=== PATIENT | female | born 1940 | race Two or more races ===

== ENCOUNTER 2025-04-22 23:53 | Inpatient (IN) | payer MEDICARE, MEDICAID, SELFPAY ==
--- NOTE | 2025-04-22 23:56 | PD.EDWEAK ---
ED Weakness RME/HPI General Chief complaint: Shortness of Breath/Dyspnea Stated complaint: WEAKNESS/NAUSEA/VOMITING Time Seen by Provider: 04/22/25 23:59 Arrival date/time: 04/22/25 23:53 RME / HPI RME / HPI Narrative: See MDM for Dr. Schwab's HPI Documentation. Related Data Home Medications ?Medication ?Instructions ?Recorded ?Confirmed amlodipine 10 mg tablet 10 mg PO QDAY 11/07/22 12/20/23 atorvastatin 40 mg tablet 40 mg PO QDAY 11/07/22 12/20/23 isosorbide mononitrate 60 mg 60 mg PO DAILY 11/07/22 12/20/23 tablet,extended release 24 hr losartan 100 mg tablet 100 mg PO QDAY 11/07/22 12/20/23 sucroferric oxyhydroxide 500 mg 500 mg PO TIDWM 11/07/22 12/20/23 chewable tablet (Velphoro) vitamin B complex-vitamin C-folic 1 tab PO QDAY 11/07/22 12/20/23 acid 0.8 mg tablet (Rosalinda-Franklin) thiamine HCl (vitamin B1) 100 mg 100 mg PO DAILY 10/11/23 12/20/23 tablet acetaminophen 300 mg-codeine 30 mg 0.5 tab PO BID PRN Pain 12/20/23 12/20/23 tablet Previous Rx's ?Medication ?Instructions ?Recorded levetiracetam 250 mg tablet 250 mg PO BID #60 tabs 12/21/23 Allergies Allergy/AdvReac Type Severity Reaction Status Date / Time Penicillins Allergy Intermediate Rash Verified 06/29/20 08:33 Review of Systems Review of Systems Systems Reviewed: All systems reviewed, normal except as documented Past Medical History Past Medical History NEUROLOGIC: Positive Neurological Disorders and Cerebrovascular Accident CARDIAC: Positive Cardiac Disorders, Coronary Artery Disease, Hypercholesterolemia, Congestive Heart Failure and Hypertension RESPIRATORY: Positive Pneumonia GASTROINTESTINAL: Positive Gastrointestinal Disorders (gastritis) and Gall Bladder Disease GENITOURINARY: Positive Genitourinary Disorders, Renal Disease and Dialysis MUSCULOSKELETAL: Positive Musculoskeletal Disorders and Arthritis ENDOCRINE: Positive Endocrine Disorders and Diabetes Mellitus Type 2 HEMATOLOGIC: Positive Blood Disorders and Anemia OTHER HISTORY: Positive Measles and Mumps Surgical History SURGICAL: Positive Cardiac Surgery and Coronary Stent ED Exam Narrative Physical exam: See MDM for Dr. Schwab's Exam Documentation. Course Course Course Narrative: CXR is ordered for determining the etiology of shortness of breath. Quality Measures none Orders Category Date Time Status Admit to Inpatient Status Routine Admission 04/23/25 02:24 Active Patient Condition Routine Admission 04/23/25 02:23 Ordered Aspiration precautions NOW Care 04/23/25 02:26 Active Bedside Blood Glucose Q6HR Care 04/23/25 02:28 Active Bedside COVID-19 Antigen Test NOW Care 04/22/25 23:56 Active Bedside Influenza A&B Antigen Test NOW Care 04/22/25 23:57 Completed COVID-19 Screening Questionnaire NOW Care 04/23/25 02:42 Active Continuous Pulse Oximetry QSHIFT Care 04/23/25 02:23 Active Decision to Admit X1 Care 04/23/25 02:42 Active EKG (ED ONLY) *Do not use* NOW Care 04/22/25 23:58 Completed Incentive Spirometry Treatment .q2h w/a Care 04/23/25 02:23 Active May take PO meds w/sips of H2O NEEDED Care 04/23/25 02:23 Active Miscellaneous Nursing Order NOW Care 04/23/25 02:23 Active NPO NOW Care 04/23/25 02:26 Active Notify provider NEEDED Care 04/23/25 02:23 Active Obtain weight daily Care 04/23/25 02:25 Active Occult Blood,Stool (Nursing) NOW Care 04/23/25 02:28 Active Saline [Insert IV] NOW Care 04/22/25 23:57 Active Sequential Compression Device QSHIFT Care 04/23/25 02:28 Active Straight [In and Out Catheter] X1 Care 04/22/25 23:57 Active Transfuse,blood/blood products NOW Care 04/23/25 00:50 Active Consult to Gastroenterology Routine Cons 04/23/25 02:30 Ordered Consult to Nephrology Stat Cons 04/23/25 01:27 Ordered Diet NPO (NOW) Diet 04/23/25 02:26 Active EKG (ED Only) Stat Exams 04/22/25 23:58 Ordered XR chest 1V portable Stat Exams 04/22/25 23:58 Taken ABG [Arterial Blood Gas] Stat Lab 04/23/25 01:04 Completed BNP [B-Type Natriuretic Peptide] Stat Lab 04/22/25 23:58 Completed Beta Hydroxybutyrate Stat Lab 04/22/25 23:58 Completed Bilirubin,Direct Stat Lab 04/22/25 23:58 Completed Blood Culture (Lab) Stat Lab 04/22/25 23:58 Received CBC AM DRAW Lab 04/23/25 05:00 Ordered CBC AM DRAW Lab 04/24/25 05:00 Ordered CBC AM DRAW Lab 04/25/25 05:00 Ordered CBC Stat Lab 04/22/25 23:58 Completed CMP [Comprehensive Metabolic Panel] Stat Lab 04/22/25 23:58 Completed CRP [C-Reactive Protein] Stat Lab 04/22/25 23:58 Completed Comprehensive Metabolic Panel AM DRAW Lab 04/23/25 05:00 Ordered Comprehensive Metabolic Panel AM DRAW Lab 04/24/25 05:00 Ordered Comprehensive Metabolic Panel AM DRAW Lab 04/25/25 05:00 Ordered D-Dimer Stat Lab 04/22/25 23:58 Completed ESR [Sed Rate (ESR)] Stat Lab 04/22/25 23:58 Completed Lactate (Lactic Acid) Stat Lab 04/22/25 23:58 Results Lipase Stat Lab 04/22/25 23:58 Completed Magnesium AM DRAW Lab 04/23/25 05:00 Ordered Magnesium Stat Lab 04/22/25 23:58 Completed Partial Thromboplastin Time AM DRAW Lab 04/24/25 05:00 Ordered Phosphorous AM DRAW Lab 04/23/25 05:00 Ordered Procalcitonin Stat Lab 04/22/25 23:58 Completed Prothrombin Time with INR AM DRAW Lab 04/24/25 05:00 Ordered Troponin I Stat Lab 04/22/25 23:58 Completed Type and Screen Stat Lab 04/23/25 00:47 Results UA, C/S IF [Urinalysis, C/S if Indicated] Stat Lab 04/22/25 23:59 Ordered prbc [Red Blood Cells] Stat Lab 04/23/25 00:47 Results Acetaminophen Ivpb [Ofirmev Inj] Med 04/23/25 01:11 Discontinued 1,000 mg in 100 ml IV X1 Acetaminophen Supp [Tylenol Supp] Med 04/23/25 02:23 Active 650 mg HI Q6HR PRN Albuterol/Ipratr Rt Nikki [Duoneb Rt Nikki] Med 04/23/25 02:23 Active 3 ml INH Q2HR PRN Albuterol/Ipratr Rt Nikki [Duoneb Rt Nikki] Med 04/22/25 23:57 Discontinued 3 ml INH X1 ONE Dextrose 50% Syr [D50w Syringe Abboject] Med 04/23/25 02:28 Active 25 ml IV Q15MIN PRN Dextrose 50% Syr [D50w Syringe Abboject] Med 04/23/25 02:28 Active 50 ml IV Q15MIN PRN Furosemide Inj [Lasix Inj] Med 04/22/25 23:57 Discontinued 80 mg IVP X1 ONE Glucagon Inj Med 04/23/25 02:28 Active 1 mg IM Q15MIN PRN HYDROmorphone INJ [Dilaudid Inj] Med 04/23/25 02:23 Active 0.5 mg IVP Q4H PRN INSULIN LISPRO (AdmeLOG) [HumaLOG] Med 04/23/25 06:00 Active See Protocol SC Q6HR KCL 10% Liq UDC 15 ML Med 04/23/25 02:44 Discontinued 40 meq PO X1 ONE Ketorolac Inj [Toradol Inj] Med 04/23/25 01:11 Discontinued 15 mg IVP X1 ONE MethylPREDNISolone.* [SoluMEDROL Inj] Med 04/22/25 23:57 Discontinued 125 mg IVP X1 ONE Morphine Inj Med 04/22/25 23:57 Discontinued 2 mg IVP X1 ONE Nitroglycerin Oint 2% [Nitro-paste Oint 2%] Med 04/22/25 23:57 Discontinued 2 inch TOP X1 ONE Pantoprazole Inj [Protonix Inj] Med 04/23/25 09:00 Active 40 mg IVP Q12HR amLODIPine BESYLATE [Norvasc] Med 04/23/25 09:00 Active 10 mg PO QDAY levETIRAcetam [Keppra] Med 04/23/25 09:00 Active 250 mg PO BID traMADol HCL [Ultram] Med 04/23/25 02:23 Active 50 mg PO Q6HR PRN Code Status Routine Oth 04/23/25 02:23 Ordered Oxygen Delivery DAILY RT 04/23/25 02:26 Active Vital Signs Vital signs: Vital Signs Temperature 100.8 F H 04/22/25 23:57 Pulse Rate 105 H 04/22/25 23:57 Respiratory Rate 16 04/22/25 23:57 Blood Pressure 187/72 H 04/22/25 23:57 Pulse Oximetry (%) 94 L 04/22/25 23:57 Oxygen Delivery Method Nasal Cannula 04/22/25 23:57 Oxygen Flow Rate 6 04/22/25 23:57 Weakness MDM Narrative MDM Narrative:: Scribe Attestation: I, Kavitha Guzmán, am scribing for and in the presence of Dr. Schwab. This section includes all my notes and documentations, including HPI, PE, and ED course. Demetrius Schwab MD HPI: 84 y/o female with Hx of ESRD with Dialysis, HTN, CAD, COPD, and Type II DM BIBA with sudden severe shortness of breath. Reports several days of malaise and fatigue and vomiting. No obvious fever. No other complaints. ROS: All negative except as documented in HPI. Physical Exam: General: Alert and oriented. In severe respiratory distress. Fever noted. Hypoxia noted. Eyes: Conjunctivae and lids clear. PERRL. EOMI. ENT: No nasal congestion. Neck: Supple. No carotid bruit. No JVD. Heart: Sinus tachycardia noted. Lungs: In severe respiratory distress. Decreased air movement with wheezing and severe Rales. Abdomen: Soft and nontender. Normal bowel sounds. No distension. No rebound or guarding. Back: No CVA tenderness. Skin: Warm and dry. Neuro: Alert and oriented X 3. Cranial nerves II to XII grossly normal. No peripheral motor deficits. I reviewed EMS notes. I reviewed all diagnostic test results: My interpretation of the EKG is: Sinus tachycardia (105 bpm) with nonspecific ST-T changes. My interpretation of the chest x-ray is bilateral infiltrates. Blood tests remarkable for WBC 11.1, Hgb 6.7, K 3.4, Cr 3.8, Glu 287, lactic acid 3.6, BNP 1886, CRP 3.0, ESR 38, D-dimer 1030, and LFT elevation. Covid/Influenza: Positive COVID. Urine specimen pending. At this point, diagnoses include: Acute respiratory failure with hypoxia, COVID, Severe anemia, ESRD (end stage renal disease), Hypokalemia Treatment here included: Oxygen Toradol 15 mg IV and Tylenol 1000 mg IV Morphine 2 mg IV and Lasix 80 mg IV and topical NTG Solu-Medrol to 25 mg IV and DuoNeb Oral KCl 40 mEq Transfusion ordered Some improvement noted. 0123: I discussed the case with our Dr. Hui, patient's cash surrender calculator. About the presentation and exam and diagnostics and treatments here. And need of further care in the hospital. Recommended admission to hospitalist service. 0128: I discussed the case with our hospitalist service. About the presentation and exam and diagnostics and treatments here. And need of further care in the hospital. Agreed to accept the patient. Demetrius Schwab MD Patient data External records reviewed:: [facility] previous records (Reviewed prior ED records from 12/20/23. Patient was seen for AMS (altered mental status).) and EMS form Clinical information provided by:: patient and EMS Social determinants that could affect healthcare access:: none Patient has the following chronic illnesses:: Coronary Artery Disease, Hypercholesterolemia, Congestive Heart Failure, Hypertension, Gastritis, Gall Bladder Disease, Renal Disease and Dialysis, Arthritis, Diabetes Mellitus Type 2, Anemia How is presenting disease/condition affected by chronic disease/condition?: exacerbated by Evaluation data The following diagnostics were reviewed and interpreted by me:: lab results, radiology exam(s) and EKG tracing(s) (My interpretation of the EKG is: Sinus tachycardia (105 bpm) with nonspecific ST-T changes. Demetrius Schwab MD) Lab and/or radiology exams considered but not ordered:: None Interpretation Summary: I reviewed all diagnostic test results: My interpretation of the EKG is: Sinus tachycardia (105 bpm) with nonspecific ST-T changes. My interpretation of the chest x-ray is bilateral infiltrates. Blood tests remarkable for WBC 11.1, Hgb 6.7, K 3.4, Cr 3.8, Glu 287, lactic acid 3.6, BNP 1886, CRP 3.0, ESR 38, D-dimer 1030, and LFT elevation. Covid/Influenza: Positive COVID. Medications / Prescriptions Medications or Prescriptions considered but not ordered:: None Medication administrations:: Medication Administration History Acetaminophen (Acetaminophen Supp 650 Mg Supp) 650 mg HI Q6HR PRN PRN Reason: Fever > 100.4 or pain 1-3(mild Stop: 05/23/25 02:22 Albuterol/Ipratropium (Albuterol/Ipratropium (Duoneb) Rt Nikki 3 Ml Nebu) 3 ml INH Q2HR PRN PRN Reason: SHORTNESS OF BREATH OR WHEEZE Stop: 05/23/25 02:22 Amlodipine Besylate (Amlodipine Besylate 5 Mg Tablet) 10 mg PO QDAY MELECIO Stop: 05/23/25 08:59 Dextrose (Dextrose 50%-Water Inj 50 Ml Syringe) 25 ml IV Q15MIN PRN PRN Reason: BG 50-70 responsive npo pt Stop: 05/23/25 02:27 Dextrose (Dextrose 50%-Water Inj 50 Ml Syringe) 50 ml IV Q15MIN PRN PRN Reason: BG <50 OR BG <70 & pt unresponsive Stop: 05/23/25 02:27 Glucagon (Glucagon Inj 1 Mg Vial) 1 mg IM Q15MIN PRN PRN Reason: BG <70, and no IV access Hydromorphone HCl (Hydromorphone Inj 2 Mg/Ml Vial) 0.5 mg IVP Q4H PRN PRN Reason: PAIN SCALE 7-10(Mod-Sev Stop: 04/28/25 02:22 Insulin Human Lispro (Insulin Lispro (Admelog) 1 Unit/0.01 Ml Unit) 0 unit SC Q6HR MELECIO; Protocol Stop: 05/23/25 05:59 Levetiracetam (Levetiracetam 250 Mg Tablet) 250 mg PO BID MELECIO Stop: 05/23/25 08:59 Pantoprazole Sodium (Pantoprazole Inj 40 Mg Vial) 40 mg IVP Q12HR MELECIO Stop: 05/23/25 08:59 Tramadol HCl (Tramadol Hcl 50 Mg Tablet) 50 mg PO Q6HR PRN PRN Reason: PAIN SCALE 4-6 (Moderate Stop: 04/28/25 02:22 Discontinued Medications Albuterol/Ipratropium (Albuterol/Ipratropium (Duoneb) Rt Nikki 3 Ml Nebu) 3 ml INH X1 ONE Stop: 04/22/25 23:58 Last Admin: 04/23/25 00:51 Dose: 3 ml Documented By: SC Furosemide (Furosemide Inj 10 Mg/Ml 4ml Vial) 80 mg IVP X1 ONE Stop: 04/22/25 23:58 Last Admin: 04/23/25 00:31 Dose: 80 mg Documented By: TRUMAN Acetaminophen (Ofirmev Inj) 1,000 mg in 100 mls @ 250 mls/hr IV X1 ONE Stop: 04/23/25 01:34 Last Admin: 04/23/25 02:29 Dose: 250 mls/hr Documented By: TRUMAN Ketorolac Tromethamine (Ketorolac Inj 30 Mg/Ml Vial) 15 mg IVP X1 ONE Stop: 04/23/25 01:12 Last Admin: 04/23/25 02:30 Dose: 15 mg Documented By: TRUMAN Methylprednisolone Sodium Succinate (Methylprednisolone Sod Succ 62.5 Mg/Ml 2ml Vial) 125 mg IVP X1 ONE Stop: 04/22/25 23:58 Last Admin: 04/23/25 00:31 Dose: 125 mg Documented By: TRUMAN Morphine Sulfate (Morphine Sulf Inj 10 Mg/Ml Vial) 2 mg IVP X1 ONE Stop: 04/22/25 23:58 Last Admin: 04/23/25 00:32 Dose: 2 mg Documented By: TRUMAN Nitroglycerin (Nitroglycerin Oint 2% 1 Inch Packet) 2 inch TOP X1 ONE Stop: 04/22/25 23:58 Last Admin: 04/23/25 00:32 Dose: 2 inch Documented By: TRUMAN Potassium Chloride (Potassium Chloride 10% 20 Meq/15 Ml Udc) 40 meq PO X1 ONE Stop: 04/23/25 02:45 Treatment here from me included: Oxygen Toradol 15 mg IV and Tylenol 1000 mg IV Morphine 2 mg IV and Lasix 80 mg IV and topical NTG Solu-Medrol to 25 mg IV and DuoNeb Oral KCl 40 mEq Transfusion ordered Consultations Consultation(s) initiated? (list below): Yes Consultation #1 (Physician, Specialty, Details): I discussed the case with Dr. Hui. About the presentation and exam and diagnostics and treatments here. And need of further care in the hospital. Recommended admission to hospitalist service. Time: 01:23 Consultation #2 (Physician, Specialty, Details): I discussed the case with our hospitalist. About the presentation and exam and diagnostics and treatments here. And need of further care in the hospital. They agreed to accept the patient. Time: 01:28 Diagnosis Weakness Differential Diagnosis: acute myocardial infarction, anemia, hypoglycemia, hypothyroidism, rhabdomyolysis, sepsis, dehydration and other (Pneumonia, CHF exacerbation, Pulmonary Edema, COVID, Influenza) Most likely diagnosis given after review of the tests above:: At this point, diagnoses include: Acute respiratory failure with hypoxia, COVID, Severe anemia, ESRD (end stage renal disease), Hypokalemia Admission Indicated Admission indicated?: indicated Explain why admission is indicated or not indicated:: Acute respiratory failure with hypoxia, COVID, Severe anemia, ESRD (end stage renal disease), Hypokalemia Admission Request Was there a request for admission?: Yes Admission Attestation Admission request attestation: Discussed case with Hospitalist service regarding admission. Discussed patients ED course, exam findings, labs, and radiology results. Agreed to accept the patient for admission. Disposition Plan Disposition Plan: Admit Discharge Plan Plan Patient Disposition: Admit Acute Care w/in Hospital Prescriptions/Referrals Prescriptions/Med Rec: No Action atorvastatin 40 mg Tablet 40 mg PO QDAY isosorbide mononitrate 60 mg tablet extended release 24 hr 60 mg PO DAILY Patient Comments: take 1 tablet by mouth once daily amlodipine 10 mg Tablet 10 mg PO QDAY Rosalinda-Franklin 0.8 mg Tablet 1 tab PO QDAY losartan 100 mg Tablet 100 mg PO QDAY Velphoro 500 mg tablet,chewable 500 mg PO TIDWM thiamine HCl (vitamin B1) 100 mg tablet 100 mg PO DAILY Patient Comments: take 1 tablet by mouth once daily acetaminophen-codeine 300-30 mg tablet 0.5 tab PO BID PRN (Reason: Pain) Patient Comments: take 1/2 tablet by mouth twice a day if needed for pain levetiracetam 250 mg tablet 250 mg PO BID Qty: 60 0RF Problem List Clinical Impression: Acute respiratory failure with hypoxia, COVID, Severe anemia, ESRD (end stage renal disease), Hypokalemia, LFT elevation, Hyperglycemia Patient/Caregiver Discharge Instructions Print Language: Panamanian Stand Alone Forms: Diana Award Info., Patient Portal Info Letter
[2025-04-22 23:57] VITALS: BP 187/72; PULSE 105; RESP 16; TEMP 38.2; O2SAT 94
--- NOTE | 2025-04-22 23:58 | XR_ITS ---
Examination: AP chest single view Technique AP portable upright chest single view Date and time: April 23, 2025 0008 hours, comparison December 20, 2023 INDICATIONS: Shortness of breath today. FINDINGS: Mild enlargement cardiac contour Prominent vascular congestion. Diffuse edema and/or pneumonia throughout the lungs Prominent osteopenia IMPRESSION: Mild enlargement cardiac contour. Diffuse edema and/or pneumonia throughout the lungs, clinical correlation advised
[2025-04-23] VITALS (42 sets, daily range): BP systolic 120–196; BP diastolic 62–115; PULSE 56–116; RESP 10–26; TEMP 35.3–38.2; O2SAT 91–100; BMI 19.0; BMI 18.9
[2025-04-23 00:25] LABS: Lactate (Lactic Acid) 2.6 mMol/L (0.4-2.0)
[2025-04-23 00:28] LABS: Beta Hydroxybutyrate 0.1 mmol/L (<0.6)
[2025-04-23] MEDS: MethylPREDNISolone SOD SUCC 62.5 MG/ML 2ML VIAL 125 MG IVP (00:31)
[2025-04-23] MEDS: FUROSEMIDE INJ 10 MG/ML 4ML VIAL 80 MG IVP (00:31)
[2025-04-23 00:32] LABS: Basophils # (Auto) 0.0 Thou/mm3 (0.0-0.2); Basophils % (Auto) 0 % (0-2.5); Eosinophils # (Auto) 0.1 Thou/mm3 (0.0-0.5); Eosinophils % (Auto) 1 % (0-10); Hematocrit 21.1 % (36.0-46.0); Immature Granulocytes Auto 0.07 Thou/mm3 (0.00-0.00); Lymphocytes # (Auto) 1.2 Thou/mm3 (1.0-4.8); Lymphocytes % (Auto) 11 % (10-50); Mean Corpuscular HGB Conc 31.8 g/dl (31.0-37.0); Mean Corpuscular Hemoglobin 30.6 pg (25.0-35.0); Mean Corpuscular Volume 96 fL (80-100); Monocytes # (Auto) 0.4 Thou/mm3 (0.0-0.8); Monocytes % (Auto) 4 % (0-12); Neutrophils # (Auto) 9.2 Thou/mm3 (1.8-7.7); Neutrophils % (Auto) 83 % (37-80); Nucleated Red Blood Cell # 0.00 Thou/mm3 (0.00-0.00); Nucleated Red Blood Cell % 0 /100 WBC (0); Platelet Count 196 Thou/mm3 (140-440); RDW Standard Deviation 52.0 fL (36.4-46.3); Red Blood Count 2.19 Miln/mm3 (4.00-5.20); White Blood Count 11.1 Thou/mm3 (3.6-11.0)
[2025-04-23] MEDS: MORPHINE SULF INJ 10 MG/ML VIAL 2 MG IVP (00:32)
[2025-04-23] MEDS: NITROGLYCERIN OINT 2% 1 INCH PACKET 2 INCH TOP (00:32)
[2025-04-23 00:42] LABS: Hemoglobin 6.7 g/dL (12.0-16.0)
[2025-04-23 00:43] LABS: Sed Rate (ESR) 38 mm/hr (0-30)
[2025-04-23 00:44] LABS: B-Type Natriuretic Peptide 1886 pg/mL (0-100)
[2025-04-23] MEDS: ALBUTEROL/IPRATROPIUM (Duoneb) RT SOL 3 ML NEBU INH (00:51)
[2025-04-23 00:52] LABS: Alanine Aminotransferase 54 U/L (10-49); Albumin, Serum 3.6 gm/dL (3.4-4.8); Albumin/Globulin Ratio 1.2 (1.2-2.2); Alkaline Phosphatase 248 U/L (46-116); Anion Gap 13 (7-16); Aspartate Amino Transferase 55 U/L (0-34); BUN/Creatinine Ratio 23 Ratio (12-20); Bilirubin,Direct 0.1 mg/dL (0.0-0.3); Bilirubin,Total 0.4 mg/dL (0.3-1.2); Blood Urea Nitrogen 89 mg/dL (9-23); C-Reactive Protein 3.0 mg/dL (0.0-0.9); Calcium 9.5 mg/dL (8.3-10.6); Calcium (Corrected) 9.8 mg/dL (8.5-10.1); Carbon Dioxide 32.6 mMol/L (20.0-31.0); Chloride 91 mMol/L (98-107); Creatinine (Component) 3.8 mg/dL (0.6-1.3); Estimated Creatinine Clearance 6.7 mL/min (>60); Globulin 3.1 gm/dL (2.3-3.5); Glucose 287 mg/dL (74-106); Lipase 36 U/L (12-53); Magnesium 1.9 mg/dL (1.6-2.6); Osmolality,Calculated 311 (275-295); Potassium 3.4 mMol/L (3.4-5.1); Procalcitonin 0.92 ng/ml (0.0-0.49); Sodium 137 mMol/L (136-145); Total Protein 6.7 gm/dL (5.7-8.2); Troponin I 0.027 ng/mL (0.0-0.045); eGFR 11 See Note
[2025-04-23 01:00] LABS: D-Dimer 1030 ng/mL (<600)
[2025-04-23 01:11] LABS: Base Excess 8 (-3-3); HCO3 33 mEq/L (20-26); O2 Saturation 97 % (91-98); PCO2 50 mmHg (32.0-48.0); PO2 90 mmHg (83-108); pH, Arterial 7.43 (7.35-7.45)
[2025-04-23 01:12] LABS: Allen Test Performed/OK; Inspired O2, VO2 Liters 6 L/min; Puncture Site Left Radial
[2025-04-23] MEDS: ACETAMINOPHEN IVPB 1,000 MG/100 ML VIAL 250 MG IV (02:29)
[2025-04-23] MEDS: KETOROLAC INJ 30 MG/ML VIAL 15 MG IVP (02:30)
--- NOTE | 2025-04-23 02:35 | PD.RESHP ---
Documentation for date of: 04/23/25 HPI History of Present Illness Chief complaint: Weaknes, N/V History of present illness: 84 y/o F with PMHx significant for ESRD (//Sun), CAD (with stents) HTN, diabetes with peripheral neuropathy, dementia, seizures presents to ED from home with chief complaint of weakness and nausea/vomiting x 2 days. Patient is altered at baseline and poor historian, history taken from chart review and patient's daughter. Patient was in her usual state of health till approximately 2 days ago when she had progressive weakness/fatigue. Patient has also had nausea, multiple episodes of vomiting. To excessive vomiting witnessed in the ED, yellow in color, no signs of bleeding. Patient resting comfortably at time of admission. ED COURSE: Labs significant for: WC 11.1, hemoglobin 6.7. BUN 89, significantly above patient's baseline. Lactic acid 2.6. ABG showed pH 7.43, PCO2 50, PO2 90. CRP 3.0, Pro-Gil 0.92. BMP 0.886, urinalysis negative. T. bili 0.1, AST 55, ALT 54, ALP 248. COVID-positive, influenza negative. Imaging significant for: Chest x-ray showing diffuse consolidations. Patient received steroids, Lasix IV x 1, nitro, DuoNebs in the ED. 2 units PRBC ordered to be transfused. Temperature 100.8. Satting well on 3 L/min O2. Patient had no urinary output. PMH: ESRD, CAD, HTN, diabetes, peripheral neuropathy, dementia, seizures PSH: Right upper extremity fistula placement SH: Unknown Allergies:?Penicillins Medications: Amlodipine, atorvastatin, isosorbide mononitrate, Keppra, losartan, Rosalinda-Franklin, Velphoro Review of Systems Review of Systems Systems Reviewed: All systems reviewed, normal except as documented Past Medical History Past Medical History Comments PMH COMMENT: PMH: ESRD, CAD, HTN, diabetes, peripheral neuropathy, dementia, seizures PSH: Right upper extremity fistula placement SH: Unknown Allergies:?Penicillins Medications: Amlodipine, atorvastatin, isosorbide mononitrate, Keppra, losartan, Rosalinda-Franklin, Velphoro Exam Vital Signs Temp Pulse Resp BP Pulse Ox O2 Del Method O2 Flow Rate 100.8 F H 101 H 26 H 188/84 H 100 Nasal Cannula 6 04/23/25 00:57 04/23/25 00:57 04/23/25 00:57 04/23/25 00:57 04/23/25 00:57 04/23/25 00:57 04/23/25 00:57 Narrative Exam PE: Gen: Well-developed and well-nourished. No distress. HEENT: NCAT, PERRLA, EOMI, MMM, anicteric conjunctivae. CVS: normal S1 and S2. RRR. No M/R/G. Resp: Poor lung sounds throughout. Diffuse end expiratory wheezing. Rhonchi, most prominent in the left lung and bilateral bases. No crackles. Abd: soft, non-distended. Mild abdominal tenderness LUQ and epigastric region. PEG tube. MSK: Good ROM in BUE & BLE. No edema or rash. Neuro: CN II-XII grossly intact. Strength 5/5 in BUE & BLE. Alert and oriented x1, follows commands, answers questions but unreliable. Psych: appropriate mood and affect. Results: Labs 04/23/25 00:14 04/23/25 00:14 Labs: Short CBC 04/23/25 Range/Units 00:14 WBC 11.1 H (3.6-11.0) Thou/mm3 Hgb 6.7 L* (12.0-16.0) g/dL Hct 21.1 L* (36.0-46.0) % Plt Count 196 (140-440) Thou/mm3 BMP 04/23/25 00:14 Sodium 137 Potassium 3.4 Chloride 91 L Carbon Dioxide 32.6 H BUN 89 H Creatinine 3.8 H Glucose 287 H Calcium 9.5 Cardiac Enzymes 04/23/25 Range/Units 00:14 Troponin I 0.027 (0.0-0.045) ng/mL Liver Function 04/23/25 Range/Units 00:14 Total Bilirubin 0.4 (0.3-1.2) mg/dL Direct Bilirubin 0.1 (0.0-0.3) mg/dL AST 55 H (0-34) U/L ALT 54 H (10-49) U/L Alkaline Phosphatase 248 H (46-116) U/L Albumin 3.6 (3.4-4.8) gm/dL ABG Interpretation ABG results: 04/23/25 01:04 ABG pH 7.43 ABG pCO2 50 H ABG pO2 90 ABG HCO3 33 H ABG O2 Saturation 97 ABG Base Excess 8 H Quality Measures Quality Measures VTE prophylaxis Advance care planning discussed with:: patient and child Medications Home Medications and Allergies Home Medications ?Medication ?Instructions ?Recorded ?Confirmed ?Type amlodipine 10 mg tablet 10 mg PO QDAY 11/07/22 12/20/23 History atorvastatin 40 mg tablet 40 mg PO QDAY 11/07/22 12/20/23 History isosorbide mononitrate 60 mg 60 mg PO DAILY 11/07/22 12/20/23 History tablet,extended release 24 hr losartan 100 mg tablet 100 mg PO QDAY 11/07/22 12/20/23 History sucroferric oxyhydroxide 500 mg 500 mg PO TIDWM 11/07/22 12/20/23 History chewable tablet (Velphoro) vitamin B complex-vitamin C-folic 1 tab PO QDAY 11/07/22 12/20/23 History acid 0.8 mg tablet (Rosalinda-Franklin) thiamine HCl (vitamin B1) 100 mg 100 mg PO DAILY 10/11/23 12/20/23 History tablet acetaminophen 300 mg-codeine 30 mg 0.5 tab PO BID PRN Pain 12/20/23 12/20/23 History tablet Allergies Allergy/AdvReac Type Severity Reaction Status Date / Time Penicillins Allergy Intermediate Rash Verified 06/29/20 08:33 Visit Medications Acetaminophen (Acetaminophen Supp 650 Mg Supp) 650 mg MN Q6HR PRN PRN Reason: Fever > 100.4 or pain Stop: 05/23/25 02:22 Albuterol/Ipratropium (Albuterol/Ipratropium (Duoneb) Rt Nikki 3 Ml Nebu) 3 ml INH Q2HR PRN PRN Reason: SHORTNESS OF BREATH OR WHEEZE Stop: 05/23/25 02:22 Amlodipine Besylate (Amlodipine Besylate 5 Mg Tablet) 10 mg PO QDAY MELECIO Stop: 05/23/25 08:59 Dextrose (Dextrose 50%-Water Inj 50 Ml Syringe) 25 ml IV Q15MIN PRN PRN Reason: BG 50-70 responsive npo pt Stop: 05/23/25 02:27 Dextrose (Dextrose 50%-Water Inj 50 Ml Syringe) 50 ml IV Q15MIN PRN PRN Reason: BG <50 OR BG <70 & pt unresponsive Stop: 05/23/25 02:27 Glucagon (Glucagon Inj 1 Mg Vial) 1 mg IM Q15MIN PRN PRN Reason: BG <70, and no IV access Hydromorphone HCl (Hydromorphone Inj 2 Mg/Ml Vial) 0.5 mg IVP Q4H PRN PRN Reason: PAIN SCALE 7-10(Mod-Sev Stop: 04/28/25 02:22 Insulin Human Lispro (Insulin Lispro (Admelog) 1 Unit/0.01 Ml Unit) 0 unit SC Q6HR MELECIO; Protocol Stop: 05/23/25 05:59 Levetiracetam (Levetiracetam 250 Mg Tablet) 250 mg PO BID MELECIO Stop: 05/23/25 08:59 Pantoprazole Sodium (Pantoprazole Inj 40 Mg Vial) 40 mg IVP Q12HR MELECIO Stop: 05/23/25 08:59 Tramadol HCl (Tramadol Hcl 50 Mg Tablet) 50 mg PO Q6HR PRN PRN Reason: PAIN SCALE 4-6 (Moderate Stop: 04/28/25 02:22 Discontinued Medications Albuterol/Ipratropium (Albuterol/Ipratropium (Duoneb) Rt Nikki 3 Ml Nebu) 3 ml INH X1 ONE Stop: 04/22/25 23:58 Last Admin: 04/23/25 00:51 Dose: 3 ml Furosemide (Furosemide Inj 10 Mg/Ml 4ml Vial) 80 mg IVP X1 ONE Stop: 04/22/25 23:58 Last Admin: 04/23/25 00:31 Dose: 80 mg Acetaminophen (Ofirmev Inj) 1,000 mg in 100 mls @ 250 mls/hr IV X1 ONE Stop: 04/23/25 01:34 Last Admin: 04/23/25 02:29 Dose: 250 mls/hr Ketorolac Tromethamine (Ketorolac Inj 30 Mg/Ml Vial) 15 mg IVP X1 ONE Stop: 04/23/25 01:12 Last Admin: 04/23/25 02:30 Dose: 15 mg Methylprednisolone Sodium Succinate (Methylprednisolone Sod Succ 62.5 Mg/Ml 2ml Vial) 125 mg IVP X1 ONE Stop: 04/22/25 23:58 Last Admin: 04/23/25 00:31 Dose: 125 mg Morphine Sulfate (Morphine Sulf Inj 10 Mg/Ml Vial) 2 mg IVP X1 ONE Stop: 04/22/25 23:58 Last Admin: 04/23/25 00:32 Dose: 2 mg Nitroglycerin (Nitroglycerin Oint 2% 1 Inch Packet) 2 inch TOP X1 ONE Stop: 04/22/25 23:58 Last Admin: 04/23/25 00:32 Dose: 2 inch Assessment & Plan Plan 84 y/o F with PMHx significant for ESRD (), CAD (with stents) HTN, diabetes with peripheral neuropathy, dementia, seizures presents to ED from home with chief complaint of weakness and nausea/vomiting x 2 days admitted for symptomatic anemia. #Acute symptomatic anemia #Suspected GI bleed Patient hemoglobin 6.7 on admission, significantly below patient's baseline. Patient symptomatic with increased weakness, nausea and vomiting x 2 days. No signs of bleeding in the vomitus. No reports of bloody stool. However patient's BUN significant elevated above patient baseline. BUN/creatinine ratio increased from 7 to 23. Mild tenderness to palpation in LUQ and epigastric region of abdomen. ED ordered 2 units PRBCs to be transfused. - Posttransfusion H&H, follow-up - GI consulted, appreciate recommendations - N.p.o. except for p.o. meds - Monitor hemoglobin, transfuse as appropriate - Avoid NSAIDs - Protonix 40 mg IV twice daily #COVID pneumonia Patient in mild respiratory distress on admission. Saturating well on 3 L O2, does not use O2 at home. COVID test positive, influenza test negative. Chest x-ray shows diffuse consolidations. CRP 3.0, Pro-Gil 0.92, lactic acid 2.6. WBC 11.1. On admission patient tachypneic, tachycardic, fever 100.8 degrees. Received steroids, Lasix, nitro, DuoNebs in the ED. Holding off fluids in setting of ESRD patient, BNP 1886. ABG showed pH 7.43, PCO2 50, PO2 90 Sofa score 2 without considering kidney disease - O2, titrate as needed to maintain saturations 92% - Remdesivir 200 mg IV x 1 followed by 100 mg daily x 2 days (started 04/23) - Isolation precautions - Trend lactate - Consider initiating aggressive COVID treatment if patient deteriorates - Blood cultures drawn, follow-up #ESRD () Patient history as stated. 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 Hui. Does not appear to produce urine. - Nephrology consulted, appreciate recommendations - Dialysis as per patient's usual schedule - Renally dose meds as appropriate #Diabetes with peripheral neuropathy Patient history as stated. A1c 4.5% as of 12/20/2023. - ISS - A1c ordered, follow-up #Seizure disorder Patient history as stated. No reports of recent breakthrough seizures. - Resume home Keppra 250 mg PEG tube twice daily #Hypertension Patient history as stated. - Resume patient's home amlodipine 10 mg PEG tube daily #CAD with stents Patient history as stated. Patient denies chest pain at this time. Troponin negative, EKG benign. - Hold any anticoag in setting of suspected GI bleed - Consider resuming home meds when appropriate #Dementia Patient history as stated. A&Ox1 at baseline. Follows commands, answers questions but answers unreliable. - Delirium precautions - Avoid sedatives or excessive pain management DVT prophylaxis: SCDs GI prophylaxis: Protonix Diet: N.p.o. Lines: Peripheral IV, pure wick Code status: DNR Plan of care discussed with attending Dr. Elva Guzman MD PGY?2 Attending Provider Attestation/Addendum I have examined the patient, reviewed labs and imaging findings, discussed the case with the resident(s), and reviewed entered orders. I agree with the plan of care as outlined in this note, with these additional summaries/recommendations: After examination of the patient and review of the clinical data, I feel that this patient needs admission to the hospital for further treatment and evaluation. Patient is a 84-year-old female with a medical history of severe dementia, CVA, CAD s/p stent, seizure disorder, primary hypertension, diabetes mellitus type 2, dyslipidemia, and end-stage renal disease on hemodialysis presents to [facility] emergency department on 04/22/2025 with chief complaints of nausea/vomiting and shortness of breath. Patient seen at bedside. Patient has severe underlying dementia and is not a reliable historian. Per patient's nurse she has had multiple episodes of vomitus while in the emergency room although no blood noted. On admission hemoglobin 6.7 and MCV 96. Patient diagnosed with symptomatic anemia and blood transfusion ordered by emergency room provider. Fecal occult blood test still pending at the time of this note although suspect secondary to GI bleed. Start IV fluids and Protonix. Follow-up posttransfusion H&H. Hold all chemical anticoagulation, aspirin, steroids, NSAIDs. Consult gastroenterology, recommendations appreciated. Patient was also found to have low-grade fever on admission with mild leukocytosis. Patient noted to have dense consolidations bilaterally on chest x-ray. COVID-positive. Patient diagnosed with COVID pneumonitis. Continue supplemental oxygen and supportive care. Start remdesivir. We will defer steroids for now in the setting of potential GI bleed. Consult in-house nephrology for end-stage renal disease and inpatient hemodialysis. Renally dose medications. Continue home Keppra for seizure disorder. Resume home antihypertensives. Start insulin sliding scale with Accu-Cheks for diabetes mellitus type 2. Target blood sugar 140-180 while hospitalized. Patient has history of CVA and CAD although does not appear to take aspirin. Awaiting home medication reconciliation, although we will hold chemical anticoagulation for now. Medical team spoke with patient's daughter who has medical power of contract attorney and confirmed patient is a DNR. Please see residents note for additional details and management. Dr. Elva MD
[2025-04-23 03:20] LABS: Reflex Lactate? Y
--- NOTE | 2025-04-23 05:12 | PC.RT ---
pt unable to do IS due to nausea/vomiting. Spo2 100% 3lpm, 63 HR, 20 RR
[2025-04-23 05:35] LABS: Path Review Blood Smear Sent to Pathologist
[2025-04-23] MEDS: POTASSIUM CHLORIDE 10% 20 MEQ/15 ML UDC 40 MEQ GT (06:06)
--- NOTE | 2025-04-23 09:41 | ECHO_ITS ---
Transthoracic Echo Report Ht (in): 57 Wt (lb): 88 Exam Location: Echo Lab Status: Inpatient Credentialer: Bettina Walton Indications: Procedure Performed: BP: 127 / 72 HR: 87 MEASUREMENTS (Male / Female) Normal Values 2D ECHO LV Diastolic Diameter PLAX 4.6 cm 4.2 - 5.9 / 3.9 - 5.3 cm LV Systolic Diameter PLAX 3.2 cm IVS Diastolic Thickness 1.1 cm 0.6 - 1.0 / 0.6 - 0.9 cm LVPW Diastolic Thickness 1.1 cm 0.6 - 1.0 / 0.6 - 0.9 cm LV Relative Wall Thickness 0.5 LVOT Diameter 1.8 cm LV Ejection Fraction MOD BP 40.5 % >= 55 % LV Cardiac Index MOD BP 2397.6 cm?/min?m? LV Ejection Fraction MOD 4C 37.1 % LV Cardiac Index MOD 4C 1930.4 cm?/min?m? LV Ejection Fraction 4C AL 37.4 % LV Cardiac Index 4C AL 2002.8 cm?/min?m? LV Ejection Fraction MOD 2C 45.1 % LV Cardiac Index MOD 2C 3063.9 cm?/min?m? LV Ejection Fraction 2C AL 45.8 % LV Cardiac Index 2C AL 3234.5 cm?/min?m? LA Volume Index 44.3 cm?/m? 16 - 28 cm?/m? Ascending Aorta Diameter 2.9 cm M-MODE AV Cusp Separation MM 1.5 cm DOPPLER AV Peak Velocity 139.0 cm/s AV Peak Gradient 7.7 mmHg AV Mean Gradient 4.0 mmHg AV Velocity Time Integral 28.1 cm LVOT Peak Velocity 77.3 cm/s LVOT Peak Gradient 2.4 mmHg LVOT Velocity Time Integral 14.5 cm LVOT Cardiac Index 2534.8 cm?/min?m? AV Area Cont Eq vti 1.3 cm? AV Area Cont Eq pk 1.4 cm? MV Peak Velocity 153.0 cm/s MV Peak Gradient 9.4 mmHg MV Mean Velocity 68.3 cm/s MV Mean Gradient 3.0 mmHg MV Area PHT 7.1 cm? Mitral E Point Velocity 61.1 cm/s Mitral A Point Velocity 136.0 cm/s Mitral E to A Ratio 0.4 TR Peak Velocity 269.5 cm/s TR Peak Gradient 29.1 mmHg PV Peak Velocity 55.7 cm/s PV Peak Gradient 1.2 mmHg FINDINGS Left Ventricle Severe global systolic function reduced.There is grade I diastolic dysfunction of the left ventricle (impaired relaxation pattern). The ejection fraction is visually estimated at 30-35%. Right Ventricle The right ventricle is normal in size and mildly reduced systolic function. The estimated right ventricular systolic pressure, 34 mmHg. RAP 3 Left Atrium The left atrial cavity size is mildly increased. Right Atrium The right atrium is normal by two-dimensional imaging, color flow and Doppler imaging with no structural abnormalities, no thrombus formation present. Atrial Septum The interatrial septum appears normal with no evidence of a shunt. Aorta The aorta is normal by two-dimensional, color flow and Doppler interrogation. Mitral Valve Mild [id number] mitral regurgitation. Mitral annular calcification. Aortic Valve Mild Aortic valve sclerosis. Mild aortic valve regurgitation. Tricuspid Valve The tricuspid valve is normal by two-dimensional, color flow and Doppler interrogation. There is mild tricuspid valve regurgitation. Pulmonic Valve The pulmonic valve is not well visualized. Mild pulmonic valve regurgitation. Vessels The pulmonary artery appears normal. The inferior vena cava pulmonary and hepatic veins appear normal. Pericardium There is small circumferential pericardial effusion. No evidence of cardiac tamponade. Other Findings small pleural effusion CONCLUSIONS Indication: History of pericardial effusion Severe global hypokinesis with severe LV dysfunction LVEF 30-35% Grade I diastolic dysfunction. RV mildly reduced function. RVSP 34mmHg. Mild dilated LA Mild MAC with Moderate mitral regurgitation Mild aortic valve sclerosis with mild aortic regurgitation Mild tricuspid regurgitation Small circumferential pericardial effusion not significant small pleural effusion Leticia Bolanos (Electronically Signed) Final Date: 24 April 2025 12:12
--- NOTE | 2025-04-23 10:23 | ESPR_ITS ---
<Statement entered by Greg Espinoza MD - 04/23/25 17:47> Senior Resident Attestation: I supervised/discussed management plan with management internship physician Dr. Antunez, and was involved in the care of this patient. I personally saw and examined the patient and discussed the assessment and plan with the entire medicine team, including my attending. I agree with the assessment and plan as documented. Patient reports no new complaints today other than worsening abdominal pain. She received 3 units of PRBCs and repeat H&H showed stable hemoglobin. She underwent hemodialysis today. Her lactic acid was downtrending, lactate 0.9. Pending cardiology evaluation and echo. Continued ceftriaxone, azithromycin and remdesivir. Pending GI evaluation. Patient's care was discussed with attending physician, Dr. Arzola. Greg Espinoza MD PGY-3. Documentation for date of: 04/23/25 Subjective Subjective Interval history: Patient was seen at the bedside this morning while receiving a blood transfusion and hemodialysis. She did not report any complaints at that time. Spoke with the patient?s daughter, Landy, who provided additional history. She stated that the patient is not currently on any antiplatelet medications, although she had been on them in the past. The reason for discontinuation is unknown. According to Landy, the patient does not currently follow with a box fabricator, but had seen one in the past. Exam Vital Signs Temp Pulse Resp BP Pulse Ox O2 Del Method O2 Flow Rate 96.2 F L 85 18 168/94 H 95 Nasal Cannula 2 04/23/25 09:34 04/23/25 10:15 04/23/25 09:34 04/23/25 10:15 04/23/25 09:06 04/23/25 08:00 04/23/25 09:06 Narrative Exam Physical Exam General: Awake and in no acute distress. Conversational and non-toxic appearing. HEENT: Normocephalic, atraumatic. Heart: Regular rate and rhythm, no murmurs. Lungs: Lung sounds hard to appreciate. Abdomen: Skin around PEG tube is dry and clean. Soft, nondistended. No guarding or rebound tenderness. Mild generalized abdominal tenderness. Neurologic: Alert and oriented x3, no gross neurological deficit, and patient able to move all 4 extremities. Extremities: No edema. Skin: No rash or ecchymoses. Objective Labs 04/24/25 05:34 04/24/25 05:34 Labs: Laboratory Results - last 24 hr 04/23/25 04/23/25 04/23/25 00:14 00:47 01:04 WBC 11.1 H RBC 2.19 L Hgb 6.7 L* Hct 21.1 L* MCV 96 MCH 30.6 MCHC 31.8 RDW Std Deviation 52.0 H Plt Count 196 Neut % (Auto) 83 H Lymph % (Auto) 11 Hood % (Auto) 4 Eos % (Auto) 1 Baso % (Auto) 0 Neut # (Auto) 9.2 H Lymph # (Auto) 1.2 Hood # (Auto) 0.4 Eos # (Auto) 0.1 Baso # (Auto) 0.0 Immature Gran # (Auto) 0.07 H Absolute Nucleated RBC 0.00 Immature Gran % 1 H Nucleated RBC % 0 Smear Path Review Sent to Pathologist ESR 38 H D-Dimer 1030 H Puncture Site Left Radial ABG pH 7.43 ABG pCO2 50 H ABG pO2 90 ABG HCO3 33 H ABG O2 Saturation 97 ABG Base Excess 8 H Oxygen Liter Flow 6 Sodium 137 Potassium 3.4 Chloride 91 L Carbon Dioxide 32.6 H Anion Gap 13 BUN 89 H Creatinine 3.8 H Estim Creat Clear Calc 6.7 L eGFR 11 L* BUN/Creatinine Ratio 23 H Glucose 287 H Calculated Osmolality 311 H Lactic Acid 2.6 H Calcium 9.5 Corrected Calcium 9.8 Magnesium 1.9 Total Bilirubin 0.4 Direct Bilirubin 0.1 AST 55 H ALT 54 H Alkaline Phosphatase 248 H Troponin I 0.027 C-Reactive Prot, Quant 3.0 H B-Natriuretic Peptide 1886 H* Total Protein 6.7 Albumin 3.6 Globulin 3.1 Albumin/Globulin Ratio 1.2 Lipase 36 Beta-Hydroxybutyrate/Acetoacetate 0.1 Procalcitonin 0.92 H Blood Type O Positive Antibody Screen NEGATIVE Crossmatch See Detail Blood Bank Wristband ID Yes ABG Interpretation ABG results: 04/23/25 01:04 ABG pH 7.43 ABG pCO2 50 H ABG pO2 90 ABG HCO3 33 H ABG O2 Saturation 97 ABG Base Excess 8 H Quality Measures Quality Measures VTE prophylaxis Advance care planning discussed with:: patient and other Assessment & Plan Assessment Current Active Medications: Generic Name Dose Route Start Last Admin Trade Name Freq PRN Reason Stop Dose Admin Acetaminophen 650 mg 04/23/25 02:23 Acetaminophen Supp 650 Mg Supp ND 05/23/25 02:22 Q6HR PRN Fever > 100.4 or pain 1-3(mild Albuterol/Ipratropium 3 ml 04/23/25 02:23 Albuterol/Ipratropium (Duoneb) Rt Nikki 3 Ml Nebu INH 05/23/25 02:22 Q2HR PRN SHORTNESS OF BREATH OR WHEEZE Amlodipine Besylate 10 mg 04/23/25 09:00 Amlodipine Besylate 5 Mg Tablet GT 05/23/25 08:59 QDAY MELECIO Dextrose 25 ml 04/23/25 02:28 Dextrose 50%-Water Inj 50 Ml Syringe IV 05/23/25 02:27 Q15MIN PRN BG 50-70 responsive npo pt Dextrose 50 ml 04/23/25 02:28 Dextrose 50%-Water Inj 50 Ml Syringe IV 05/23/25 02:27 Q15MIN PRN BG <50 OR BG <70 & pt unresponsive Epoetin Zane 10,000 unit 04/23/25 10:30 04/23/25 10:13 Epoetin Zane-Epbx Inj 10,000 Unit/Ml Vial (Esrd) SC 04/23/25 10:31 10,000 unit X1 ONE Administration Glucagon 1 mg 04/23/25 02:28 Glucagon Inj 1 Mg Vial IM Q15MIN PRN BG <70, and no IV access Remdesivir 100 mg/ Sodium 100 mls @ 100 mls/hr 04/24/25 14:00 Chloride IV 04/27/25 14:59 Q24H NR Protocol Azithromycin 500 mg/ Sodium 250 mls @ 250 mls/hr 04/23/25 09:46 Chloride IV 04/30/25 09:45 QDAY MELECIO Ceftriaxone Sodium/Dextrose 1 gm in 50 mls @ 100 mls/hr 04/23/25 10:05 Rocephin/D5w 1gm Iv Premix IV 04/30/25 10:04 QDAY [facility] Insulin Human Lispro 0 unit 04/23/25 06:00 04/23/25 06:44 Insulin Lispro (Admelog) 1 Unit/0.01 Ml Unit SC 05/23/25 05:59 Not Given Q6HR [facility] Protocol Levetiracetam 500 mg 04/23/25 09:00 Levetiracetam Liqd 500 Mg/5 Ml Udc GT 05/23/25 08:59 BID MELECIO Pantoprazole Sodium 40 mg 04/23/25 09:00 Pantoprazole Inj 40 Mg Vial IVP 05/23/25 08:59 Q12HR MELECIO Tramadol HCl 50 mg 04/23/25 03:15 04/23/25 10:13 Tramadol Hcl 50 Mg Tablet GT 04/28/25 02:22 50 mg Q6HR PRN Administration PAIN SCALE 4-10(Mod-Sev Plan 84 year old female with past medical history significant for end-stage renal disease (hemodialysis on ), CAD with stents, hypertension, hyperlipidemia, diabetes with peripheral neuropathy, multi-infarct dementia and seizures presents for weakness, nausea, and vomiting x 2 days, admitted for symptomatic anemia. #Acute symptomatic anemia #Acute blood loss anemia #Suspected GI bleed (upper vs lower vs occult source) No overt hemetemsis, hematochezia, or melena reported. BUN elevated 89 with BUN/Cr ratio of 23, possible upper GI source. Hemoglobin 6.7 on admission. Received 3 units pRBC with appropriate response. Most recent H&H shows hemoglobin 12.9, hematocrit 37.9. Plans: - GI consulted, appreciate recommendations. - NPO except for PO meds. - Monitor H&H. Transfusing for Hgb <8 or symptomatic. - Protonix 40 mg IV twice daily. - Avoid NSAIDs/ASA. - Close hemodynamic monitoring. #Acute respiratory failure with hypoxia #COVID-19 pneumonia #Community-acquired pneumonia - possible bacterial coinfection #Leukocytosis On admission: T 100.8F, tachycardic, SpO2 94% on 6L NC. Now 94% on 3L (no home O2). CXR (04/22): diffuse edema and/or multifocal pneumonia. Labs: CRP 3.0, Pro-Gil 0.92 (supports possible bacterial coinfection), lactic acid 2.6, WBC 11.1. ABG showed pH 7.43, pCO2 50, pO2 90. Plan: - Titrate O2 to keep SpO2 > 92%. - Remdesivir: 200 mg IV x1, then 100 mg IV daily for a total 5 days (or until discharge). - Start empiric CAP coverage with Ceftriaxone 1 gram and Azithromycin 500 mg. De-escalate/stop if cultures negative and clinical pictures favors viral process. - Isolation precautions - Trend lactate #End-stage renal disease on hemodialysis (//Sun) Follows with material handling supervisor Dr. Hui. Received dialysis today. Patient is anuric and dependent on HD. Plan: - Nephrology consulted, appreciate recommendations. - Dialysis as per patient's usual schedule. - Renally dose meds as appropriate. - Monitor daily BMP, phosphorus, magnesium. #Transaminitis AST 55, ALT 54, ALP 248. Likely from underlying COVID. Plan: - Hold off on statin per nephrology. 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 Plan: - ISS for now. - Bedside blood glucose checks ACHS. - Consulted glass cleaner for PEG tube feeds. #Seizure disorder Patient history as stated. No reports of recent breakthrough seizures. Plan: - Resume home Keppra 250 mg PEG tube twice daily. #Hypertension Plan: - Resume patient's home amlodipine 10 mg PEG tube daily. #Coronary artery disease s/p with stents Troponin negative, EKG benign. BNP 1886. Plan: - Currently not on any anticoagulants or antiplatelets. - Cardiology consulted - appreciate recs. #Dementia A&Ox1 at baseline. Follows commands, answers questions but answers unreliable. Plan: - Delirium precautions. - Avoid sedatives or excessive pain management. Health Maintenance DVT prophylaxis: SCDs GI prophylaxis: Pantoprazole 40 mg IV daily Diet: NPO Sauer: None Lines: Peripheral IV, pure wick CODE STATUS: DNR Patient plan of care was discussed with the senior resident, Dr. Espinoza, and attending physician, . Ross Antunez DO PGY-1 Attending Provider Attestation/Addendum Krystin Saravia DO, attest that I was physically present for the gonzalez portions of the service and evaluated the patient with the resident and I reviewed and discussed the case with the resident and agree with the resident's findings and plans of care as documented above Patient seen and eval this a.m. She appears to be in some distress on exam. Patient endorsed having a lot of nausea. She had been undergoing dialysis at time of evaluation. She does not appear to be overtly fluid overloaded. Patient is not in any respiratory distress and remains on room air at this time. Positive COVID appears to be incidental finding. She has noted to have an elevated BNP. Will obtain an echocardiogram. She did have a previous echo done in December that showed a small pericardial effusion. Hemoglobin has been stable after receiving 3 units of PRBCs. No family at bedside. Unclear if she takes any antiplatelets. Pending GI evaluation at this time. Will continue to trend H&H and follow-up with EGD. Patient has not had any further episodes of hematemesis this morning.
[2025-04-23 10:34] LABS: Lactic Acid, 3 HR 0.9 mMol/L (0.4-2.0)
[2025-04-23 10:40] LABS: Hematocrit 37.9 % (36.0-46.0); Hemoglobin 12.9 g/dL (12.0-16.0)
[2025-04-23] MEDS: ONDANSETRON INJ 2 MG/ML INJ 2 ML 4 MG IVP ×2 (10:55→17:55)
--- NOTE | 2025-04-23 10:58 | PC.SS ---
PIPE INSPECTOR attempted phone call with patient's daugther, Landy De La Torre [phone]. No response, PIPE INSPECTOR left message requesting return call.
[2025-04-23 11:05] LABS: Alanine Aminotransferase 53 U/L (10-49); Albumin, Serum 3.6 gm/dL (3.4-4.8); Albumin/Globulin Ratio 1.2 (1.2-2.2); Alkaline Phosphatase 187 U/L (46-116); Anion Gap 12 (7-16); Aspartate Amino Transferase 60 U/L (0-34); BUN/Creatinine Ratio 21 Ratio (12-20); Bilirubin,Total 0.4 mg/dL (0.3-1.2); Blood Urea Nitrogen 34 mg/dL (9-23); Calcium 9.2 mg/dL (8.3-10.6); Calcium (Corrected) 9.5 mg/dL (8.5-10.1); Carbon Dioxide 28.1 mMol/L (20.0-31.0); Chloride 97 mMol/L (98-107); Creatinine (Component) 1.6 mg/dL (0.6-1.3); Estimated Creatinine Clearance 15.9 mL/min (>60); Globulin 3.0 gm/dL (2.3-3.5); Glucose 149 mg/dL (74-106); Magnesium 1.4 mg/dL (1.6-2.6); Osmolality,Calculated 284 (275-295); Phosphorous 1.7 mg/dL (2.4-5.1); Potassium 3.7 mMol/L (3.4-5.1); Sodium 137 mMol/L (136-145); Total Protein 6.6 gm/dL (5.7-8.2); eGFR 32 See Note
[2025-04-23 11:10] LABS: Glucose Estimated Average 137 mg/dL (80-131); Hemoglobin A1C 6.4 % Hgb (4.8-6.0)
[2025-04-23] MEDS: EPOETIN ALFA-EPBX INJ 10,000 UNIT/ML VIAL (ESRD) 10000 UNIT SC (11:40)
--- NOTE | 2025-04-23 12:17 | PC.SS ---
ELASTIC YARN TWISTER attempted bedside contact with the patient to conduct initial assessment and to discuss discharge planning.? Patient receiving dialysis upon ELASTIC YARN TWISTER?s attempt at contact.? Patient is COVID (+).? ELASTIC YARN TWISTER conducted phone contact with the patient?s daughter, Landy De La Torre .? Patient resides at home with daughter.? Patient utilizes a walker to assist with ambulation.? Patient does not possess home oxygen.? Patient requires assistance with completion of ADL?s.? Patient is aligned with [facility].? Patient?s PCP is Dr. Chand.? Patient?s neurologist is Dr. Bradford.? Patient?s washcloth folder is Eneida George.? Patient?s dialysis schedule is , and Sat; [facility].? Patient utilizes [facility] for medication services.? Plan is for the patient to return home at the time of discharge.? Patient possesses transport coverage.? No discharge needs identified by the patient.? No further intervention required at this time, director social service will be available to address any further concerns.? Next of Kin: Landy Zepedaantes D/C Plan: Home
[2025-04-23] MEDS: AZITHROMYCIN INJ 500 MG in SODIUM CHLORIDE 0.9% 250 ML 250 ML 250 MG IV (12:44)
[2025-04-23] MEDS: REMDESIVIR INJ 200 MG in SODIUM CHLORIDE 0.9% 250 ML 250 ML 250 MG IV (12:44)
[2025-04-23] MEDS: levETIRAcetam LIQD 500 MG/5 ML UDC GT ×2 (12:45→20:31)
[2025-04-23] MEDS: cefTRIAXone/D5w 1gm IV premix 1 GM/50 ML BAG IV (12:45)
--- NOTE | 2025-04-23 13:29 | PC.NURSE ---
Notified Dr Espinoza that patient pain in stomach was a 05/13. Per MD, he didn't want to give patient opioid medicines. MD advised to give patient x1 suppository of acetaminophen.
[2025-04-23] MEDS: ACETAMINOPHEN SUPP 650 MG SUPP PR (13:39)
--- NOTE | 2025-04-23 14:19 | PD.NEPHCONS ---
History of Present Illness Data of Consult Consult date: 04/23/25 Requesting Physician: Krystin Arzola DO Primary Care Provider: José Chand MD Consult Narrative Reason for consult: ESRD, need for dialysis History of present illness: Ms. 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 The patient is a very poor historian and got all information from chart review. No family around. In the emergency department lactic acid 2.6, ABG showed [id number]. Hemoglobin 6.7, AST 55, ALT 54, alk phos 248, BUN 89, Creatinine 3.8, potassium 3.4, BNP 1886, albumin 3.6, Pro-Gil 0.9 Patient was placed in respiratory isolation. COVID-positive. Influenza negative. Chest x-ray showed significant consolidations. Patient admitted to the floor for COVID-pneumonia, respiratory insufficiency, nausea and vomiting. GI was consulted. Placed on a PPI. Renal consultation requested for need for dialysis. Patient currently seen on dialysis. Allergies:?Penicillins Medications: Amlodipine, atorvastatin, isosorbide mononitrate, Keppra, losartan, Rosalinda-Franklin, Velphoro cc:: cc: Krystin Arzola DO Review of Systems Review of Systems Narrative Review of Systems: Limited due to her mentation. Patient seems to be answering yes to all questions. Past Medical History Past Medical History NEUROLOGIC: Positive Neurological Disorders and Cerebrovascular Accident CARDIAC: Positive Cardiac Disorders, Coronary Artery Disease, Hypercholesterolemia, Congestive Heart Failure and Hypertension RESPIRATORY: Positive Pneumonia; Negative Chronic Obstructive Pulmonary Disease (COPD) GASTROINTESTINAL: Positive Gastrointestinal Disorders and Gall Bladder Disease; Negative Colorectal Cancer GENITOURINARY: Positive Genitourinary Disorders, Renal Disease and Dialysis MUSCULOSKELETAL: Positive Musculoskeletal Disorders and Arthritis; Negative Bone Cancer ENT: Positive Cataracts ENDOCRINE: Positive Endocrine Disorders and Diabetes Mellitus Type 2; Negative Diabetes Mellitus Type 1 HEMATOLOGIC: Positive Blood Disorders and Anemia OTHER HISTORY: Positive Measles and Mumps; Negative Autoimmune Disease, Anesthesia Reactions, MRSA, Vancomycin-Resistant Enterococci, Cancer, Cervical Cancer, Colorectal Cancer, Lung Cancer or Ovarian Cancer Family History FAMILY HISTORY: Negative Family Neurologic Problems, Family Psychiatric Problems, Family Respiratory Disorders, Family Cardiac Disorders, Family Gastrointestinal Problems, Family Cancer, Family Surgery or Family Anesthesia Reaction Surgical History SURGICAL: Positive Cardiac Surgery and Coronary Stent OTHER SURGICAL HX: As in the history of present illness Social History SMOKING STATUS: Never smoker SECOND HAND EXPOSURE: No SUBSTANCE USE: does not use Past Medical History Comments PMH COMMENT: PMH: ESRD, CAD, HTN, diabetes, peripheral neuropathy, dementia, seizures PSH: Right upper extremity fistula placement SH: Unknown Allergies:?Penicillins Medications: Amlodipine, atorvastatin, isosorbide mononitrate, Keppra, losartan, Rosalinda-Franklin, Velphoro Meds Home Medications and Allergies Home Medications ?Medication ?Instructions ?Recorded ?Confirmed ?Type amlodipine 10 mg tablet 10 mg PO QDAY 11/07/22 04/23/25 History atorvastatin 40 mg tablet 40 mg PO QDAY 11/07/22 04/23/25 History losartan 100 mg tablet 100 mg PO QDAY 11/07/22 04/23/25 History carvedilol 3.125 mg tablet 3.125 mg PO BID 04/23/25 04/23/25 History levetiracetam 100 mg/mL oral 500 mg feeding tube Q12H 04/23/25 04/23/25 History solution levetiracetam 100 mg/mL oral 500 mg PO BID 04/23/25 04/23/25 History solution (Keppra) Allergies Allergy/AdvReac Type Severity Reaction Status Date / Time Penicillins Allergy Intermediate Rash Verified 06/29/20 08:33 Exam Vital Signs Temp Pulse Resp BP Pulse Ox O2 Del Method O2 Flow Rate 36.6 C 92 18 148/97 H 91 L Nasal Cannula 3 04/23/25 12:00 04/23/25 12:45 04/23/25 12:00 04/23/25 12:45 04/23/25 12:00 04/23/25 12:00 04/23/25 12:00 Narrative Exam GENERAL APPEARANCE: Patient currently seen on dialysis. In respiratory isolation room NECK: Neck supple, no JVD or bruit CARDIOVASCULAR: Heart regular, no murmurs LUNGS/CHEST: bilateral rhonchi noted ABDOMEN: Soft, nontender, nondistended. No masses. Normal bowel sounds. EXTREMITIES: No edema, clubbing or cyanosis. SKIN: Skin exam normal without any rashes . ++ AV fistula MUSCULOSKELETAL: in bed NEUROLOGICAL : seems to have dementia Results Labs 04/23/25 10:15 04/23/25 10:15 Labs: Short CBC 04/23/25 04/23/25 Range/Units 00:14 10:15 WBC 11.1 H (3.6-11.0) Thou/mm3 Hgb 6.7 L* 12.9 D (12.0-16.0) g/dL Hct 21.1 L* 37.9 D (36.0-46.0) % Plt Count 196 (140-440) Thou/mm3 BMP 04/23/25 04/23/25 00:14 10:15 Sodium 137 137 Potassium 3.4 3.7 Chloride 91 L 97 L Carbon Dioxide 32.6 H 28.1 BUN 89 H 34 H Creatinine 3.8 H 1.6 H D Glucose 287 H 149 H D Calcium 9.5 9.2 Cardiac Enzymes 04/23/25 Range/Units 00:14 Troponin I 0.027 (0.0-0.045) ng/mL Liver Function 04/23/25 04/23/25 Range/Units 00:14 10:15 Total Bilirubin 0.4 0.4 (0.3-1.2) mg/dL Direct Bilirubin 0.1 (0.0-0.3) mg/dL AST 55 H 60 H (0-34) U/L ALT 54 H 53 H (10-49) U/L Alkaline Phosphatase 248 H 187 H D (46-116) U/L Albumin 3.6 3.6 (3.4-4.8) gm/dL ABG Interpretation ABG results: 04/23/25 01:04 ABG pH 7.43 ABG pCO2 50 H ABG pO2 90 ABG HCO3 33 H ABG O2 Saturation 97 ABG Base Excess 8 H Assessment & Plan Assessment and plan (1) ESRD (end stage renal disease): Status: Acute Assessment and plan: Patient with ESRD-[employer] 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 Cintron. Patient currently seen on dialysis. Tolerating dialysis without any problems. Hemodialysis for 3 hours, 4K, ultrafiltration 2-3 L, Epogen 6000, no heparin ordered. Plan of care discussed with the dialysis nurse. Please see dialysis flowsheet for further details. (2) Severe anemia: Status: Acute Assessment and plan: Dr. Baeza was consulted. On PPI. Needs endoscopy. (3) COVID: Status: Acute (4) Acute respiratory failure with hypoxia: Status: Acute Assessment and plan: Acute respiratory failure with hypoxia secondary to COVID. On remdesivir. (5) Hypokalemia: Status: Acute Assessment and plan: Hypokalemic metabolic alkalosis from GI losses. 4K dialysate ordered. (6) LFT elevation: Status: Acute Assessment and plan: Probably from underlying COVID. Hold off on statin. (7) Hypertension: Status: Acute Assessment and plan: Hypertension on amlodipine. (8) Hyperlipidemia: Status: Acute Assessment and plan: Hold statin Additional Assessment & Plan Additional Plan: Thank you Dr. Arzola for allowing me to participate in the care of Ms. De La Torre
--- NOTE | 2025-04-23 16:06 | PC.DIETICIAN ---
Nutrition prescription Nepro at 20 ml/hr via PEG tube by pump. Advance 10 ml every 8 hrs to goal rate of 36 ml/hr x 24 hrs. If no IV fluids, water flushes of 25 ml/hr (or per MD).
--- NOTE | 2025-04-23 16:28 | PC.SS ---
REFINERY OPERATOR POLYMERIZATION PLANT received phone call from [facility] staff, Blanca ; stating that [employer] will need to be contacted to be informed that patient is Covid (+).? Due to patient?s Covid status patient will need to be transported to backside door of dialysis center.? Patient?s dialysis schedule is , , Sun.? Arrival time is 09:30 am.? Chair time is 09:45 am to 12:30 pm.? Discharge date is pending.? Dialysis center is requesting that social and political studies professor contact [facility] to provide update and schedule transport to dialysis upon patient?s discharge.
--- NOTE | 2025-04-23 16:41 | PC.SS ---
Rounding Note: Dr. Baeza is consulting. Possible EGD pending.
--- NOTE | 2025-04-23 21:05 | PD.IMCONS ---
HPI Data of Consult Requesting Physician: Krystin Arzola DO Primary Care Provider: José Chand MD Consult Narrative Reason for consult: Anemia blood loss H/H 6.7/21.1 History of present illness: 84 years of female with underlying dementia and severe disease on hemodialysis TTS coronary artery disease status post multiple stents hypertension diabetes with peripheral neuropathy and dementia along with seizure disorder presented to the emergency room with nausea vomiting intractable with weakness and a low hemoglobin hematocrit 6.7 and 21.1 Chest x-ray showed bibasilar infiltrates and COVID serologies are positive and patient currently on remdesivir IV D-dimer is elevated at 1030 platelet 196,000 Total bilirubin 0.1 AST ALT 1653 and alk phos of 183 Patient is a very poor historian cc:: cc: Krystin Arzola DO Review of Systems Review of Systems ROS Unobtainable: unobtainable due to medical condition Past Medical History Surgical History OTHER SURGICAL HX: As in the history of present illness Meds Home Medications and Allergies Home Medications ?Medication ?Instructions ?Recorded ?Confirmed ?Type amlodipine 10 mg tablet 10 mg PO QDAY 11/07/22 04/23/25 History atorvastatin 40 mg tablet 40 mg PO QDAY 11/07/22 04/23/25 History losartan 100 mg tablet 100 mg PO QDAY 11/07/22 04/23/25 History carvedilol 3.125 mg tablet 3.125 mg PO BID 04/23/25 04/23/25 History levetiracetam 100 mg/mL oral 500 mg feeding tube Q12H 04/23/25 04/23/25 History solution levetiracetam 100 mg/mL oral 500 mg PO BID 04/23/25 04/23/25 History solution (Keppra) Allergies Allergy/AdvReac Type Severity Reaction Status Date / Time Penicillins Allergy Intermediate Rash Verified 06/29/20 08:33 Exam Vital Signs Temp Pulse Resp BP Pulse Ox O2 Del Method O2 Flow Rate 97.1 F 83 20 120/78 94 L Nasal Cannula 3 04/23/25 16:00 04/23/25 16:00 04/23/25 16:00 04/23/25 16:00 04/23/25 16:00 04/23/25 16:00 04/23/25 16:00 Constitutional Comments: Chronically ill-appearing Routine Respiratory Exam Comments: Scattered rhonchi and on 3 L nasal cannula Routine Abdominal Exam Comments: Soft nontender Results Labs 04/23/25 10:15 04/23/25 10:15 Labs: Short CBC 04/23/25 04/23/25 Range/Units 00:14 10:15 WBC 11.1 H (3.6-11.0) Thou/mm3 Hgb 6.7 L* 12.9 D (12.0-16.0) g/dL Hct 21.1 L* 37.9 D (36.0-46.0) % Plt Count 196 (140-440) Thou/mm3 BMP 04/23/25 04/23/25 00:14 10:15 Sodium 137 137 Potassium 3.4 3.7 Chloride 91 L 97 L Carbon Dioxide 32.6 H 28.1 BUN 89 H 34 H Creatinine 3.8 H 1.6 H D Glucose 287 H 149 H D Calcium 9.5 9.2 Cardiac Enzymes 04/23/25 Range/Units 00:14 Troponin I 0.027 (0.0-0.045) ng/mL Liver Function 04/23/25 04/23/25 Range/Units 00:14 10:15 Total Bilirubin 0.4 0.4 (0.3-1.2) mg/dL Direct Bilirubin 0.1 (0.0-0.3) mg/dL AST 55 H 60 H (0-34) U/L ALT 54 H 53 H (10-49) U/L Alkaline Phosphatase 248 H 187 H D (46-116) U/L Albumin 3.6 3.6 (3.4-4.8) gm/dL ABG Interpretation ABG results: 04/23/25 01:04 ABG pH 7.43 ABG pCO2 50 H ABG pO2 90 ABG HCO3 33 H ABG O2 Saturation 97 ABG Base Excess 8 H Assessment and Plan Additional Assessment & Plan Additional Plan: # Anemia of blood loss requiring blood transfusion plan Consent obtained for fiberoptic esophagogastroduodenoscopy with possible biopsy possible therapeutic intervention under intravenous moderation tentatively scheduled for tomorrow Clear liquid diet till 8 AM tomorrow then n.p.o. Other medical problems include COVID-positive bilateral pneumonia Coronary artery status post PTCA Seizure disorder End-stage renal disease on hemodialysis TTS Essential hypertension Diabetes mellitus with peripheral neuropathy Dementia
[2025-04-24] VITALS (17 sets, daily range): BP systolic 127–162; BP diastolic 72–99; PULSE 72–100; RESP 13–24; TEMP 36.1–36.8; O2SAT 92–97
[2025-04-24] MEDS: ONDANSETRON INJ 2 MG/ML INJ 2 ML 4 MG IVP ×2 (04:40→13:10)
[2025-04-24 06:18] LABS: Basophils # (Auto) 0.0 Thou/mm3 (0.0-0.2); Basophils % (Auto) 0 % (0-2.5); Eosinophils # (Auto) 0.0 Thou/mm3 (0.0-0.5); Eosinophils % (Auto) 0 % (0-10); Hematocrit 40.3 % (36.0-46.0); Hemoglobin 13.2 g/dL (12.0-16.0); Immature Granulocytes Auto 0.04 Thou/mm3 (0.00-0.00); Lymphocytes # (Auto) 1.1 Thou/mm3 (1.0-4.8); Lymphocytes % (Auto) 11 % (10-50); Mean Corpuscular HGB Conc 32.8 g/dl (31.0-37.0); Mean Corpuscular Hemoglobin 30.1 pg (25.0-35.0); Mean Corpuscular Volume 92 fL (80-100); Monocytes # (Auto) 0.8 Thou/mm3 (0.0-0.8); Monocytes % (Auto) 8 % (0-12); Neutrophils # (Auto) 7.6 Thou/mm3 (1.8-7.7); Neutrophils % (Auto) 80 % (37-80); Nucleated Red Blood Cell # 0.00 Thou/mm3 (0.00-0.00); Nucleated Red Blood Cell % 0 /100 WBC (0); Platelet Count 139 Thou/mm3 (140-440); RDW Standard Deviation 50.7 fL (36.4-46.3); Red Blood Count 4.39 Miln/mm3 (4.00-5.20); White Blood Count 9.5 Thou/mm3 (3.6-11.0)
[2025-04-24 06:47] LABS: INR 1.1 (0.9-1.3); Partial Thromboplastin Time 30.0 Seconds (22.0-36.0); Prothrombin Time 11.7 Seconds (9.0-12.2)
[2025-04-24 06:52] LABS: Alanine Aminotransferase 49 U/L (10-49); Albumin, Serum 3.5 gm/dL (3.4-4.8); Albumin/Globulin Ratio 1.0 (1.2-2.2); Alkaline Phosphatase 119 U/L (46-116); Anion Gap 14 (7-16); Aspartate Amino Transferase 54 U/L (0-34); BUN/Creatinine Ratio 14 Ratio (12-20); Bilirubin,Total 0.3 mg/dL (0.3-1.2); Blood Urea Nitrogen 34 mg/dL (9-23); Calcium 9.4 mg/dL (8.3-10.6); Calcium (Corrected) 9.8 mg/dL (8.5-10.1); Carbon Dioxide 28.2 mMol/L (20.0-31.0); Chloride 96 mMol/L (98-107); Creatinine (Component) 2.5 mg/dL (0.6-1.3); Estimated Creatinine Clearance 10.2 mL/min (>60); Globulin 3.4 gm/dL (2.3-3.5); Glucose 75 mg/dL (74-106); Magnesium 1.9 mg/dL (1.6-2.6); Osmolality,Calculated 282 (275-295); Phosphorous 3.6 mg/dL (2.4-5.1); Potassium 4.3 mMol/L (3.4-5.1); Sodium 138 mMol/L (136-145); Total Protein 6.9 gm/dL (5.7-8.2); eGFR 18 See Note
[2025-04-24] MEDS: AZITHROMYCIN INJ 500 MG in SODIUM CHLORIDE 0.9% 250 ML 250 ML 250 MG IV (08:29)
[2025-04-24] MEDS: levETIRAcetam LIQD 500 MG/5 ML UDC GT (08:29)
[2025-04-24] MEDS: cefTRIAXone/D5w 1gm IV premix 1 GM/50 ML BAG IV (08:29)
--- NOTE | 2025-04-24 10:09 | XR_ITS ---
Examination: Venous duplex lower extremity sonogram, bilateral. Date and time of exam: April 24, 2025 1146 hours INDICATIONS: Covid positive patient with leg pain beginning one week ago Technique: Multiple sonographic images of the deep venous system have been obtained. B-mode/2-D grayscale imaging of vascular structures and Doppler spectral analysis (waveforms) and color performed Both legs are examined. Findings: Positive for acute DVT in the right proximal superficial femoral and right distal superficial femoral veins Positive for acute DVT in the left common femoral left mid and distal superficial femoral as well as left popliteal veins as well as superficial greater saphenous vein IMPRESSION: Positive for bilateral acute DVT
--- NOTE | 2025-04-24 10:09 | XR_ITS ---
Examination: CTA chest with intravenous contrast 2-D reconstructions 3-D reconstructions, vascular Date and time of exam: April 24, 2025 1241 hours, comparison October 09, 2023 INDICATIONS: Shortness of breath today CTDI: vol (mGy) 7.28 DLP: (mGycm) 213 Technique: Multiple axial sections of the thorax have been obtained. 3 mm slice thickness, from below the hemidiaphragms to above the apices of the lungs. Mediastinal and lung density settings have been obtained. 2-D sagittal and coronal reconstructions. 3-D angiographic renderings, 3-D volume renderings, 3D post processing, vascular maximum intensity projections obtained. Contrast administered is 100 cc Isovue-370. Low dose protocols were performed. One or more of the following dose reduction techniques were used; automated exposure control, adjustment of the mA and/or KV according to patient size, use of iterative reconstruction technique. Findings: No thoracic aortic aneurysm dilatation or dissection No pulmonary artery emboli Tracheobronchial aortopulmonary window multiple lymph nodes Moderate enlargement cardiac contour Prominent vascular congestion with perihilar edema Bibasilar pneumonia with small right moderate left pleural fluid Possible gallbladder wall thickening Prominent osteopenia IMPRESSION: Negative for pulmonary artery emboli Mild heart failure Significant bibasilar pneumonia
--- NOTE | 2025-04-24 11:32 | PD.NEPHPROG ---
Documentation for date of: 04/24/25 Subjective Subjective Interval history: Ms. 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 The patient is a very poor historian and got all information from chart review. No family around. In the emergency department lactic acid 2.6, ABG showed [id number]. Hemoglobin 6.7, AST 55, ALT 54, alk phos 248, BUN 89, Creatinine 3.8, potassium 3.4, BNP 1886, albumin 3.6, Pro-Gil 0.9 Patient was placed in respiratory isolation. COVID-positive. Influenza negative. Chest x-ray showed significant consolidations. Patient admitted to the floor for COVID-pneumonia, respiratory insufficiency, nausea and vomiting. GI was consulted. Placed on a PPI. Renal consultation requested for need for dialysis. Patient currently seen on dialysis. Allergies:?Penicillins Medications: Amlodipine, atorvastatin, isosorbide mononitrate, Keppra, losartan, Rosalinda-[place], Velphoro 04/24/2025 patient currently seen in medical floor. In isolation for COVID 19. Going for endoscopy today. Labs and medications reviewed. Patient has significant dementia. She also has a PEG tube for failure to thrive. Patient pending endoscopy Review of Systems Review of Systems Narrative Review of Systems: Limited due to her mentation. Patient has dementia. Exam Vital Signs Temp Pulse Resp BP Pulse Ox O2 Del Method O2 Flow Rate 36.8 C 86 17 150/80 H 94 L Nasal Cannula 3 04/24/25 08:00 04/24/25 08:29 04/24/25 08:00 04/24/25 08:29 04/24/25 08:00 04/24/25 08:00 04/24/25 08:00 Narrative Exam GENERAL APPEARANCE: Patient currently seen in telemetry. In respiratory isolation room NECK: Neck supple, no JVD or bruit CARDIOVASCULAR: Heart regular, no murmurs LUNGS/CHEST: bilateral rhonchi noted ABDOMEN: Soft, nontender, nondistended. No masses. Normal bowel sounds. ++ PEG tube EXTREMITIES: No edema, clubbing or cyanosis. SKIN: Skin exam normal without any rashes . rt ++ AV fistula MUSCULOSKELETAL: in bed NEUROLOGICAL : ++ dementia Objective Labs 04/25/25 05:18 04/25/25 05:18 Labs: Laboratory Results - last 24 hr 04/24/25 05:34 WBC 9.5 RBC 4.39 Hgb 13.2 Hct 40.3 MCV 92 MCH 30.1 MCHC 32.8 RDW Std Deviation 50.7 H Plt Count 139 L D Neut % (Auto) 80 Lymph % (Auto) 11 [place] % (Auto) 8 Eos % (Auto) 0 Baso % (Auto) 0 Neut # (Auto) 7.6 Lymph # (Auto) 1.1 [place] # (Auto) 0.8 Eos # (Auto) 0.0 Baso # (Auto) 0.0 Immature Gran # (Auto) 0.04 H Absolute Nucleated RBC 0.00 Immature Gran % 0 Nucleated RBC % 0 PT 11.7 INR 1.1 APTT 30.0 Sodium 138 Potassium 4.3 D Chloride 96 L Carbon Dioxide 28.2 Anion Gap 14 BUN 34 H Creatinine 2.5 H D Estim Creat Clear Calc 10.2 L eGFR 18 L BUN/Creatinine Ratio 14 Glucose 75 D Calculated Osmolality 282 Calcium 9.4 Corrected Calcium 9.8 Phosphorus 3.6 Magnesium 1.9 Total Bilirubin 0.3 AST 54 H ALT 49 Alkaline Phosphatase 119 H D Total Protein 6.9 Albumin 3.5 Globulin 3.4 Albumin/Globulin Ratio 1.0 L ABG Interpretation ABG results: 04/23/25 01:04 ABG pH 7.43 ABG pCO2 50 H ABG pO2 90 ABG HCO3 33 H ABG O2 Saturation 97 ABG Base Excess 8 H Assessment & Plan Assessment and plan (1) ESRD (end stage renal disease): Status: Acute Assessment and plan: Patient with ESRD-[place] development representative-probably Dr. Cintron. Next dialysis scheduled for tomorrow (2) Severe anemia: Status: Acute Assessment and plan: Dr. Baeza was consulted. On PPI. Needs endoscopy. (3) COVID: Status: Acute Assessment and plan: In respiratory isolation (4) Acute respiratory failure with hypoxia: Status: Acute Assessment and plan: Acute respiratory failure with hypoxia secondary to COVID. On remdesivir. (5) Hypokalemia: Status: Acute Assessment and plan: Hypokalemic metabolic alkalosis from GI losses. better (6) LFT elevation: Status: Acute Assessment and plan: Probably from underlying COVID. Hold off on statin. (7) Hypertension: Status: Acute Assessment and plan: Hypertension on amlodipine. (8) Hyperlipidemia: Status: Acute Assessment and plan: Hold statin Additional Assessment & Plan Additional Plan: Thank you Dr. Arzola for allowing me to participate in the care of Ms. De La Torre Quality - progress note Quality Measures Quality Measures: VTE prophylaxis Reason for Continued Stay Reason for Continued Stay: further monitoring
[2025-04-24] MEDS: REMDESIVIR INJ 100 MG in SODIUM CHLORIDE 0.9% 100 ML IV (14:02)
--- NOTE | 2025-04-24 14:47 | ESPR_ITS ---
<Statement entered by Harpreet Jacques MD - 04/24/25 17:46> Patient was examined and case was reviewed with team including attending physician. Note reviewed, I agree with most of its contents and agree with the patient's care as documented by Dr. Antunez Patient seen and evaluated at the bedside. Overnight patient was found to have elevated D-dimers ultrasound of bilateral lower extremities ordered which showed bilateral DVTs. Will hold off on anticoagulation at this time until patient has upper endoscopy done for hematemesis. After GI clearance will consider resuming anticoagulation. Will continue with IV antibiotics and remdesivir for COVID- pneumonia and possible bacterial superimposed infection. Case discussed with my attending Dr. Ness Jacques MD PGY-2 Disclaimer: Despite multiple revisions, due to the dictation software being used, the document bellow may not be free of grammatical errors including phonetic/typographic errors. However, this does not deter from our commitment to providing health care in the patient's best interest in mind. Documentation for date of: 04/24/25 Subjective Subjective Interval history: Patient was evaluated at the bedside this morning. No acute overnight events. She was observed holding an emesis bag containing yellow, non-bloody fluid. She reports mild abdominal pain, with tenderness noted on palpation. Exam Vital Signs Temp Pulse Resp BP Pulse Ox O2 Del Method O2 Flow Rate 97.8 F 94 24 H 148/91 H 93 L Nasal Cannula 3 04/24/25 12:00 04/24/25 12:00 04/24/25 12:00 04/24/25 12:00 04/24/25 12:00 04/24/25 12:00 04/24/25 12:00 Narrative Exam Physical Exam General: Awake and in no acute distress. Non-toxic appearing. HEENT: Normocephalic, atraumatic. Heart: Regular rate and rhythm, no murmurs. Lungs: Lung sounds hard to appreciate. Abdomen: Skin around PEG tube is dry and clean. Soft, nondistended. No guarding or rebound tenderness. Mild generalized abdominal tenderness. Neurologic: Alert and oriented x3, no gross neurological deficit, and patient able to move all 4 extremities. Extremities: No edema. Skin: No rash or ecchymoses. Objective Labs 04/25/25 05:18 04/25/25 05:18 Labs: Laboratory Results - last 24 hr 04/24/25 05:34 WBC 9.5 RBC 4.39 Hgb 13.2 Hct 40.3 MCV 92 MCH 30.1 MCHC 32.8 RDW Std Deviation 50.7 H Plt Count 139 L D Neut % (Auto) 80 Lymph % (Auto) 11 [place] % (Auto) 8 Eos % (Auto) 0 Baso % (Auto) 0 Neut # (Auto) 7.6 Lymph # (Auto) 1.1 [place] # (Auto) 0.8 Eos # (Auto) 0.0 Baso # (Auto) 0.0 Immature Gran # (Auto) 0.04 H Absolute Nucleated RBC 0.00 Immature Gran % 0 Nucleated RBC % 0 PT 11.7 INR 1.1 APTT 30.0 Sodium 138 Potassium 4.3 D Chloride 96 L Carbon Dioxide 28.2 Anion Gap 14 BUN 34 H Creatinine 2.5 H D Estim Creat Clear Calc 10.2 L eGFR 18 L BUN/Creatinine Ratio 14 Glucose 75 D Calculated Osmolality 282 Calcium 9.4 Corrected Calcium 9.8 Phosphorus 3.6 Magnesium 1.9 Total Bilirubin 0.3 AST 54 H ALT 49 Alkaline Phosphatase 119 H D Total Protein 6.9 Albumin 3.5 Globulin 3.4 Albumin/Globulin Ratio 1.0 L ABG Interpretation ABG results: 04/23/25 01:04 ABG pH 7.43 ABG pCO2 50 H ABG pO2 90 ABG HCO3 33 H ABG O2 Saturation 97 ABG Base Excess 8 H Quality Measures Quality Measures VTE prophylaxis Advance care planning discussed with:: patient Assessment & Plan Assessment Current Active Medications: Generic Name Dose Route Start Last Admin Trade Name Freq PRN Reason Stop Dose Admin Acetaminophen 650 mg 04/23/25 02:23 Acetaminophen Supp 650 Mg Supp [place] 05/23/25 02:22 Q6HR PRN Fever > 100.4 or pain 1-3(mild Albuterol/Ipratropium 3 ml 04/23/25 02:23 Albuterol/Ipratropium (Duoneb) Rt Nikki 3 Ml Nebu INH 05/23/25 02:22 Q2HR PRN SHORTNESS OF BREATH OR WHEEZE Amlodipine Besylate 10 mg 04/23/25 09:00 04/24/25 08:29 Amlodipine Besylate 5 Mg Tablet GT 05/23/25 08:59 10 mg QDAY MELECIO Administration Dextrose 25 ml 04/23/25 02:28 Dextrose 50%-Water Inj 50 Ml Syringe IV 05/23/25 02:27 Q15MIN PRN BG 50-70 responsive npo pt Dextrose 50 ml 04/23/25 02:28 Dextrose 50%-Water Inj 50 Ml Syringe IV 05/23/25 02:27 Q15MIN PRN BG <50 OR BG <70 & pt unresponsive Glucagon 1 mg 04/23/25 02:28 Glucagon Inj 1 Mg Vial IM Q15MIN PRN BG <70, and no IV access Remdesivir 100 mg/ Sodium 100 mls @ 100 mls/hr 04/24/25 14:00 04/24/25 14:02 Chloride IV 04/27/25 14:59 100 mls/hr Q24H NR Administration Protocol Azithromycin 500 mg/ Sodium 250 mls @ 250 mls/hr 04/23/25 09:46 04/24/25 08:29 Chloride IV 04/30/25 09:45 250 mls/hr QDAY MELECIO Administration Ceftriaxone Sodium/Dextrose 1 gm in 50 mls @ 100 mls/hr 04/23/25 10:05 04/24/25 08:29 Rocephin/D5w 1gm Iv Premix IV 04/30/25 10:04 100 mls/hr QDAY MELECIO Administration Insulin Human Lispro 0 unit 04/23/25 06:00 04/24/25 12:30 Insulin Lispro (Admelog) 1 Unit/0.01 Ml Unit SC 05/23/25 05:59 Not Given Q6HR MELECIO Protocol Levetiracetam 500 mg 04/23/25 09:00 04/24/25 08:29 Levetiracetam Liqd 500 Mg/5 Ml Udc GT 05/23/25 08:59 500 mg BID MELECIO Administration Ondansetron HCl 4 mg 04/23/25 10:41 04/24/25 13:10 Ondansetron Inj 2 Mg/Ml Inj 2 Ml IVP 05/23/25 10:40 4 mg Q6H PRN Administration NAUSEA OR VOMITING Protocol Pantoprazole Sodium 40 mg 04/23/25 09:00 04/24/25 08:29 Pantoprazole Inj 40 Mg Vial IVP 05/23/25 08:59 40 mg Q12HR MELECIO Administration Tramadol HCl 50 mg 04/23/25 03:15 04/24/25 13:11 Tramadol Hcl 50 Mg Tablet GT 04/28/25 02:22 50 mg Q6HR PRN Administration PAIN SCALE 4-10(Mod-Sev Plan 84 year old female with past medical history significant for end-stage renal disease (hemodialysis on ), CAD with stents, hypertension, hyperlipidemia, diabetes with peripheral neuropathy, multi-infarct dementia and seizures presents for weakness, nausea, and vomiting x 2 days, admitted for symptomatic anemia. #Acute symptomatic anemia #Acute blood loss anemia #Suspected GI bleed (upper vs lower vs occult source) No overt hemetemsis, hematochezia, or melena reported. BUN elevated 89 with BUN/Cr ratio of 23, possible upper GI source. Hemoglobin 6.7 on admission. Received 3 units pRBC with appropriate response. Most recent H&H shows hemoglobin 12.9, hematocrit 37.9. Plan: - GI consulted, appreciate recommendations. - Plan for EGD today with Dr. Baeza. - NPO except for PO meds. - Monitor H&H. Transfusing for Hgb <8 or symptomatic. - Protonix 40 mg IV twice daily. - Avoid NSAIDs/ASA. - Close hemodynamic monitoring. - Place physical therapy referral after EGD is performed. #Acute respiratory failure with hypoxia #COVID-19 pneumonia #Community-acquired pneumonia - possible bacterial coinfection #Leukocytosis On admission: T 100.8F, tachycardic, SpO2 94% on 6L NC. Now 94% on 3L (no home O2). CXR (04/22): diffuse edema and/or multifocal pneumonia. Labs: CRP 3.0, Pro-Gil 0.92 (supports possible bacterial coinfection), lactic acid 2.6, WBC 11.1. ABG showed pH 7.43, pCO2 50, pO2 90. Lactic acid 2.6, now normalized. Plan: - Titrate O2 to keep SpO2 > 92%. - Remdesivir: 200 mg IV x1, then 100 mg IV daily (04/23-). - Continue empiric CAP coverage with Ceftriaxone 1 gram and Azithromycin 500 mg. De-escalate/stop if cultures negative and clinical pictures favors viral process. - Isolation precautions. #End-stage renal disease on hemodialysis () Follows with predatory animal trapper Dr. Hui. Received dialysis yesterday (04/23). Patient is anuric and dependent on HD. Plan: - Nephrology consulted, appreciate recommendations. - Dialysis as per patient's usual schedule. - Renally dose meds as appropriate. - Monitor daily BMP, phosphorus, magnesium. #Coronary artery disease s/p with stents Troponin negative, EKG benign. On admission, BNP 1886. Echo (12/2023): Normal LV size and function. Stage I diastolic dysfunction. Estimated EF 60-65%. Normal RV size and function. Estimated RVSP 35mmHg. Mild LA dilatation. Mild MAC. Mild AV sclerosis without stenosis. Mild MR, AI, TR, PI. Small circumferential pericardial effusion. Venous doppler: Positive for bilateral acute DVT. Chest CTA: Negative for pulmonary artery emboli. Mild heart failure. Significant bibasilar pneumonia Plan: - Currently not on any anticoagulants or antiplatelets. - Cardiology consulted - appreciate recs. - Plan to start anticoagulants after EGD. #Transaminitis AST 55, ALT 54, ALP 248. Likely from underlying COVID. Plan: - Hold off on statin per nephrology. 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 Plan: - ISS for now. - Bedside blood glucose checks ACHS. - Consulted brim rounder for PEG tube feeds. #Seizure disorder Patient history as stated. No reports of recent breakthrough seizures. Plan: - Resume home Keppra 250 mg PEG tube twice daily. #Hypertension Plan: - Resume patient's home amlodipine 10 mg PEG tube daily. #Dementia A&Ox1 at baseline. Follows commands, answers questions but answers unreliable. Plan: - Delirium precautions. - Avoid sedatives or excessive pain management. Health Maintenance DVT prophylaxis: SCDs GI prophylaxis: Pantoprazole 40 mg IV daily Diet: NPO Sauer: None Lines: Peripheral IV, pure wick CODE STATUS: DNR Patient plan of care was discussed with the senior resident, Dr. Deleon, and attending physician, . Ross Antunez DO PGY-1 Attending Provider Attestation/Addendum Krystin Saravia DO, attest that I was physically present for the gonzalez portions of the service and evaluated the patient with the resident and I reviewed and discussed the case with the resident and agree with the resident's findings and plans of care as documented above Patient seen and evaluated this AM. Patient continues to have persistent nausea. CTA of chest and b/l LE venous doppler ordered to rule out VTE as D-dimer is elevated in setting of COVID. Patient also reports that she is bedbound. Patient does not appear to be in acute distress, but is ill-appearing due to nausea. b/l le do not appear edematous or tender to palpation. Venous doppler positive for b/l DVT. However, holding off AC and pending EGD this evening as patient was admitted for hematemesis. Patient may need IVC filter. Family updated. Will f/u with EGD and GI recommendations. CTA shows significant b/l pneumonia. Continue with Abx.
--- NOTE | 2025-04-24 15:24 | PC.SS ---
Per afternoon rounding notes, there is no current d/c date as medical team is tryign to control the pts blood sugars. Pt will stay at this time, goal is to get blood sugar down.
--- NOTE | 2025-04-24 20:29 | ESCONSULT_ITS ---
<Statement entered by Jamil Smith MD - 04/25/25 16:22> I personally examined evaluated the patient with resident physician PGY2 Patient has multiple problems including COVID-19 pneumonia end-stage renal disease also has HFrEF prognosis poor condition is stable but overall prognosis extremely poor she also had extensive DVT as well treated with bilateral pneumonia and heart failure and end-stage renal disease as well. Agree with the treatment plan recommendation will continue to monitor the patient's cardiac status closely HPI Data of Consult Requesting Physician: Krystin Arzola DO Admitting Provider: Ernesto Stevenson MD Attending Provider: Krystin Arzola DO Primary Care Provider: José Chand MD Consult Narrative History of present illness: 84F with PMHx of ESRD on HD (//Sun), CAD s/p stents, HTN, DM2 with PN, dementia, and seizure disorder presented to the ED with weakness and nausea/vomiting for two days. She is A&Ox1 at baseline and a poor historian, with additional history provided by her daughter and chart review. In the ED, labs showed WBC 11.1, Hgb 6.7, BUN 89, Cr 3.8, glucose 287, lactic acid 2.6, CRP 3.0, and Pro-Gil 0.92. LFTs were mildly elevated. She tested COVID-positive and influenza-negative. ABG demonstrated pH 7.43, PCO2 50, PO2 90, and HCO3 33. Chest x-ray revealed diffuse consolidations. Vitals on admission were temperature 100.8, HR 101, BP 188/84, RR 26, and SpO2 100 percent on 3L NC. She had no urine output. In the ED she received STEROIDS, FUROSEMIDE IV, NITROGLYCERIN, DUONEBS, and two units PRBC were ordered. On exam, she appeared well-developed and in no acute distress. Lung exam revealed diffuse wheezing and rhonchi more prominent on the left and in the bilateral bases. The abdomen was soft with mild tenderness in the LUQ and epigastric regions. Neuro exam showed baseline A&Ox1. No edema or rash was noted. She was admitted with symptomatic anemia likely secondary to possible GI bleed given significantly low hemoglobin, elevated BUN/Cr ratio, and abdominal tenderness, though there was no overt bleeding. Plan included PRBC transfusion with post-transfusion H&H, GI consult, NPO except medications, IV PANTOPRAZOLE, and avoidance of NSAIDs and anticoagulation. She was also diagnosed with COVID pneumonia with fever, tachypnea, diffuse consolidations, and mild hypoxia. Plan included supplemental oxygen to maintain SpO2 above 92 percent, REMDESIVIR therapy, trending lactate, blood cultures, and isolation precautions. STEROIDS were held due to possible GI bleed. Her ESRD was managed with nephrology consultation, continuation of scheduled dialysis, and renal dosing of medications. Diabetes was managed with INSULIN sliding scale and A1c follow-up. Seizure disorder was managed with home LEVETIRACETAM. Hypertension was treated with home AMLODIPINE. CAD was noted with negative troponin and benign EKG; anticoagulation was held due to possible GI bleed. Dementia was stable at baseline with delirium precautions in place. Cardiology Assessment: Clinically she appears in heart failure given elevated JVD and shortness of breath. Echocardiogram showed severe global hypokinesis with severe LV dysfunction with LVEF 30?35% (compared to echo from 2023 with EF 60-65%) and Grade I diastolic dysfunction. RV function mildly reduced with RVSP 34 mmHg. LA mildly dilated. Mild MAC with moderate MR. Mild aortic sclerosis with mild AR. Mild TR. Small circumferential pericardial effusion without hemodynamic significance, and small pleural effusion noted. She is an uric, no benefit from diuresis. Recommended continuing with hemodialysis. She could benefit benefit from GDMT as tolerated and controlling blood pressure which remains elevated despite 1 session of hemodialysis. cc:: cc: Krystin Arzola DO Review of Systems Review of Systems Systems Reviewed: All systems reviewed, normal except as documented Exam Vital Signs Temp Pulse Resp BP Pulse Ox O2 Del Method O2 Flow Rate 96.9 F 96 21 H 160/88 H 93 L Nasal Cannula 3 04/24/25 20:00 04/24/25 20:00 04/24/25 20:00 04/24/25 20:00 04/24/25 20:04/24/25 20:04/24/25 20:00 Narrative Exam General: Awake and in no acute distress. Non-toxic appearing. HEENT: Normocephalic, atraumatic. Neck: Elevated JVD bilaterally Heart: Regular rate and rhythm, no murmurs. Lungs: Lung sounds hard to appreciate. Abdomen: Skin around PEG tube is dry and clean. Soft, nondistended. No guarding or rebound tenderness. Mild generalized abdominal tenderness. Neurologic: Alert and oriented x3, no gross neurological deficit, and patient able to move all 4 extremities. Extremities: No edema. Skin: No rash or ecchymoses. Results Labs 04/24/25 05:34 04/24/25 05:34 Labs: Short CBC 04/24/25 Range/Units 05:34 WBC 9.5 (3.6-11.0) Thou/mm3 Hgb 13.2 (12.0-16.0) g/dL Hct 40.3 (36.0-46.0) % Plt Count 139 L D (140-440) Thou/mm3 BMP 04/24/25 05:34 Sodium 138 Potassium 4.3 D Chloride 96 L Carbon Dioxide 28.2 BUN 34 H Creatinine 2.5 H D Glucose 75 D Calcium 9.4 Liver Function 04/24/25 Range/Units 05:34 Total Bilirubin 0.3 (0.3-1.2) mg/dL AST 54 H (0-34) U/L ALT 49 (10-49) U/L Alkaline Phosphatase 119 H D (46-116) U/L Albumin 3.5 (3.4-4.8) gm/dL ABG Interpretation ABG results: 04/23/25 01:04 ABG pH 7.43 ABG pCO2 50 H ABG pO2 90 ABG HCO3 33 H ABG O2 Saturation 97 ABG Base Excess 8 H Quality Measures Quality Measures VTE prophylaxis Advance care planning discussed with:: patient Medications Home Medications and Allergies Home Medications ?Medication ?Instructions ?Recorded ?Confirmed ?Type amlodipine 10 mg tablet 10 mg PO QDAY 11/07/2204/23 History atorvastatin 40 mg tablet 40 mg PO QDAY 11/07/2204/23 History losartan 100 mg tablet 100 mg PO QDAY 11/07/2204/04 History carvedilol 3.125 mg tablet 3.125 mg PO BID 04/23/25 History levetiracetam 100 mg/mL oral 500 mg feeding tube Q12H 04/23/25 04/23/25 History solution levetiracetam 100 mg/mL oral 500 mg PO BID 04/23/25 History solution (Keppra) Allergies Allergy/AdvReac Type Severity Reaction Status Date / Time Penicillins Allergy Intermediate Rash Verified 06/29/20 08:33 Visit Medications Acetaminophen (Acetaminophen Supp 650 Mg Supp) 650 mg MT Q6HR PRN PRN Reason: Fever > 100.4 or pain 1-3(mild Stop: 05/23/25 02:22 Albuterol/Ipratropium (Albuterol/Ipratropium (Duoneb) Rt Nikki 3 Ml Nebu) 3 ml INH Q2HR PRN PRN Reason: SHORTNESS OF BREATH OR WHEEZE Stop: 05/23/25 02:22 Amlodipine Besylate (Amlodipine Besylate 5 Mg Tablet) 10 mg GT QDAY MELECIO Stop: 05/23/25 08:59 Last Admin: 04/24/25 08:29 Dose: 10 mg Dextrose (Dextrose 50%-Water Inj 50 Ml Syringe) 25 ml IV Q15MIN PRN PRN Reason: BG 50-70 responsive npo pt Stop: 05/23/25 02:27 Dextrose (Dextrose 50%-Water Inj 50 Ml Syringe) 50 ml IV Q15MIN PRN PRN Reason: BG <50 OR BG <70 & pt unresponsive Stop: 05/23/25 02:27 Glucagon (Glucagon Inj 1 Mg Vial) 1 mg IM Q15MIN PRN PRN Reason: BG <70, and no IV access Remdesivir 100 mg/ Sodium (Chloride) 100 mls @ 100 mls/hr IV Q24H NR; Protocol Stop: 04/27/25 14:59 Last Admin: 04/24/25 14:02 Dose: 100 mls/hr Azithromycin 500 mg/ Sodium (Chloride) 250 mls @ 250 mls/hr IV QDAY MELECIO Stop: 04/30/25 09:45 Last Admin: 04/24/25 08:29 Dose: 250 mls/hr Ceftriaxone Sodium/Dextrose (Rocephin/D5w 1gm Iv Premix) 1 gm in 50 mls @ 100 mls/hr IV QDAY MELECIO Stop: 04/30/25 10:04 Last Admin: 04/24/25 08:29 Dose: 100 mls/hr Insulin Human Lispro (Insulin Lispro (Admelog) 1 Unit/0.01 Ml Unit) 0 unit SC Q6HR MELECIO; Protocol Stop: 05/23/25 05:59 Last Admin: 04/24/25 17:51 Dose: Not Given Levetiracetam (Levetiracetam Liqd 500 Mg/5 Ml Udc) 500 mg GT BID MELECIO Stop: 05/23/25 08:59 Last Admin: 04/24/25 08:29 Dose: 500 mg Ondansetron HCl (Ondansetron Inj 2 Mg/Ml Inj 2 Ml) 4 mg IVP Q6H PRN; Protocol PRN Reason: NAUSEA OR VOMITING Stop: 05/23/25 10:40 Last Admin: 04/24/25 13:10 Dose: 4 mg Pantoprazole Sodium (Pantoprazole Inj 40 Mg Vial) 40 mg IVP Q12HR MELECIO Stop: 05/23/25 08:59 Last Admin: 04/24/25 08:29 Dose: 40 mg Tramadol HCl (Tramadol Hcl 50 Mg Tablet) 50 mg GT Q6HR PRN PRN Reason: PAIN SCALE 4-10(Mod-Sev Stop: 04/28/25 02:22 Last Admin: 04/24/25 13:11 Dose: 50 mg Discontinued Medications Acetaminophen (Acetaminophen Supp 650 Mg Supp) 650 mg MT X1 ONE Stop: 04/23/25 13:25 Last Admin: 04/23/25 13:39 Dose: 650 mg Albuterol/Ipratropium (Albuterol/Ipratropium (Duoneb) Rt Nikki 3 Ml Nebu) 3 ml INH X1 ONE Stop: 04/22/25 23:58 Last Admin: 04/23/25 00:51 Dose: 3 ml Amlodipine Besylate (Amlodipine Besylate 5 Mg Tablet) 10 mg PO QDAY MELECIO Stop: 05/23/25 08:59 Epoetin Zane (Epoetin Zane-Epbx Inj 10,000 Unit/Ml Vial (Esrd)) 10,000 unit SC X1 ONE Stop: 04/23/25 10:31 Last Admin: 04/23/25 11:40 Dose: 10,000 unit Furosemide (Furosemide Inj 10 Mg/Ml 4ml Vial) 80 mg IVP X1 ONE Stop: 04/22/25 23:58 Last Admin: 04/23/25 00:31 Dose: 80 mg Hydromorphone HCl (Hydromorphone Inj 2 Mg/Ml Vial) 0.5 mg IVP Q4H PRN PRN Reason: PAIN SCALE 7-10(Mod-Sev Stop: 04/28/25 02:22 Acetaminophen (Ofirmev Inj) 1,000 mg in 100 mls @ 250 mls/hr IV X1 ONE Stop: 04/23/25 01:34 Last Infusion: 04/23/25 03:06 Dose: Infused Remdesivir 200 mg/ Sodium (Chloride) 250 mls @ 250 mls/hr IV X1 ONE; Protocol Stop: 04/23/25 09:59 Last Admin: 04/23/25 12:44 Dose: 250 mls/hr Ketorolac Tromethamine (Ketorolac Inj 30 Mg/Ml Vial) 15 mg IVP X1 ONE Stop: 04/23/25 01:12 Last Admin: 04/23/25 02:30 Dose: 15 mg Levetiracetam (Levetiracetam 250 Mg Tablet) 250 mg PO BID MELECIO Stop: 05/23/25 08:59 Levetiracetam (Levetiracetam 250 Mg Tablet) 500 mg PO BID MELECIO Stop: 05/23/25 08:59 Methylprednisolone Sodium Succinate (Methylprednisolone Sod Succ 62.5 Mg/Ml 2ml Vial) 125 mg IVP X1 ONE Stop: 04/22/25 23:58 Last Admin: 04/23/25 00:31 Dose: 125 mg Morphine Sulfate (Morphine Sulf Inj 10 Mg/Ml Vial) 2 mg IVP X1 ONE Stop: 04/22/25 23:58 Last Admin: 04/23/25 00:32 Dose: 2 mg Nitroglycerin (Nitroglycerin Oint 2% 1 Inch Packet) 2 inch TOP X1 ONE Stop: 04/22/25 23:58 Last Admin: 04/23/25 00:32 Dose: 2 inch Potassium Chloride (Potassium Chloride 10% 20 Meq/15 Ml Udc) 40 meq PO X1 ONE Stop: 04/23/25 02:45 Last Admin: 04/23/25 06:38 Dose: Not Given Potassium Chloride (Potassium Chloride 10% 20 Meq/15 Ml Udc) 40 meq GT X1 ONE Stop: 04/23/25 05:26 Last Admin: 04/23/25 06:06 Dose: 40 meq Tramadol HCl (Tramadol Hcl 50 Mg Tablet) 50 mg PO Q6HR PRN PRN Reason: PAIN SCALE 4-6 (Moderate Stop: 04/28/25 02:22 Assessment & Plan Plan 84F with PMHx of ESRD on HD, CAD s/p stents, HTN, DM2 with PN, dementia, and seizure disorder presented with weakness and N/V for two days. She was found to have symptomatic anemia (Hgb 6.7, likely GI bleed) and COVID pneumonia with hypoxia, fever, and diffuse consolidations, On admission, patient was febrile, tachycardic, and hypoxic (SpO2 94% on 6L NC, now 94% on 3L). CXR showed diffuse edema vs multifocal pneumonia. Labs notable for leukocytosis, CRP 3.0, Pro-Gil 0.92, BNP 1886. CTA chest negative for PE but showed significant bibasilar pneumonia and mild HF. She remains volume overloaded in the setting of ESRD, pneumonia, and CHF. 1. Acute CHF exacerbation 2. CHF with moderately reduced ejection fraction 30-35%. 3. CAD s/p stent 4. Acute hypoxemic respiratory failure 2/2 CHF exacerbation and pneumonia 5. Hypertensive emergency in settings of volume overload 6. ESRD on HD TTS 7. Acute bilateral DVT of lower extremity 8. Acute anemia likely GI loss requiring transfusions New echocardiogram reveals severe LV systolic dysfunction (EF 30?35%) with global hypokinesis, grade I diastolic dysfunction, mildly reduced RV function (RVSP 34 mmHg), mild LA dilation, moderate MR, mild AR and TR, and small pericardial and pleural effusions. This represents progression from prior normal EF (60?65% in 12/2023) to new-onset systolic HF. She follows with chart changer in [place].. He has mid to history of CAD, unclear if she ever had stents. However, CTA suggests presence of stent. She is currently not on DAPT. Overall, presentation reflects acute hypoxic respiratory failure due to COVID pneumonia with possible bacterial coinfection, decompensated CHF/volume overload, and acute anemia from suspected GI bleed in the setting of ESRD on HD. RECOMMENDATIONS: Management includes O2 support, REMDESIVIR, empiric antibiotics, careful fluid removal via HD, GI evaluation with EGD, and holding anticoagulation until bleed risk clarified. May initiate GDMT as tolerated. Recommended blood pressure control. Case was discussed with attending physician, Dr. Smith. Bobo Reddy, DO PGY II This document was transcribed using voice recognition technology. Minor inaccuracies may be present.
[2025-04-25] VITALS (23 sets, daily range): BP systolic 131–164; BP diastolic 65–90; PULSE 70–102; RESP 16–22; TEMP 35.7–36.8; O2SAT 92–98; BMI 21.1
[2025-04-25] MEDS: levETIRAcetam LIQD 500 MG/5 ML UDC GT ×3 (00:07→21:02)
[2025-04-25] MEDS: DEXTROSE 50%-WATER INJ 50 ML SYRINGE IV (00:19)
[2025-04-25] MEDS: PROMETHAZINE INJ 6.25 MG in SODIUM CHLORIDE 0.9% 50 ML 2.5 MG IV (02:15)
[2025-04-25 06:10] LABS: Basophils # (Auto) 0.1 Thou/mm3 (0.0-0.2); Basophils % (Auto) 1 % (0-2.5); Eosinophils # (Auto) 0.0 Thou/mm3 (0.0-0.5); Eosinophils % (Auto) 0 % (0-10); Hematocrit 43.3 % (36.0-46.0); Hemoglobin 14.2 g/dL (12.0-16.0); Immature Granulocytes Auto 0.04 Thou/mm3 (0.00-0.00); Lymphocytes # (Auto) 1.1 Thou/mm3 (1.0-4.8); Lymphocytes % (Auto) 11 % (10-50); Mean Corpuscular HGB Conc 32.8 g/dl (31.0-37.0); Mean Corpuscular Hemoglobin 30.1 pg (25.0-35.0); Mean Corpuscular Volume 92 fL (80-100); Monocytes # (Auto) 0.8 Thou/mm3 (0.0-0.8); Monocytes % (Auto) 8 % (0-12); Neutrophils # (Auto) 7.7 Thou/mm3 (1.8-7.7); Neutrophils % (Auto) 80 % (37-80); Nucleated Red Blood Cell # 0.00 Thou/mm3 (0.00-0.00); Nucleated Red Blood Cell % 0 /100 WBC (0); Platelet Count 149 Thou/mm3 (140-440); RDW Standard Deviation 51.9 fL (36.4-46.3); Red Blood Count 4.72 Miln/mm3 (4.00-5.20); White Blood Count 9.6 Thou/mm3 (3.6-11.0)
[2025-04-25 06:34] LABS: Alanine Aminotransferase 36 U/L (10-49); Albumin, Serum 3.6 gm/dL (3.4-4.8); Albumin/Globulin Ratio 1.0 (1.2-2.2); Alkaline Phosphatase 107 U/L (46-116); Anion Gap 16 (7-16); Aspartate Amino Transferase 33 U/L (0-34); BUN/Creatinine Ratio 17 Ratio (12-20); Bilirubin,Total 0.3 mg/dL (0.3-1.2); Blood Urea Nitrogen 58 mg/dL (9-23); Calcium 9.7 mg/dL (8.3-10.6); Calcium (Corrected) 10.0 mg/dL (8.5-10.1); Carbon Dioxide 27.1 mMol/L (20.0-31.0); Chloride 94 mMol/L (98-107); Creatinine (Component) 3.4 mg/dL (0.6-1.3); Estimated Creatinine Clearance 7.5 mL/min (>60); Globulin 3.5 gm/dL (2.3-3.5); Glucose 105 mg/dL (74-106); Magnesium 2.1 mg/dL (1.6-2.6); Osmolality,Calculated 290 (275-295); Phosphorous 5.2 mg/dL (2.4-5.1); Potassium 4.4 mMol/L (3.4-5.1); Sodium 137 mMol/L (136-145); Total Protein 7.1 gm/dL (5.7-8.2); eGFR 13 See Note
--- NOTE | 2025-04-25 07:45 | ESPR_ITS ---
<Statement entered by Greg Espinoza MD - 04/25/25 15:58> Senior Resident Attestation: I supervised/discussed management plan with landscape maintenance internship physician Dr. Mcconnell, and was involved in the care of this patient. I personally saw and examined the patient and discussed the assessment and plan with the entire medicine team, including my attending. I agree with the assessment and plan as documented. Patient is continues to be hypertensive, losartan was resumed. Per GI recommendations Eliquis 2.5 mg was started due to bilateral DVT. CTA was negative. Patient's care was discussed with attending physician, Dr. Suggs. Greg Espinoza MD PGY-3. Documentation for date of: 04/25/25 Subjective Subjective Interval history: BP 150-160s/80-90s. 93-97% 3L NC. COVID positive NAEO. Patient was evaluated at bedside. Denies new symptoms. Dialysis scheduled for today, following with Dr. Tabor. Dr. Baeza placed order for IV promethazine. IV not available, PO ordered. OK to start Eliquis renally dosed per Dr. Baeza. Resumed home losartan and started metoprolol 25 mg daily for HTN. Exam Vital Signs Temp Pulse Resp BP Pulse Ox O2 Del Method O2 Flow Rate 97.6 F 81 19 164/87 H 97 Nasal Cannula 3 04/25/25 04:00 04/25/25 04:00 04/25/25 04:00 04/25/25 04:00 04/25/25 04:00 04/25/25 04:00 04/25/25 04:00 Narrative Exam General: Awake and in no acute distress. Non-toxic appearing. HEENT: Normocephalic, atraumatic. Heart: Regular rate and rhythm, no murmurs. Lungs: Lung sounds hard to appreciate. Abdomen: Skin around PEG tube is dry and clean. Soft, nondistended. No guarding or rebound tenderness. Mild generalized abdominal tenderness. Neurologic: Alert and oriented x3, no gross neurological deficit, and patient able to move all 4 extremities. Extremities: No edema. Skin: No rash or ecchymoses. Objective Labs 04/26/25 05:15 04/26/25 11:55 Labs: Laboratory Results - last 24 hr 04/25/25 05:18 WBC 9.6 RBC 4.72 Hgb 14.2 Hct 43.3 MCV 92 MCH 30.1 MCHC 32.8 RDW Std Deviation 51.9 H Plt Count 149 Neut % (Auto) 80 Lymph % (Auto) 11 [place] % (Auto) 8 Eos % (Auto) 0 Baso % (Auto) 1 Neut # (Auto) 7.7 Lymph # (Auto) 1.1 [place] # (Auto) 0.8 Eos # (Auto) 0.0 Baso # (Auto) 0.1 Immature Gran # (Auto) 0.04 H Absolute Nucleated RBC 0.00 Immature Gran % 0 Nucleated RBC % 0 Sodium 137 Potassium 4.4 Chloride 94 L Carbon Dioxide 27.1 Anion Gap 16 BUN 58 H Creatinine 3.4 H D Estim Creat Clear Calc 7.5 L eGFR 13 L* BUN/Creatinine Ratio 17 Glucose 105 Calculated Osmolality 290 Calcium 9.7 Corrected Calcium 10.0 Phosphorus 5.2 H Magnesium 2.1 Total Bilirubin 0.3 AST 33 ALT 36 Alkaline Phosphatase 107 Total Protein 7.1 Albumin 3.6 Globulin 3.5 Albumin/Globulin Ratio 1.0 L ABG Interpretation ABG results: 04/23/25 01:04 ABG pH 7.43 ABG pCO2 50 H ABG pO2 90 ABG HCO3 33 H ABG O2 Saturation 97 ABG Base Excess 8 H Quality Measures Quality Measures VTE prophylaxis Advance care planning discussed with:: patient Assessment & Plan Assessment Current Active Medications: Generic Name Dose Route Start Last Admin Trade Name Freq PRN Reason Stop Dose Admin Acetaminophen 650 mg 04/23/25 02:23 Acetaminophen Supp 650 Mg Supp W[place] 05/23/25 02:22 Q6HR PRN Fever > 100.4 or pain 1-3(mild Albuterol/Ipratropium 3 ml 04/23/25 02:23 Albuterol/Ipratropium (Duoneb) Rt Nikki 3 Ml Nebu INH 05/23/25 02:22 Q2HR PRN SHORTNESS OF BREATH OR WHEEZE Amlodipine Besylate 10 mg 04/23/25 09:00 04/24/25 08:29 Amlodipine Besylate 5 Mg Tablet GT 05/23/25 08:59 10 mg QDAY MELECIO Administration Dextrose 25 ml 04/23/25 02:28 Dextrose 50%-Water Inj 50 Ml Syringe IV 05/23/25 02:27 Q15MIN PRN BG 50-70 responsive npo pt Dextrose 50 ml 04/23/25 02:28 04/25/25 00:19 Dextrose 50%-Water Inj 50 Ml Syringe IV 05/23/25 02:27 50 ml Q15MIN PRN Administration BG <50 OR BG <70 & pt unresponsive Glucagon 1 mg 04/23/25 02:28 Glucagon Inj 1 Mg Vial IM Q15MIN PRN BG <70, and no IV access Remdesivir 100 mg/ Sodium 100 mls @ 100 mls/hr 04/24/25 14:00 04/24/25 14:02 Chloride IV 04/27/25 14:59 100 mls/hr Q24H NR Administration Protocol Azithromycin 500 mg/ Sodium 250 mls @ 250 mls/hr 04/23/25 09:46 04/24/25 08:29 Chloride IV 04/30/25 09:45 250 mls/hr QDAY MELECIO Administration Ceftriaxone Sodium/Dextrose 1 gm in 50 mls @ 100 mls/hr 04/23/25 10:05 04/24/25 08:29 Rocephin/D5w 1gm Iv Premix IV 04/30/25 10:04 100 mls/hr QDAY MELECIO Administration Promethazine HCl 6.25 mg/ 50.25 mls @ 2.5 mls/min 04/25/25 00:00 04/25/25 05:25 Sodium Chloride IV 05/25/25 00:00 Not Given Q6HR MELECIO Insulin Human Lispro 0 unit 04/23/25 06:00 04/25/25 05:25 Insulin Lispro (Admelog) 1 Unit/0.01 Ml Unit SC 05/23/25 05:59 Not Given Q6HR MELECIO Protocol Levetiracetam 500 mg 04/23/25 09:00 04/25/25 00:07 Levetiracetam Liqd 500 Mg/5 Ml Udc GT 05/23/25 08:59 500 mg BID MELECIO Administration Ondansetron HCl 4 mg 04/23/25 10:41 04/24/25 13:10 Ondansetron Inj 2 Mg/Ml Inj 2 Ml IVP 05/23/25 10:40 4 mg Q6H PRN Administration NAUSEA OR VOMITING Protocol Pantoprazole Sodium 40 mg 04/23/25 09:00 04/24/25 21:49 Pantoprazole Inj 40 Mg Vial IVP 05/23/25 08:59 40 mg Q12HR MELECIO Administration Tramadol HCl 50 mg 04/23/25 03:15 04/24/25 13:11 Tramadol Hcl 50 Mg Tablet GT 04/28/25 02:22 50 mg Q6HR PRN Administration PAIN SCALE 4-10(Mod-Sev Plan 84 year old female with past medical history significant for end-stage renal disease (hemodialysis on ), CAD with stents, hypertension, hyperlipidemia, diabetes with peripheral neuropathy, multi-infarct dementia and seizures presents for weakness, nausea, and vomiting x 2 days, admitted for symptomatic anemia. #Acute symptomatic anemia #Acute blood loss anemia #Suspected GI bleed (upper vs lower vs occult source) No overt hemetemsis, hematochezia, or melena reported. BUN elevated 89 with BUN/Cr ratio of 23, possible upper GI source. Hemoglobin 6.7 on admission. Received 3 units pRBC with appropriate response. Most recent H&H shows hemoglobin 12.9, hematocrit 37.9. EGD showed esophagitis, erythematous mucosa of antrum, erythematous duodenopathy Plan: - GI consulted, appreciate recommendations. - Dr. Baeza ordered Promethazine 6.25 mg IV q6h. IV unavailable. Pharmacy ordered PO - Advance diet as tolerated - Monitor H&H. Transfusing for Hgb <8 or symptomatic. - Protonix 40 mg IV twice daily. - Avoid NSAIDs/ASA. - Close hemodynamic monitoring. - PT oredered - F/U colonoscopy outpatient #Acute respiratory failure with hypoxia #COVID-19 pneumonia #Community-acquired pneumonia - possible bacterial coinfection #Leukocytosis On admission: T 100.8F, tachycardic, SpO2 94% on 6L NC. Now 94% on 3L (no home O2). CXR (04/22): diffuse edema and/or multifocal pneumonia. Labs: CRP 3.0, Pro-Gil 0.92 (supports possible bacterial coinfection), lactic acid 2.6, WBC 11.1. ABG showed pH 7.43, pCO2 50, pO2 90. Lactic acid 2.6, now normalized. Blood cx NGTD, MRSA screen negative Plan: - Titrate O2 to keep SpO2 > 92%. - Remdesivir: 200 mg IV x1, then 100 mg IV daily (04/23-). - Continue empiric CAP coverage with Ceftriaxone 1 gram and Azithromycin 500 mg. De-escalate/stop if cultures negative and clinical pictures favors viral process. - Isolation precautions. #End-stage renal disease on hemodialysis () Follows with salesperson new [employer] Dr. Hui. Received dialysis yesterday (04/23). Patient is anuric and dependent on HD. Plan: - Nephrology consulted, appreciate recommendations. - Dialysis as per patient's usual schedule. - Renally dose meds as appropriate. - Monitor daily BMP, phosphorus, magnesium. #Coronary artery disease s/p with stents Troponin negative, EKG benign. On admission, BNP 1886. Echo (12/2023): Normal LV size and function. Stage I diastolic dysfunction. Estimated EF 60-65%. Normal RV size and function. Estimated RVSP 35mmHg. Mild LA dilatation. Mild MAC. Mild AV sclerosis without stenosis. Mild MR, AI, TR, PI. Small circumferential pericardial effusion. Venous doppler: Positive for bilateral acute DVT. Chest CTA: Negative for pulmonary artery emboli. Mild heart failure. Significant bibasilar pneumonia Plan: - Cardiology consulted - appreciate recs. - Started Eliquis 2.5 mg BID. OK with Dr. Baeza #Transaminitis AST 55, ALT 54, ALP 248. Likely from underlying COVID. Plan: - Hold off on statin per nephrology. 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 Plan: - ISS (resumed ACHS) - Bedside blood glucose checks ACHS. - Consulted vending machine refiller for PEG tube feeds. #Seizure disorder Patient history as stated. No reports of recent breakthrough seizures. Plan: - Resume home Keppra 250 mg PEG tube twice daily. #Hypertension Plan: - Resume patient's home amlodipine 10 mg PEG tube daily. - Resumed home Losartan 100 mg PO daily - Started metoprolol 25 mg PO daily #Dementia A&Ox1 at baseline. Follows commands, answers questions but answers unreliable. Plan: - Delirium precautions. - Avoid sedatives or excessive pain management. Health Maintenance DVT prophylaxis: SCDs GI prophylaxis: Pantoprazole 40 mg IV daily Diet: NPO Sauer: None Lines: Peripheral IV, pure wick CODE STATUS: DNR Plan discussed with Dr. Espinoza and Dr. Ifeanyi Mcconnell MD PGY1 Attending Provider Attestation/Addendum I Raimundo Suggs MD reviewed the note and agree with the resident's assessment & plan with modifications/additions/exceptions as below. I have personally reviewed labs, imaging, home meds/prior records, examined the patient, formulated and discussed management plan with the IM team. An 84-year-old female with history of ESRD, CAD s/p PCI, DM, dementia, PEG tube in place, HFrEF admitted with symptomatic anemia and noted to have COVID positive along with deep vein thrombosis. EGD revealed no etiological factor for anemia however likely etiology is related to ESRD. Continue Eliquis, continue losartan and metoprolol, continue remdesivir and empiric antibiotic coverage with Rocephin and azithromycin, repeat CXR in the a.m.
[2025-04-25] MEDS: AZITHROMYCIN INJ 500 MG in SODIUM CHLORIDE 0.9% 250 ML 250 ML 250 MG IV (09:58)
[2025-04-25] MEDS: cefTRIAXone/D5w 1gm IV premix 1 GM/50 ML BAG IV (09:59)
[2025-04-25] MEDS: APIXABAN 2.5 MG TABLET PO ×2 (10:00→21:02)
[2025-04-25] MEDS: INSULIN LISPRO (AdmeLOG) 1 UNIT/0.01 ML UNIT SC (12:27)
[2025-04-25] MEDS: PROMETHAZINE HCL 25 MG TABLET 6.25 MG PO ×2 (12:29→18:05)
--- NOTE | 2025-04-25 13:40 | ESPR_ITS ---
Documentation for date of: 04/25/25 Subjective Subjective Interval history: Ms. 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 The patient is a very poor historian and got all information from chart review. No family around. In the emergency department lactic acid 2.6, ABG showed [id number]. Hemoglobin 6.7, AST 55, ALT 54, alk phos 248, BUN 89, Creatinine 3.8, potassium 3.4, BNP 1886, albumin 3.6, Pro-Gil 0.9 Patient was placed in respiratory isolation. COVID-positive. Influenza negative. Chest x-ray showed significant consolidations. Patient admitted to the floor for COVID-pneumonia, respiratory insufficiency, nausea and vomiting. GI was consulted. Placed on a PPI. Renal consultation requested for need for dialysis. Patient currently seen on dialysis. Allergies:?Penicillins Medications: Amlodipine, atorvastatin, isosorbide mononitrate, Keppra, losartan, Rosalinda-Franklin, Velphoro 04/25/2025 patient currently seen in medical floor. In isolation for COVID 19. Going for endoscopy today. Labs and medications reviewed. Patient has significant dementia. She also has a PEG tube for failure to thrive, dialysis scheduled for today. Globin 14.2, potassium 4.4, creatinine 3.4, LFTs normal Review of Systems Review of Systems ROS Unobtainable: unobtainable due to mental status and unobtainable due to medical condition Narrative Review of Systems: Patient has dementia Exam Vital Signs Temp Pulse Resp BP Pulse Ox O2 Del Method O2 Flow Rate 36.3 C 94 20 151/81 H 93 L Nasal Cannula 3 04/25/25 08:00 04/25/25 10:00 04/25/25 08:13 04/25/25 10:00 04/25/25 08:13 04/25/25 08:00 04/25/25 08:13 Narrative Exam GENERAL APPEARANCE: Patient currently seen in telemetry. In respiratory isolation room. On dialysis NECK: Neck supple, no JVD or bruit CARDIOVASCULAR: Heart regular, no murmurs LUNGS/CHEST: bilateral rhonchi noted ABDOMEN: Soft, nontender, nondistended. No masses. Normal bowel sounds. ++ PEG tube EXTREMITIES: No edema, clubbing or cyanosis. SKIN: Skin exam normal without any rashes . rt ++ AV fistula MUSCULOSKELETAL: in bed NEUROLOGICAL : ++ dementia Objective Labs 04/25/25 05:18 04/25/25 05:18 Labs: Laboratory Results - last 24 hr 04/23/25 04/25/25 00:47 05:18 WBC 9.6 RBC 4.72 Hgb 14.2 Hct 43.3 MCV 92 MCH 30.1 MCHC 32.8 RDW Std Deviation 51.9 H Plt Count 149 Neut % (Auto) 80 Lymph % (Auto) 11 [place] % (Auto) 8 Eos % (Auto) 0 Baso % (Auto) 1 Neut # (Auto) 7.7 Lymph # (Auto) 1.1 [place] # (Auto) 0.8 Eos # (Auto) 0.0 Baso # (Auto) 0.1 Immature Gran # (Auto) 0.04 H Absolute Nucleated RBC 0.00 Immature Gran % 0 Nucleated RBC % 0 Sodium 137 Potassium 4.4 Chloride 94 L Carbon Dioxide 27.1 Anion Gap 16 BUN 58 H Creatinine 3.4 H D Estim Creat Clear Calc 7.5 L eGFR 13 L* BUN/Creatinine Ratio 17 Glucose 105 Calculated Osmolality 290 Calcium 9.7 Corrected Calcium 10.0 Phosphorus 5.2 H Magnesium 2.1 Total Bilirubin 0.3 AST 33 ALT 36 Alkaline Phosphatase 107 Total Protein 7.1 Albumin 3.6 Globulin 3.5 Albumin/Globulin Ratio 1.0 L Blood Type O Positive Antibody Screen NEGATIVE Crossmatch See Detail Blood Bank Wristband ID Yes ABG Interpretation ABG results: 04/23/25 01:04 ABG pH 7.43 ABG pCO2 50 H ABG pO2 90 ABG HCO3 33 H ABG O2 Saturation 97 ABG Base Excess 8 H Assessment & Plan Assessment and plan (1) ESRD (end stage renal disease): Status: Acute Assessment and plan: Patient with 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 Patient currently seen on dialysis. Tolerating dialysis without any problems. Hemodialysis for 3 hours, 2K, ultrafiltration 1 L, Epogen 6000, no heparin ordered. Plan of care discussed with the dialysis nurse. Please see dialysis flowsheet for further details. (2) Severe anemia: Status: Acute Assessment and plan: Dr. Baeza was consulted. On PPI. Needs endoscopy. (3) COVID: Status: Acute Assessment and plan: In respiratory isolation (4) Acute respiratory failure with hypoxia: Status: Acute Assessment and plan: Acute respiratory failure with hypoxia secondary to COVID. On remdesivir. (5) Hypokalemia: Status: Acute Assessment and plan: Hypokalemic metabolic alkalosis from GI losses. better (6) LFT elevation: Status: Acute Assessment and plan: Probably from underlying COVID. Hold off on statin. nl (7) Hypertension: Status: Acute Assessment and plan: Hypertension on amlodipine. (8) Hyperlipidemia: Status: Acute Assessment and plan: Hold statin Additional Assessment & Plan Additional Plan: care discussed with primary team
--- NOTE | 2025-04-25 15:15 | PC.SS ---
1516-Per afternoon rounding; pt will be staying. Pt will be doing dialysis, UR consult requested. Possible d/c in the next 2-3 days.
--- NOTE | 2025-04-25 15:19 | PC.SS ---
[id number]-Puw afternoon rounding; pt will be staying. Pt will be doing dialysis, no d/c date at this time.
--- NOTE | 2025-04-25 15:28 | ESPR_ITS ---
Documentation for date of: 04/25/25 Subjective Subjective Interval history: Patient evaluated hemoglobin hematocrit 14.2 and 43.3 Upper endoscopy showed gastritis and duodenitis Not a candidate at the moment for a colonoscopy which will be done as an outpatient Exam Vital Signs Temp Pulse Resp BP Pulse Ox O2 Del Method O2 Flow Rate 96.3 F L 100 18 139/71 H 98 Nasal Cannula 5 04/25/25 14:13 04/25/25 15:24 04/25/25 14:13 04/25/25 15:24 04/25/25 14:13 04/25/25 12:00 04/25/25 14:13 Objective Labs 04/25/25 05:18 04/25/25 05:18 Labs: Laboratory Results - last 24 hr 04/23/25 04/25/25 00:47 05:18 WBC 9.6 RBC 4.72 Hgb 14.2 Hct 43.3 MCV 92 MCH 30.1 MCHC 32.8 RDW Std Deviation 51.9 H Plt Count 149 Neut % (Auto) 80 Lymph % (Auto) 11 [place] % (Auto) 8 Eos % (Auto) 0 Baso % (Auto) 1 Neut # (Auto) 7.7 Lymph # (Auto) 1.1 [place] # (Auto) 0.8 Eos # (Auto) 0.0 Baso # (Auto) 0.1 Immature Gran # (Auto) 0.04 H Absolute Nucleated RBC 0.00 Immature Gran % 0 Nucleated RBC % 0 Sodium 137 Potassium 4.4 Chloride 94 L Carbon Dioxide 27.1 Anion Gap 16 BUN 58 H Creatinine 3.4 H D Estim Creat Clear Calc 7.5 L eGFR 13 L* BUN/Creatinine Ratio 17 Glucose 105 Calculated Osmolality 290 Calcium 9.7 Corrected Calcium 10.0 Phosphorus 5.2 H Magnesium 2.1 Total Bilirubin 0.3 AST 33 ALT 36 Alkaline Phosphatase 107 Total Protein 7.1 Albumin 3.6 Globulin 3.5 Albumin/Globulin Ratio 1.0 L Blood Type O Positive Antibody Screen NEGATIVE Crossmatch See Detail Blood Bank Wristband ID Yes Impressions Impression: Occult GI bleeding Gastritis Duodenitis Relatively stable hemoglobin hematocrit Advance diet as tolerated ABG Interpretation ABG results: 04/23/25 01:04 ABG pH 7.43 ABG pCO2 50 H ABG pO2 90 ABG HCO3 33 H ABG O2 Saturation 97 ABG Base Excess 8 H Assessment & Plan A&P Narrative # Anemia of blood loss requiring blood transfusion plan Consent obtained for fiberoptic esophagogastroduodenoscopy with possible biopsy possible therapeutic intervention under intravenous moderation tentatively scheduled for tomorrow Clear liquid diet till 8 AM tomorrow then n.p.o. Other medical problems include COVID-positive bilateral pneumonia Coronary artery status post PTCA Seizure disorder End-stage renal disease on hemodialysis TTS Essential hypertension Diabetes mellitus with peripheral neuropathy Dementia Time Spent With Patient Time: Total time spent is greater than 50% in coordination of care (as documented) at patient's floor/unit and/or counseling patient:
[2025-04-25] MEDS: REMDESIVIR INJ 100 MG in SODIUM CHLORIDE 0.9% 100 ML IV (18:10)
--- NOTE | 2025-04-25 19:29 | ESPR_ITS ---
RE: BLU TORREZ : 1940 DATE OF SERVICE: 04/25/2025 SUBJECTIVE: The patient is an 84-year-old lady, admitted to the hospital with multiple medical problems, hypoxic respiratory failure, found to have a low ejection fraction of 30%-35%. Other problems include gastritis and duodenitis. The patient does not offer any new complaints. No chest pain or shortness of breath. PHYSICAL EXAMINATION: Vital Signs: Blood pressure 140/70, pulse rate is 90, respiratory rate 18, and temperature normal. Neck: Supple. No JVD. Lungs: Decreased breath sounds. No rales or rhonchi. Heart: S1 and S2 regular. Tachycardia. Abdomen: Thin and soft. Extremities: Mild edema. LABORATORY DATA REVIEW: Shows chemistry panel shows creatinine of 3.4, BUN of 58, and GFR is 13. Venous Doppler study showed evidence of positive bilateral acute DVT. The patient also had bilateral pneumonia on the CT scan. Echo did show ejection fraction of 30%-35%. Reduced ejection fraction and moderate mitral regurgitation. IMPRESSION: 1. Acute on chronic systolic heart failure with ejection fraction 35%. 2. Coronary artery disease, status post previous stent placement. 3. History of hypoxic respiratory failure with combination of volume overload and chronic kidney disease as well as heart failure with reduced ejection fraction. 4. Anemia. 5. Recurrent bilateral acute deep venous thrombosis. RECOMMENDATIONS: The patient's clinical course with cardiovascular point of view is stable; though, the patient has HFrEF. Prognosis is guarded because of multiple comorbidities. The patient also has gastritis and duodenitis. The patient is not a candidate for colonoscopy per Dr. Baeza. He did require blood transfusion for anemia. Other problems include COVID positive bilateral pneumonia, treated with remdesivir. Condition is stable, but prognosis is poor. DT: 16:19:01 TT: 19:14:00 Ref: [id number] - TID: [id number]
[2025-04-25] MEDS: LANSOPRAZOLE 30 MG TAB.RAP.DR GT (21:02)
[2025-04-26] VITALS (14 sets, daily range): BP systolic 84–160; BP diastolic 48–90; PULSE 52–106; RESP 13–26; TEMP 35.9–36.9; O2SAT 92–100; BMI 20.9
[2025-04-26] MEDS: PROMETHAZINE HCL 25 MG TABLET 6.25 MG PO ×4 (00:43→18:04)
[2025-04-26] MEDS: ONDANSETRON INJ 2 MG/ML INJ 2 ML 4 MG IVP (05:22)
[2025-04-26 06:20] LABS: Basophils # (Auto) 0.0 Thou/mm3 (0.0-0.2); Basophils % (Auto) 1 % (0-2.5); Eosinophils # (Auto) 0.1 Thou/mm3 (0.0-0.5); Eosinophils % (Auto) 1 % (0-10); Hematocrit 39.0 % (36.0-46.0); Hemoglobin 12.8 g/dL (12.0-16.0); Immature Granulocytes Auto 0.03 Thou/mm3 (0.00-0.00); Lymphocytes # (Auto) 0.9 Thou/mm3 (1.0-4.8); Lymphocytes % (Auto) 10 % (10-50); Mean Corpuscular HGB Conc 32.8 g/dl (31.0-37.0); Mean Corpuscular Hemoglobin 30.6 pg (25.0-35.0); Mean Corpuscular Volume 93 fL (80-100); Monocytes # (Auto) 0.8 Thou/mm3 (0.0-0.8); Monocytes % (Auto) 9 % (0-12); Neutrophils # (Auto) 7.1 Thou/mm3 (1.8-7.7); Neutrophils % (Auto) 80 % (37-80); Nucleated Red Blood Cell # 0.00 Thou/mm3 (0.00-0.00); Nucleated Red Blood Cell % 0 /100 WBC (0); Platelet Count 156 Thou/mm3 (140-440); RDW Standard Deviation 53.1 fL (36.4-46.3); Red Blood Count 4.18 Miln/mm3 (4.00-5.20); White Blood Count 8.8 Thou/mm3 (3.6-11.0)
[2025-04-26 07:06] LABS: Alanine Aminotransferase 30 U/L (10-49); Albumin, Serum 3.5 gm/dL (3.4-4.8); Albumin/Globulin Ratio 1.2 (1.2-2.2); Alkaline Phosphatase 177 U/L (46-116); Anion Gap 15 (7-16); Aspartate Amino Transferase 30 U/L (0-34); BUN/Creatinine Ratio 12 Ratio (12-20); Bilirubin,Total 0.2 mg/dL (0.3-1.2); Blood Urea Nitrogen 32 mg/dL (9-23); Calcium 9.0 mg/dL (8.3-10.6); Calcium (Corrected) 9.4 mg/dL (8.5-10.1); Carbon Dioxide 25.4 mMol/L (20.0-31.0); Chloride 94 mMol/L (98-107); Creatinine (Component) 2.6 mg/dL (0.6-1.3); Estimated Creatinine Clearance 9.8 mL/min (>60); Globulin 3.0 gm/dL (2.3-3.5); Glucose 303 mg/dL (74-106); Magnesium 2.0 mg/dL (1.6-2.6); Osmolality,Calculated 286 (275-295); Phosphorous 3.6 mg/dL (2.4-5.1); Potassium 3.6 mMol/L (3.4-5.1); Sodium 134 mMol/L (136-145); Total Protein 6.5 gm/dL (5.7-8.2); eGFR 18 See Note
[2025-04-26] MEDS: INSULIN LISPRO (AdmeLOG) 1 UNIT/0.01 ML UNIT SC ×2 (07:56→13:28)
[2025-04-26] MEDS: cefTRIAXone/D5w 1gm IV premix 1 GM/50 ML BAG IV (08:29)
--- NOTE | 2025-04-26 09:18 | ESPR_ITS ---
Documentation for date of: 04/26/25 Subjective Subjective Interval history: Ms. 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 The patient is a very poor historian and got all information from chart review. No family around. In the emergency department lactic acid 2.6, ABG showed [id number]. Hemoglobin 6.7, AST 55, ALT 54, alk phos 248, BUN 89, Creatinine 3.8, potassium 3.4, BNP 1886, albumin 3.6, Pro-Gil 0.9 Patient was placed in respiratory isolation. COVID-positive. Influenza negative. Chest x-ray showed significant consolidations. Patient admitted to the floor for COVID-pneumonia, respiratory insufficiency, nausea and vomiting. GI was consulted. Placed on a PPI. Renal consultation requested for need for dialysis. Patient currently seen on dialysis. Allergies:?Penicillins Medications: Amlodipine, atorvastatin, isosorbide mononitrate, Keppra, losartan, Rosalinda-Franklin, Velphoro 04/27/2025 patient currently seen in medical floor. In isolation for COVID 19. Pending endoscopy labs and medications reviewed. Patient has significant dementia. She also has a PEG tube for failure to thrive, dialysis done yesterday. Review of Systems Review of Systems ROS Unobtainable: unobtainable due to mental status and unobtainable due to medical condition Narrative Review of Systems: Patient has dementia Exam Vital Signs Temp Pulse Resp BP Pulse Ox O2 Del Method O2 Flow Rate 36.1 C 73 18 115/49 L 99 Nasal Cannula 5 04/26/25 20:00 04/26/25 20:44 04/26/25 20:00 04/26/25 20:44 04/26/25 20:00 04/26/25 20:00 04/26/25 20:00 Narrative Exam GENERAL APPEARANCE: Patient currently seen in telemetry. In respiratory isolation room. NECK: Neck supple, no JVD or bruit CARDIOVASCULAR: Heart regular, no murmurs LUNGS/CHEST: bilateral rhonchi noted ABDOMEN: Soft, nontender, nondistended. No masses. Normal bowel sounds. ++ PEG tube EXTREMITIES: No edema, clubbing or cyanosis. SKIN: Skin exam normal without any rashes . rt ++ AV fistula MUSCULOSKELETAL: in bed NEUROLOGICAL : ++ dementia Objective Labs 04/27/25 08:04 04/27/25 17:45 Labs: Laboratory Results - last 24 hr 04/23/25 04/26/25 04/26/25 00:47 05:15 11:55 WBC 8.8 RBC 4.18 Hgb 12.8 Hct 39.0 MCV 93 MCH 30.6 MCHC 32.8 RDW Std Deviation 53.1 H Plt Count 156 Neut % (Auto) 80 Lymph % (Auto) 10 [place] % (Auto) 9 Eos % (Auto) 1 Baso % (Auto) 1 Neut # (Auto) 7.1 Lymph # (Auto) 0.9 L [place] # (Auto) 0.8 Eos # (Auto) 0.1 Baso # (Auto) 0.0 Immature Gran # (Auto) 0.03 H Absolute Nucleated RBC 0.00 Immature Gran % 0 Nucleated RBC % 0 Sodium 134 L 134 L Potassium 3.6 D 4.4 D Chloride 94 L 97 L Carbon Dioxide 25.4 17.9 L Anion Gap 15 19 H BUN 32 H 32 H Creatinine 2.6 H D 2.8 H Estim Creat Clear Calc 9.8 L 9.1 L eGFR 18 L 16 L BUN/Creatinine Ratio 12 11 L Glucose 303 H D 216 H D Calculated Osmolality 286 282 Lactic Acid 6.1 H* Calcium 9.0 9.4 Corrected Calcium 9.4 Phosphorus 3.6 3.8 Magnesium 2.0 2.1 Total Bilirubin 0.2 L AST 30 ALT 30 Alkaline Phosphatase 177 H D Troponin I 0.450 H* Total Protein 6.5 Albumin 3.5 Globulin 3.0 Albumin/Globulin Ratio 1.2 Crossmatch See Detail 04/26/25 04/26/25 04/26/25 14:00 15:31 17:57 WBC RBC Hgb Hct MCV MCH MCHC RDW Std Deviation Plt Count Neut % (Auto) Lymph % (Auto) [place] % (Auto) Eos % (Auto) Baso % (Auto) Neut # (Auto) Lymph # (Auto) [place] # (Auto) Eos # (Auto) Baso # (Auto) Immature Gran # (Auto) Absolute Nucleated RBC Immature Gran % Nucleated RBC % Sodium Potassium Chloride Carbon Dioxide Anion Gap BUN Creatinine Estim Creat Clear Calc eGFR BUN/Creatinine Ratio Glucose Calculated Osmolality Lactic Acid 3.7 H 2.3 H Calcium Corrected Calcium Phosphorus Magnesium Total Bilirubin AST ALT Alkaline Phosphatase Troponin I 0.384 H* 0.393 H* 0.396 H* Total Protein Albumin Globulin Albumin/Globulin Ratio Crossmatch 04/26/25 21:43 WBC RBC Hgb Hct MCV MCH MCHC RDW Std Deviation Plt Count Neut % (Auto) Lymph % (Auto) [place] % (Auto) Eos % (Auto) Baso % (Auto) Neut # (Auto) Lymph # (Auto) [place] # (Auto) Eos # (Auto) Baso # (Auto) Immature Gran # (Auto) Absolute Nucleated RBC Immature Gran % Nucleated RBC % Sodium Potassium Chloride Carbon Dioxide Anion Gap BUN Creatinine Estim Creat Clear Calc eGFR BUN/Creatinine Ratio Glucose Calculated Osmolality Lactic Acid 1.7 Calcium Corrected Calcium Phosphorus Magnesium Total Bilirubin AST ALT Alkaline Phosphatase Troponin I 0.432 H* Total Protein Albumin Globulin Albumin/Globulin Ratio Crossmatch ABG Interpretation ABG results: 04/23/25 01:04 ABG pH 7.43 ABG pCO2 50 H ABG pO2 90 ABG HCO3 33 H ABG O2 Saturation 97 ABG Base Excess 8 H Assessment & Plan Assessment and plan (1) ESRD (end stage renal disease): Status: Acute Assessment and plan: 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 Patient did receive dialysis yesterday (2) Severe anemia: Status: Acute Assessment and plan: Dr. Baeza was consulted. On PPI. Needs endoscopy. (3) COVID: Status: Acute Assessment and plan: In respiratory isolation (4) Acute respiratory failure with hypoxia: Status: Acute Assessment and plan: Acute respiratory failure with hypoxia secondary to COVID. On remdesivir. (5) Hypokalemia: Status: Acute Assessment and plan: Hypokalemic metabolic alkalosis from GI losses. replaced potassium (6) LFT elevation: Status: Acute Assessment and plan: Probably from underlying COVID. Hold off on statin. nl (7) Hypertension: Status: Acute Assessment and plan: Hypertension on amlodipine. (8) Hyperlipidemia: Status: Acute Assessment and plan: Hold statin Additional Assessment & Plan Additional Plan: care discussed with primary team Quality - progress note Quality Measures Quality Measures: VTE prophylaxis Reason for Continued Stay Reason for Continued Stay: further monitoring
[2025-04-26] MEDS: AZITHROMYCIN INJ 500 MG in SODIUM CHLORIDE 0.9% 250 ML 250 ML 250 MG IV (09:26)
[2025-04-26] MEDS: LOSARTAN POTASSIUM 25 MG TABLET 100 MG GT (09:27)
[2025-04-26] MEDS: POTASSIUM CHLORIDE 10% 20 MEQ/15 ML UDC 40 MEQ GT (09:27)
[2025-04-26] MEDS: levETIRAcetam LIQD 500 MG/5 ML UDC GT ×2 (09:27→20:43)
[2025-04-26] MEDS: APIXABAN 2.5 MG TABLET GT ×2 (09:28→20:43)
[2025-04-26] MEDS: METOPROLOL SUCCINATE XL 25 MG TABCR GT (09:28)
[2025-04-26] MEDS: LANSOPRAZOLE 30 MG TAB.RAP.DR GT ×2 (09:28→20:43)
--- NOTE | 2025-04-26 09:51 | ESPR_ITS ---
<Statement entered by Greg Espinoza MD - 04/26/25 16:32> Senior Resident Attestation: I supervised/discussed management plan with regulatory affairs intern physician Dr. Antunez, and was involved in the care of this patient. I personally saw and examined the patient and discussed the assessment and plan with the entire medicine team, including my attending. I agree with the assessment and plan as documented. Patient had rapid response due to symptomatic bradycardia and hypotension, she was given 1 dose of atropine, calcium chloride and 20 mcg of epinephrine with improvement of her heart rate and blood pressure. Patient was noted to have significant lactic acidosis and troponinemia. Cardiology was consulted. Beta- blockers were discontinued. Patient's care was discussed with attending physician, Dr. Suggs. Greg Espinoza MD PGY-3. Documentation for date of: 04/26/25 Subjective Subjective Interval history: Patient was evaluated at bedside this morning, reporting no acute complaints. No overnight events were noted. Initially placed on a renal diet following EKG yesterday, diet was subsequently discontinued pending a swallow evaluation. Patient has a PEG tube in place. On exam, patient was stable, alert, and awake. At 11:48, a rapid response was called for symptomatic bradycardia and hypotension. The patient received atropine, calcium chloride, and 20 mcg of epinephrine, resulting in improvement in heart rate and blood pressure. Laboratory studies were notable for lactic acidosis and elevated troponin. Metoprolol was discontinued (only new medication given today). Patient was also given aspirin 325 mg x1, isosorbide dinitrate 10 mg twice daily, with sublingual nitroglycerin as needed for chest pain. Cardiology was consulted. Exam Vital Signs Temp Pulse Resp BP Pulse Ox O2 Del Method O2 Flow Rate 98.4 F 105 H 19 157/90 H 95 Nasal Cannula 5 04/26/25 08:00 04/26/25 09:28 04/26/25 08:00 04/26/25 09:28 04/26/25 08:00 04/26/25 08:00 04/26/25 08:00 Narrative Exam Physical Exam General: Awake and in no acute distress. Non-toxic appearing. HEENT: Normocephalic, atraumatic, mucous membranes dry. Heart: Regular rate and rhythm, no murmurs. Lungs: Lung sounds hard to appreciate. Abdomen: Skin around PEG tube is dry and clean. Soft, nondistended, nontender. No guarding or rebound tenderness. Neurologic: Alert and oriented x3, no gross neurological deficit, and patient able to move all 4 extremities. Extremities: No edema. Skin: No rash or ecchymoses. Objective Labs 04/26/25 05:15 04/26/25 11:55 Labs: Laboratory Results - last 24 hr 04/23/25 04/26/25 00:47 05:15 WBC 8.8 RBC 4.18 Hgb 12.8 Hct 39.0 MCV 93 MCH 30.6 MCHC 32.8 RDW Std Deviation 53.1 H Plt Count 156 Neut % (Auto) 80 Lymph % (Auto) 10 [place] % (Auto) 9 Eos % (Auto) 1 Baso % (Auto) 1 Neut # (Auto) 7.1 Lymph # (Auto) 0.9 L [place] # (Auto) 0.8 Eos # (Auto) 0.1 Baso # (Auto) 0.0 Immature Gran # (Auto) 0.03 H Absolute Nucleated RBC 0.00 Immature Gran % 0 Nucleated RBC % 0 Sodium 134 L Potassium 3.6 D Chloride 94 L Carbon Dioxide 25.4 Anion Gap 15 BUN 32 H Creatinine 2.6 H D Estim Creat Clear Calc 9.8 L eGFR 18 L BUN/Creatinine Ratio 12 Glucose 303 H D Calculated Osmolality 286 Calcium 9.0 Corrected Calcium 9.4 Phosphorus 3.6 Magnesium 2.0 Total Bilirubin 0.2 L AST 30 ALT 30 Alkaline Phosphatase 177 H D Total Protein 6.5 Albumin 3.5 Globulin 3.0 Albumin/Globulin Ratio 1.2 Crossmatch See Detail ABG Interpretation ABG results: 04/23/25 01:04 ABG pH 7.43 ABG pCO2 50 H ABG pO2 90 ABG HCO3 33 H ABG O2 Saturation 97 ABG Base Excess 8 H Quality Measures Quality Measures VTE prophylaxis Advance care planning discussed with:: patient and child Assessment & Plan Assessment Current Active Medications: Generic Name Dose Route Start Last Admin Trade Name Freq PRN Reason Stop Dose Admin Acetaminophen 650 mg 04/23/25 02:23 Acetaminophen Supp 650 Mg Supp DC 05/23/25 02:22 Q6HR PRN Fever > 100.4 or pain 1-3(mild Albuterol/Ipratropium 3 ml 04/23/25 02:23 Albuterol/Ipratropium (Duoneb) Rt Nikki 3 Ml Nebu INH 05/23/25 02:22 Q2HR PRN SHORTNESS OF BREATH OR WHEEZE Amlodipine Besylate 10 mg 04/23/25 09:00 04/26/25 09:27 Amlodipine Besylate 5 Mg Tablet GT 05/23/25 08:59 10 mg QDAY MELECIO Administration Apixaban 2.5 mg 04/26/25 09:00 04/26/25 09:28 Apixaban 2.5 Mg Tablet GT 05/16/25 09:29 2.5 mg BID MELECIO Administration Dextrose 25 ml 04/23/25 02:28 Dextrose 50%-Water Inj 50 Ml Syringe IV 05/23/25 02:27 Q15MIN PRN BG 50-70 responsive npo pt Dextrose 50 ml 04/23/25 02:28 04/25/25 00:19 Dextrose 50%-Water Inj 50 Ml Syringe IV 05/23/25 02:27 50 ml Q15MIN PRN Administration BG <50 OR BG <70 & pt unresponsive Glucagon 1 mg 04/23/25 02:28 Glucagon Inj 1 Mg Vial IM Q15MIN PRN BG <70, and no IV access Remdesivir 100 mg/ Sodium 100 mls @ 100 mls/hr 04/24/25 14:00 04/25/25 18:10 Chloride IV 04/27/25 14:59 100 mls/hr Q24H NR Administration Protocol Azithromycin 500 mg/ Sodium 250 mls @ 250 mls/hr 04/23/25 09:46 04/26/25 09:26 Chloride IV 04/30/25 09:45 250 mls/hr QDAY MELECIO Administration Ceftriaxone Sodium/Dextrose 1 gm in 50 mls @ 100 mls/hr 04/23/25 10:05 04/26/25 08:29 Rocephin/D5w 1gm Iv Premix IV 04/30/25 10:04 100 mls/hr QDAY MELECIO Administration Insulin Human Lispro 0 unit 04/25/25 11:30 04/26/25 07:56 Insulin Lispro (Admelog) 1 Unit/0.01 Ml Unit SC 05/25/25 11:29 3 unit AC MELECIO Administration Protocol Lansoprazole 30 mg 04/26/25 08:13 04/26/25 09:28 Lansoprazole 30 Mg Tab.Rap. GT 05/23/25 08:59 30 mg Q12HR MELECIO Administration Levetiracetam 500 mg 04/23/25 09:00 04/26/25 09:27 Levetiracetam Liqd 500 Mg/5 Ml Udc GT 05/23/25 08:59 500 mg BID MELECIO Administration Losartan Potassium 100 mg 04/26/25 09:00 04/26/25 09:27 Losartan Potassium 25 Mg Tablet GT 05/25/25 08:59 100 mg QDAY MELECIO Administration Metoprolol Succinate 25 mg 04/26/25 09:00 04/26/25 09:28 Metoprolol Succinate Xl 25 Mg Tabcr GT 05/25/25 12:44 25 mg QDAY MELECIO Administration Ondansetron HCl 4 mg 04/23/25 10:41 04/26/25 05:22 Ondansetron Inj 2 Mg/Ml Inj 2 Ml IVP 05/23/25 10:40 4 mg Q6H PRN Administration NAUSEA OR VOMITING Protocol Promethazine HCl 6.25 mg 04/26/25 08:16 Promethazine Hcl 25 Mg Tablet PO 05/25/25 00:00 Q6HR MELECIO Tramadol HCl 50 mg 04/25/25 09:38 04/25/25 21:02 Tramadol Hcl 50 Mg Tablet GT 04/28/25 02:22 50 mg Q6HR PRN Administration PAIN SCALE 4-10(Mod-Sev Plan 84 year old female with past medical history significant for end-stage renal disease (hemodialysis on ), CAD with stents, hypertension, hyperlipidemia, diabetes with peripheral neuropathy, multi-infarct dementia and seizures presents for weakness, nausea, and vomiting x 2 days, admitted for symptomatic anemia. #Coronary artery disease s/p PCI #HFrEF (EF 30-35%) #Bilateral acute DVT Troponin negative, EKG benign. On admission, BNP 1886. Echo (04/2025): Severe global hypokinesis with severe LV dysfunction LVEF 30-35% (compared to echo from 2023 with EF 60-65%). Grade I diastolic dysfunction. RV mildly reduced function. RVSP 34mmHg. Mild dilated LA. Mild MAC with Moderate mitral regurgitation. Mild aortic valve sclerosis with mild aortic regurgitation. Mild tricuspid regurgitation. Small circumferential pericardial effusion not significant. Venous doppler (04/24): Positive for bilateral acute DVT. Chest CTA (04/24): Negative for pulmonary artery emboli. Mild heart failure. Significant bibasilar pneumonia. Rapid response 04/26: due to symptomatic bradycardia and hypotension. Treated with atropine x1, calcium chloride, 20 mcg of epinephrine, aspirin x1, and isosorbide dinitrate. Patient was noted to have significant lactic acidosis and troponinemia. Cardiology was consulted. Beta-blockers were discontinued. Troponin 0.450. Lactic acid 6.1. Plan: - Cardiology consulted - appreciate recs. - Started Eliquis 2.5 [address]ID. OK with Dr. Baeza. - Discontinued beta-blockers. - Continue isosorbide dinitrate 10 mg twice daily. - Sublingual NTG as needed for chest pain. - Continue to trend troponin and lactic acid. #Acute symptomatic anemia (resolved) #Acute blood loss anemia (resolved) #Suspected GI bleed (upper vs lower vs occult source) No overt hemetemsis, hematochezia, or melena reported. BUN elevated 89 with BUN/Cr ratio of 23, possible upper GI source. Hemoglobin 6.7 on admission. Received 3 units pRBC with appropriate response. Most recent H&H shows hemoglobin 12.9, hematocrit 37.9. EGD showed esophagitis, erythematous mucosa of antrum, erythematous duodenopathy. PEG tube at 35 mL. Plan: - GI consulted, appreciate recommendations. - Advance diet as tolerated. - Monitor H&H. Transfusing for Hgb <8 or symptomatic. - Protonix 40 mg IV twice daily. - Avoid NSAIDs/ASA. - Close hemodynamic monitoring. - Per Dr. Baeza, patient is not a candidate for colonscopy at this time. Follow- up outpatient. #Acute respiratory failure with hypoxia #COVID-19 pneumonia #Community-acquired pneumonia - possible bacterial coinfection #Leukocytosis On admission: T 100.8F, tachycardic, SpO2 94% on 6L NC. CXR (04/22): diffuse edema and/or multifocal pneumonia. Labs: CRP 3.0, Pro-Gil 0.92 (supports possible bacterial coinfection), lactic acid 2.6, WBC 11.1. ABG showed pH 7.43, pCO2 50, pO2 90. Lactic acid 2.6, now normalized. Blood cx NGTD, MRSA screen negative. Plan: - Was on 3L of O2 (no home O2), now at nasal cannula 5L. - Titrate O2 to keep SpO2 > 92%. - Continue Remdesivir: 200 mg IV x1, then 100 mg IV daily (04/23-). - Continue empiric CAP coverage with Ceftriaxone 1 gram and Azithromycin 500 mg. - Isolation precautions. #End-stage renal disease on hemodialysis (//Sun) Follows with employment program representative Dr. Hui. Received dialysis yesterday (04/23). Patient is anuric and dependent on HD. Plan: - Nephrology consulted, appreciate recommendations. - Dialysis as per patient's usual schedule. - Renally dose meds as appropriate. - Monitor daily BMP, phosphorus, magnesium. #Transaminitis AST 55, ALT 54, ALP 248. Likely from underlying COVID. Plan: - Hold off on statin per nephrology. 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 Plan: - ISS (resumed ACHS) - Bedside blood glucose checks Q6H. - Consulted legal word processor for PEG tube feeds. - Referral to speech eval. #Seizure disorder Patient history as stated. No reports of recent breakthrough seizures. Plan: - Resume home Keppra 250 mg PEG tube twice daily. #Hypertension Plan: - Decrease home Losartan 100 mg to 50 mg PO daily. - Discontinued metoprolol. - Discontinued amlodipine. #Dementia A&Ox1 at baseline. Follows commands, answers questions but answers unreliable. Plan: - Delirium precautions. - Avoid sedatives or excessive pain management. Health Maintenance DVT prophylaxis: SCDs GI prophylaxis: Pantoprazole 40 mg IV daily Diet: Hold PEG tube. Lines: Peripheral IV, pure wick CODE STATUS: DNR Patient plan of care was discussed with the senior resident, Dr. Espinoza, and attending physician, Dr. Suggs. Ross Antunez, DO PGY-1 Attending Provider Attestation/Addendum I Raimundo Suggs MD reviewed the note and agree with the resident's assessment & plan with modifications/additions/exceptions as below. I have personally reviewed labs, imaging, home meds/prior records, examined the patient, formulated and discussed management plan with the IM team. An 84-year-old female with history of ESRD, CAD s/p PCI, DM, dementia, PEG tube in place, HFrEF admitted with symptomatic anemia and noted to have COVID positive along with deep vein thrombosis. EGD revealed no etiological factor for anemia however likely etiology is related to ESRD. Hemoglobin dropped to 12.8, GI is on board and planning for repeat endoscopic evaluation. Continue Eliquis, continue losartan and metoprolol, continue remdesivir and empiric antibiotic coverage with Rocephin and azithromycin, follow-up with repeat CXR. Consult IR for potential IVC filter placement. A rapid response was called earlier around noon where patient became bradycardic to 50s, hypotensive with MAP around 60 with complaints of severe chest pain. EKG revealing inferolateral T wave inversion & frequent PVCs on telemetry monitoring, troponin peak 2.4 however flat hued, lactic acid significantly elevated, bedside echocardiogram revealed severely reduced EF with significant wall motion abnormalities. Cardiology was consulted however recommended continue ongoing management. Atropine 1 mg was administered along with calcium chloride. Administer aspirin 325 mg daily, start on isosorbide dinitrate 10 mg twice daily, sublingual NTG as needed for chest pain, continue beta-jake therapy. Continue trending troponin and lactate level until normalized.
--- NOTE | 2025-04-26 10:40 | XR_ITS ---
Examination: AP chest single view. Technique: AP portable semiupright chest single view Date and time: April 26, 2025, 10:58 AM, comparison April 23, 2025 Indications: Covid positive patient with shortness of breath pneumonia this week Findings: Significant right upper lobe and left base pneumonia. Moderate enlargement cardiac contour. Vascular congestion and perihilar edema. Severe osteopenia. Impression: Mild heart failure. Significant bilateral pneumonia, progressed compared to the April 23, 2025 exam
--- NOTE | 2025-04-26 11:42 | EKG_ITS ---
[facility] Test Date: 2025-04-26 Pat Name: BLU TORREZ Department: Room: 64A Gender: Female General Partner: YAQUELIN : 1940 Requested By: Marina Mcconnell Order Number: [id number] Reading MD: Marina Mcconnell Measurements Intervals [place] Rate: 46 P: OR: QRS: -22 QRSD: 97 T: 215 QT: 519 QTc: 458 Interpretive Statements SUPRAVENTRICULAR BRADYCARDIA LOW QRS VOLTAGE IN PRECORDIAL LEADS INCOMPLETE RIGHT BUNDLE BRANCH BLOCK ANTERIOR MYOCARDIAL INFARCTION , OF INDETERMINATE AGE INFERIOR MYOCARDIAL INFARCTION , OF INDETERMINATE AGE MODERATE T-WAVE ABNORMALITY, CONSIDER LATERAL ISCHEMIA Compared to ECG 12/20/2023 04:16:13 Low QRS voltage now present Incomplete right bundle-branch block now present Myocardial infarct finding now present T-wave abnormality now present Possible ischemia now present Sinus rhythm no longer present /store/S0/[id number].pdf
[2025-04-26] MEDS: ATROPINE SULF INJ 0.1 MG/ML SYR 10 ML 1 MG IV (11:48)
--- NOTE | 2025-04-26 11:48 | PD.RESEVENT ---
Documentation for date of: 04/26/25 Event Note Event Note: Rapid response was called for hypotension and hypothermia. Vitals: T 86.1 C, HR 52, BP 84/53, 92% spO2 5L NC. Blood glucose 208. Tube feeds were held. Patient had an episode of vomitus. She was sat up in bed to decrease risk of aspiration. Ordered EKG, BMP, Mg, Phos, troponin, lactic acid. EKG at 11:48 AM showed bradycardia HR 46, QTc 479. No ST segment elevation in contiguous leads appreciated. Given atropine 1 mg IV x1 --> HR 74, BP 88/57, MAP 70. Given Calcium chloride 10% 1 g / 10 mL IV x1 given over 5 minutes. --> HR 82, BP 93/57, MAP 64 Ordered Epinephrine 20 mcg/mL - Given 1 mL --> HR 77, BP 124/72, MAP 83. Started Calcium gluconate gtt 1 gm in 30 min. Ordered but NOT given glucagon 10 mg IV x1. Only had 1 mg IV. Lactic acid 6.1. Ordered trending lactic acids q3h Bedside US showed normal IVC. Ordered Aspirin 325 mg GT x1. Troponin 0.45. Ordered trending troponin q3h. D/C metoprolol (given at 9:28 AM, only new medication given today). Consulted cardiology (Dr. Almanza). Plan discussed with Dr. Espinoza and Dr. Binu Mcconnell MD PGY1
[2025-04-26] MEDS: CALCIUM CHLORIDE 10% INJ 10 ML SYRG IV (11:55)
[2025-04-26] MEDS: EPINEPHrine INJ 0.1 MG/ML SYRINGE 10ML 0.02 MG IVP (12:03)
--- NOTE | 2025-04-26 12:12 | EKG_ITS ---
[facility] Test Date: 2025-04-26 Pat Name: BLU TORREZ Department: Room: S264A Gender: Female Student Life Advisor: YAQUELIN : 1940 Requested By: Marina Mcconnell Order Number: [id number] Reading MD: Marina Mcconnell Measurements Intervals [place] Rate: 73 P: 12 MA: 182 QRS: 10 QRSD: 100 T: 150 QT: 416 QTc: 461 Interpretive Statements SINUS RHYTHM WITH FREQUENT VENTRICULAR PREMATURE COMPLEXES LOW QRS VOLTAGE IN PRECORDIAL LEADS INCOMPLETE RIGHT BUNDLE BRANCH BLOCK ANTERIOR MYOCARDIAL INFARCTION , OF INDETERMINATE AGE INFERIOR MYOCARDIAL INFARCTION , PROBABLY OLD MODERATE T-WAVE ABNORMALITY, CONSIDER LATERAL ISCHEMIA Compared to ECG 04/26/2025 11:48:30 Ventricular premature complex(es) now present Myocardial infarct finding still present T-wave abnormality still present Possible ischemia still present /store/S0/[id number].pdf
[2025-04-26] MEDS: CALCIUM GLUC/NS 1000MG IVPB 1,000 MG/50 ML BAG 100 MG IV ×4 (12:17→15:46)
--- NOTE | 2025-04-26 12:18 | EKG_ITS ---
[facility] Test Date: 2025-04-26 Pat Name: BLU TORREZ Department: Room: S264A Gender: Female Yard Attendant: YAQUELIN : 1940 Requested By: Marina Mcconnell Order Number: [id number] Reading MD: Marina Mcconnell Measurements Intervals [place] Rate: 69 P: 24 [place]: 181 QRS: 51 QRSD: 93 T: 212 QT: 426 QTc: 458 Interpretive Statements SINUS RHYTHM WITH SINUS ARRHYTHMIA LOW QRS VOLTAGE IN PRECORDIAL LEADS INCOMPLETE RIGHT BUNDLE BRANCH BLOCK ANTERIOR MYOCARDIAL INFARCTION , OF INDETERMINATE AGE MODERATE T-WAVE ABNORMALITY, CONSIDER LATERAL ISCHEMIA MODERATE T-WAVE ABNORMALITY, CONSIDER INFERIOR ISCHEMIA Compared to ECG 04/26/2025 12:07:55 Ventricular premature complex(es) no longer present Myocardial infarct finding still present T-wave abnormality still present Possible ischemia still present /store/S0/[id number].pdf
[2025-04-26 12:20] LABS: Lactate (Lactic Acid) 6.1 mMol/L (0.4-2.0)
[2025-04-26 12:29] LABS: Anion Gap 19 (7-16); BUN/Creatinine Ratio 11 Ratio (12-20); Blood Urea Nitrogen 32 mg/dL (9-23); Calcium 9.4 mg/dL (8.3-10.6); Carbon Dioxide 17.9 mMol/L (20.0-31.0); Chloride 97 mMol/L (98-107); Creatinine (Component) 2.8 mg/dL (0.6-1.3); Estimated Creatinine Clearance 9.1 mL/min (>60); Glucose 216 mg/dL (74-106); Magnesium 2.1 mg/dL (1.6-2.6); Osmolality,Calculated 282 (275-295); Phosphorous 3.8 mg/dL (2.4-5.1); Potassium 4.4 mMol/L (3.4-5.1); Sodium 134 mMol/L (136-145); eGFR 16 See Note
[2025-04-26 12:36] LABS: Troponin I 0.450 ng/mL (0.0-0.045)
--- NOTE | 2025-04-26 13:13 | PD.RESCONSUL ---
HPI Data of Consult Patient: new to practice Consult date: 04/26/25 Requesting Physician: Krystin Arzola DO Admitting Provider: Ernesto Stevenson MD Attending Provider: Krystin Arzola DO Primary Care Provider: José Chand MD Consult Narrative Reason for consult: bradycardia cc:: cc: Krystin Arzola DO Exam Vital Signs Temp Pulse Resp BP Pulse Ox O2 Del Method O2 Flow Rate 98.4 F 105 H 19 157/90 H 95 Nasal Cannula 5 04/26/25 11:39 04/26/25 11:39 04/26/25 11:39 04/26/25 11:39 04/26/25 11:39 04/26/25 08:00 04/26/25 11:39 Results Labs 04/26/25 05:15 04/26/25 11:55 Labs: Short CBC 04/26/25 Range/Units 05:15 WBC 8.8 (3.6-11.0) Thou/mm3 Hgb 12.8 (12.0-16.0) g/dL Hct 39.0 (36.0-46.0) % Plt Count 156 (140-440) Thou/mm3 BMP 04/26/25 04/26/25 05:15 11:55 Sodium 134 L 134 L Potassium 3.6 D 4.4 D Chloride 94 L 97 L Carbon Dioxide 25.4 17.9 L BUN 32 H 32 H Creatinine 2.6 H D 2.8 H Glucose 303 H D 216 H D Calcium 9.0 9.4 Cardiac Enzymes 04/26/25 Range/Units 11:55 Troponin I 0.450 H* (0.0-0.045) ng/mL Liver Function 04/26/25 Range/Units 05:15 Total Bilirubin 0.2 L (0.3-1.2) mg/dL AST 30 (0-34) U/L ALT 30 (10-49) U/L Alkaline Phosphatase 177 H D (46-116) U/L Albumin 3.5 (3.4-4.8) gm/dL ABG Interpretation ABG results: 04/23/25 01:04 ABG pH 7.43 ABG pCO2 50 H ABG pO2 90 ABG HCO3 33 H ABG O2 Saturation 97 ABG Base Excess 8 H Quality Measures Quality Measures VTE prophylaxis Medications Home Medications and Allergies Home Medications ?Medication ?Instructions ?Recorded ?Confirmed ?Type amlodipine 10 mg tablet 10 mg PO QDAY 11/07/22 04/23/25 History atorvastatin 40 mg tablet 40 mg PO QDAY 11/07/22 04/23/25 History losartan 100 mg tablet 100 mg PO QDAY 11/07/22 04/23/25 History carvedilol 3.125 mg tablet 3.125 mg PO BID 04/23/25 04/23/25 History levetiracetam 100 mg/mL oral 500 mg feeding tube Q12H 04/23/25 04/23/25 History solution levetiracetam 100 mg/mL oral 500 mg PO BID 04/23/25 04/23/25 History solution (Keppra) Allergies Allergy/AdvReac Type Severity Reaction Status Date / Time Penicillins Allergy Intermediate Rash Verified 06/29/20 08:33 Visit Medications Acetaminophen (Acetaminophen Supp 650 Mg Supp) 650 mg [place] Q6HR PRN PRN Reason: Fever > 100.4 or pain 1-3(mild Stop: 05/23/25 02:22 Albuterol/Ipratropium (Albuterol/Ipratropium (Duoneb) Rt Nikki 3 Ml Nebu) 3 ml INH Q2HR PRN PRN Reason: SHORTNESS OF BREATH OR WHEEZE Stop: 05/23/25 02:22 Amlodipine Besylate (Amlodipine Besylate 5 Mg Tablet) 10 mg GT QDAY [facility] Stop: 05/23/25 08:59 Last Admin: 04/26/25 09:27 Dose: 10 mg Apixaban (Apixaban 2.5 Mg Tablet) 2.5 mg GT BID MELECIO Stop: 05/16/25 09:29 Last Admin: 04/26/25 09:28 Dose: 2.5 mg Calcium Chloride (Calcium Chloride 10% Inj 10 Ml Syrg) 10 ml IV X1 ONE Stop: 04/26/25 13:16 Dextrose (Dextrose 50%-Water Inj 50 Ml Syringe) 25 ml IV Q15MIN PRN PRN Reason: BG 50-70 responsive npo pt Stop: 05/23/25 02:27 Dextrose (Dextrose 50%-Water Inj 50 Ml Syringe) 50 ml IV Q15MIN PRN PRN Reason: BG <50 OR BG <70 & pt unresponsive Stop: 05/23/25 02:27 Last Admin: 04/25/25 00:19 Dose: 50 ml Glucagon (Glucagon Inj 1 Mg Vial) 1 mg IM Q15MIN PRN PRN Reason: BG <70, and no IV access Remdesivir 100 mg/ Sodium (Chloride) 100 mls @ 100 mls/hr IV Q24H NR; Protocol Stop: 04/27/25 14:59 Last Admin: 04/25/25 18:10 Dose: 100 mls/hr Azithromycin 500 mg/ Sodium (Chloride) 250 mls @ 250 mls/hr IV QDAY [facility] Stop: 04/30/25 09:45 Last Admin: 04/26/25 09:26 Dose: 250 mls/hr Ceftriaxone Sodium/Dextrose (Rocephin/D5w 1gm Iv Premix) 1 gm in 50 mls @ 100 mls/hr IV QDAY [facility] Stop: 04/30/25 10:04 Last Admin: 04/26/25 08:29 Dose: 100 mls/hr Calcium Gluconate/Sodium Chloride (Calcium Gluc/Ns 1000mg Ivpb) 1,000 mg in 50 mls @ 100 mls/hr IV Q30M [facility] Stop: 04/26/25 13:59 Last Admin: 04/26/25 12:17 Dose: 100 mls/hr Insulin Human Lispro (Insulin Lispro (Admelog) 1 Unit/0.01 Ml Unit) 0 unit SC Q6HR [facility]; Protocol Stop: 05/26/25 11:59 Lansoprazole (Lansoprazole 30 Mg Tab.Rap.Dr) 30 mg GT Q12HR [facility] Stop: 05/23/25 08:59 Last Admin: 04/26/25 09:28 Dose: 30 mg Levetiracetam (Levetiracetam Liqd 500 Mg/5 Ml Udc) 500 mg GT BID [facility] Stop: 05/23/25 08:59 Last Admin: 04/26/25 09:27 Dose: 500 mg Losartan Potassium (Losartan Potassium 25 Mg Tablet) 100 mg GT QDAY [facility] Stop: 05/25/25 08:59 Last Admin: 04/26/25 09:27 Dose: 100 mg Ondansetron HCl (Ondansetron Inj 2 Mg/Ml Inj 2 Ml) 4 mg IVP Q6H PRN; Protocol PRN Reason: NAUSEA OR VOMITING Stop: 05/23/25 10:40 Last Admin: 04/26/25 05:22 Dose: 4 mg Promethazine HCl (Promethazine Hcl 25 Mg Tablet) 6.25 mg PO Q6HR [facility] Stop: 05/25/25 00:00 Tramadol HCl (Tramadol Hcl 50 Mg Tablet) 50 mg GT Q6HR PRN PRN Reason: PAIN SCALE 4-10(Mod-Sev Stop: 04/28/25 02:22 Last Admin: 04/25/25 21:02 Dose: 50 mg Discontinued Medications Acetaminophen (Acetaminophen Supp 650 Mg Supp) 650 mg [place] X1 ONE Stop: 04/23/25 13:25 Last Admin: 04/23/25 13:39 Dose: 650 mg Albuterol/Ipratropium (Albuterol/Ipratropium (Duoneb) Rt Nikki 3 Ml Nebu) 3 ml INH X1 ONE Stop: 04/22/25 23:58 Last Admin: 04/23/25 00:51 Dose: 3 ml Amlodipine Besylate (Amlodipine Besylate 5 Mg Tablet) 10 mg PO QDAY [facility] Stop: 05/23/25 08:59 Apixaban (Apixaban 2.5 Mg Tablet) 2.5 mg PO BID [facility] Stop: 05/16/25 09:29 Last Admin: 04/25/25 21:02 Dose: 2.5 mg Aspirin (Aspirin 325 Mg Tablet) 325 mg GT X1 ONE Stop: 04/26/25 12:35 Atropine Sulfate (Atropine Sulf Inj 0.1 Mg/Ml Syr 10 Ml) 1 mg IV X1 ONE Stop: 04/26/25 12:01 Last Admin: 04/26/25 11:48 Dose: 1 mg Calcium Gluconate (Calcium Gluconate 10% Inj 1 Gm/10 Ml Vial) 1 gm IV X1 ONE Stop: 04/26/25 11:55 Carvedilol (Carvedilol 3.125 Mg Tablet) 6.25 mg GT BIDWM MELECIO Stop: 05/26/25 19:59 Diphenhydramine HCl (Diphenhydramine Inj 50 Mg/Ml Vial) 25 mg IVP PRNMRX1 PRN PRN Reason: MODERATE SEDATION Epinephrine HCl (Epinephrine Inj 0.1 Mg/Ml Syringe 10ml) 0.02 mg IVP X1 ONE Stop: 04/26/25 12:31 Epoetin Zane (Epoetin Zane-Epbx Inj 10,000 Unit/Ml Vial (Esrd)) 10,000 unit SC X1 ONE Stop: 04/23/25 10:31 Last Admin: 04/23/25 11:40 Dose: 10,000 unit Fentanyl Citrate (Fentanyl Cit Inj 50 Mcg/Ml Amp 2ml) 50 mcg IVP Q2M PRN PRN Reason: MODERATE SEDATION Furosemide (Furosemide Inj 10 Mg/Ml 4ml Vial) 80 mg IVP X1 ONE Stop: 04/22/25 23:58 Last Admin: 04/23/25 00:31 Dose: 80 mg Glucagon (Glucagon Inj 1 Mg Vial) 10 mg IVP X1 ONE Stop: 04/26/25 11:51 Hydromorphone HCl (Hydromorphone Inj 2 Mg/Ml Vial) 0.5 mg IVP Q4H PRN PRN Reason: PAIN SCALE 7-10(Mod-Sev Stop: 04/28/25 02:22 Acetaminophen (Ofirmev Inj) 1,000 mg in 100 mls @ 250 mls/hr IV X1 ONE Stop: 04/23/25 01:34 Last Infusion: 04/23/25 03:06 Dose: Infused Remdesivir 200 mg/ Sodium (Chloride) 250 mls @ 250 mls/hr IV X1 ONE; Protocol Stop: 04/23/25 09:59 Last Admin: 04/23/25 12:44 Dose: 250 mls/hr Promethazine HCl 6.25 mg/ (Sodium Chloride) 50.25 mls @ 2.5 mls/min IV Q6HR [facility] Stop: 05/25/25 00:00 Last Admin: 04/25/25 05:25 Dose: Not Given Potassium Chloride (Kcl Ivpb) 10 meq in 100 mls @ 100 mls/hr IV Q1H [facility] Stop: 04/26/25 11:21 Last Admin: 04/26/25 08:28 Dose: Not Given Insulin Human Lispro (Insulin Lispro (Admelog) 1 Unit/0.01 Ml Unit) 0 unit SC Q6HR [facility]; Protocol Stop: 05/23/25 05:59 Last Admin: 04/25/25 05:25 Dose: Not Given Insulin Human Lispro (Insulin Lispro (Admelog) 1 Unit/0.01 Ml Unit) 0 unit SC AC [facility]; Protocol Stop: 05/25/25 11:29 Last Admin: 04/26/25 07:56 Dose: 3 unit Ketorolac Tromethamine (Ketorolac Inj 30 Mg/Ml Vial) 15 mg IVP X1 ONE Stop: 04/23/25 01:12 Last Admin: 04/23/25 02:30 Dose: 15 mg Lansoprazole (Lansoprazole 30 Mg Tab.Rap) 30 mg GT Q12HR [facility] Stop: 05/23/25 08:59 Last Admin: 04/25/25 21:02 Dose: 30 mg Levetiracetam (Levetiracetam 250 Mg Tablet) 250 mg PO BID [facility] Stop: 05/23/25 08:59 Levetiracetam (Levetiracetam 250 Mg Tablet) 500 mg PO BID [facility] Stop: 05/23/25 08:59 Losartan Potassium (Losartan Potassium 25 Mg Tablet) 100 mg PO QDAY [facility] Stop: 05/25/25 08:59 Last Admin: 04/25/25 10:00 Dose: Not Given Methylprednisolone Sodium Succinate (Methylprednisolone Sod Succ 62.5 Mg/Ml 2ml Vial) 125 mg IVP X1 ONE Stop: 04/22/25 23:58 Last Admin: 04/23/25 00:31 Dose: 125 mg Metoprolol Succinate (Metoprolol Succinate Xl 25 Mg Tabcr) 25 mg PO QDAY [facility] Stop: 05/25/25 12:44 Last Admin: 04/25/25 13:34 Dose: Not Given Metoprolol Succinate (Metoprolol Succinate Xl 25 Mg Tabcr) 25 mg GT QDAY [facility] Stop: 05/25/25 12:44 Last Admin: 04/26/25 09:28 Dose: 25 mg Midazolam HCl (Midazolam Inj 1 Mg/Ml Vial 2 Ml) 2 mg IVP Q2M PRN PRN Reason: Moderate Sedation Morphine Sulfate (Morphine Sulf Inj 10 Mg/Ml Vial) 2 mg IVP X1 ONE Stop: 04/22/25 23:58 Last Admin: 04/23/25 00:32 Dose: 2 mg Nitroglycerin (Nitroglycerin Oint 2% 1 Inch Packet) 2 inch TOP X1 ONE Stop: 04/22/25 23:58 Last Admin: 04/23/25 00:32 Dose: 2 inch Pantoprazole Sodium (Pantoprazole Inj 40 Mg Vial) 40 mg IVP Q12HR [facility] Stop: 05/23/25 08:59 Last Admin: 04/25/25 09:58 Dose: 40 mg Pantoprazole Sodium (Pantoprazole 40 Mg Tablet) 40 mg PO Q12HR [facility] Stop: 05/23/25 08:59 Potassium Chloride (Potassium Chloride 10% 20 Meq/15 Ml Udc) 40 meq PO X1 ONE Stop: 04/23/25 02:45 Last Admin: 04/23/25 06:38 Dose: Not Given Potassium Chloride (Potassium Chloride 10% 20 Meq/15 Ml Udc) 40 meq GT X1 ONE Stop: 04/23/25 05:26 Last Admin: 04/23/25 06:06 Dose: 40 meq Potassium Chloride (Potassium Chloride 10% 20 Meq/15 Ml Udc) 40 meq GT X1 ONE Stop: 04/26/25 08:28 Last Admin: 04/26/25 09:27 Dose: 40 meq Promethazine HCl (Promethazine Hcl 25 Mg Tablet) 6.25 mg PO Q6HR [facility] Stop: 05/25/25 00:00 Last Admin: 04/26/25 05:22 Dose: 6.25 mg Tramadol HCl (Tramadol Hcl 50 Mg Tablet) 50 mg PO Q6HR PRN PRN Reason: PAIN SCALE 4-6 (Moderate Stop: 04/28/25 02:22 Tramadol HCl (Tramadol Hcl 50 Mg Tablet) 50 mg GT Q6HR PRN PRN Reason: PAIN SCALE 4-10(Mod-Sev Stop: 04/28/25 02:22 Last Admin: 04/24/25 13:11 Dose: 50 mg
[2025-04-26] MEDS: ISOSORBIDE DINITRATE 10 MG TABLET PO (13:29)
[2025-04-26] MEDS: REMDESIVIR INJ 100 MG in SODIUM CHLORIDE 0.9% 100 ML IV (13:37)
[2025-04-26 14:59] LABS: Reflex Lactate? Y
[2025-04-26 15:07] LABS: Troponin I 0.384 ng/mL (0.0-0.045)
[2025-04-26 15:56] LABS: Lactate (Lactic Acid) 3.7 mMol/L (0.4-2.0)
--- NOTE | 2025-04-26 16:13 | PC.SS ---
Per afternoon rounding note: ; pt will be staying. Pt had a rapid response last night. W: Cardio evaluation. ?Possible d/c in the next 2-3 days.
[2025-04-26 16:40] LABS: Troponin I 0.393 ng/mL (0.0-0.045)
[2025-04-26] MEDS: DEXTROSE 50%-WATER INJ 50 ML SYRINGE 25 ML IV (16:50)
--- NOTE | 2025-04-26 17:20 | PD.IMPROG ---
Documentation for date of: 04/26/25 Subjective Subjective Interval history: Downward trending hemoglobin hematocrit at 12.8 and 38.8 from 14.2 and 43.3 Upper endoscopy shows gastritis and esophagitis Exam Vital Signs Temp Pulse Resp BP Pulse Ox O2 Del Method O2 Flow Rate 96.8 F 60 20 108/48 L 98 Nasal Cannula 5 04/26/25 16:00 04/26/25 16:00 04/26/25 16:00 04/26/25 16:00 04/26/25 16:00 04/26/25 16:00 04/26/25 16:00 Objective Labs 04/26/25 05:15 04/26/25 11:55 Labs: Laboratory Results - last 24 hr 04/23/25 04/26/25 04/26/25 00:47 05:15 11:55 WBC 8.8 RBC 4.18 Hgb 12.8 Hct 39.0 MCV 93 MCH 30.6 MCHC 32.8 RDW Std Deviation 53.1 H Plt Count 156 Neut % (Auto) 80 Lymph % (Auto) 10 Williams % (Auto) 9 Eos % (Auto) 1 Baso % (Auto) 1 Neut # (Auto) 7.1 Lymph # (Auto) 0.9 L Williams # (Auto) 0.8 Eos # (Auto) 0.1 Baso # (Auto) 0.0 Immature Gran # (Auto) 0.03 H Absolute Nucleated RBC 0.00 Immature Gran % 0 Nucleated RBC % 0 Sodium 134 L 134 L Potassium 3.6 D 4.4 D Chloride 94 L 97 L Carbon Dioxide 25.4 17.9 L Anion Gap 15 19 H BUN 32 H 32 H Creatinine 2.6 H D 2.8 H Estim Creat Clear Calc 9.8 L 9.1 L eGFR 18 L 16 L BUN/Creatinine Ratio 12 11 L Glucose 303 H D 216 H D Calculated Osmolality 286 282 Lactic Acid 6.1 H* Calcium 9.0 9.4 Corrected Calcium 9.4 Phosphorus 3.6 3.8 Magnesium 2.0 2.1 Total Bilirubin 0.2 L AST 30 ALT 30 Alkaline Phosphatase 177 H D Troponin I 0.450 H* Total Protein 6.5 Albumin 3.5 Globulin 3.0 Albumin/Globulin Ratio 1.2 Crossmatch See Detail 04/26/25 04/26/25 14:00 15:31 WBC RBC Hgb Hct MCV MCH MCHC RDW Std Deviation Plt Count Neut % (Auto) Lymph % (Auto) Williams % (Auto) Eos % (Auto) Baso % (Auto) Neut # (Auto) Lymph # (Auto) Williams # (Auto) Eos # (Auto) Baso # (Auto) Immature Gran # (Auto) Absolute Nucleated RBC Immature Gran % Nucleated RBC % Sodium Potassium Chloride Carbon Dioxide Anion Gap BUN Creatinine Estim Creat Clear Calc eGFR BUN/Creatinine Ratio Glucose Calculated Osmolality Lactic Acid 3.7 H Calcium Corrected Calcium Phosphorus Magnesium Total Bilirubin AST ALT Alkaline Phosphatase Troponin I 0.384 H* 0.393 H* Total Protein Albumin Globulin Albumin/Globulin Ratio Crossmatch Impressions Impression: Gastritis Esophagitis Downward trending hemoglobin hematocrit continue to monitor CBC ABG Interpretation ABG results: 04/23/25 01:04 ABG pH 7.43 ABG pCO2 50 H ABG pO2 90 ABG HCO3 33 H ABG O2 Saturation 97 ABG Base Excess 8 H Assessment & Plan A&P Narrative # Anemia of blood loss requiring blood transfusion plan Consent obtained for fiberoptic esophagogastroduodenoscopy with possible biopsy possible therapeutic intervention under intravenous moderation tentatively scheduled for tomorrow Clear liquid diet till 8 AM tomorrow then n.p.o. Other medical problems include COVID-positive bilateral pneumonia Coronary artery status post PTCA Seizure disorder End-stage renal disease on hemodialysis TTS Essential hypertension Diabetes mellitus with peripheral neuropathy Dementia Time Spent With Patient Time: Total time spent is greater than 50% in coordination of care (as documented) at patient's floor/unit and/or counseling patient:
[2025-04-26 18:04] LABS: Lactate (Lactic Acid) 2.3 mMol/L (0.4-2.0)
[2025-04-26 18:26] LABS: Troponin I 0.396 ng/mL (0.0-0.045)
[2025-04-26 18:53] LABS: Reflex Lactate? Y
[2025-04-26 21:02] LABS: Reflex Lactate? Y
[2025-04-26 21:54] LABS: Lactate (Lactic Acid) 1.7 mMol/L (0.4-2.0)
[2025-04-26 22:40] LABS: Troponin I 0.432 ng/mL (0.0-0.045)
[2025-04-27] VITALS (28 sets, daily range): BP systolic 73–157; BP diastolic 37–105; PULSE 43–82; RESP 7–27; TEMP 35.7–36.8; O2SAT 93–100; BMI 20.9
[2025-04-27] MEDS: PROMETHAZINE HCL 25 MG TABLET 6.25 MG PO ×2 (00:30→05:43)
--- NOTE | 2025-04-27 02:15 | ESPR_ITS ---
RE: BLU TORREZ : 1940 DATE OF SERVICE: 04/26/2025 SUBJECTIVE: The patient is an 84-year-old elderly female with a past medical history of multiple medical problems, admitted in the hospital with _with cough expectoration, has COVID-19 pneumonia. Also has hypoxic respiratory failure, HFrEF low ejection fraction 30% to 35%, end-stage renal disease on hemodialysis, followed by Dr. Hui, bead supervisor. The patient did receive dialysis yesterday on 04/23/2025 and followed by GI specialist as well because of gastritis and duodenitis, developed bradycardia, hypotension this morning. The patient apparently did get metoprolol and amlodipine. She is also on multiple other medications. Most of them held now and her blood pressure appears to be stabilized now. Her heart rate is 73. Blood pressure 110/49. She is saturating well on nasal cannula 5 liters per minute, mostly drug-induced bradycardia, hypotension for now. The patient does have what appears to be well compensated. She is not complaining of any significant angina, chest pain, or shortness of breath. OBJECTIVE: Vital Signs: Today's vital signs on exam, blood pressure 110/60, pulse rate is 70, respirations 18, temperature 96.9, saturation 99% on 5 liter nasal cannula. HEENT: Head is atraumatic. Neck: Supple. Lungs: Decreased breath sounds. Bilateral coarse crackles. Heart: Tachycardia. Distant. Abdomen: Thin and soft. Extremities: Mild edema. LABORATORY DATA: Lab data showed hemoglobin and hematocrit is stable at 12.8 and 39. There was slight drop, but the patient's hemoglobin was 6.7 on 04/23/2025 requiring transfusion, but no further bleeding. Renal panel did show creatinine of 2.8, _the patient's troponin level was high at 0.4, 0.39, 0.39, but no significant DELTA, no significant change, possibly type 2 troponin deficient. The rest of the lab data unremarkable. IMPRESSION: 1. Hypoxic respiratory failure, improving. 2. Bilateral pneumonia. 3. HFrEF, well compensated. 4. Bradycardia, hypotension, resolved after stopping beta blockers. RECOMMENDATIONS: Continue present medications including antibiotic therapy for pneumonia. The patient _ some of the hypotension due to bradycardia and bradycardia due to beta-jake. We will hold off on most of the medications until the blood pressure goes up again and once pneumonia improves and heart failure will be treated aggressively depending on the blood pressure readings with beta blockers or ARBs. The patient has been diagnosed to have a deep vein thrombosis, positive for bilateral acute DVT, started on low-dose Eliquis because of bleeding cautiously. Condition is stable, but progress is extremely poor. We have multisystem disease including end-stage renal disease as well as COVID pneumonia and HFrEF. DT: 01:03:00 TT: 02:09:00 Ref: [id number] - TID: [id number] MTDD
--- NOTE | 2025-04-27 08:10 | ESPR_ITS ---
<Statement entered by Rafita Handy MD - 05/01/25 15:07> I reviewed above note and agree with findings and plans. I have also personally examined the patient with medicine team and went over assessment and plan with medical team including manufacturing intern and resident physician. <Statement entered by Harpreet Jacques MD - 04/27/25 16:41> Patient was examined and case was reviewed with team including attending physician. Note reviewed, I agree with most of its contents and agree with the patient's care as documented by Dr. Antunez Patient seen and evaluated at bedside. Later in the the morning patient had rapid response due to hypotension and bradycardia EKG was ordered which showed junctional bradycardia. Calcium chloride was given, Atropine was given the patient was symptomatic with diffuse sweating and dizziness. With no resolution of symptoms. Was given 20 mcg of epinephrine and her heart rate and blood pressure improved for about 30 minutes and patient continued to have bradycardia and hypotension ICU was present and recommended transfer to the ICU and start the patient on dopamine drip. Case discussed with my attending Dr. Rozina Jacques MD PGY-2 Disclaimer: Despite multiple revisions, due to the dictation software being used, the document bellow may not be free of grammatical errors including phonetic/typographic errors. However, this does not deter from our commitment to providing health care in the patient's best interest in mind. Documentation for date of: 04/27/25 Subjective Subjective Interval history: Patient was seen at the bedside this morning. She was sleeping but arousable to tactile stimuli for cardiovascular and pulmonary examination. The overnight team reported a blood glucose level in the 70s, which was treated with juice administered via the PEG tube, resulting in improvement. The PEG tube had been held following a rapid response event yesterday. A rapid response was called this morning at 11:54 AM for symptomatic bradycardia and hypotension, accompanied by dizziness and diaphoresis. The patient responded briefly to atropine. However, she again became bradycardic and hypotensive. A 20 mcg dose of epinephrine was administered, resulting in resolution of symptoms and stabilization of hemodynamics. Approximately 30 minutes later, the patient was re-evaluated and found to be hypotensive and bradycardic once again, with recurrence of symptoms. At that time, a dopamine infusion was initiated, and the patient was transferred to the ICU for closer monitoring and management. Remdesivir was discontinued due to its association with bradycardia and concern for worsening hemodynamic instability. Exam Vital Signs Temp Pulse Resp BP Pulse Ox O2 Del Method O2 Flow Rate 96.9 F 68 12 151/73 H 98 Nasal Cannula 5 04/27/25 07:59 04/27/25 07:59 04/27/25 07:59 04/27/25 07:59 04/27/25 07:59 04/27/25 07:59 04/27/25 07:59 Narrative Exam Physical Exam General: No acute distress. Somnolent HEENT: Normocephalic, atraumatic, mucous membranes dry. Heart: Regular rate and rhythm, no murmurs. Lungs: Lung sounds hard to appreciate. Abdomen: Skin around PEG tube is dry and clean. Soft, nondistended, nontender. No guarding or rebound tenderness. Neurologic: Alert and oriented x1, no gross neurological deficit, and patient able to move all 4 extremities. Extremities: No edema. Skin: No rash or ecchymoses. Objective Labs 04/27/25 08:04 04/27/25 08:04 Labs: Laboratory Results - last 24 hr 04/26/25 04/26/25 04/26/25 11:55 14:00 15:31 Sodium 134 L Potassium 4.4 D Chloride 97 L Carbon Dioxide 17.9 L Anion Gap 19 H BUN 32 H Creatinine 2.8 H Estim Creat Clear Calc 9.1 L eGFR 16 L BUN/Creatinine Ratio 11 L Glucose 216 H D Calculated Osmolality 282 Lactic Acid 6.1 H* 3.7 H Calcium 9.4 Phosphorus 3.8 Magnesium 2.1 Troponin I 0.450 H* 0.384 H* 0.393 H* 04/26/25 04/26/25 17:57 21:43 Sodium Potassium Chloride Carbon Dioxide Anion Gap BUN Creatinine Estim Creat Clear Calc eGFR BUN/Creatinine Ratio Glucose Calculated Osmolality Lactic Acid 2.3 H 1.7 Calcium Phosphorus Magnesium Troponin I 0.396 H* 0.432 H* ABG Interpretation ABG results: 04/23/25 01:04 ABG pH 7.43 ABG pCO2 50 H ABG pO2 90 ABG HCO3 33 H ABG O2 Saturation 97 ABG Base Excess 8 H Quality Measures Quality Measures VTE prophylaxis Advance care planning discussed with:: patient and child Assessment & Plan Assessment Current Active Medications: Generic Name Dose Route Start Last Admin Trade Name Freq PRN Reason Stop Dose Admin Acetaminophen 650 mg 04/23/25 02:23 Acetaminophen Supp 650 Mg Supp NC 05/23/25 02:22 Q6HR PRN Fever > 100.4 or pain 1-3(mild Albuterol/Ipratropium 3 ml 04/23/25 02:23 Albuterol/Ipratropium (Duoneb) Rt Nikki 3 Ml Nebu INH 05/23/25 02:22 Q2HR PRN SHORTNESS OF BREATH OR WHEEZE Apixaban 2.5 mg 04/26/25 09:00 04/26/25 20:43 Apixaban 2.5 Mg Tablet GT 05/16/25 09:29 2.5 mg BID MELECIO Administration Dextrose 25 ml 04/23/25 02:28 04/26/25 16:50 Dextrose 50%-Water Inj 50 Ml Syringe IV 05/23/25 02:27 25 ml Q15MIN PRN Administration BG 50-70 responsive npo pt Dextrose 50 ml 04/23/25 02:28 04/25/25 00:19 Dextrose 50%-Water Inj 50 Ml Syringe IV 05/23/25 02:27 50 ml Q15MIN PRN Administration BG <50 OR BG <70 & pt unresponsive Glucagon 1 mg 04/23/25 02:28 Glucagon Inj 1 Mg Vial IM Q15MIN PRN BG <70, and no IV access Remdesivir 100 mg/ Sodium 100 mls @ 100 mls/hr 04/24/25 14:00 04/26/25 13:37 Chloride IV 04/27/25 14:59 100 mls/hr Q24H NR Administration Protocol Azithromycin 500 mg/ Sodium 250 mls @ 250 mls/hr 04/23/25 09:46 04/26/25 09:26 Chloride IV 04/30/25 09:45 250 mls/hr QDAY MELECIO Administration Ceftriaxone Sodium/Dextrose 1 gm in 50 mls @ 100 mls/hr 04/23/25 10:05 04/26/25 08:29 Rocephin/D5w 1gm Iv Premix IV 04/30/25 10:04 100 mls/hr QDAY MELECIO Administration Insulin Human Lispro 0 unit 04/26/25 12:00 04/27/25 05:52 Insulin Lispro (Admelog) 1 Unit/0.01 Ml Unit SC 05/26/25 11:59 Not Given Q6HR MELECIO Protocol Isosorbide Dinitrate 10 mg 04/26/25 13:15 04/26/25 20:44 Isosorbide Dinitrate 10 Mg Tablet PO 05/26/25 13:14 Not Given BID MELECIO Lansoprazole 30 mg 04/26/25 08:13 04/26/25 20:43 Lansoprazole 30 Mg Tab.Rap. GT 05/23/25 08:59 30 mg Q12HR MELECIO Administration Levetiracetam 500 mg 04/23/25 09:00 04/26/25 20:43 Levetiracetam Liqd 500 Mg/5 Ml Udc GT 05/23/25 08:59 500 mg BID MELECIO Administration Losartan Potassium 50 mg 04/27/25 09:00 Losartan Potassium 25 Mg Tablet GT 05/27/25 08:59 QDAY MELECIO Ondansetron HCl 4 mg 04/23/25 10:41 04/26/25 05:22 Ondansetron Inj 2 Mg/Ml Inj 2 Ml IVP 05/23/25 10:40 4 mg Q6H PRN Administration NAUSEA OR VOMITING Protocol Promethazine HCl 6.25 mg 04/27/25 12:00 Promethazine Hcl Syrup 6.25 Mg/5 Ml Udc 05/25/25 00:00 Q6HR MELECIO Tramadol HCl 50 mg 04/25/25 09:38 04/25/25 21:02 Tramadol Hcl 50 Mg Tablet GT 04/28/25 02:22 50 mg Q6HR PRN Administration PAIN SCALE 4-10(Mod-Sev Plan 84 year old female with past medical history significant for end-stage renal disease (hemodialysis on ), CAD with stents, hypertension, hyperlipidemia, diabetes with peripheral neuropathy, multi-infarct dementia and seizures presents for weakness, nausea, and vomiting x 2 days, admitted for symptomatic anemia. #Coronary artery disease s/p PCI #HFrEF (EF 30-35%) Troponin negative, EKG benign. On admission, BNP 1886. Echo (04/2025): Severe global hypokinesis with severe LV dysfunction LVEF 30-35% (compared to echo from 2023 with EF 60-65%). Grade I diastolic dysfunction. RV mildly reduced function. RVSP 34mmHg. Mild dilated LA. Mild MAC with Moderate mitral regurgitation. Mild aortic valve sclerosis with mild aortic regurgitation. Mild tricuspid regurgitation. Small circumferential pericardial effusion not significant. Venous doppler (04/24): Positive for bilateral acute DVT. Chest CTA (04/24): Negative for pulmonary artery emboli. Mild heart failure. Significant bibasilar pneumonia. Rapid response 04/26: due to symptomatic bradycardia and hypotension. Treated with atropine x1, calcium chloride, 20 mcg of epinephrine, aspirin x1, and isosorbide dinitrate. Patient was noted to have significant lactic acidosis and troponinemia. Cardiology was consulted. Beta-blockers were discontinued. Troponin 0.450. Lactic acid 6.1. Rapid response 04/27: due to symptomatic bradycardia and hypotension. Treated with atropine, 20 mcg of epinephrine, and dopamine. Plan: - Upgraded to ICU for close monitoring and dopamine. - Cardiology consulted - appreciate recs. - Started Eliquis 2.5 [address]ID. OK with Dr. Baeza. - Discontinued beta-blockers. - Discontinued isosorbide dinitrate 10 mg twice daily. #Symptomatic bradycardia Two rapid responses have been called for bradycardia and hypotension. Plan: - Discontinued beta-blockers. - Stopped Remdesivir, which could be contributing to bradycardia. - Upgraded to ICU for close monitoring and dopamine. #Acute respiratory failure with hypoxia #COVID-19 pneumonia #Community-acquired pneumonia - possible bacterial coinfection #Leukocytosis (resolved) On admission: T 100.8F, tachycardic, SpO2 94% on 6L NC. CXR (04/22): diffuse edema and/or multifocal pneumonia. Labs: CRP 3.0, Pro-Gil 0.92 (supports possible bacterial coinfection), lactic acid 2.6, WBC 11.1. ABG showed pH 7.43, pCO2 50, pO2 90. Lactic acid 2.6, now normalized. Blood cx NGTD, MRSA screen negative. Plan: - Was on 3L of O2 (no home O2), now at nasal cannula 5L. - Titrate O2 to keep SpO2 > 92%. - Stopped Remdesivir - Continue empiric CAP coverage with Ceftriaxone 1 gram and Azithromycin 500 mg. - Isolation precautions. #Acute symptomatic anemia (resolved) #Acute blood loss anemia (resolved) #Suspected GI bleed (upper vs lower vs occult source) No overt hemetemsis, hematochezia, or melena reported. BUN elevated 89 with BUN/Cr ratio of 23, possible upper GI source. Hemoglobin 6.7 on admission. Received 3 units pRBC with appropriate response. Most recent H&H shows hemoglobin 12.9, hematocrit 37.9. EGD showed esophagitis, erythematous mucosa of antrum, erythematous duodenopathy. PEG tube at 35 mL. Plan: - GI consulted, appreciate recommendations. - Advance diet as tolerated. - Monitor H&H. Transfusing for Hgb <8 or symptomatic. - Protonix 40 mg IV twice daily. - Avoid NSAIDs/ASA. - Close hemodynamic monitoring. - Per Dr. Baeza, patient is not a candidate for colonscopy at this time. Follow- up outpatient. #End-stage renal disease on hemodialysis () Follows with commission sales associate Dr. Hui. Received dialysis yesterday (04/23). Patient is anuric and dependent on HD. Plan: - Nephrology consulted, appreciate recommendations. - Dialysis as per patient's usual schedule. - Renally dose meds as appropriate. - Monitor daily BMP, phosphorus, magnesium. #Transaminitis AST 55, ALT 54, ALP 248. Likely from underlying COVID. Plan: - Hold off on statin per nephrology. 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 Plan: - ISS (resumed ACHS) - Bedside blood glucose checks Q6H. - Consulted communication technician for PEG tube feeds. - Referral to speech eval. #Seizure disorder Patient history as stated. No reports of recent breakthrough seizures. Plan: - Resume home Keppra 250 mg PEG tube twice daily. #Hypertension Plan: - Decrease home Losartan 100 mg to 50 mg PO daily. - Discontinued metoprolol. - Discontinued amlodipine. #Dementia A&Ox1 at baseline. Follows commands, answers questions but answers unreliable. Plan: - Delirium precautions. - Avoid sedatives or excessive pain management. Health Maintenance Dispo: upgrade to ICU DVT prophylaxis: SCDs GI prophylaxis: Pantoprazole 40 mg IV daily Diet: Hold PEG tube. Lines: Peripheral IV, pure wick CODE STATUS: DNR Patient plan of care was discussed with the senior resident, Dr. Jayy Jacques and attending physician, Dr. Handy. Ross Antunez, DO PGY-1
[2025-04-27] MEDS: cefTRIAXone/D5w 1gm IV premix 1 GM/50 ML BAG IV (08:22)
[2025-04-27 08:23] LABS: Basophils # (Auto) 0.1 Thou/mm3 (0.0-0.2); Basophils % (Auto) 1 % (0-2.5); Eosinophils # (Auto) 0.2 Thou/mm3 (0.0-0.5); Eosinophils % (Auto) 2 % (0-10); Hematocrit 38.3 % (36.0-46.0); Hemoglobin 12.3 g/dL (12.0-16.0); Immature Granulocytes Auto 0.06 Thou/mm3 (0.00-0.00); Lymphocytes # (Auto) 0.9 Thou/mm3 (1.0-4.8); Lymphocytes % (Auto) 8 % (10-50); Mean Corpuscular HGB Conc 32.1 g/dl (31.0-37.0); Mean Corpuscular Hemoglobin 30.1 pg (25.0-35.0); Mean Corpuscular Volume 94 fL (80-100); Monocytes # (Auto) 0.7 Thou/mm3 (0.0-0.8); Monocytes % (Auto) 7 % (0-12); Neutrophils # (Auto) 8.6 Thou/mm3 (1.8-7.7); Neutrophils % (Auto) 82 % (37-80); Nucleated Red Blood Cell # 0.00 Thou/mm3 (0.00-0.00); Nucleated Red Blood Cell % 0 /100 WBC (0); Platelet Count 162 Thou/mm3 (140-440); RDW Standard Deviation 53.1 fL (36.4-46.3); Red Blood Count 4.09 Miln/mm3 (4.00-5.20); White Blood Count 10.5 Thou/mm3 (3.6-11.0)
[2025-04-27] MEDS: LOSARTAN POTASSIUM 25 MG TABLET 50 MG GT (08:23)
[2025-04-27] MEDS: levETIRAcetam LIQD 500 MG/5 ML UDC GT ×2 (08:23→21:01)
[2025-04-27] MEDS: ISOSORBIDE DINITRATE 10 MG TABLET PO (08:23)
[2025-04-27] MEDS: LANSOPRAZOLE 30 MG TAB.RAP.DR GT ×2 (08:23→21:02)
[2025-04-27] MEDS: APIXABAN 2.5 MG TABLET GT ×2 (08:23→21:01)
[2025-04-27] MEDS: AZITHROMYCIN INJ 500 MG in SODIUM CHLORIDE 0.9% 250 ML 250 ML 250 MG IV (08:24)
[2025-04-27 09:21] LABS: Alanine Aminotransferase 29 U/L (10-49); Albumin, Serum 3.3 gm/dL (3.4-4.8); Albumin/Globulin Ratio 1.1 (1.2-2.2); Alkaline Phosphatase 120 U/L (46-116); Anion Gap 15 (7-16); Aspartate Amino Transferase 37 U/L (0-34); BUN/Creatinine Ratio 11 Ratio (12-20); Bilirubin,Total 0.2 mg/dL (0.3-1.2); Blood Urea Nitrogen 40 mg/dL (9-23); Calcium 10.4 mg/dL (8.3-10.6); Calcium (Corrected) 11.0 mg/dL (8.5-10.1); Carbon Dioxide 21.6 mMol/L (20.0-31.0); Chloride 97 mMol/L (98-107); Creatinine (Component) 3.5 mg/dL (0.6-1.3); Estimated Creatinine Clearance 7.3 mL/min (>60); Globulin 3.1 gm/dL (2.3-3.5); Glucose 128 mg/dL (74-106); Magnesium 2.1 mg/dL (1.6-2.6); Osmolality,Calculated 279 (275-295); Phosphorous 4.8 mg/dL (2.4-5.1); Potassium 5.0 mMol/L (3.4-5.1); Procalcitonin 2.36 ng/ml (0.0-0.49); Sodium 134 mMol/L (136-145); Total Protein 6.4 gm/dL (5.7-8.2); eGFR 12 See Note
[2025-04-27 09:22] LABS: Troponin I 0.313 ng/mL (0.0-0.045)
[2025-04-27 09:31] LABS: C-Reactive Protein 16.4 mg/dL (0.0-0.9)
--- NOTE | 2025-04-27 10:03 | ESPR_ITS ---
Documentation for date of: 04/27/25 Subjective Subjective Interval history: Ms. 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 The patient is a very poor historian and got all information from chart review. No family around. In the emergency department lactic acid 2.6, ABG showed [id number]. Hemoglobin 6.7, AST 55, ALT 54, alk phos 248, BUN 89, Creatinine 3.8, potassium 3.4, BNP 1886, albumin 3.6, Pro-Gil 0.9 Patient was placed in respiratory isolation. COVID-positive. Influenza negative. Chest x-ray showed significant consolidations. Patient admitted to the floor for COVID-pneumonia, respiratory insufficiency, nausea and vomiting. GI was consulted. Placed on a PPI. Renal consultation requested for need for dialysis. Patient currently seen on dialysis. Allergies:?Penicillins Medications: Amlodipine, atorvastatin, isosorbide mononitrate, Keppra, losartan, Rosalinda-Frank[place], Velphoro 04/25/2025 patient currently seen in medical floor. In isolation for COVID 19. Going for endoscopy today. Labs and medications reviewed. Patient has significant dementia. She also has a PEG tube for failure to thrive, dialysis scheduled for today. Globin 14.2, potassium 4.4, creatinine 3.4, LFTs normal 04/27/2025: patient seen and examined at bedside, she was sleeping, arousable by voice, remains on isolation for covid, egd with esophagitis and gastritis, labs and medications refused, pt does not engage during the exam, previously noted to have significant dialysis. pt had rapid response called yesterday for hypotension and bradycardia ( received atropine, calcium chloride, and 20 mcg of epinephrine, resulting in improvement in heart rate and blood pressure ), metoprolol was d/c. today pt had another rapid called for hypotension and bradycardia, LA now wnl 1.7 from 2.3, NA 134, K 5, Cl 97, BUN 40, Cr 3.5 from 3.4. CRP elevated to 16, procalcitonin elevated query why pt continues to have episodes of hypotension despite d/c metoprolol. EKG with supraventricular bradycardia. troponin peaked at 0.432 on losartan 50 qd per Gtube. CARDS consulted, bilateral acute DVT noted on US 04/24 NO HD today Exam Vital Signs Temp Pulse Resp BP Pulse Ox O2 Del Method O2 Flow Rate 96.9 F 68 12 151/73 H 98 Nasal Cannula 5 04/27/25 07:59 04/27/25 08:23 04/27/25 07:59 04/27/25 08:23 04/27/25 07:59 04/27/25 07:59 04/27/25 07:59 Narrative Exam GENERAL: no acute distress, orientation not able to be assessed given pt is not responding to questions, is awake, comfortably laying in bed HEENT: Head AT/ NC. Mucous membranes dry. NECK: Supple, no lymphadenopathy, CARDIOVASCULAR: RRR. Normal S1/S2, No m/r/g. No pitting edema of bilateral LEs. RESPIRATORY: scattered crackles on exam GASTROINTESTINAL: Abdomen soft, non tender no palpable masses. Bowel sounds present, + peg tube MUSCULOSKELETAL:? No cyanosis or edema, no visible joint swelling. Right AV fistula NEUROLOGICAL: CN II-XII grossly intact. No focal deficits. Sensation intact, symmetric. PSYCHIATRIC: Awake and alert, + dementia SKIN: No obvious rashes, no jaundice, normal turgor. Objective Labs 04/27/25 08:04 04/27/25 17:45 Labs: Laboratory Results - last 24 hr 04/26/25 04/26/25 04/26/25 11:55 14:00 15:31 WBC RBC Hgb Hct MCV MCH MCHC RDW Std Deviation Plt Count Neut % (Auto) Lymph % (Auto) [place] % (Auto) Eos % (Auto) Baso % (Auto) Neut # (Auto) Lymph # (Auto) [place] # (Auto) Eos # (Auto) Baso # (Auto) Immature Gran # (Auto) Absolute Nucleated RBC Immature Gran % Nucleated RBC % Sodium 134 L Potassium 4.4 D Chloride 97 L Carbon Dioxide 17.9 L Anion Gap 19 H BUN 32 H Creatinine 2.8 H Estim Creat Clear Calc 9.1 L eGFR 16 L BUN/Creatinine Ratio 11 L Glucose 216 H D Calculated Osmolality 282 Lactic Acid 6.1 H* 3.7 H Calcium 9.4 Corrected Calcium Phosphorus 3.8 Magnesium 2.1 Total Bilirubin AST ALT Alkaline Phosphatase Troponin I 0.450 H* 0.384 H* 0.393 H* C-Reactive Prot, Quant Total Protein Albumin Globulin Albumin/Globulin Ratio Procalcitonin 04/26/25 04/26/25 04/27/25 17:57 21:43 08:04 WBC 10.5 RBC 4.09 Hgb 12.3 Hct 38.3 MCV 94 MCH 30.1 MCHC 32.1 RDW Std Deviation 53.1 H Plt Count 162 Neut % (Auto) 82 H Lymph % (Auto) 8 L [place] % (Auto) 7 Eos % (Auto) 2 Baso % (Auto) 1 Neut # (Auto) 8.6 H Lymph # (Auto) 0.9 L [place] # (Auto) 0.7 Eos # (Auto) 0.2 Baso # (Auto) 0.1 Immature Gran # (Auto) 0.06 H Absolute Nucleated RBC 0.00 Immature Gran % 1 H Nucleated RBC % 0 Sodium 134 L Potassium 5.0 D Chloride 97 L Carbon Dioxide 21.6 Anion Gap 15 BUN 40 H Creatinine 3.5 H D Estim Creat Clear Calc 7.3 L eGFR 12 L* BUN/Creatinine Ratio 11 L Glucose 128 H D Calculated Osmolality 279 Lactic Acid 2.3 H 1.7 Calcium 10.4 Corrected Calcium 11.0 H D Phosphorus 4.8 Magnesium 2.1 Total Bilirubin 0.2 L AST 37 H ALT 29 Alkaline Phosphatase 120 H D Troponin I 0.396 H* 0.432 H* 0.313 H* C-Reactive Prot, Quant 16.4 H Total Protein 6.4 Albumin 3.3 L Globulin 3.1 Albumin/Globulin Ratio 1.1 L Procalcitonin 2.36 H ABG Interpretation ABG results: 04/23/25 01:04 ABG pH 7.43 ABG pCO2 50 H ABG pO2 90 ABG HCO3 33 H ABG O2 Saturation 97 ABG Base Excess 8 H Quality Measures Quality Measures VTE prophylaxis Advance care planning discussed with:: patient (not oriented) Assessment & Plan Assessment Current Active Medications: Generic Name Dose Route Start Last Admin Trade Name Freq PRN Reason Stop Dose Admin Acetaminophen 650 mg 04/23/25 02:23 Acetaminophen Supp 650 Mg Supp AR 05/23/25 02:22 Q6HR PRN Fever > 100.4 or pain 1-3(mild Albuterol/Ipratropium 3 ml 04/23/25 02:23 Albuterol/Ipratropium (Duoneb) Rt Nikki 3 Ml Nebu INH 05/23/25 02:22 Q2HR PRN SHORTNESS OF BREATH OR WHEEZE Apixaban 2.5 mg 04/26/25 09:00 04/27/25 08:23 Apixaban 2.5 Mg Tablet GT 05/16/25 09:29 2.5 mg BID MELECIO Administration Dextrose 25 ml 04/23/25 02:28 04/26/25 16:50 Dextrose 50%-Water Inj 50 Ml Syringe IV 05/23/25 02:27 25 ml Q15MIN PRN Administration BG 50-70 responsive npo pt Dextrose 50 ml 04/23/25 02:28 04/25/25 00:19 Dextrose 50%-Water Inj 50 Ml Syringe IV 05/23/25 02:27 50 ml Q15MIN PRN Administration BG <50 OR BG <70 & pt unresponsive Glucagon 1 mg 04/23/25 02:28 Glucagon Inj 1 Mg Vial IM Q15MIN PRN BG <70, and no IV access Remdesivir 100 mg/ Sodium 100 mls @ 100 mls/hr 04/24/25 14:00 04/26/25 13:37 Chloride IV 04/27/25 14:59 100 mls/hr Q24H NR Administration Protocol Azithromycin 500 mg/ Sodium 250 mls @ 250 mls/hr 04/23/25 09:46 04/27/25 08:24 Chloride IV 04/30/25 09:45 250 mls/hr QDAY MELECIO Administration Ceftriaxone Sodium/Dextrose 1 gm in 50 mls @ 100 mls/hr 04/23/25 10:05 04/27/25 08:22 Rocephin/D5w 1gm Iv Premix IV 04/30/25 10:04 100 mls/hr QDAY MELECIO Administration Insulin Human Lispro 0 unit 04/26/25 12:00 04/27/25 05:52 Insulin Lispro (Admelog) 1 Unit/0.01 Ml Unit SC 05/26/25 11:59 Not Given Q6HR MELECIO Protocol Isosorbide Dinitrate 10 mg 04/26/25 13:15 04/27/25 08:23 Isosorbide Dinitrate 10 Mg Tablet PO 05/26/25 13:14 10 mg BID MELECIO Administration Lansoprazole 30 mg 04/26/25 08:13 04/27/25 08:23 Lansoprazole 30 Mg Tab. GT 05/23/25 08:59 30 mg Q12HR MELECIO Administration Levetiracetam 500 mg 04/23/25 09:00 04/27/25 08:23 Levetiracetam Liqd 500 Mg/5 Ml Udc 05/23/25 08:59 500 mg BID MELECIO Administration Losartan Potassium 50 mg 04/27/25 09:00 04/27/25 08:23 Losartan Potassium 25 Mg Tablet 05/27/25 08:59 50 mg QDAY MELECIO Administration Ondansetron HCl 4 mg 04/23/25 10:41 04/26/25 05:22 Ondansetron Inj 2 Mg/Ml Inj 2 Ml IVP 05/23/25 10:40 4 mg Q6H PRN Administration NAUSEA OR VOMITING Protocol Promethazine HCl 6.25 mg 04/27/25 12:00 Promethazine Hcl Syrup 6.25 Mg/5 Ml Udc 05/25/25 00:00 Q6HR MELECIO Tramadol HCl 50 mg 04/25/25 09:38 04/25/25 21:02 Tramadol Hcl 50 Mg Tablet GT 04/28/25 02:22 50 mg Q6HR PRN Administration PAIN SCALE 4-10(Mod-Sev Plan 84 year old female with past medical history significant for end-stage renal disease (hemodialysis on ), CAD with stents, hypertension, hyperlipidemia, diabetes with peripheral neuropathy, multi-infarct dementia and seizures presents for weakness, nausea, and vomiting x 2 days, admitted for symptomatic anemia. pt has had 2 rapids called for hypotension, cards consulted, d/c metoprolol yesterday. #ESRD on hemodialysis () Patient is anuric and dependent on HD. On 04/27: Na 134, K 5.0, CL 97, BUN 40, Cr 3.4 from 3.4 HD: 04/23, 04/25 Plan: - Dialysis as per patient's usual schedule. - Renally dose meds as appropriate. - Monitor daily BMP, phosphorus, magnesium. #Coronary artery disease s/p PCI #HFrEF (EF 30-35%) #Bilateral acute DVT #acute hypotension #bradycardia #Hypertension chronic troponin peaked Cards consulted 2 rapid responses called for hypotension and bradycardia Plan: - Decrease home Losartan 100 mg to 50 mg PO daily. - Discontinued metoprolol. - Discontinued amlodipine. 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 #Acute symptomatic anemia (resolved) #Acute blood loss anemia (resolved) #Suspected GI bleed (upper vs lower vs occult source) EGD with gastritis and esophogitis - Per Dr. Baeza, patient is not a candidate for colonscopy at this time. Follow- up outpatient. #Acute respiratory failure with hypoxia #COVID-19 pneumonia #Community-acquired pneumonia - possible bacterial coinfection #Leukocytosis lactic acid 1.7 wnl procal elevated #Transaminitis - Holding statin . #Seizure disorder #Dementia - management per primary team Plan discussed with nephrology attending Dr. Ez Ignacio MD Internal Medicine PGY-1 Attending Provider Attestation/Addendum Patient seen and examined with resident physician Dr. Ignacio. Note reviewed, agree with findings and recommendations. Patient had 2 rapid responses today for bradycardia and hypotension. Moved to ICU. Currently in COVID isolation room. Next dialysis scheduled for tomorrow. Prognosis remains guarded.
[2025-04-27 10:19] LABS: Sed Rate (ESR) 40 mm/hr (0-30)
[2025-04-27] MEDS: ONDANSETRON INJ 2 MG/ML INJ 2 ML 4 MG IVP (10:21)
[2025-04-27] MEDS: PROMETHAZINE HCL SYRUP 6.25 MG/5 ML UDC GT (11:37)
--- NOTE | 2025-04-27 11:54 | PD.RESEVENT ---
Documentation for date of: 04/27/25 Event Note Event Note: Room: 264 Time: 1154 Reason for Call: Hypotension and bradycardia Patient presentation: Patient seen and evaluated at the bedside during rapid response heart rate noted to be in the low 40s with associated dizziness and profuse sweating as well as hypotension with systolic in the 70s. EKG was ordered. Atropine 0.4 mg IV was given x 1 which improved for brief minutes however patient became hypotensive and bradycardic again. At this time 20 mcg of epinephrine was given and patient symptoms and hemodynamics resolved. Patient was later reevaluated around 30 minutes after and was found to be again hypotensive and bradycardic with symptoms. At this time patient was started on dopamine drip and upgraded to the ICU. Case discussed with my attending Dr. Rozina Jacques MD PGY-2
[2025-04-27] MEDS: ATROPINE SULF INJ 0.1 MG/ML SYR 10 ML 0.4 MG IV (12:00)
--- NOTE | 2025-04-27 12:00 | EKG_ITS ---
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 [employer]: [employer] : 1940 Requested By: Harpreet Jacques Order Number: [id number] Reading MD: Harpreet Jacques Measurements Intervals [place] Rate: 54 P: SC: QRS: 21 QRSD: 84 T: 0 QT: 233 QTc: 222 Interpretive Statements SUPRAVENTRICULAR BRADYCARDIA LOW QRS VOLTAGE IN PRECORDIAL LEADS POSSIBLE RIGHT VENTRICULAR CONDUCTION DELAY PROBABLE INFERIOR MYOCARDIAL INFARCTION , PROBABLY OLD ANTEROSEPTAL MYOCARDIAL INFARCTION , OF INDETERMINATE AGE Compared to ECG 04/26/2025 12:18:19 Sinus rhythm no longer present Sinus arrhythmia no longer present Incomplete right bundle-branch block no longer present T-wave abnormality no longer present Possible ischemia no longer present Myocardial infarct finding still present /store/S0/[id number].pdf
[2025-04-27] MEDS: CALCIUM CHLORIDE 10% INJ 10 ML SYRG IV (12:05)
[2025-04-27] MEDS: SODIUM CHLORIDE 0.9% 500 ML 500 ML 999 ML IV (12:10)
[2025-04-27] MEDS: EPINEPHrine INJ 0.1 MG/ML SYRINGE 10ML 0.02 MG IVP (12:16)
--- NOTE | 2025-04-27 14:21 | PC.PT ---
PT eval witheld, Patient had a rapid response and was transferred to ICU.
[2025-04-27 14:25] LABS: Troponin I 0.251 ng/mL (0.0-0.045)
--- NOTE | 2025-04-27 16:24 | PC.SS ---
Rounding Note: Patient upgraded to ICU due to hypotension. Rapid response generated.
--- NOTE | 2025-04-27 16:32 | PD.RESHP ---
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 Due to her dementia, she is a poor historian. All information was obtained from a review of her medical chart. No family was present at the time of her evaluation. Summary of hospital course: Patient was diagnosed with COVID and started treatment with remdesivir. Echocardiogram done on admission showed heart failure with reduced ejection fraction, ejection fraction 30 to 35%. Venous Doppler done 04/24 and was positive for bilateral acute DVT. Chest CT pulmonary angiogram was negative for pulmonary embolism. Patient also had acute symptomatic anemia and it was suspected GI bleed. Patient received 3 units of packed RBC with appropriate response. GI was consulted, Dr. Baeza performed EGD and showed esophagitis, erythematous mucosa of the antrum and erythematous duodenopathy. However, Dr. Baeza noted the patient is not a candidate for colonoscopy at this time and to follow-up outpatient. Patient had a rapid response on 04/26 due to bradycardia and hypotension due to receiving metoprolol succinate 25 mg and amlodipine. Patient received atropine 1 mg x 1, calcium gluconate 1 g x 1, and epinephrine 20 mcg x 1 another rapid response on 04/27 was called due to bradycardia and hypotension however no metoprolol was received by the patient before hand. Patient received atropine 0.4 mg IV x 1 and epinephrine 20 mcg IV x 1. Patient admitted to ICU for close monitoring and potentially starting dopamine drip. Review of Systems Review of Systems Narrative Review of Systems: All systems reviewed negative unless stated otherwise above. Exam Vital Signs Temp Pulse Resp BP Pulse Ox O2 Del Method O2 Flow Rate 97.5 F 48 L 18 92/37 L 99 Room Air 5 04/27/25 14:00 04/27/25 15:59 04/27/25 15:59 04/27/25 15:59 04/27/25 15:59 04/27/25 14:00 04/27/25 12:00 Narrative Exam General: No acute distress. Somnolent but arousable. A/O x3. HEENT: Normocephalic, atraumatic, mucous membranes dry. Heart: S1+S2. Regular rate and rhythm, no murmurs. Lungs: No increased WOB. Scattered bilat crackles on exam Abdomen: Skin around PEG tube is dry and clean. Soft, nondistended, nontender. No guarding or rebound tenderness. Neurologic: Alert and oriented x1, no gross neurological deficit, and patient able to move all 4 extremities. Extremities: No edema. Skin: No rash or ecchymoses. Results: Labs 04/27/25 08:04 04/27/25 08:04 Labs: Short CBC 04/27/25 Range/Units 08:04 WBC 10.5 (3.6-11.0) Thou/mm3 Hgb 12.3 (12.0-16.0) g/dL Hct 38.3 (36.0-46.0) % Plt Count 162 (140-440) Thou/mm3 BMP 04/27/25 08:04 Sodium 134 L Potassium 5.0 D Chloride 97 L Carbon Dioxide 21.6 BUN 40 H Creatinine 3.5 H D Glucose 128 H D Calcium 10.4 Cardiac Enzymes 04/26/25 04/26/25 04/26/25 Range/Units 15:31 17:57 21:43 Troponin I 0.393 H* 0.396 H* 0.432 H* (0.0-0.045) ng/mL 04/27/25 04/27/25 Range/Units 08:04 13:27 Troponin I 0.313 H* 0.251 H* (0.0-0.045) ng/mL Liver Function 04/27/25 Range/Units 08:04 Total Bilirubin 0.2 L (0.3-1.2) mg/dL AST 37 H (0-34) U/L ALT 29 (10-49) U/L Alkaline Phosphatase 120 H D (46-116) U/L Albumin 3.3 L (3.4-4.8) gm/dL ABG Interpretation ABG results: 04/23/25 01:04 ABG pH 7.43 ABG pCO2 50 H ABG pO2 90 ABG HCO3 33 H ABG O2 Saturation 97 ABG Base Excess 8 H Quality Measures Quality Measures VTE prophylaxis Medications Home Medications and Allergies Home Medications ?Medication ?Instructions ?Recorded ?Confirmed ?Type amlodipine 10 mg tablet 10 mg PO QDAY 11/07/22 04/23/25 History atorvastatin 40 mg tablet 40 mg PO QDAY 11/07/22 04/23/25 History losartan 100 mg tablet 100 mg PO QDAY 11/07/22 04/23/25 History carvedilol 3.125 mg tablet 3.125 mg PO BID 04/23/25 04/23/25 History levetiracetam 100 mg/mL oral 500 mg feeding tube Q12H 04/23/25 04/23/25 History solution levetiracetam 100 mg/mL oral 500 mg PO BID 04/23/25 04/23/25 History solution (Keppra) Allergies Allergy/AdvReac Type Severity Reaction Status Date / Time Penicillins Allergy Intermediate Rash Verified 06/29/20 08:33 Visit Medications Acetaminophen (Acetaminophen Supp 650 Mg Supp) 650 mg GA Q6HR PRN PRN Reason: Fever > 100.4 or pain 1-3(mild Stop: 05/23/25 02:22 Albuterol/Ipratropium (Albuterol/Ipratropium (Duoneb) Rt Nikki 3 Ml Nebu) 3 ml INH Q2HR PRN PRN Reason: SHORTNESS OF BREATH OR WHEEZE Stop: 05/23/25 02:22 Apixaban (Apixaban 2.5 Mg Tablet) 2.5 mg GT BID [facility] Stop: 05/16/25 09:29 Last Admin: 04/27/25 08:23 Dose: 2.5 mg Dextrose (Dextrose 50%-Water Inj 50 Ml Syringe) 25 ml IV Q15MIN PRN PRN Reason: BG 50-70 responsive npo pt Stop: 05/23/25 02:27 Last Admin: 04/26/25 16:50 Dose: 25 ml Dextrose (Dextrose 50%-Water Inj 50 Ml Syringe) 50 ml IV Q15MIN PRN PRN Reason: BG <50 OR BG <70 & pt unresponsive Stop: 05/23/25 02:27 Last Admin: 04/25/25 00:19 Dose: 50 ml Glucagon (Glucagon Inj 1 Mg Vial) 1 mg IM Q15MIN PRN PRN Reason: BG <70, and no IV access Azithromycin 500 mg/ Sodium (Chloride) 250 mls @ 250 mls/hr IV QDAY [facility] Stop: 04/30/25 09:45 Last Admin: 04/27/25 08:24 Dose: 250 mls/hr Ceftriaxone Sodium/Dextrose (Rocephin/D5w 1gm Iv Premix) 1 gm in 50 mls @ 100 mls/hr IV QDAY [facility] Stop: 04/30/25 10:04 Last Admin: 04/27/25 08:22 Dose: 100 mls/hr Dopamine HCl/Dextrose (Intropin In D5w Ivpb) 400 mg in 250 mls @ 8.258 mls/hr IV .Q24H [facility]; Protocol Stop: 05/27/25 12:56 Insulin Human Lispro (Insulin Lispro (Admelog) 1 Unit/0.01 Ml Unit) 0 unit SC Q6HR [facility]; Protocol Stop: 05/26/25 11:59 Last Admin: 04/27/25 12:49 Dose: Not Given Lansoprazole (Lansoprazole 30 Mg Tab.Rap.) 30 mg GT Q12HR [facility] Stop: 05/23/25 08:59 Last Admin: 04/27/25 08:23 Dose: 30 mg Levetiracetam (Levetiracetam Liqd 500 Mg/5 Ml Udc) 500 mg GT BID [facility] Stop: 05/23/25 08:59 Last Admin: 04/27/25 08:23 Dose: 500 mg Losartan Potassium (Losartan Potassium 25 Mg Tablet) 50 mg GT QDAY [facility] Stop: 05/27/25 08:59 Last Admin: 04/27/25 08:23 Dose: 50 mg Ondansetron HCl (Ondansetron Inj 2 Mg/Ml Inj 2 Ml) 4 mg IVP Q6H PRN; Protocol PRN Reason: NAUSEA OR VOMITING Stop: 05/23/25 10:40 Last Admin: 04/27/25 10:21 Dose: 4 mg Promethazine HCl (Promethazine Hcl Syrup 6.25 Mg/5 Ml Udc) 6.25 mg GT Q6HR [facility] Stop: 05/25/25 00:00 Last Admin: 04/27/25 11:37 Dose: 6.25 mg Tramadol HCl (Tramadol Hcl 50 Mg Tablet) 50 mg GT Q12HR PRN PRN Reason: PAIN SCALE 4-10(Mod-Sev Stop: 04/30/25 09:37 Discontinued Medications Acetaminophen (Acetaminophen Supp 650 Mg Supp) 650 mg GA X1 ONE Stop: 04/23/25 13:25 Last Admin: 04/23/25 13:39 Dose: 650 mg Albuterol/Ipratropium (Albuterol/Ipratropium (Duoneb) Rt Nikki 3 Ml Nebu) 3 ml INH X1 ONE Stop: 04/22/25 23:58 Last Admin: 04/23/25 00:51 Dose: 3 ml Amlodipine Besylate (Amlodipine Besylate 5 Mg Tablet) 10 mg PO QDAY [facility] Stop: 05/23/25 08:59 Amlodipine Besylate (Amlodipine Besylate 5 Mg Tablet) 10 mg GT QDAY [facility] Stop: 05/23/25 08:59 Last Admin: 04/26/25 09:27 Dose: 10 mg Apixaban (Apixaban 2.5 Mg Tablet) 2.5 mg PO BID [facility] Stop: 05/16/25 09:29 Last Admin: 04/25/25 21:02 Dose: 2.5 mg Aspirin (Aspirin 325 Mg Tablet) 325 mg GT X1 ONE Stop: 04/26/25 12:35 Last Admin: 04/26/25 13:37 Dose: 325 mg Atropine Sulfate (Atropine Sulf Inj 0.1 Mg/Ml Syr 10 Ml) 1 mg IV X1 ONE Stop: 04/26/25 12:01 Last Admin: 04/26/25 11:48 Dose: 1 mg Atropine Sulfate (Atropine Sulf Inj 0.4 Mg/Ml Vial) 0.4 mg IV X1 ONE Stop: 04/27/25 11:57 Last Admin: 04/27/25 12:46 Dose: Not Given Atropine Sulfate (Atropine Sulf Inj 0.1 Mg/Ml Syr 10 Ml) 0.4 mg IV X1 ONE Stop: 04/27/25 12:46 Last Admin: 04/27/25 12:00 Dose: 0.4 mg Calcium Chloride (Calcium Chloride 10% Inj 10 Ml Syrg) 10 ml IV X1 ONE Stop: 04/26/25 13:16 Last Admin: 04/26/25 11:55 Dose: 10 ml Calcium Chloride (Calcium Chloride 10% Inj 10 Ml Syrg) 10 ml IV X1 ONE Stop: 04/27/25 13:09 Last Admin: 04/27/25 12:05 Dose: 10 ml Calcium Gluconate (Calcium Gluconate 10% Inj 1 Gm/10 Ml Vial) 1 gm IV X1 ONE Stop: 04/26/25 11:55 Last Admin: 04/26/25 13:07 Dose: Not Given Carvedilol (Carvedilol 3.125 Mg Tablet) 6.25 mg GT BIDWM [facility] Stop: 05/26/25 19:59 Diphenhydramine HCl (Diphenhydramine Inj 50 Mg/Ml Vial) 25 mg IVP [id number] PRN PRN Reason: MODERATE SEDATION Epinephrine HCl (Epinephrine Inj 0.1 Mg/Ml Syringe 10ml) 0.02 mg IVP X1 ONE Stop: 04/26/25 12:31 Last Admin: 04/26/25 12:03 Dose: 0.02 mg Epinephrine HCl (Epinephrine Inj 0.1 Mg/Ml Syringe 10ml) 0.02 mg IVP X1 ONE Stop: 04/27/25 12:17 Last Admin: 04/27/25 12:16 Dose: 0.02 mg Epoetin Zane (Epoetin Zane-Epbx Inj 10,000 Unit/Ml Vial (Esrd)) 10,000 unit SC X1 ONE Stop: 04/23/25 10:31 Last Admin: 04/23/25 11:40 Dose: 10,000 unit Fentanyl Citrate (Fentanyl Cit Inj 50 Mcg/Ml Amp 2ml) 50 mcg IVP Q2M PRN PRN Reason: MODERATE SEDATION Furosemide (Furosemide Inj 10 Mg/Ml 4ml Vial) 80 mg IVP X1 ONE Stop: 04/22/25 23:58 Last Admin: 04/23/25 00:31 Dose: 80 mg Glucagon (Glucagon Inj 1 Mg Vial) 10 mg IVP X1 ONE Stop: 04/26/25 11:51 Last Admin: 04/26/25 13:07 Dose: Not Given Hydromorphone HCl (Hydromorphone Inj 2 Mg/Ml Vial) 0.5 mg IVP Q4H PRN PRN Reason: PAIN SCALE 7-10(Mod-Sev Stop: 04/28/25 02:22 Acetaminophen (Ofirmev Inj) 1,000 mg in 100 mls @ 250 mls/hr IV X1 ONE Stop: 04/23/25 01:34 Last Infusion: 04/23/25 03:06 Dose: Infused Remdesivir 200 mg/ Sodium (Chloride) 250 mls @ 250 mls/hr IV X1 ONE; Protocol Stop: 04/23/25 09:59 Last Admin: 04/23/25 12:44 Dose: 250 mls/hr Remdesivir 100 mg/ Sodium (Chloride) 100 mls @ 100 mls/hr IV Q24H [facility]; Protocol Stop: 04/27/25 14:59 Last Admin: 04/26/25 13:37 Dose: 100 mls/hr Promethazine HCl 6.25 mg/ (Sodium Chloride) 50.25 mls @ 2.5 mls/min IV Q6HR [facility] Stop: 05/25/25 00:00 Last Admin: 04/25/25 05:25 Dose: Not Given Potassium Chloride (Kcl Ivpb) 10 meq in 100 mls @ 100 mls/hr IV Q1H [facility] Stop: 04/26/25 11:21 Last Admin: 04/26/25 08:28 Dose: Not Given Calcium Gluconate/Sodium Chloride (Calcium Gluc/Ns 1000mg Ivpb) 1,000 mg in 50 mls @ 100 mls/hr IV Q30M [facility] Stop: 04/26/25 13:59 Last Admin: 04/26/25 15:46 Dose: 100 mls/hr Sodium Chloride (Ns) 500 mls @ 999 mls/hr IV .Q31M ONE Stop: 04/27/25 12:32 Last Admin: 04/27/25 12:10 Dose: 999 mls/hr Insulin Human Lispro (Insulin Lispro (Admelog) 1 Unit/0.01 Ml Unit) 0 unit SC Q6HR [facility]; Protocol Stop: 05/23/25 05:59 Last Admin: 04/25/25 05:25 Dose: Not Given Insulin Human Lispro (Insulin Lispro (Admelog) 1 Unit/0.01 Ml Unit) 0 unit SC AC [facility]; Protocol Stop: 05/25/25 11:29 Last Admin: 04/26/25 07:56 Dose: 3 unit Isosorbide Dinitrate (Isosorbide Dinitrate 10 Mg Tablet) 10 mg PO BID [facility] Stop: 05/26/25 13:14 Last Admin: 04/27/25 08:23 Dose: 10 mg Ketorolac Tromethamine (Ketorolac Inj 30 Mg/Ml Vial) 15 mg IVP X1 ONE Stop: 04/23/25 01:12 Last Admin: 04/23/25 02:30 Dose: 15 mg Lansoprazole (Lansoprazole 30 Mg Tab.) 30 mg GT Q12HR [facility] Stop: 05/23/25 08:59 Last Admin: 04/25/25 21:02 Dose: 30 mg Levetiracetam (Levetiracetam 250 Mg Tablet) 250 mg PO BID [facility] Stop: 05/23/25 08:59 Levetiracetam (Levetiracetam 250 Mg Tablet) 500 mg PO BID [facility] Stop: 05/23/25 08:59 Losartan Potassium (Losartan Potassium 25 Mg Tablet) 100 mg PO QDAY [facility] Stop: 05/25/25 08:59 Last Admin: 04/25/25 10:00 Dose: Not Given Losartan Potassium (Losartan Potassium 25 Mg Tablet) 100 mg GT QDAY [facility] Stop: 05/25/25 08:59 Last Admin: 04/26/25 09:27 Dose: 100 mg Methylprednisolone Sodium Succinate (Methylprednisolone Sod Succ 62.5 Mg/Ml 2ml Vial) 125 mg IVP X1 ONE Stop: 04/22/25 23:58 Last Admin: 04/23/25 00:31 Dose: 125 mg Metoprolol Succinate (Metoprolol Succinate Xl 25 Mg Tabcr) 25 mg PO QDAY [facility] Stop: 05/25/25 12:44 Last Admin: 04/25/25 13:34 Dose: Not Given Metoprolol Succinate (Metoprolol Succinate Xl 25 Mg Tabcr) 25 mg GT QDAY [facility] Stop: 05/25/25 12:44 Last Admin: 04/26/25 09:28 Dose: 25 mg Midazolam HCl (Midazolam Inj 1 Mg/Ml Vial 2 Ml) 2 mg IVP Q2M PRN PRN Reason: Moderate Sedation Morphine Sulfate (Morphine Sulf Inj 10 Mg/Ml Vial) 2 mg IVP X1 ONE Stop: 04/22/25 23:58 Last Admin: 04/23/25 00:32 Dose: 2 mg Nitroglycerin (Nitroglycerin Oint 2% 1 Inch Packet) 2 inch TOP X1 ONE Stop: 04/22/25 23:58 Last Admin: 04/23/25 00:32 Dose: 2 inch Pantoprazole Sodium (Pantoprazole Inj 40 Mg Vial) 40 mg IVP Q12HR [facility] Stop: 05/23/25 08:59 Last Admin: 04/25/25 09:58 Dose: 40 mg Pantoprazole Sodium (Pantoprazole 40 Mg Tablet) 40 mg PO Q12HR [facility] Stop: 05/23/25 08:59 Potassium Chloride (Potassium Chloride 10% 20 Meq/15 Ml Udc) 40 meq PO X1 ONE Stop: 04/23/25 02:45 Last Admin: 04/23/25 06:38 Dose: Not Given Potassium Chloride (Potassium Chloride 10% 20 Meq/15 Ml Udc) 40 meq GT X1 ONE Stop: 04/23/25 05:26 Last Admin: 04/23/25 06:06 Dose: 40 meq Potassium Chloride (Potassium Chloride 10% 20 Meq/15 Ml Udc) 40 meq GT X1 ONE Stop: 04/26/25 08:28 Last Admin: 04/26/25 09:27 Dose: 40 meq Promethazine HCl (Promethazine Hcl 25 Mg Tablet) 6.25 mg PO Q6HR [facility] Stop: 05/25/25 00:00 Last Admin: 04/26/25 05:22 Dose: 6.25 mg Promethazine HCl (Promethazine Hcl 25 Mg Tablet) 6.25 mg PO Q6HR [facility] Stop: 05/25/25 00:00 Last Admin: 04/27/25 05:43 Dose: 6.25 mg Tramadol HCl (Tramadol Hcl 50 Mg Tablet) 50 mg PO Q6HR PRN PRN Reason: PAIN SCALE 4-6 (Moderate Stop: 04/28/25 02:22 Tramadol HCl (Tramadol Hcl 50 Mg Tablet) 50 mg GT Q6HR PRN PRN Reason: PAIN SCALE 4-10(Mod-Sev Stop: 04/28/25 02:22 Last Admin: 04/24/25 13:11 Dose: 50 mg Tramadol HCl (Tramadol Hcl 50 Mg Tablet) 50 mg GT Q6HR PRN PRN Reason: PAIN SCALE 4-10(Mod-Sev Stop: 04/28/25 02:22 Last Admin: 04/25/25 21:02 Dose: 50 mg
--- NOTE | 2025-04-27 17:43 | ESPR_ITS ---
<Statement entered by Jamil Smith MD - 05/06/25 22:42> I personally examined the patient evaluated the patient who has multiple problems has had bradycardia symptomatic with COVID-19 infection patient is not symptomatic given the heart rate is low no need for pacemaker plantation the patient will improve without any pacemaker will continue to monitor for any symptomatic bradycardia or any symptoms we will consider pacemaker otherwise no need for pacemaker implantation at this time agree with the treatment plan recommendation as documented by Dr. 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 Also has hypoxic respiratory failure, HFrEF low ejection fraction 30% to 35%, end- stage renal disease on hemodialysis, followed by Dr. Hui, digital camera technician. The patient did receive dialysis on 04/23/2025 and followed by GI specialist as well because of gastritis and duodenitis. She is also on multiple other medications. Most of them held now and her blood pressure appears to be stabilized now. Patient had a rapid response called around noon on 04/27/2025 for hypotension and hypothermia. BP was 84/53, temperature was 86.1. The patient had an episode of vomitus during the rapid. EKG showed bradycardia with a heart rate of 46 and a QT of [address] segment changes. Troponin has been downtrending. She received atropine and her heart rate improved to 74. She was transferred to ICU on no other drips. Exam Vital Signs Temp Pulse Resp BP Pulse Ox O2 Del Method O2 Flow Rate 97.5 F 54 L 21 H 141/61 H 94 L Room Air 5 04/27/25 14:00 04/27/25 17:00 04/27/25 17:00 04/27/25 17:00 04/27/25 17:00 04/27/25 14:00 04/27/25 17:00 Narrative Exam General: No acute distress. Somnolent but arousable. A/O x3. HEENT: Normocephalic, atraumatic, mucous membranes dry. Heart: S1+S2. Regular rate and rhythm, no murmurs. Lungs: No increased WOB. Scattered bilat crackles on exam Abdomen: Skin around PEG tube is dry and clean. Soft, nondistended, nontender. No guarding or rebound tenderness. Neurologic: Alert and oriented x1, no gross neurological deficit, and patient able to move all 4 extremities. Extremities: No edema. Skin: No rash or ecchymoses. Objective Labs 04/27/25 08:04 04/27/25 17:45 Labs: Laboratory Results - last 24 hr 04/26/25 04/26/25 04/27/25 17:57 21:43 08:04 WBC 10.5 RBC 4.09 Hgb 12.3 Hct 38.3 MCV 94 MCH 30.1 MCHC 32.1 RDW Std Deviation 53.1 H Plt Count 162 Neut % (Auto) 82 H Lymph % (Auto) 8 L [place] % (Auto) 7 Eos % (Auto) 2 Baso % (Auto) 1 Neut # (Auto) 8.6 H Lymph # (Auto) 0.9 L [place] # (Auto) 0.7 Eos # (Auto) 0.2 Baso # (Auto) 0.1 Immature Gran # (Auto) 0.06 H Absolute Nucleated RBC 0.00 Immature Gran % 1 H Nucleated RBC % 0 ESR 40 H Sodium 134 L Potassium 5.0 D Chloride 97 L Carbon Dioxide 21.6 Anion Gap 15 BUN 40 H Creatinine 3.5 H D Estim Creat Clear Calc 7.3 L eGFR 12 L* BUN/Creatinine Ratio 11 L Glucose 128 H D Calculated Osmolality 279 Lactic Acid 2.3 H 1.7 Calcium 10.4 Corrected Calcium 11.0 H D Phosphorus 4.8 Magnesium 2.1 Total Bilirubin 0.2 L AST 37 H ALT 29 Alkaline Phosphatase 120 H D Troponin I 0.396 H* 0.432 H* 0.313 H* C-Reactive Prot, Quant 16.4 H Total Protein 6.4 Albumin 3.3 L Globulin 3.1 Albumin/Globulin Ratio 1.1 L Procalcitonin 2.36 H 04/27/25 13:27 WBC RBC Hgb Hct MCV MCH MCHC RDW Std Deviation Plt Count Neut % (Auto) Lymph % (Auto) [place] % (Auto) Eos % (Auto) Baso % (Auto) Neut # (Auto) Lymph # (Auto) [place] # (Auto) Eos # (Auto) Baso # (Auto) Immature Gran # (Auto) Absolute Nucleated RBC Immature Gran % Nucleated RBC % ESR Sodium Potassium Chloride Carbon Dioxide Anion Gap BUN Creatinine Estim Creat Clear Calc eGFR BUN/Creatinine Ratio Glucose Calculated Osmolality Lactic Acid Calcium Corrected Calcium Phosphorus Magnesium Total Bilirubin AST ALT Alkaline Phosphatase Troponin I 0.251 H* C-Reactive Prot, Quant Total Protein Albumin Globulin Albumin/Globulin Ratio Procalcitonin ABG Interpretation ABG results: 04/23/25 01:04 ABG pH 7.43 ABG pCO2 50 H ABG pO2 90 ABG HCO3 33 H ABG O2 Saturation 97 ABG Base Excess 8 H Quality Measures Quality Measures VTE prophylaxis Advance care planning discussed with:: patient Assessment & Plan Assessment Current Active Medications: Generic Name Dose Route Start Last Admin Trade Name Freq PRN Reason Stop Dose Admin Acetaminophen 650 mg 04/23/25 02:23 Acetaminophen Supp 650 Mg Supp TX 05/23/25 02:22 Q6HR PRN Fever > 100.4 or pain 1-3(mild Albuterol/Ipratropium 3 ml 04/23/25 02:23 Albuterol/Ipratropium (Duoneb) Rt Nikki 3 Ml Nebu INH 05/23/25 02:22 Q2HR PRN SHORTNESS OF BREATH OR WHEEZE Apixaban 2.5 mg 04/26/25 09:00 04/27/25 08:23 Apixaban 2.5 Mg Tablet GT 05/16/25 09:29 2.5 mg BID [facility] Administration Dextrose 25 ml 04/23/25 02:28 04/26/25 16:50 Dextrose 50%-Water Inj 50 Ml Syringe IV 05/23/25 02:27 25 ml Q15MIN PRN Administration BG 50-70 responsive npo pt Dextrose 50 ml 04/23/25 02:28 04/25/25 00:19 Dextrose 50%-Water Inj 50 Ml Syringe IV 05/23/25 02:27 50 ml Q15MIN PRN Administration BG <50 OR BG <70 & pt unresponsive Glucagon 1 mg 04/23/25 02:28 Glucagon Inj 1 Mg Vial IM Q15MIN PRN BG <70, and no IV access Azithromycin 500 mg/ Sodium 250 mls @ 250 mls/hr 04/23/25 09:46 04/27/25 08:24 Chloride IV 04/30/25 09:45 250 mls/hr QDAY [facility] Administration Ceftriaxone Sodium/Dextrose 1 gm in 50 mls @ 100 mls/hr 04/23/25 10:05 04/27/25 08:22 Rocephin/D5w 1gm Iv Premix IV 04/30/25 10:04 100 mls/hr QDAY [facility] Administration Dopamine HCl/Dextrose 400 mg in 250 mls @ 8.258 mls/hr 04/27/25 12:57 Intropin In D5w Ivpb IV 05/27/25 12:56 .Q24H [facility] Protocol 5 MCG/KG/MIN Insulin Human Lispro 0 unit 04/26/25 12:00 04/27/25 12:49 Insulin Lispro (Admelog) 1 Unit/0.01 Ml Unit SC 05/26/25 11:59 Not Given Q6HR [facility] Protocol Lansoprazole 30 mg 04/26/25 08:13 04/27/25 08:23 Lansoprazole 30 Mg Tab.Rap. GT 05/23/25 08:59 30 mg Q12HR [facility] Administration Levetiracetam 500 mg 04/23/25 09:00 04/27/25 08:23 Levetiracetam Liqd 500 Mg/5 Ml Udc GT 05/23/25 08:59 500 mg BID [facility] Administration Losartan Potassium 50 mg 04/27/25 09:00 04/27/25 08:23 Losartan Potassium 25 Mg Tablet GT 05/27/25 08:59 50 mg QDAY [facility] Administration Ondansetron HCl 4 mg 04/23/25 10:41 04/27/25 10:21 Ondansetron Inj 2 Mg/Ml Inj 2 Ml IVP 05/23/25 10:40 4 mg Q6H PRN Administration NAUSEA OR VOMITING Protocol Promethazine HCl 6.25 mg 04/27/25 12:00 04/27/25 17:31 Promethazine Hcl Syrup 6.25 Mg/5 Ml Udc GT 05/25/25 00:00 Not Given Q6HR [facility] Tramadol HCl 50 mg 04/27/25 16:01 Tramadol Hcl 50 Mg Tablet GT 04/30/25 09:37 Q12HR PRN PAIN SCALE 4-10(Mod-Sev Plan The patient is an 84-year-old elderly female with a past medical history of ESRD on hemodialysis 3 days a week, CAD with prior stent placement, hypertension, dyslipidemia, seizures, [id number] 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 Cardiology was consulted for management of the patient's episodic bradycardia, hypotension, and HFrEF. IMPRESSION: 1. Hypoxic respiratory failure, improving. 2. Bilateral pneumonia. 3. HFrEF, well compensated. 4. Bradycardia, hypotension, resolved after stopping beta blockers. RECOMMENDATIONS: - The patient is in sinus bradycardia and occasional junctional rhythm - Administer atropine only if patient has symptomatic bradycardia, patient often has improvement in her bradycardia upon arousal - Continue antibiotic therapy for pneumonia. - We will hold off on all blood pressure medications until the blood pressure goes up again and once pneumonia improves and heart failure will be treated aggressively depending on the blood pressure readings with beta blockers or ARBs. - The patient has been diagnosed to have a deep vein thrombosis, positive for bilateral acute DVT, started on low-dose Eliquis because of bleeding cautiously. - Condition is stable, but progress is extremely poor. We have multisystem disease including end-stage renal disease as well as COVID pneumonia and HFrEF. Patient was seen and discussed with my attending physician Dr. Smith. Joshua Joel DO PGY-1.
--- NOTE | 2025-04-27 17:47 | PD.RESCONSUL ---
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 She presented to the emergency department (04/23/2025) with a chief complaint of generalized weakness, nausea, vomiting, and shortness of breath. Due to her dementia, she is a poor historian. All information was obtained from a review of her medical chart. No family was present at the time of her evaluation. Past medical history: As stated above Past surgical history: Right upper extremity fistula placement Allergies:?Penicillins Social history: Unobtainable at present Summary of hospital course: The patient was admitted with a COVID-19 diagnosis and was started on treatment with remdesivir. An echocardiogram on admission revealed HFrEF, with an ejection fraction of 30-35%. On April 24, a venous Doppler was positive for acute bilateral DVT. A subsequent chest CT pulmonary angiogram was negative for a pulmonary embolism. The patient also had acute symptomatic anemia and a suspected gastrointestinal GI bleed. They received 3 units of packed RBCs with an appropriate response. A GI consultation was obtained, and Dr. Baeza performed an EGD, which showed esophagitis, erythematous mucosa of the antrum, and erythematous duodenopathy. The patient was deemed not a candidate for a colonoscopy at this time and was advised to follow up as an outpatient. The patient had two rapid responses due to bradycardia and hypotension. The first occurred on April 26 after the patient received metoprolol succinate 25 mg. The patient was treated with atropine 1 mg and epinephrine 20 mcg. A second rapid response occurred on April 27, again for bradycardia and hypotension, though no metoprolol had been administered prior to this event by patient was taking home med isosorbide dinitrate. The patient received atropine 0.4 mg and epinephrine 20 mcg. NO dopamine drip has been started yet. After rapid response patient's blood pressure and heart rate stabilized. Patient admitted to ICU for close monitoring and potentially starting dopamine drip. cc:: cc: Rafita Handy MD Review of Systems Review of Systems Narrative Review of Systems: All systems reviewed negative unless stated otherwise above. Exam Vital Signs Temp Pulse Resp BP Pulse Ox O2 Del Method O2 Flow Rate 97.5 F 54 L 21 H 141/61 H 94 L Room Air 5 04/27/25 14:00 04/27/25 17:00 04/27/25 17:00 04/27/25 17:00 04/27/25 17:00 04/27/25 14:00 04/27/25 17:00 Narrative Exam General: No acute distress. Somnolent but arousable. A/O x3. HEENT: Normocephalic, atraumatic, mucous membranes dry. Heart: S1+S2. Regular rate and rhythm, no murmurs. Lungs: No increased WOB. Scattered bilat crackles on exam Abdomen: Skin around PEG tube is dry and clean. Soft, nondistended, nontender. No guarding or rebound tenderness. Neurologic: Alert and oriented x1, no gross neurological deficit, and patient able to move all 4 extremities. Extremities: No edema. Skin: No rash or ecchymoses. Results Labs 04/28/25 05:36 04/28/25 05:36 Labs: Short CBC 04/27/25 Range/Units 08:04 WBC 10.5 (3.6-11.0) Thou/mm3 Hgb 12.3 (12.0-16.0) g/dL Hct 38.3 (36.0-46.0) % Plt Count 162 (140-440) Thou/mm3 BMP 04/27/25 08:04 Sodium 134 L Potassium 5.0 D Chloride 97 L Carbon Dioxide 21.6 BUN 40 H Creatinine 3.5 H D Glucose 128 H D Calcium 10.4 Cardiac Enzymes 04/26/25 04/26/25 04/27/25 Range/Units 17:57 21:43 08:04 Troponin I 0.396 H* 0.432 H* 0.313 H* (0.0-0.045) ng/mL 04/27/25 Range/Units 13:27 Troponin I 0.251 H* (0.0-0.045) ng/mL Liver Function 04/27/25 Range/Units 08:04 Total Bilirubin 0.2 L (0.3-1.2) mg/dL AST 37 H (0-34) U/L ALT 29 (10-49) U/L Alkaline Phosphatase 120 H D (46-116) U/L Albumin 3.3 L (3.4-4.8) gm/dL ABG Interpretation ABG results: 04/23/25 01:04 ABG pH 7.43 ABG pCO2 50 H ABG pO2 90 ABG HCO3 33 H ABG O2 Saturation 97 ABG Base Excess 8 H Quality Measures Quality Measures VTE prophylaxis Advance care planning discussed with:: patient Medications Home Medications and Allergies Home Medications ?Medication ?Instructions ?Recorded ?Confirmed ?Type amlodipine 10 mg tablet 10 mg PO QDAY 11/07/22 04/23/25 History atorvastatin 40 mg tablet 40 mg PO QDAY 11/07/22 04/23/25 History losartan 100 mg tablet 100 mg PO QDAY 11/07/22 04/23/25 History carvedilol 3.125 mg tablet 3.125 mg PO BID 04/23/25 04/23/25 History levetiracetam 100 mg/mL oral 500 mg feeding tube Q12H 04/23/25 04/23/25 History solution levetiracetam 100 mg/mL oral 500 mg PO BID 04/23/25 04/23/25 History solution (Keppra) Allergies Allergy/AdvReac Type Severity Reaction Status Date / Time Penicillins Allergy Intermediate Rash Verified 06/29/20 08:33 Visit Medications Acetaminophen (Acetaminophen Supp 650 Mg Supp) 650 mg NJ Q6HR PRN PRN Reason: Fever > 100.4 or pain 1-3(mild Stop: 05/23/25 02:22 Albuterol/Ipratropium (Albuterol/Ipratropium (Duoneb) Rt Nikki 3 Ml Nebu) 3 ml INH Q2HR PRN PRN Reason: SHORTNESS OF BREATH OR WHEEZE Stop: 05/23/25 02:22 Apixaban (Apixaban 2.5 Mg Tablet) 2.5 mg GT BID MELECIO Stop: 05/16/25 09:29 Last Admin: 04/27/25 08:23 Dose: 2.5 mg Dextrose (Dextrose 50%-Water Inj 50 Ml Syringe) 25 ml IV Q15MIN PRN PRN Reason: BG 50-70 responsive npo pt Stop: 05/23/25 02:27 Last Admin: 04/26/25 16:50 Dose: 25 ml Dextrose (Dextrose 50%-Water Inj 50 Ml Syringe) 50 ml IV Q15MIN PRN PRN Reason: BG <50 OR BG <70 & pt unresponsive Stop: 05/23/25 02:27 Last Admin: 04/25/25 00:19 Dose: 50 ml Glucagon (Glucagon Inj 1 Mg Vial) 1 mg IM Q15MIN PRN PRN Reason: BG <70, and no IV access Azithromycin 500 mg/ Sodium (Chloride) 250 mls @ 250 mls/hr IV QDAY [facility] Stop: 04/30/25 09:45 Last Admin: 04/27/25 08:24 Dose: 250 mls/hr Ceftriaxone Sodium/Dextrose (Rocephin/D5w 1gm Iv Premix) 1 gm in 50 mls @ 100 mls/hr IV QDAY [facility] Stop: 04/30/25 10:04 Last Admin: 04/27/25 08:22 Dose: 100 mls/hr Dopamine HCl/Dextrose (Intropin In D5w Ivpb) 400 mg in 250 mls @ 8.258 mls/hr IV .Q24H [facility]; Protocol Stop: 05/27/25 12:56 Insulin Human Lispro (Insulin Lispro (Admelog) 1 Unit/0.01 Ml Unit) 0 unit SC Q6HR [facility]LECIO; Protocol Stop: 05/26/25 11:59 Last Admin: 04/27/25 17:43 Dose: Not Given Lansoprazole (Lansoprazole 30 Mg Tab.Rap.Dr) 30 mg GT Q12HR [facility] Stop: 05/23/25 08:59 Last Admin: 04/27/25 08:23 Dose: 30 mg Levetiracetam (Levetiracetam Liqd 500 Mg/5 Ml Udc) 500 mg GT BID [facility] Stop: 05/23/25 08:59 Last Admin: 04/27/25 08:23 Dose: 500 mg Losartan Potassium (Losartan Potassium 25 Mg Tablet) 50 mg GT QDAY [facility] Stop: 05/27/25 08:59 Last Admin: 04/27/25 08:23 Dose: 50 mg Ondansetron HCl (Ondansetron Inj 2 Mg/Ml Inj 2 Ml) 4 mg IVP Q6H PRN; Protocol PRN Reason: NAUSEA OR VOMITING Stop: 05/23/25 10:40 Last Admin: 04/27/25 10:21 Dose: 4 mg Promethazine HCl (Promethazine Hcl Syrup 6.25 Mg/5 Ml Udc) 6.25 mg GT Q6HR [facility]LE[facility] Stop: 05/25/25 00:00 Last Admin: 04/27/25 17:31 Dose: Not Given Tramadol HCl (Tramadol Hcl 50 Mg Tablet) 50 mg GT Q12HR PRN PRN Reason: PAIN SCALE 4-10(Mod-Sev Stop: 04/30/25 09:37 Discontinued Medications Acetaminophen (Acetaminophen Supp 650 Mg Supp) 650 mg NJ X1 ONE Stop: 04/23/25 13:25 Last Admin: 04/23/25 13:39 Dose: 650 mg Albuterol/Ipratropium (Albuterol/Ipratropium (Duoneb) Rt Nikki 3 Ml Nebu) 3 ml INH X1 ONE Stop: 04/22/25 23:58 Last Admin: 04/23/25 00:51 Dose: 3 ml Amlodipine Besylate (Amlodipine Besylate 5 Mg Tablet) 10 mg PO QDAY [facility] Stop: 05/23/25 08:59 Amlodipine Besylate (Amlodipine Besylate 5 Mg Tablet) 10 mg GT QDAY [facility] Stop: 05/23/25 08:59 Last Admin: 04/26/25 09:27 Dose: 10 mg Apixaban (Apixaban 2.5 Mg Tablet) 2.5 mg PO BID [facility] Stop: 05/16/25 09:29 Last Admin: 04/25/25 21:02 Dose: 2.5 mg Aspirin (Aspirin 325 Mg Tablet) 325 mg GT X1 ONE Stop: 04/26/25 12:35 Last Admin: 04/26/25 13:37 Dose: 325 mg Atropine Sulfate (Atropine Sulf Inj 0.1 Mg/Ml Syr 10 Ml) 1 mg IV X1 ONE Stop: 04/26/25 12:01 Last Admin: 04/26/25 11:48 Dose: 1 mg Atropine Sulfate (Atropine Sulf Inj 0.4 Mg/Ml Vial) 0.4 mg IV X1 ONE Stop: 04/27/25 11:57 Last Admin: 04/27/25 12:46 Dose: Not Given Atropine Sulfate (Atropine Sulf Inj 0.1 Mg/Ml Syr 10 Ml) 0.4 mg IV X1 ONE Stop: 04/27/25 12:46 Last Admin: 04/27/25 12:00 Dose: 0.4 mg Calcium Chloride (Calcium Chloride 10% Inj 10 Ml Syrg) 10 ml IV X1 ONE Stop: 04/26/25 13:16 Last Admin: 04/26/25 11:55 Dose: 10 ml Calcium Chloride (Calcium Chloride 10% Inj 10 Ml Syrg) 10 ml IV X1 ONE Stop: 04/27/25 13:09 Last Admin: 04/27/25 12:05 Dose: 10 ml Calcium Gluconate (Calcium Gluconate 10% Inj 1 Gm/10 Ml Vial) 1 gm IV X1 ONE Stop: 04/26/25 11:55 Last Admin: 04/26/25 13:07 Dose: Not Given Carvedilol (Carvedilol 3.125 Mg Tablet) 6.25 mg GT BIDWM MELECIO Stop: 05/26/25 19:59 Diphenhydramine HCl (Diphenhydramine Inj 50 Mg/Ml Vial) 25 mg IVP PRNMRX1 PRN PRN Reason: MODERATE SEDATION Epinephrine HCl (Epinephrine Inj 0.1 Mg/Ml Syringe 10ml) 0.02 mg IVP X1 ONE Stop: 04/26/25 12:31 Last Admin: 04/26/25 12:03 Dose: 0.02 mg Epinephrine HCl (Epinephrine Inj 0.1 Mg/Ml Syringe 10ml) 0.02 mg IVP X1 ONE Stop: 04/27/25 12:17 Last Admin: 04/27/25 12:16 Dose: 0.02 mg Epoetin Zane (Epoetin Zane-Epbx Inj 10,000 Unit/Ml Vial (Esrd)) 10,000 unit SC X1 ONE Stop: 04/23/25 10:31 Last Admin: 04/23/25 11:40 Dose: 10,000 unit Fentanyl Citrate (Fentanyl Cit Inj 50 Mcg/Ml Amp 2ml) 50 mcg IVP Q2M PRN PRN Reason: MODERATE SEDATION Furosemide (Furosemide Inj 10 Mg/Ml 4ml Vial) 80 mg IVP X1 ONE Stop: 04/22/25 23:58 Last Admin: 04/23/25 00:31 Dose: 80 mg Glucagon (Glucagon Inj 1 Mg Vial) 10 mg IVP X1 ONE Stop: 04/26/25 11:51 Last Admin: 04/26/25 13:07 Dose: Not Given Hydromorphone HCl (Hydromorphone Inj 2 Mg/Ml Vial) 0.5 mg IVP Q4H PRN PRN Reason: PAIN SCALE 7-10(Mod-Sev Stop: 04/28/25 02:22 Acetaminophen (Ofirmev Inj) 1,000 mg in 100 mls @ 250 mls/hr IV X1 ONE Stop: 04/23/25 01:34 Last Infusion: 04/23/25 03:06 Dose: Infused Remdesivir 200 mg/ Sodium (Chloride) 250 mls @ 250 mls/hr IV X1 ONE; Protocol Stop: 04/23/25 09:59 Last Admin: 04/23/25 12:44 Dose: 250 mls/hr Remdesivir 100 mg/ Sodium (Chloride) 100 mls @ 100 mls/hr IV Q24H NR; Protocol Stop: 04/27/25 14:59 Last Admin: 04/26/25 13:37 Dose: 100 mls/hr Promethazine HCl 6.25 mg/ (Sodium Chloride) 50.25 mls @ 2.5 mls/min IV Q6HR [facility] Stop: 05/25/25 00:00 Last Admin: 04/25/25 05:25 Dose: Not Given Potassium Chloride (Kcl Ivpb) 10 meq in 100 mls @ 100 mls/hr IV Q1H [facility] Stop: 04/26/25 11:21 Last Admin: 04/26/25 08:28 Dose: Not Given Calcium Gluconate/Sodium Chloride (Calcium Gluc/Ns 1000mg Ivpb) 1,000 mg in 50 mls @ 100 mls/hr IV Q30M [facility] Stop: 04/26/25 13:59 Last Admin: 04/26/25 15:46 Dose: 100 mls/hr Sodium Chloride (Ns) 500 mls @ 999 mls/hr IV .Q31M ONE Stop: 04/27/25 12:32 Last Admin: 04/27/25 12:10 Dose: 999 mls/hr Insulin Human Lispro (Insulin Lispro (Admelog) 1 Unit/0.01 Ml Unit) 0 unit SC Q6HR [facility]; Protocol Stop: 05/23/25 05:59 Last Admin: 04/25/25 05:25 Dose: Not Given Insulin Human Lispro (Insulin Lispro (Admelog) 1 Unit/0.01 Ml Unit) 0 unit SC AC [facility]; Protocol Stop: 05/25/25 11:29 Last Admin: 04/26/25 07:56 Dose: 3 unit Isosorbide Dinitrate (Isosorbide Dinitrate 10 Mg Tablet) 10 mg PO BID [facility] Stop: 05/26/25 13:14 Last Admin: 04/27/25 08:23 Dose: 10 mg Ketorolac Tromethamine (Ketorolac Inj 30 Mg/Ml Vial) 15 mg IVP X1 ONE Stop: 04/23/25 01:12 Last Admin: 04/23/25 02:30 Dose: 15 mg Lansoprazole (Lansoprazole 30 Mg Tab.Rap.Dr) 30 mg GT Q12HR [facility] Stop: 05/23/25 08:59 Last Admin: 04/25/25 21:02 Dose: 30 mg Levetiracetam (Levetiracetam 250 Mg Tablet) 250 mg PO BID [facility] Stop: 05/23/25 08:59 Levetiracetam (Levetiracetam 250 Mg Tablet) 500 mg PO BID [facility] Stop: 05/23/25 08:59 Losartan Potassium (Losartan Potassium 25 Mg Tablet) 100 mg PO QDAY [facility] Stop: 05/25/25 08:59 Last Admin: 04/25/25 10:00 Dose: Not Given Losartan Potassium (Losartan Potassium 25 Mg Tablet) 100 mg GT QDAY [facility] Stop: 05/25/25 08:59 Last Admin: 04/26/25 09:27 Dose: 100 mg Methylprednisolone Sodium Succinate (Methylprednisolone Sod Succ 62.5 Mg/Ml 2ml Vial) 125 mg IVP X1 ONE Stop: 04/22/25 23:58 Last Admin: 04/23/25 00:31 Dose: 125 mg Metoprolol Succinate (Metoprolol Succinate Xl 25 Mg Tabcr) 25 mg PO QDAY [facility] Stop: 05/25/25 12:44 Last Admin: 04/25/25 13:34 Dose: Not Given Metoprolol Succinate (Metoprolol Succinate Xl 25 Mg Tabcr) 25 mg GT QDAY [facility] Stop: 05/25/25 12:44 Last Admin: 04/26/25 09:28 Dose: 25 mg Midazolam HCl (Midazolam Inj 1 Mg/Ml Vial 2 Ml) 2 mg IVP Q2M PRN PRN Reason: Moderate Sedation Morphine Sulfate (Morphine Sulf Inj 10 Mg/Ml Vial) 2 mg IVP X1 ONE Stop: 04/22/25 23:58 Last Admin: 04/23/25 00:32 Dose: 2 mg Nitroglycerin (Nitroglycerin Oint 2% 1 Inch Packet) 2 inch TOP X1 ONE Stop: 04/22/25 23:58 Last Admin: 04/23/25 00:32 Dose: 2 inch Pantoprazole Sodium (Pantoprazole Inj 40 Mg Vial) 40 mg IVP Q12HR [facility] Stop: 05/23/25 08:59 Last Admin: 04/25/25 09:58 Dose: 40 mg Pantoprazole Sodium (Pantoprazole 40 Mg Tablet) 40 mg PO Q12HR [facility] Stop: 05/23/25 08:59 Potassium Chloride (Potassium Chloride 10% 20 Meq/15 Ml Udc) 40 meq PO X1 ONE Stop: 04/23/25 02:45 Last Admin: 04/23/25 06:38 Dose: Not Given Potassium Chloride (Potassium Chloride 10% 20 Meq/15 Ml Udc) 40 meq GT X1 ONE Stop: 04/23/25 05:26 Last Admin: 04/23/25 06:06 Dose: 40 meq Potassium Chloride (Potassium Chloride 10% 20 Meq/15 Ml Udc) 40 meq GT X1 ONE Stop: 04/26/25 08:28 Last Admin: 04/26/25 09:27 Dose: 40 meq Promethazine HCl (Promethazine Hcl 25 Mg Tablet) 6.25 mg PO Q6HR [facility] Stop: 05/25/25 00:00 Last Admin: 04/26/25 05:22 Dose: 6.25 mg Promethazine HCl (Promethazine Hcl 25 Mg Tablet) 6.25 mg PO Q6HR [facility] Stop: 05/25/25 00:00 Last Admin: 04/27/25 05:43 Dose: 6.25 mg Tramadol HCl (Tramadol Hcl 50 Mg Tablet) 50 mg PO Q6HR PRN PRN Reason: PAIN SCALE 4-6 (Moderate Stop: 04/28/25 02:22 Tramadol HCl (Tramadol Hcl 50 Mg Tablet) 50 mg GT Q6HR PRN PRN Reason: PAIN SCALE 4-10(Mod-Sev Stop: 04/28/25 02:22 Last Admin: 04/24/25 13:11 Dose: 50 mg Tramadol HCl (Tramadol Hcl 50 Mg Tablet) 50 mg GT Q6HR PRN PRN Reason: PAIN SCALE 4-10(Mod-Sev Stop: 04/28/25 02:22 Last Admin: 04/25/25 21:02 Dose: 50 mg Assessment & Plan Plan 84-year-old woman with a past medical history of end-stage renal disease on hemodialysis (Sunday, , Sunday), coronary artery disease with prior stent placement, hypertension, dyslipidemia, seizures, 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 Patient admitted to ICU for close monitoring and potentially starting dopamine drip. 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 - Avoid sedatives or excessive pain management. #History of seizure disorder Patient history as stated. No reports of recent breakthrough seizures. RX: - Continue Keppra 250 mg PEG tube twice daily. CVS: #HFrEF #History of coronary artery disease status post PCI EF (04/23) showed 30 to 35% Patient appears euvolemic EF worsened possibly due to COVID infection, last ECHO from 2023 showed EF 60-65%. BNP on admission 1885 RX: - Cardiology consulted, Dr. Smith, see recs - Strict I/Os - Fluid restriction 1.5L - Daily weights #Sinus Bradycardia Occasional Junctional rythym Possibly 2/2 to COVID infection RX: - Cardiology consulted, Dr. Smith, see recs - Administer Atropine only for symptomatic bradycardia #Acute bilateral deep vein thrombosis 04/24: Positive for bilateral acute DVT CTPA did not show any pulmonary embolism RX: - Apixaban 2.5 g twice daily started #History of hypertension Blood pressures have been stable Patient's home medication includes losartan 100 mg daily, amlodipine 10 mg daily RX: ? Hold off on all antihypertensives for now PULM: #COVID-pneumonia, recovering On room air Blood cultures negative MRSA negative Patient completed 5-day course of remdesivir RX: - Monitor for worsening of symptoms and new onset fever - Continue azithromycin and ceftriaxone for possible superimposed bacterial pneumonia GI: #Suspected GI bleed (upper vs lower vs occult source) No overt hemetemsis, hematochezia, or melena reported. Received 3 units pRBC with appropriate response this admission EGD this admisson showed esophagitis, erythematous mucosa of antrum, erythematous duodenopathy. RX: - GI consulted, Dr. Baeza, appreciate recs. - Advance diet as tolerated. - Monitor CBC daily. Transfusing for Hgb <8 or symptomatic. - Protonix 40 mg IV twice daily. - Avoid NSAIDs/ASA. - Close hemodynamic monitoring. - Per Dr. Baeza, patient is not a candidate for colonscopy at this time. Follow-up outpatient. #Transaminitis, improving AST 52, ALT 31, ALP 114. Likely from underlying COVID. RX: - Hold off on statin per nephrology. NEPHRO: #End-stage renal disease on hemodialysis (Sun//Sun) Follows with lipcoat sprayer Dr. Hui. Received last dialysis on 04/25 Patient is anuric and dependent on HD. RX: - Nephrology consulted, Dr. Hui, appreciate recs. - Dialysis as per patient's schedule - Renally dose meds ENDO: #[id number] type 2 diabetes #Peripheral neuropathy A1c 6.4% RX: ?Insulin sliding scale ?Glucose checks ACHS ?Dietitian following for PEG tube feeds ?Aim for blood glucose 140-180 HEME: No active issues. ID: See pulm section. Health Maintenance: Diet: tube feeds GI prophylaxis: Lansoprazole 30 mg every 12 hours DVT prophylaxis: SCDs and Apixaban 2.5mg BID Antibiotics: Azithromycin (04/23 - 04/30), ceftriaxone 1 g (04/23 - 04/30) CODE STATUS: DNR Disposition: ICU for close monitoring, and potential starting dopamine Case discussed with my attending Dr. Binu Chatterjee MD PGY-1 Attending Provider Attestation/Addendum Patient seen and examined with above resident, Devon Chatterjee MD. I agree with the findings, assessment, and plan of care as documented send for any differences below. Patient with repeat rapid response this afternoon. Yesterday required push dose of epi plus atropine to recover after usage of beta-jake. We did not have added adequate glucagon and calcium chloride was pushed along with calcium gluconate to maintain/reverse both calcium channel jake as well as beta-jake. Patient has bedside echo by medicine and did not suggest presence of ischemia with regional wall motion abnormalities. However at this point given her comorbidities cardiology did not feel PCI was warranted. Patient unfortunately had repeat episode after switching medications to hydralazine. Again suspect that there is a component of hypotension leading to reduced coronary perfusion and cyclical worsening in her status. She again responded well to push dose epinephrine as well as atropine and a 1 g of calcium chloride. Patient hemodynamically stable though with significant bradycardia. Watch closely in the ICU for initiation of dopamine. Cardiology was consulted once again and felt that there was no need for temporary or permanent pacemaker. We did hold medications including stopping promethazine which was likely alcohol attributing to her presentation. Will continue on empiric antibiotics for superimposed pneumonia as well as remdesivir for COVID. Patient remains on stable oxygen at this time. Patient daughter was at bedside and updated. Total critical care care time: I personally spent 35 minutes for review of physiologic parameters, directing plan of care throughout the day, coordination of care with other subspecialties, and counseling patient's family at bedside. This is exclusive of time spent teaching on staff informing us of billable procedures. Patient required critical care services for symptomatic bradycardia, end-stage renal disease on HD, COVID, community-acquired pneumonia, acute hypoxic respiratory failure.
[2025-04-27 17:59] LABS: Lactate (Lactic Acid) 3.0 mMol/L (0.4-2.0)
[2025-04-27 18:24] LABS: Alanine Aminotransferase 31 U/L (10-49); Albumin, Serum 3.2 gm/dL (3.4-4.8); Albumin/Globulin Ratio 0.9 (1.2-2.2); Alkaline Phosphatase 114 U/L (46-116); Anion Gap 17 (7-16); Aspartate Amino Transferase 52 U/L (0-34); BUN/Creatinine Ratio 8 Ratio (12-20); Bilirubin,Total 0.2 mg/dL (0.3-1.2); Blood Urea Nitrogen 28 mg/dL (9-23); Calcium 11.4 mg/dL (8.3-10.6); Calcium (Corrected) 12.0 mg/dL (8.5-10.1); Carbon Dioxide 15.9 mMol/L (20.0-31.0); Chloride 99 mMol/L (98-107); Creatinine (Component) 3.5 mg/dL (0.6-1.3); Estimated Creatinine Clearance 7.3 mL/min (>60); Globulin 3.6 gm/dL (2.3-3.5); Glucose 151 mg/dL (74-106); Magnesium 2.0 mg/dL (1.6-2.6); Osmolality,Calculated 273 (275-295); Potassium 5.7 mMol/L (3.4-5.1); Sodium 132 mMol/L (136-145); Total Protein 6.8 gm/dL (5.7-8.2); eGFR 12 See Note
[2025-04-27 18:25] LABS: Troponin I 0.237 ng/mL (0.0-0.045)
--- NOTE | 2025-04-27 20:21 | ESPR_ITS ---
Documentation for date of: 04/27/25 Subjective Subjective Interval history: Patient evaluated Moved to the ICU because of the cardiac arrhythmias Exam Vital Signs Temp Pulse Resp BP Pulse Ox O2 Del Method O2 Flow Rate 97.3 F 53 L 16 149/61 H 95 Nasal Cannula 1 04/27/25 16:00 04/27/25 18:00 04/27/25 18:00 04/27/25 18:00 04/27/25 18:00 04/27/25 18:00 04/27/25 18:00 Objective Labs 04/27/25 08:04 04/27/25 17:45 Labs: Laboratory Results - last 24 hr 04/26/25 04/27/25 04/27/25 21:43 08:04 13:27 WBC 10.5 RBC 4.09 Hgb 12.3 Hct 38.3 MCV 94 MCH 30.1 MCHC 32.1 RDW Std Deviation 53.1 H Plt Count 162 Neut % (Auto) 82 H Lymph % (Auto) 8 L [place] % (Auto) 7 Eos % (Auto) 2 Baso % (Auto) 1 Neut # (Auto) 8.6 H Lymph # (Auto) 0.9 L [place] # (Auto) 0.7 Eos # (Auto) 0.2 Baso # (Auto) 0.1 Immature Gran # (Auto) 0.06 H Absolute Nucleated RBC 0.00 Immature Gran % 1 H Nucleated RBC % 0 ESR 40 H Sodium 134 L Potassium 5.0 D Chloride 97 L Carbon Dioxide 21.6 Anion Gap 15 BUN 40 H Creatinine 3.5 H D Estim Creat Clear Calc 7.3 L eGFR 12 L* BUN/Creatinine Ratio 11 L Glucose 128 H D Calculated Osmolality 279 Lactic Acid 1.7 Calcium 10.4 Corrected Calcium 11.0 H D Phosphorus 4.8 Magnesium 2.1 Total Bilirubin 0.2 L AST 37 H ALT 29 Alkaline Phosphatase 120 H D Troponin I 0.432 H* 0.313 H* 0.251 H* C-Reactive Prot, Quant 16.4 H Total Protein 6.4 Albumin 3.3 L Globulin 3.1 Albumin/Globulin Ratio 1.1 L Procalcitonin 2.36 H 04/27/25 17:45 WBC RBC Hgb Hct MCV MCH MCHC RDW Std Deviation Plt Count Neut % (Auto) Lymph % (Auto) [place] % (Auto) Eos % (Auto) Baso % (Auto) Neut # (Auto) Lymph # (Auto) [place] # (Auto) Eos # (Auto) Baso # (Auto) Immature Gran # (Auto) Absolute Nucleated RBC Immature Gran % Nucleated RBC % ESR Sodium 132 L Potassium 5.7 H D Chloride 99 Carbon Dioxide 15.9 L Anion Gap 17 H BUN 28 H Creatinine 3.5 H Estim Creat Clear Calc 7.3 L eGFR 12 L* BUN/Creatinine Ratio 8 L Glucose 151 H Calculated Osmolality 273 L Lactic Acid 3.0 H Calcium 11.4 H Corrected Calcium 12.0 H Phosphorus Magnesium 2.0 Total Bilirubin 0.2 L AST 52 H ALT 31 Alkaline Phosphatase 114 Troponin I 0.237 H* C-Reactive Prot, Quant Total Protein 6.8 Albumin 3.2 L Globulin 3.6 H Albumin/Globulin Ratio 0.9 L Procalcitonin Impressions Impression: Cardiac arrhythmias Hypoxemia and respiratory failure GI bleed hemoglobin hematocrit relatively stable Continue current management ABG Interpretation ABG results: 04/23/25 01:04 ABG pH 7.43 ABG pCO2 50 H ABG pO2 90 ABG HCO3 33 H ABG O2 Saturation 97 ABG Base Excess 8 H Assessment & Plan A&P Narrative # Anemia of blood loss requiring blood transfusion plan Consent obtained for fiberoptic esophagogastroduodenoscopy with possible biopsy possible therapeutic intervention under intravenous moderation tentatively scheduled for tomorrow Clear liquid diet till 8 AM tomorrow then n.p.o. Other medical problems include COVID-positive bilateral pneumonia Coronary artery status post PTCA Seizure disorder End-stage renal disease on hemodialysis TTS Essential hypertension Diabetes mellitus with peripheral neuropathy Dementia Time Spent With Patient Time: Total time spent is greater than 50% in coordination of care (as documented) at patient's floor/unit and/or counseling patient:
[2025-04-27 20:57] LABS: Reflex Lactate? Y
[2025-04-27 22:11] LABS: Lactic Acid, 3 HR 2.9 mMol/L (0.4-2.0)
[2025-04-28] VITALS (51 sets, daily range): BP systolic 112–187; BP diastolic 34–139; PULSE 44–107; RESP 3–22; TEMP 36.2–36.8; O2SAT 81–99; BMI 12.0
[2025-04-28] MEDS: PROMETHAZINE HCL SYRUP 6.25 MG/5 ML UDC GT ×2 (00:52→05:38)
[2025-04-28 02:13] LABS: Troponin I 0.225 ng/mL (0.0-0.045)
[2025-04-28 06:17] LABS: Basophils # (Auto) 0.1 Thou/mm3 (0.0-0.2); Basophils % (Auto) 1 % (0-2.5); Eosinophils # (Auto) 0.2 Thou/mm3 (0.0-0.5); Eosinophils % (Auto) 2 % (0-10); Hematocrit 36.1 % (36.0-46.0); Hemoglobin 11.8 g/dL (12.0-16.0); Immature Granulocytes Auto 0.04 Thou/mm3 (0.00-0.00); Lymphocytes # (Auto) 1.1 Thou/mm3 (1.0-4.8); Lymphocytes % (Auto) 11 % (10-50); Mean Corpuscular HGB Conc 32.7 g/dl (31.0-37.0); Mean Corpuscular Hemoglobin 30.6 pg (25.0-35.0); Mean Corpuscular Volume 94 fL (80-100); Monocytes # (Auto) 0.7 Thou/mm3 (0.0-0.8); Monocytes % (Auto) 6 % (0-12); Neutrophils # (Auto) 8.1 Thou/mm3 (1.8-7.7); Neutrophils % (Auto) 80 % (37-80); Nucleated Red Blood Cell # 0.00 Thou/mm3 (0.00-0.00); Nucleated Red Blood Cell % 0 /100 WBC (0); Platelet Count 171 Thou/mm3 (140-440); RDW Standard Deviation 53.9 fL (36.4-46.3); Red Blood Count 3.86 Miln/mm3 (4.00-5.20); White Blood Count 10.2 Thou/mm3 (3.6-11.0)
[2025-04-28 06:44] LABS: Alanine Aminotransferase 24 U/L (10-49); Albumin, Serum 3.2 gm/dL (3.4-4.8); Albumin/Globulin Ratio 1.1 (1.2-2.2); Alkaline Phosphatase 108 U/L (46-116); Anion Gap 16 (7-16); Aspartate Amino Transferase 27 U/L (0-34); BUN/Creatinine Ratio 12 Ratio (12-20); Bilirubin,Total 0.2 mg/dL (0.3-1.2); Blood Urea Nitrogen 51 mg/dL (9-23); Calcium 10.0 mg/dL (8.3-10.6); Calcium (Corrected) 10.6 mg/dL (8.5-10.1); Carbon Dioxide 20.7 mMol/L (20.0-31.0); Chloride 96 mMol/L (98-107); Creatinine (Component) 4.1 mg/dL (0.6-1.3); Estimated Creatinine Clearance 6.2 mL/min (>60); Globulin 3.0 gm/dL (2.3-3.5); Glucose 140 mg/dL (74-106); Magnesium 2.0 mg/dL (1.6-2.6); Osmolality,Calculated 282 (275-295); Phosphorous 5.1 mg/dL (2.4-5.1); Potassium 5.0 mMol/L (3.4-5.1); Sodium 133 mMol/L (136-145); Total Protein 6.2 gm/dL (5.7-8.2); eGFR 10 See Note
[2025-04-28 07:02] LABS: Troponin I 0.234 ng/mL (0.0-0.045)
--- NOTE | 2025-04-28 08:43 | ESPR_ITS ---
Documentation for date of: 04/28/25 Subjective Subjective Interval history: 04/28/2025 The patient had no acute overnight events, and her heart rate and blood pressure were stable. No dopamine drip was started in ICU. We discontinued the scheduled promethazine because of its link to bradycardia. Since stopping the medication, the patient's heart rate has consistently been above 80 beats per minute. Additionally, the beta-jake has been washed out of the patient's system as it has been over 48 hours since stopping. According to the latest note from cardiology, there are no immediate plans to insert a pacemaker for sinus bradycardia with occasional junctional rhythm. The patient is ready to be downgraded to the medical floor for the management of ongoing issues. Exam Vital Signs Temp Pulse Resp BP Pulse Ox O2 Del Method O2 Flow Rate 97.3 F 54 L 20 149/55 H 94 L Nasal Cannula 2 04/28/25 08:30 04/28/25 08:30 04/28/25 08:30 04/28/25 08:30 04/28/25 08:30 04/28/25 04:00 04/28/25 08:30 Narrative Exam General: No acute distress. Somnolent but arousable. HEENT: Normocephalic, atraumatic, mucous membranes dry. Heart: S1+S2. Regular rate and rhythm, no murmurs. Lungs: No increased WOB. Scattered bilat crackles on exam Abdomen: Skin around PEG tube is dry and clean. Soft, nondistended, nontender. No guarding or rebound tenderness. Neurologic: Alert and oriented x1, no gross neurological deficit, and patient able to move all 4 extremities. Extremities: No edema. Skin: No rash or ecchymoses. Objective Labs 04/29/25 04:54 04/29/25 04:54 Labs: Laboratory Results - last 24 hr 04/27/25 04/27/25 04/27/25 08:04 13:27 17:45 WBC RBC Hgb Hct MCV MCH MCHC RDW Std Deviation Plt Count Neut % (Auto) Lymph % (Auto) [place] % (Auto) Eos % (Auto) Baso % (Auto) Neut # (Auto) Lymph # (Auto) [place] # (Auto) Eos # (Auto) Baso # (Auto) Immature Gran # (Auto) Absolute Nucleated RBC Immature Gran % Nucleated RBC % ESR 40 H Sodium 134 L 132 L Potassium 5.0 D 5.7 H D Chloride 97 L 99 Carbon Dioxide 21.6 15.9 L Anion Gap 15 17 H BUN 40 H 28 H Creatinine 3.5 H D 3.5 H Estim Creat Clear Calc 7.3 L 7.3 L eGFR 12 L* 12 L* BUN/Creatinine Ratio 11 L 8 L Glucose 128 H D 151 H Calculated Osmolality 279 273 L Lactic Acid 3.0 H Calcium 10.4 11.4 H Corrected Calcium 11.0 H D 12.0 H Phosphorus 4.8 Magnesium 2.1 2.0 Total Bilirubin 0.2 L 0.2 L AST 37 H 52 H ALT 29 31 Alkaline Phosphatase 120 H D 114 Troponin I 0.313 H* 0.251 H* 0.237 H* C-Reactive Prot, Quant 16.4 H Total Protein 6.4 6.8 Albumin 3.3 L 3.2 L Globulin 3.1 3.6 H Albumin/Globulin Ratio 1.1 L 0.9 L Procalcitonin 2.36 H 04/27/25 04/28/25 04/28/25 21:50 01:34 05:36 WBC 10.2 RBC 3.86 L Hgb 11.8 L Hct 36.1 MCV 94 MCH 30.6 MCHC 32.7 RDW Std Deviation 53.9 H Plt Count 171 Neut % (Auto) 80 Lymph % (Auto) 11 [place] % (Auto) 6 Eos % (Auto) 2 Baso % (Auto) 1 Neut # (Auto) 8.1 H Lymph # (Auto) 1.1 [place] # (Auto) 0.7 Eos # (Auto) 0.2 Baso # (Auto) 0.1 Immature Gran # (Auto) 0.04 H Absolute Nucleated RBC 0.00 Immature Gran % 0 Nucleated RBC % 0 ESR Sodium 133 L Potassium 5.0 D Chloride 96 L Carbon Dioxide 20.7 Anion Gap 16 BUN 51 H Creatinine 4.1 H* D Estim Creat Clear Calc 6.2 L eGFR 10 L* BUN/Creatinine Ratio 12 Glucose 140 H Calculated Osmolality 282 Lactic Acid 2.9 H Calcium 10.0 Corrected Calcium 10.6 H Phosphorus 5.1 Magnesium 2.0 Total Bilirubin 0.2 L AST 27 ALT 24 Alkaline Phosphatase 108 Troponin I 0.225 H* 0.234 H* C-Reactive Prot, Quant Total Protein 6.2 Albumin 3.2 L Globulin 3.0 Albumin/Globulin Ratio 1.1 L Procalcitonin ABG Interpretation ABG results: 04/23/25 01:04 ABG pH 7.43 ABG pCO2 50 H ABG pO2 90 ABG HCO3 33 H ABG O2 Saturation 97 ABG Base Excess 8 H Quality Measures Quality Measures VTE prophylaxis Advance care planning discussed with:: patient Assessment & Plan Assessment Current Active Medications: Generic Name Dose Route Start Last Admin Trade Name Freq PRN Reason Stop Dose Admin Acetaminophen 650 mg 04/23/25 02:23 Acetaminophen Supp 650 Mg Supp DE 05/23/25 02:22 Q6HR PRN Fever > 100.4 or pain 1-3(mild Albuterol/Ipratropium 3 ml 04/23/25 02:23 Albuterol/Ipratropium (Duoneb) Rt Nikki 3 Ml Nebu INH 05/23/25 02:22 Q2HR PRN SHORTNESS OF BREATH OR WHEEZE Apixaban 2.5 mg 04/26/25 09:00 04/27/25 21:01 Apixaban 2.5 Mg Tablet GT 05/16/25 09:29 2.5 mg BID MELECOI Administration Dextrose 25 ml 04/23/25 02:28 04/26/25 16:50 Dextrose 50%-Water Inj 50 Ml Syringe IV 05/23/25 02:27 25 ml Q15MIN PRN Administration BG 50-70 responsive npo pt Dextrose 50 ml 04/23/25 02:28 04/25/25 00:19 Dextrose 50%-Water Inj 50 Ml Syringe IV 05/23/25 02:27 50 ml Q15MIN PRN Administration BG <50 OR BG <70 & pt unresponsive Epoetin Zane 10,000 unit 04/28/25 12:00 Epoetin Zane-Epbx Inj 10,000 Unit/Ml Vial (Esrd) SC 04/28/25 12:01 X1 ONE Glucagon 1 mg 04/23/25 02:28 Glucagon Inj 1 Mg Vial IM Q15MIN PRN BG <70, and no IV access Azithromycin 500 mg/ Sodium 250 mls @ 250 mls/hr 04/23/25 09:46 04/27/25 08:24 Chloride IV 04/30/25 09:45 250 mls/hr QDAY MELECIO Administration Ceftriaxone Sodium/Dextrose 1 gm in 50 mls @ 100 mls/hr 04/23/25 10:05 04/27/25 08:22 Rocephin/D5w 1gm Iv Premix IV 04/30/25 10:04 100 mls/hr QDAY MELECIO Administration Dopamine HCl/Dextrose 400 mg in 250 mls @ 8.258 mls/hr 04/27/25 12:57 Intropin In D5w Ivpb IV 05/27/25 12:56 .Q24H MELECIO Protocol 5 MCG/KG/MIN Insulin Human Lispro 0 unit 04/26/25 12:00 04/28/25 05:37 Insulin Lispro (Admelog) 1 Unit/0.01 Ml Unit SC 05/26/25 11:59 Not Given Q6HR MELECIO Protocol Lansoprazole 30 mg 04/26/25 08:13 04/27/25 21:02 Lansoprazole 30 Mg Tab.Rap. GT 05/23/25 08:59 30 mg Q12HR MELECIO Administration Levetiracetam 500 mg 04/23/25 09:00 04/27/25 21:01 Levetiracetam Liqd 500 Mg/5 Ml Udc GT 05/23/25 08:59 500 mg BID MELECIO Administration Losartan Potassium 50 mg 04/27/25 09:00 04/27/25 08:23 Losartan Potassium 25 Mg Tablet GT 05/27/25 08:59 50 mg QDAY MELECIO Administration Ondansetron HCl 4 mg 04/23/25 10:41 04/27/25 10:21 Ondansetron Inj 2 Mg/Ml Inj 2 Ml IVP 05/23/25 10:40 4 mg Q6H PRN Administration NAUSEA OR VOMITING Protocol Tramadol HCl 50 mg 04/27/25 16:01 Tramadol Hcl 50 Mg Tablet GT 04/30/25 09:37 Q12HR PRN PAIN SCALE 4-10(Mod-Sev Plan Summary: 84-year-old woman with a past medical history of end-stage renal disease on hemodialysis (Sunday, , Sunday), coronary artery disease with prior stent placement, hypertension, dyslipidemia, seizures, 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 Patient admitted to ICU for close monitoring and potentially starting dopamine drip. Now ready to downgrade to medical floor. CONTINGENTS SUPERVISOR: #History of Dementia A&O x1 at baseline Follows command but not answering questions appropriately RX: - Delirium precautions. - Avoid sedatives or excessive pain management. #History of seizure disorder Patient history as stated. No reports of recent breakthrough seizures. RX: - Continue Keppra 250 mg PEG tube twice daily. CVS: #HFrEF #History of coronary artery disease status post PCI EF (04/23) showed 30 to 35% Patient appears euvolemic EF worsened possibly due to COVID infection, last ECHO from 2023 showed EF 60- 65%. BNP on admission 1885 RX: - Cardiology consulted, Dr. Smith, see recs - Strict I/Os - Fluid restriction 1.5L - Daily weights #Sinus Bradycardia Occasional Junctional rythym Possibly 2/2 to COVID infection RX: - Cardiology consulted, Dr. Smith, see recs - Administer Atropine only for symptomatic bradycardia #Acute bilateral deep vein thrombosis 04/24: Positive for bilateral acute DVT CTPA did not show any pulmonary embolism RX: - Apixaban 2.5 g twice daily started #History of hypertension Blood pressures have been stable Patient's home medication includes losartan 100 mg daily, amlodipine 10 mg daily RX: ? Hold off on all antihypertensives for now PULM: #COVID-pneumonia, recovering On room air Blood cultures negative MRSA negative Patient completed 5-day course of remdesivir RX: - Monitor for worsening of symptoms and new onset fever - Continue azithromycin and ceftriaxone for possible superimposed bacterial pneumonia until 04/30 (full 7-day course) GI: #Suspected GI bleed (upper vs lower vs occult source) No overt hemetemsis, hematochezia, or melena reported. Received 3 units pRBC with appropriate response this admission EGD this admisson showed esophagitis, erythematous mucosa of antrum, erythematous duodenopathy. RX: - GI consulted, Dr. Baeza, appreciate recs. - Advance diet as tolerated. - Monitor CBC daily. Transfusing for Hgb <8 or symptomatic. - Protonix 40 mg IV twice daily. - Avoid NSAIDs/ASA. - Close hemodynamic monitoring. - Per Dr. Baeza, patient is not a candidate for colonscopy at this time. Follow- up outpatient. #Transaminitis, resolved Likely from underlying COVID. RX: - May resume patient's statin medication NEPHRO: #End-stage renal disease on hemodialysis (Sun//Sun) Follows with senior animal trainer Dr. Hui. Received last dialysis on 04/25 Patient is anuric and dependent on HD. RX: - Nephrology consulted, Dr. Hui, appreciate recs. - Dialysis as per patient's schedule - Renally dose meds ENDO: #[id number] type 2 diabetes #Peripheral neuropathy A1c 6.4% RX: ?Insulin sliding scale ?Glucose checks ACHS ?Dietitian following for PEG tube feeds ?Aim for blood glucose 140-180 HEME: No active issues. ID: See pulm section. Health Maintenance: Diet: tube feeds GI prophylaxis: Lansoprazole 30 mg every 12 hours DVT prophylaxis: SCDs and Apixaban 2.5mg BID Antibiotics: Azithromycin (04/23 - 04/30), ceftriaxone 1 g (04/23 - 04/30) CODE STATUS: DNR Disposition: Transfer to medical floor Case discussed with my attending Dr. Binu Chatterjee MD PGY-1 Attending Provider Attestation/Addendum Patient seen and examined with above resident, Devon Chatterjee MD. I agree with the findings, assessment, and plan of care as document except for any differences below. Patient transferred into ICU due to bradycardia and required inotropic/chronotropic support with dopamine. Patient is hemodynamically stable and likely trigger for bradycardia was due to medication which has not been discontinued. Patient remains hemodynamically stable and can be transferred back to medicine sloan for ongoing management. Beta-blockers have been completely stopped. Additional antihypertensive should be cautiously resumed. Patient also admitted with DVTs with apixaban initiated. Antibiotic regimen to be completed in the coming days for underlying COVID-pneumonia with remdesivir being given for 5 days. Total critical care time: I personally spent 35 minutes for review of physiologic parameters, directing plan of care throughout the day, coordination of care with other subspecialties, and counseling patient's family. This is exclusive of time spent teaching of staff or performing any separate billable procedures. Patient remains at significant risk for further morbidity and mortality warranting close monitoring care only available in the ICU. Critical care services for symptomatic bradycardia, COVID-19 infection/pneumonia, end-stage renal disease on hemodialysis, hypertension.
--- NOTE | 2025-04-28 08:45 | ESPR_ITS ---
Documentation for date of: 04/28/25 Subjective Subjective Interval history: Ms. 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 The patient is a very poor historian and got all information from chart review. No family around. In the emergency department lactic acid 2.6, ABG showed [id number]. Hemoglobin 6.7, AST 55, ALT 54, alk phos 248, BUN 89, Creatinine 3.8, potassium 3.4, BNP 1886, albumin 3.6, Pro-Gli 0.9 Patient was placed in respiratory isolation. COVID-positive. Influenza negative. Chest x-ray showed significant consolidations. Patient admitted to the floor for COVID-pneumonia, respiratory insufficiency, nausea and vomiting. GI was consulted. Placed on a PPI. Renal consultation requested for need for dialysis. Patient currently seen on dialysis. Allergies:?Penicillins Medications: Amlodipine, atorvastatin, isosorbide mononitrate, Keppra, losartan, Rosalinda-[place], Velphoro 04/25/2025 patient currently seen in medical floor. In isolation for COVID 19. Going for endoscopy today. Labs and medications reviewed. Patient has significant dementia. She also has a PEG tube for failure to thrive, dialysis scheduled for today. Globin 14.2, potassium 4.4, creatinine 3.4, LFTs normal 04/27/2025: patient seen and examined at bedside, she was sleeping, arousable by voice, remains on isolation for covid, egd with esophagitis and gastritis, labs and medications refused, pt does not engage during the exam, previously noted to have significant dialysis. pt had rapid response called yesterday for hypotension and bradycardia ( received atropine, calcium chloride, and 20 mcg of epinephrine, resulting in improvement in heart rate and blood pressure ), metoprolol was d/c. today pt had another rapid called for hypotension and bradycardia, LA now wnl 1.7 from 2.3, NA 134, K 5, Cl 97, BUN 40, Cr 3.5 from 3.4. CRP elevated to 16, procalcitonin elevated query why pt continues to have episodes of hypotension despite d/c metoprolol. EKG with supraventricular bradycardia. troponin peaked at 0.432 on losartan 50 qd per Gtube. CARDS consulted, bilateral acute DVT noted on US 04/24 NO HD today, pt was transfered to ICU 04/28/2025: patient seen and examined while in the ICU. awake, delerium vs dementia, appears to be at her baseline mental status. pt remains on covid isolation precautions (per nurse, 21 days of isolation required).per ICU team, they have not provided any interventions, she remains stable and mildy bradycardic to the 50s. on exam she has no LE edema noted, lungs with some congestion noted bilaterally. CARDs not pursuing any interventions at this time. plan to downgrade pt from [facility]. HD today Exam Vital Signs Temp Pulse Resp BP Pulse Ox O2 Del Method O2 Flow Rate 97.3 F 54 L 20 149/55 H 94 L Nasal Cannula 2 04/28/25 08:30 04/28/25 08:30 04/28/25 08:30 04/28/25 08:30 04/28/25 08:30 04/28/25 04:00 04/28/25 08:30 Narrative Exam GENERAL: no acute distress, orientation not able to be assessed given pt is not responding to questions, is awake, comfortably laying in bed, seen in the ICU. HEENT: Head AT/ NC. Mucous membranes dry. NECK: Supple, no lymphadenopathy, CARDIOVASCULAR: sinus bradycardia. Normal S1/S2, No m/r/g. No pitting edema of bilateral LEs. RESPIRATORY: scattered crackles and mild ronchi bilaterally on auscultattion GASTROINTESTINAL: Abdomen soft, non tender no palpable masses. Bowel sounds present, + peg tube MUSCULOSKELETAL:? No cyanosis or edema, no visible joint swelling. Right AV fistula NEUROLOGICAL: CN II-XII grossly intact. No focal deficits. Sensation intact, symmetric. PSYCHIATRIC: Awake and alert, + dementia SKIN: No obvious rashes, no jaundice, normal turgor. Objective Labs 04/28/25 05:36 04/28/25 05:36 Labs: Laboratory Results - last 24 hr 04/27/25 04/27/25 04/27/25 08:04 13:27 17:45 WBC RBC Hgb Hct MCV MCH MCHC RDW Std Deviation Plt Count Neut % (Auto) Lymph % (Auto) [place] % (Auto) Eos % (Auto) Baso % (Auto) Neut # (Auto) Lymph # (Auto) [place] # (Auto) Eos # (Auto) Baso # (Auto) Immature Gran # (Auto) Absolute Nucleated RBC Immature Gran % Nucleated RBC % ESR 40 H Sodium 134 L 132 L Potassium 5.0 D 5.7 H D Chloride 97 L 99 Carbon Dioxide 21.6 15.9 L Anion Gap 15 17 H BUN 40 H 28 H Creatinine 3.5 H D 3.5 H Estim Creat Clear Calc 7.3 L 7.3 L eGFR 12 L* 12 L* BUN/Creatinine Ratio 11 L 8 L Glucose 128 H D 151 H Calculated Osmolality 279 273 L Lactic Acid 3.0 H Calcium 10.4 11.4 H Corrected Calcium 11.0 H D 12.0 H Phosphorus 4.8 Magnesium 2.1 2.0 Total Bilirubin 0.2 L 0.2 L AST 37 H 52 H ALT 29 31 Alkaline Phosphatase 120 H D 114 Troponin I 0.313 H* 0.251 H* 0.237 H* C-Reactive Prot, Quant 16.4 H Total Protein 6.4 6.8 Albumin 3.3 L 3.2 L Globulin 3.1 3.6 H Albumin/Globulin Ratio 1.1 L 0.9 L Procalcitonin 2.36 H 04/27/25 04/28/25 04/28/25 21:50 01:34 05:36 WBC 10.2 RBC 3.86 L Hgb 11.8 L Hct 36.1 MCV 94 MCH 30.6 MCHC 32.7 RDW Std Deviation 53.9 H Plt Count 171 Neut % (Auto) 80 Lymph % (Auto) 11 [place] % (Auto) 6 Eos % (Auto) 2 Baso % (Auto) 1 Neut # (Auto) 8.1 H Lymph # (Auto) 1.1 [place] # (Auto) 0.7 Eos # (Auto) 0.2 Baso # (Auto) 0.1 Immature Gran # (Auto) 0.04 H Absolute Nucleated RBC 0.00 Immature Gran % 0 Nucleated RBC % 0 ESR Sodium 133 L Potassium 5.0 D Chloride 96 L Carbon Dioxide 20.7 Anion Gap 16 BUN 51 H Creatinine 4.1 H* D Estim Creat Clear Calc 6.2 L eGFR 10 L* BUN/Creatinine Ratio 12 Glucose 140 H Calculated Osmolality 282 Lactic Acid 2.9 H Calcium 10.0 Corrected Calcium 10.6 H Phosphorus 5.1 Magnesium 2.0 Total Bilirubin 0.2 L AST 27 ALT 24 Alkaline Phosphatase 108 Troponin I 0.225 H* 0.234 H* C-Reactive Prot, Quant Total Protein 6.2 Albumin 3.2 L Globulin 3.0 Albumin/Globulin Ratio 1.1 L Procalcitonin ABG Interpretation ABG results: 04/23/25 01:04 ABG pH 7.43 ABG pCO2 50 H ABG pO2 90 ABG HCO3 33 H ABG O2 Saturation 97 ABG Base Excess 8 H Quality Measures Quality Measures VTE prophylaxis Advance care planning discussed with:: other Assessment & Plan Assessment Current Active Medications: Generic Name Dose Route Start Last Admin Trade Name Freq PRN Reason Stop Dose Admin Acetaminophen 650 mg 04/23/25 02:23 Acetaminophen Supp 650 Mg Supp DC 05/23/25 02:22 Q6HR PRN Fever > 100.4 or pain 1-3(mild Albuterol/Ipratropium 3 ml 04/23/25 02:23 Albuterol/Ipratropium (Duoneb) Rt Nikki 3 Ml Nebu INH 05/23/25 02:22 Q2HR PRN SHORTNESS OF BREATH OR WHEEZE Apixaban 2.5 mg 04/26/25 09:00 04/27/25 21:01 Apixaban 2.5 Mg Tablet GT 05/16/25 09:29 2.5 mg BID MELECIO Administration Dextrose 25 ml 04/23/25 02:28 04/26/25 16:50 Dextrose 50%-Water Inj 50 Ml Syringe IV 05/23/25 02:27 25 ml Q15MIN PRN Administration BG 50-70 responsive npo pt Dextrose 50 ml 04/23/25 02:28 04/25/25 00:19 Dextrose 50%-Water Inj 50 Ml Syringe IV 05/23/25 02:27 50 ml Q15MIN PRN Administration BG <50 OR BG <70 & pt unresponsive Epoetin Zane 10,000 unit 04/28/25 12:00 Epoetin Zane-Epbx Inj 10,000 Unit/Ml Vial (Esrd) SC 04/28/25 12:01 X1 ONE Glucagon 1 mg 04/23/25 02:28 Glucagon Inj 1 Mg Vial IM Q15MIN PRN BG <70, and no IV access Azithromycin 500 mg/ Sodium 250 mls @ 250 mls/hr 04/23/25 09:46 04/27/25 08:24 Chloride IV 04/30/25 09:45 250 mls/hr QDAY MELECIO Administration Ceftriaxone Sodium/Dextrose 1 gm in 50 mls @ 100 mls/hr 04/23/25 10:05 04/27/25 08:22 Rocephin/D5w 1gm Iv Premix IV 04/30/25 10:04 100 mls/hr QDAY MELECIO Administration Dopamine HCl/Dextrose 400 mg in 250 mls @ 8.258 mls/hr 04/27/25 12:57 Intropin In D5w Ivpb IV 05/27/25 12:56 .Q24H MELECIO Protocol 5 MCG/KG/MIN Insulin Human Lispro 0 unit 04/26/25 12:00 04/28/25 05:37 Insulin Lispro (Admelog) 1 Unit/0.01 Ml Unit SC 05/26/25 11:59 Not Given Q6HR MELECIO Protocol Lansoprazole 30 mg 04/26/25 08:13 04/27/25 21:02 Lansoprazole 30 Mg Tab.Rap. GT 05/23/25 08:59 30 mg Q12HR MELECIO Administration Levetiracetam 500 mg 04/23/25 09:00 04/27/25 21:01 Levetiracetam Liqd 500 Mg/5 Ml Udc GT 05/23/25 08:59 500 mg BID MELECIO Administration Losartan Potassium 50 mg 04/27/25 09:00 04/27/25 08:23 Losartan Potassium 25 Mg Tablet GT 05/27/25 08:59 50 mg QDAY MELECIO Administration Ondansetron HCl 4 mg 04/23/25 10:41 04/27/25 10:21 Ondansetron Inj 2 Mg/Ml Inj 2 Ml IVP 05/23/25 10:40 4 mg Q6H PRN Administration NAUSEA OR VOMITING Protocol Tramadol HCl 50 mg 04/27/25 16:01 Tramadol Hcl 50 Mg Tablet GT 04/30/25 09:37 Q12HR PRN PAIN SCALE 4-10(Mod-Sev Plan 84 year old female with past medical history significant for end-stage renal disease (hemodialysis on ), CAD with stents, hypertension, hyperlipidemia, diabetes with peripheral neuropathy, multi-infarct dementia and seizures presents for weakness, nausea, and vomiting x 2 days, admitted for symptomatic anemia. pt has had 2 rapids called for hypotension, cards consulted, d/c metoprolol 48 hrs ago, pt transferred to ICU, pt remains bradycardic to 50s, CARDS consulted no interventions at this time. continues on HD per her regular schedule, will be transferred back to floors. #ESRD on hemodialysis (//Sun) Patient is anuric and dependent on HD. On 04/27: Na 134, K 5.0, CL 97, BUN 40, Cr 3.4 from 3.4 On 04/28: Na 133, K 5.o, Cl 96, BUN 50 Cr 4.1 HD: 04/23, 04/25, 04/28 Plan: - Dialysis as per patient's usual schedule. HD today - Renally dose meds as appropriate. - Monitor daily BMP, phosphorus, magnesium. #Coronary artery disease s/p PCI #HFrEF (EF 30-35%) #Bilateral acute DVT #acute hypotension #sinus bradycardia #Hypertension chronic troponin peaked Cards consulted, no pacemaker at this time. 2x rapid responses called for hypotension and bradycardia Plan: - holding losartan. - Discontinued metoprolol. - Discontinued amlodipine. 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 #Acute symptomatic anemia (resolved) #Acute blood loss anemia (resolved) #Suspected GI bleed (upper vs lower vs occult source) EGD with gastritis and esophogitis - Per Dr. Baeza, patient is not a candidate for colonscopy at this time. Follow- up outpatient. #Acute respiratory failure with hypoxia #COVID-19 pneumonia #Community-acquired pneumonia - possible bacterial coinfection #Leukocytosis lactic acid 1.7 wnl procal elevated #Transaminitis - Holding statin . #Seizure disorder #Dementia #Delerium - management per primary team Plan discussed with nephrology attending Dr. Ez Ignacio MD Internal Medicine PGY-1 Attending Provider Attestation/Addendum Patient seen and examined with resident physician Dr. Ignacio. Note reviewed, agree with findings and recommendations. Patient had 2 rapid responses today for bradycardia and hypotension. Moved to ICU. Currently in COVID isolation room. Patient currently seen on dialysis. Tolerating dialysis without any problems. Hemodialysis for 3 hours, 2K, ultrafiltration 1-2 L, Epogen 6000, no heparin ordered. Plan of care discussed with the dialysis nurse. Please see dialysis flowsheet for further details.
[2025-04-28] MEDS: levETIRAcetam LIQD 500 MG/5 ML UDC GT ×2 (09:31→20:48)
[2025-04-28] MEDS: LANSOPRAZOLE 30 MG TAB.RAP.DR GT ×2 (09:31→20:48)
[2025-04-28] MEDS: APIXABAN 2.5 MG TABLET GT ×2 (09:31→20:48)
[2025-04-28] MEDS: INSULIN LISPRO (AdmeLOG) 1 UNIT/0.01 ML UNIT SC (12:00)
[2025-04-28] MEDS: EPOETIN ALFA-EPBX INJ 10,000 UNIT/ML VIAL (ESRD) 10000 UNIT SC (12:22)
--- NOTE | 2025-04-28 15:53 | PC.SS ---
Update: Patient downgraded to Tele on 04-28-25.
--- NOTE | 2025-04-28 15:55 | PC.NURSE ---
Patient arrived to tele rm [id number]
[2025-04-28] MEDS: AZITHROMYCIN INJ 500 MG in SODIUM CHLORIDE 0.9% 250 ML 250 ML 250 MG IV (16:34)
[2025-04-28] MEDS: cefTRIAXone/D5w 1gm IV premix 1 GM/50 ML BAG IV (16:35)
--- NOTE | 2025-04-28 17:16 | ESPR_ITS ---
<Statement entered by Rafita Handy MD - 05/01/25 15:14> I reviewed above note and agree with findings and plans. I have also personally examined the patient with medicine team and went over assessment and plan with medical team including pharmacy intern and resident physician. <Statement entered by Harpreet Jacques MD - 04/29/25 04:08> Patient was examined and case was reviewed with team including attending physician. Note reviewed, I agree with most of its contents and agree with the patient's care. Harpreet Jacques MD PGY-2 Documentation for date of: 04/28/25 Subjective Subjective Interval history: Patient was downgraded to medical floor from ICU today. No dopamine drip was started in ICU. Patient was seen at bedside this afternoon. Patient remains on COVID isolation. Patient was alert and awake. Per nephrology note, patient had HD today. Hospital course so far: 04/23 ? Admission: Presented with weakness, nausea, and vomiting, admitted for symptomatic anemia likely secondary to GI bleed. Initiated on pRBC transfusions for anemia. GI consulted. Found to have COVID-19 pneumonia with hypoxia. Started remdesivir and empiric antibiotics - ceftriaxone and azithromycin for possible bacterial superinfection. Patient placed on O2 NC. Patient has ESRD and underwent hemodialysis. Nephrology consulted. After transfusion and hemodialysis, hemoglobin improved and lactic acid trended down. Cardiology consulted,echocardiogram pending. 04/24: Venous Doppler revealed bilateral DVTs. Anticoagulation held pending EGD for suspected GI bleed. CTA chest negative for PE. Echocardiogram showed new HFrEF (EF 30?35%), compared with prior EF in December 2023. Continued remdesivir and antibiotics. 04/25: EGD performed, showed no active bleeding. Eliquis initiated for DVTs after GI clearance. Resumed home losartan, started metoprolol for hypertension, and promethazine per GI recs . Continued remdesivir and antibiotics. 04/26: Rapid response for symptomatic bradycardia and hypotension. Treated with atropine, calcium chloride, and epinephrine with improvement. Troponin elevated and lactic acidosis noted. Beta-jake discontinued. Continued Eliquis. Started isosorbide dinitrate. 04/27: Second rapid response for recurrent bradycardia and hypotension (no metoprolol given, but had received isosorbide dinitrate). Treated with atropine and epinephrine. Remdesivir discontinued due to concern for bradycardia. Transferred to ICU for close monitoring and possible dopamine infusion. 04/28: No dopamine drip required in the ICU. Promethazine discontinued due to association with bradycardia. Patient stabilized and was downgraded back to the medical floor for ongoing management. Exam Vital Signs Temp Pulse Resp BP Pulse Ox O2 Del Method O2 Flow Rate 97.8 F 67 20 154/66 H 95 Nasal Cannula 1 04/28/25 16:00 04/28/25 16:00 04/28/25 16:00 04/28/25 16:00 04/28/25 16:00 04/28/25 16:04/28/25 15:00 Narrative Exam Physical Exam General: Awake and in no acute distress. Non-toxic appearing. Nasal cannula present. HEENT: Normocephalic, atraumatic, mucous membranes moist. Heart: Regular rate and rhythm, no murmurs. Lungs: Clear to auscultation with no wheezing or crackles. Abdomen: Soft, nondistended, nontender. No guarding or rebound tenderness. Peg tube present. Neurologic: Alert and oriented, no gross neurological deficit, and patient able to move all 4 extremities. Extremities: No edema. Right AV fistula present. Skin: No rash or ecchymoses. Objective Labs 04/28/25 05:36 04/28/25 05:36 Labs: Laboratory Results - last 24 hr 04/27/25 04/27/25 04/28/25 17:45 21:50 01:34 WBC RBC Hgb Hct MCV MCH MCHC RDW Std Deviation Plt Count Neut % (Auto) Lymph % (Auto) [place] % (Auto) Eos % (Auto) Baso % (Auto) Neut # (Auto) Lymph # (Auto) [place] # (Auto) Eos # (Auto) Baso # (Auto) Immature Gran # (Auto) Absolute Nucleated RBC Immature Gran % Nucleated RBC % Sodium 132 L Potassium 5.7 H D Chloride 99 Carbon Dioxide 15.9 L Anion Gap 17 H BUN 28 H Creatinine 3.5 H Estim Creat Clear Calc 7.3 L eGFR 12 L* BUN/Creatinine Ratio 8 L Glucose 151 H Calculated Osmolality 273 L Lactic Acid 3.0 H 2.9 H Calcium 11.4 H Corrected Calcium 12.0 H Phosphorus Magnesium 2.0 Total Bilirubin 0.2 L AST 52 H ALT 31 Alkaline Phosphatase 114 Troponin I 0.237 H* 0.225 H* Total Protein 6.8 Albumin 3.2 L Globulin 3.6 H Albumin/Globulin Ratio 0.9 L 04/28/25 05:36 WBC 10.2 RBC 3.86 L Hgb 11.8 L Hct 36.1 MCV 94 MCH 30.6 MCHC 32.7 RDW Std Deviation 53.9 H Plt Count 171 Neut % (Auto) 80 Lymph % (Auto) 11 [place] % (Auto) 6 Eos % (Auto) 2 Baso % (Auto) 1 Neut # (Auto) 8.1 H Lymph # (Auto) 1.1 [place] # (Auto) 0.7 Eos # (Auto) 0.2 Baso # (Auto) 0.1 Immature Gran # (Auto) 0.04 H Absolute Nucleated RBC 0.00 Immature Gran % 0 Nucleated RBC % 0 Sodium 133 L Potassium 5.0 D Chloride 96 L Carbon Dioxide 20.7 Anion Gap 16 BUN 51 H Creatinine 4.1 H* D Estim Creat Clear Calc 6.2 L eGFR 10 L* BUN/Creatinine Ratio 12 Glucose 140 H Calculated Osmolality 282 Lactic Acid Calcium 10.0 Corrected Calcium 10.6 H Phosphorus 5.1 Magnesium 2.0 Total Bilirubin 0.2 L AST 27 ALT 24 Alkaline Phosphatase 108 Troponin I 0.234 H* Total Protein 6.2 Albumin 3.2 L Globulin 3.0 Albumin/Globulin Ratio 1.1 L ABG Interpretation ABG results: 04/23/25 01:04 ABG pH 7.43 ABG pCO2 50 H ABG pO2 90 ABG HCO3 33 H ABG O2 Saturation 97 ABG Base Excess 8 H Quality Measures Quality Measures VTE prophylaxis Advance care planning discussed with:: patient and child (Daughter) Assessment & Plan Assessment Current Active Medications: Generic Name Dose Route Start Last Admin Trade Name Freq PRN Reason Stop Dose Admin Albuterol/Ipratropium 3 ml 04/23/25 02:23 Albuterol/Ipratropium (Duoneb) Rt Nikki 3 Ml Nebu INH 05/23/25 02:22 Q2HR PRN SHORTNESS OF BREATH OR WHEEZE Apixaban 2.5 mg 04/26/25 09:00 04/28/25 09:31 Apixaban 2.5 Mg Tablet GT 05/16/25 09:29 2.5 mg BID MELECIO Administration Dextrose 25 ml 04/23/25 02:28 04/26/25 16:50 Dextrose 50%-Water Inj 50 Ml Syringe IV 05/23/25 02:27 25 ml Q15MIN PRN Administration BG 50-70 responsive npo pt Dextrose 50 ml 04/23/25 02:28 04/25/25 00:19 Dextrose 50%-Water Inj 50 Ml Syringe IV 05/23/25 02:27 50 ml Q15MIN PRN Administration BG <50 OR BG <70 & pt unresponsive Glucagon 1 mg 04/23/25 02:28 Glucagon Inj 1 Mg Vial IM Q15MIN PRN BG <70, and no IV access Azithromycin 500 mg/ Sodium 250 mls @ 250 mls/hr 04/23/25 09:46 04/28/25 16:34 Chloride IV 04/30/25 09:45 250 mls/hr QDAY MELECIO Administration Ceftriaxone Sodium/Dextrose 1 gm in 50 mls @ 100 mls/hr 04/23/25 10:05 04/28/25 16:35 Rocephin/D5w 1gm Iv Premix IV 04/30/25 10:04 Not Given QDAY MELECIO Insulin Human Lispro 0 unit 04/26/25 12:00 04/28/25 12:00 Insulin Lispro (Admelog) 1 Unit/0.01 Ml Unit SC 05/26/25 11:59 1 unit Q6HR MELECIO Administration Protocol Lansoprazole 30 mg 04/26/25 08:13 04/28/25 09:31 Lansoprazole 30 Mg Tab.Rap. GT 05/23/25 08:59 30 mg Q12HR MELECIO Administration Levetiracetam 500 mg 04/23/25 09:00 04/28/25 09:31 Levetiracetam Liqd 500 Mg/5 Ml Udc GT 05/23/25 08:59 500 mg BID MELECIO Administration Losartan Potassium 50 mg 04/27/25 09:00 04/27/25 08:23 Losartan Potassium 25 Mg Tablet GT 05/27/25 08:59 50 mg QDAY MELECIO Administration Ondansetron HCl 4 mg 04/23/25 10:41 04/27/25 10:21 Ondansetron Inj 2 Mg/Ml Inj 2 Ml IVP 05/23/25 10:40 4 mg Q6H PRN Administration NAUSEA OR VOMITING Protocol Tramadol HCl 50 mg 04/27/25 16:01 Tramadol Hcl 50 Mg Tablet GT 04/30/25 09:37 Q12HR PRN PAIN SCALE 4-10(Mod-Sev Plan 84-year-old female with a complex medical history including end-stage renal disease on hemodialysis (//Sun), coronary artery disease with prior stent placement, hypertension, hyperlipidemia, type 2 diabetes with peripheral neuropathy, multi-infarct dementia, and seizures, was admitted with weakness, nausea, and vomiting for 2 days. She was found to have symptomatic anemia and experienced multiple episodes of hypotension, prompting rapid response activations and cardiology consultation. Metoprolol was discontinued 48 hours prior to ICU transfer due to persistent bradycardia in the 50s. Patient was admitted to the ICU for closer hemodynamic monitoring and potential dopamine support. No arrhythmias or acute cardiac events were noted, and cardiology recommended no further intervention. She remained on her regular hemodialysis schedule without complications and is now hemodynamically stable and transferred back to the medical floor. #Coronary artery disease s/p PCI #HFrEF (EF 30-35%) On admission, BNP 1886. Echo (04/23): Severe global hypokinesis with severe LV dysfunction LVEF 30-35% (compared to echo from 2023 with EF 60-65%). Venous doppler (04/24): Positive for bilateral acute DVT. Chest CTA (04/24): Negative for pulmonary artery emboli. Mild heart failure. Significant bibasilar pneumonia. Rapid response (04/26): due to symptomatic bradycardia and hypotension. Treated with atropine x1, calcium chloride, 20 mcg of epinephrine, aspirin x1, and isosorbide dinitrate. Patient was noted to have significant lactic acidosis and troponinemia. Cardiology was consulted. Beta-blockers were discontinued. Troponin 0.450. Lactic acid 6.1. Rapid response (04/27): due to symptomatic bradycardia and hypotension. Treated with atropine, 20 mcg of epinephrine, and dopamine. Troponin peaked at 0.450. Plan: - Cardiology consulted - appreciate recs. - No pacemaker at this time per cardiology. - Holding losartan. - Discontinued metoprolol. - Discontinued amlodipine. #Symptomatic bradycardia Two rapid responses have been called for bradycardia and hypotension. Occasional Junctional rythym. Plan: - Discontinued beta-blockers. - Discontinued Remdesivir and Promethazine which could have contributed to bradycardia. - Administer Atropine only for symptomatic bradycardia #Acute bilateral deep vein thrombosis Venous doppler (04/24): positive for bilateral acute DVT. Chest CTA (04/24): no pulmonary embolism. Plan: - Continue Apixaban 2.5 g twice daily. #Acute respiratory failure with hypoxia #COVID-19 pneumonia #Community-acquired pneumonia - possible bacterial coinfection On admission: T 100.8F, tachycardic, SpO2 94% on 6L NC. CXR (04/22): diffuse edema and/or multifocal pneumonia. Labs: CRP 3.0, Pro-Gil 0.92 (supports possible bacterial coinfection), lactic acid 2.6, WBC 11.1. ABG showed pH 7.43, pCO2 50, pO2 90. Lactic acid 2.6, now normalized. Blood cx NGTD, MRSA screen negative. Patient completed 5-day course of remdesivir. Plan: - Continue nasal cannula. - Titrate O2 to keep SpO2 > 92%. - Continue empiric CAP coverage with Ceftriaxone 1 gram and Azithromycin 500 mg until 04/30 (7-day course). - Isolation precautions. #Acute symptomatic anemia (resolved) #Acute blood loss anemia (resolved) #Suspected GI bleed (upper vs lower vs occult source) No overt hemetemsis, hematochezia, or melena reported. BUN elevated 89 with BUN/Cr ratio of 23, possible upper GI source. Hemoglobin 6.7 on admission. Received 3 units pRBC with appropriate response. Most recent H&H shows hemoglobin 12.9, hematocrit 37.9. EGD showed esophagitis, erythematous mucosa of antrum, erythematous duodenopathy. Plan: - GI consulted, appreciate recommendations. - Continue PEG tub feeds. - Monitor H&H. Transfusing for Hgb <8 or symptomatic. - Protonix 40 mg IV twice daily. - Avoid NSAIDs/ASA. - Close hemodynamic monitoring. - Per Dr. Baeza, patient is not a candidate for colonscopy at this time. Follow- up outpatient. #End-stage renal disease on hemodialysis () Follows with instrumentation manager Dr. Hui. Patient is anuric and dependent on HD. Plan: - Nephrology consulted, appreciate recommendations. - Dialysis as per patient's usual schedule. - Renally dose meds as appropriate. - Monitor daily BMP, phosphorus, magnesium. #Transaminitis (resolved) AST 55, ALT 54, ALP 248. Likely from underlying COVID. Plan: - Hold off on statin per nephrology. Will follow-up about restarting. 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 Plan: - ISS (resumed ACHS). - Bedside blood glucose checks Q6H. - Spiral Winder following for PEG tube feeds. ? Aim for blood glucose 140-180. #Seizure disorder Patient history as stated. No reports of recent breakthrough seizures. Plan: - Resume home Keppra 250 mg PEG tube twice daily. #Hypertension Plan: - Decrease home Losartan 100 mg to 50 mg PO daily. - Discontinued metoprolol. - Discontinued amlodipine. #Dementia A&Ox1 at baseline. Follows command but not answering questions appropriately Plan: - Delirium precautions. - Avoid sedatives or excessive pain management. Health Maintenance: Diet: tube feeds GI prophylaxis: Lansoprazole 30 mg every 12 hours DVT prophylaxis: SCDs and Apixaban 2.5mg BID Antibiotics: Azithromycin (04/23 - 04/30), ceftriaxone 1 g (04/23 - 04/30) CODE STATUS: DNR Disposition: Downgrade from ICU Patient plan of care was discussed with the senior resident, Dr. Jayy Jacquse and attending physician, Dr. Handy. Ross Antunez, PGY-1
--- NOTE | 2025-04-28 17:53 | ESPR_ITS ---
<Statement entered by Jamil Smith MD - 05/06/25 22:42> I personally examined the patient evaluated the patient who has multiple problems has had bradycardia symptomatic with COVID-19 infection patient is not symptomatic given the heart rate is low no need for pacemaker plantation the patient will improve without any pacemaker will continue to monitor for any symptomatic bradycardia or any symptoms we will consider pacemaker otherwise no need for pacemaker implantation at this time agree with the treatment plan recommendation as documented by Dr. Joshua Joel PGY1 Documentation for date of: 04/28/25 Subjective Subjective Interval history: Patient's mentation is is about the same as yesterday. She is slightly hypertensive, afebrile, heart rate in the 60s. Continues to be on airborne and contact precautions. Troponins are stable at 0.2. Exam Vital Signs Temp Pulse Resp BP Pulse Ox O2 Del Method O2 Flow Rate 97.8 F 67 20 154/66 H 95 Nasal Cannula 1 04/28/25 16:00 04/28/25 16:00 04/28/25 16:00 04/28/25 16:00 04/28/25 16:00 04/28/25 16:00 04/28/25 15:00 Narrative Exam General: No acute distress. Somnolent but arousable. A/O x3. HEENT: Normocephalic, atraumatic, mucous membranes dry. Heart: S1+S2. Regular rate and rhythm, no murmurs. Lungs: No increased WOB. Scattered bilat crackles on exam. Abdomen: Skin around PEG tube is dry and clean. Soft, nondistended, nontender. No guarding or rebound tenderness. Neurologic: Alert and oriented x1, no gross neurological deficit, and patient able to move all 4 extremities. Extremities: No edema. Skin: No rash or ecchymoses. Objective Labs 04/28/25 05:36 04/28/25 05:36 Labs: Laboratory Results - last 24 hr 04/27/25 04/27/25 04/28/25 17:45 21:50 01:34 WBC RBC Hgb Hct MCV MCH MCHC RDW Std Deviation Plt Count Neut % (Auto) Lymph % (Auto) [place] % (Auto) Eos % (Auto) Baso % (Auto) Neut # (Auto) Lymph # (Auto) [place] # (Auto) Eos # (Auto) Baso # (Auto) Immature Gran # (Auto) Absolute Nucleated RBC Immature Gran % Nucleated RBC % Sodium 132 L Potassium 5.7 H D Chloride 99 Carbon Dioxide 15.9 L Anion Gap 17 H BUN 28 H Creatinine 3.5 H Estim Creat Clear Calc 7.3 L eGFR 12 L* BUN/Creatinine Ratio 8 L Glucose 151 H Calculated Osmolality 273 L Lactic Acid 3.0 H 2.9 H Calcium 11.4 H Corrected Calcium 12.0 H Phosphorus Magnesium 2.0 Total Bilirubin 0.2 L AST 52 H ALT 31 Alkaline Phosphatase 114 Troponin I 0.237 H* 0.225 H* Total Protein 6.8 Albumin 3.2 L Globulin 3.6 H Albumin/Globulin Ratio 0.9 L 04/28/25 05:36 WBC 10.2 RBC 3.86 L Hgb 11.8 L Hct 36.1 MCV 94 MCH 30.6 MCHC 32.7 RDW Std Deviation 53.9 H Plt Count 171 Neut % (Auto) 80 Lymph % (Auto) 11 [place] % (Auto) 6 Eos % (Auto) 2 Baso % (Auto) 1 Neut # (Auto) 8.1 H Lymph # (Auto) 1.1 [place] # (Auto) 0.7 Eos # (Auto) 0.2 Baso # (Auto) 0.1 Immature Gran # (Auto) 0.04 H Absolute Nucleated RBC 0.00 Immature Gran % 0 Nucleated RBC % 0 Sodium 133 L Potassium 5.0 D Chloride 96 L Carbon Dioxide 20.7 Anion Gap 16 BUN 51 H Creatinine 4.1 H* D Estim Creat Clear Calc 6.2 L eGFR 10 L* BUN/Creatinine Ratio 12 Glucose 140 H Calculated Osmolality 282 Lactic Acid Calcium 10.0 Corrected Calcium 10.6 H Phosphorus 5.1 Magnesium 2.0 Total Bilirubin 0.2 L AST 27 ALT 24 Alkaline Phosphatase 108 Troponin I 0.234 H* Total Protein 6.2 Albumin 3.2 L Globulin 3.0 Albumin/Globulin Ratio 1.1 L ABG Interpretation ABG results: 04/23/25 01:04 ABG pH 7.43 ABG pCO2 50 H ABG pO2 90 ABG HCO3 33 H ABG O2 Saturation 97 ABG Base Excess 8 H Quality Measures Quality Measures VTE prophylaxis Advance care planning discussed with:: other Assessment & Plan Assessment Current Active Medications: Generic Name Dose Route Start Last Admin Trade Name Freq PRN Reason Stop Dose Admin Albuterol/Ipratropium 3 ml 04/23/25 02:23 Albuterol/Ipratropium (Duoneb) Rt Nikki 3 Ml Nebu INH 05/23/25 02:22 Q2HR PRN SHORTNESS OF BREATH OR WHEEZE Apixaban 2.5 mg 04/26/25 09:00 04/28/25 09:31 Apixaban 2.5 Mg Tablet GT 05/16/25 09:29 2.5 mg BID MELECIO Administration Dextrose 25 ml 04/23/25 02:28 04/26/25 16:50 Dextrose 50%-Water Inj 50 Ml Syringe IV 05/23/25 02:27 25 ml Q15MIN PRN Administration BG 50-70 responsive npo pt Dextrose 50 ml 04/23/25 02:28 04/25/25 00:19 Dextrose 50%-Water Inj 50 Ml Syringe IV 05/23/25 02:27 50 ml Q15MIN PRN Administration BG <50 OR BG <70 & pt unresponsive Glucagon 1 mg 04/23/25 02:28 Glucagon Inj 1 Mg Vial IM Q15MIN PRN BG <70, and no IV access Azithromycin 500 mg/ Sodium 250 mls @ 250 mls/hr 04/23/25 09:46 04/28/25 16:34 Chloride IV 04/30/25 09:45 250 mls/hr QDAY MELECIO Administration Ceftriaxone Sodium/Dextrose 1 gm in 50 mls @ 100 mls/hr 04/23/25 10:05 04/28/25 16:35 Rocephin/D5w 1gm Iv Premix IV 04/30/25 10:04 Not Given QDAY MELECIO Insulin Human Lispro 0 unit 04/26/25 12:00 04/28/25 12:00 Insulin Lispro (Admelog) 1 Unit/0.01 Ml Unit SC 05/26/25 11:59 1 unit Q6HR MELECIO Administration Protocol Lansoprazole 30 mg 04/26/25 08:13 04/28/25 09:31 Lansoprazole 30 Mg Tab.Rap. GT 05/23/25 08:59 30 mg Q12HR MELECIO Administration Levetiracetam 500 mg 04/23/25 09:00 04/28/25 09:31 Levetiracetam Liqd 500 Mg/5 Ml Udc GT 05/23/25 08:59 500 mg BID MELECIO Administration Losartan Potassium 50 mg 04/27/25 09:00 04/27/25 08:23 Losartan Potassium 25 Mg Tablet GT 05/27/25 08:59 50 mg QDAY MELECIO Administration Ondansetron HCl 4 mg 04/23/25 10:41 04/27/25 10:21 Ondansetron Inj 2 Mg/Ml Inj 2 Ml IVP 05/23/25 10:40 4 mg Q6H PRN Administration NAUSEA OR VOMITING Protocol Tramadol HCl 50 mg 04/27/25 16:01 Tramadol Hcl 50 Mg Tablet GT 04/30/25 09:37 Q12HR PRN PAIN SCALE 4-10(Mod-Sev Plan The patient is an 84-year-old elderly female with a past medical history of ESRD on hemodialysis 3 days a week, CAD with prior stent placement, hypertension, dyslipidemia, seizures, [id number] 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 Cardiology was consulted for management of the patient's episodic bradycardia, hypotension, and HFrEF. IMPRESSION: 1. Hypoxic respiratory failure, improving. 2. Bilateral pneumonia. 3. HFrEF, well compensated. 4. Bradycardia, hypotension, resolved after stopping beta blockers. RECOMMENDATIONS: - The heart rate has much improved after discontinuation of losartan and beta- blockers - Administer atropine only if patient has symptomatic bradycardia, patient often has improvement in her bradycardia upon arousal - Continue antibiotic therapy for pneumonia. - We will continue to hold off on all blood pressure medications until the blood pressure goes up again and once pneumonia improves and heart failure will be treated aggressively depending on the blood pressure readings with beta blockers or ARBs. - The patient has been diagnosed to have a deep vein thrombosis, positive for bilateral acute DVT, started on low-dose Eliquis because of bleeding cautiously. - Condition is stable, but progress is extremely poor. We have multisystem disease including end-stage renal disease as well as COVID pneumonia and HFrEF. - Echocardiogram on 04/23/2025 was significant for severe global hypokinesis with severe LV dysfunction with an LV ejection fraction of 30 to 35%. There was grade 1 diastolic dysfunction. RV mildly reduced function, RVSP 34 mmHg. There was mild dilated left atrium. Mild MAC with moderate mitral regurg. Mild aortic valve sclerosis with mild aortic regurg. Mild tricuspid regurg. Small circumferential pericardial effusion not significant. There was also a small pleural effusion. Patient was seen and discussed with my attending physician Dr. Smith. Joshua Joel DO PGY-1.
--- NOTE | 2025-04-28 20:22 | PD.IMPROG ---
Documentation for date of: 04/28/25 Subjective Subjective Interval history: Hemoglobin hematocrit 11.8 and 36.1 Patient is out of the ICU Exam Vital Signs Temp Pulse Resp BP Pulse Ox O2 Del Method O2 Flow Rate 97.8 F 44 L 20 154/66 H 97 Nasal Cannula 1 04/28/25 16:00 04/28/25 18:45 04/28/25 18:45 04/28/25 16:00 04/28/25 18:45 04/28/25 16:00 04/28/25 18:45 Objective Labs 04/28/25 05:36 04/28/25 05:36 Labs: Laboratory Results - last 24 hr 04/27/25 04/28/25 04/28/25 21:50 01:34 05:36 WBC 10.2 RBC 3.86 L Hgb 11.8 L Hct 36.1 MCV 94 MCH 30.6 MCHC 32.7 RDW Std Deviation 53.9 H Plt Count 171 Neut % (Auto) 80 Lymph % (Auto) 11 [place] % (Auto) 6 Eos % (Auto) 2 Baso % (Auto) 1 Neut # (Auto) 8.1 H Lymph # (Auto) 1.1 [place] # (Auto) 0.7 Eos # (Auto) 0.2 Baso # (Auto) 0.1 Immature Gran # (Auto) 0.04 H Absolute Nucleated RBC 0.00 Immature Gran % 0 Nucleated RBC % 0 Sodium 133 L Potassium 5.0 D Chloride 96 L Carbon Dioxide 20.7 Anion Gap 16 BUN 51 H Creatinine 4.1 H* D Estim Creat Clear Calc 6.2 L eGFR 10 L* BUN/Creatinine Ratio 12 Glucose 140 H Calculated Osmolality 282 Lactic Acid 2.9 H Calcium 10.0 Corrected Calcium 10.6 H Phosphorus 5.1 Magnesium 2.0 Total Bilirubin 0.2 L AST 27 ALT 24 Alkaline Phosphatase 108 Troponin I 0.225 H* 0.234 H* Total Protein 6.2 Albumin 3.2 L Globulin 3.0 Albumin/Globulin Ratio 1.1 L Impressions Impression: Anemia blood loss Gastritis Esophagitis Plan Continue current management Patient not a candidate for colonoscopy at the moment ABG Interpretation ABG results: 04/23/25 01:04 ABG pH 7.43 ABG pCO2 50 H ABG pO2 90 ABG HCO3 33 H ABG O2 Saturation 97 ABG Base Excess 8 H Assessment & Plan A&P Narrative # Anemia of blood loss requiring blood transfusion plan Consent obtained for fiberoptic esophagogastroduodenoscopy with possible biopsy possible therapeutic intervention under intravenous moderation tentatively scheduled for tomorrow Clear liquid diet till 8 AM tomorrow then n.p.o. Other medical problems include COVID-positive bilateral pneumonia Coronary artery status post PTCA Seizure disorder End-stage renal disease on hemodialysis TTS Essential hypertension Diabetes mellitus with peripheral neuropathy Dementia Time Spent With Patient Time: Total time spent is greater than 50% in coordination of care (as documented) at patient's floor/unit and/or counseling patient:
[2025-04-29] VITALS (12 sets, daily range): BP systolic 147–169; BP diastolic 71–91; PULSE 55–92; RESP 18–25; TEMP 36.1–36.7; O2SAT 93–98; BMI 22.0
[2025-04-29] MEDS: INSULIN LISPRO (AdmeLOG) 1 UNIT/0.01 ML UNIT SC ×4 (00:52→16:59)
[2025-04-29] MEDS: ONDANSETRON INJ 2 MG/ML INJ 2 ML 4 MG IVP (03:19)
[2025-04-29 06:05] LABS: Basophils # (Auto) 0.0 Thou/mm3 (0.0-0.2); Basophils % (Auto) 1 % (0-2.5); Eosinophils # (Auto) 0.2 Thou/mm3 (0.0-0.5); Eosinophils % (Auto) 3 % (0-10); Hematocrit 41.3 % (36.0-46.0); Hemoglobin 13.1 g/dL (12.0-16.0); Immature Granulocytes Auto 0.05 Thou/mm3 (0.00-0.00); Lymphocytes # (Auto) 0.9 Thou/mm3 (1.0-4.8); Lymphocytes % (Auto) 10 % (10-50); Mean Corpuscular HGB Conc 31.7 g/dl (31.0-37.0); Mean Corpuscular Hemoglobin 30.0 pg (25.0-35.0); Mean Corpuscular Volume 95 fL (80-100); Monocytes # (Auto) 0.7 Thou/mm3 (0.0-0.8); Monocytes % (Auto) 7 % (0-12); Neutrophils # (Auto) 6.9 Thou/mm3 (1.8-7.7); Neutrophils % (Auto) 78 % (37-80); Nucleated Red Blood Cell # 0.00 Thou/mm3 (0.00-0.00); Nucleated Red Blood Cell % 0 /100 WBC (0); Platelet Count 186 Thou/mm3 (140-440); RDW Standard Deviation 53.9 fL (36.4-46.3); Red Blood Count 4.36 Miln/mm3 (4.00-5.20); White Blood Count 8.8 Thou/mm3 (3.6-11.0)
[2025-04-29 06:23] LABS: Alanine Aminotransferase 20 U/L (10-49); Albumin, Serum 3.3 gm/dL (3.4-4.8); Albumin/Globulin Ratio 1.0 (1.2-2.2); Alkaline Phosphatase 186 U/L (46-116); Anion Gap 13 (7-16); Aspartate Amino Transferase 28 U/L (0-34); BUN/Creatinine Ratio 8 Ratio (12-20); Bilirubin,Total 0.2 mg/dL (0.3-1.2); Blood Urea Nitrogen 21 mg/dL (9-23); Calcium 9.5 mg/dL (8.3-10.6); Calcium (Corrected) 10.1 mg/dL (8.5-10.1); Carbon Dioxide 24.7 mMol/L (20.0-31.0); Chloride 96 mMol/L (98-107); Creatinine (Component) 2.7 mg/dL (0.6-1.3); Estimated Creatinine Clearance 9.5 mL/min (>60); Globulin 3.3 gm/dL (2.3-3.5); Glucose 154 mg/dL (74-106); Magnesium 1.9 mg/dL (1.6-2.6); Osmolality,Calculated 274 (275-295); Phosphorous 2.2 mg/dL (2.4-5.1); Potassium 3.7 mMol/L (3.4-5.1); Sodium 134 mMol/L (136-145); Total Protein 6.6 gm/dL (5.7-8.2); eGFR 17 See Note
--- NOTE | 2025-04-29 09:25 | PD.RESPRO ---
Documentation for date of: 04/29/25 Exam Vital Signs Temp Pulse Resp BP Pulse Ox O2 Del Method O2 Flow Rate 97.5 F 55 L 20 156/79 H 97 Nasal Cannula 2 04/29/25 03:48 04/29/25 07:54 04/29/25 07:31 04/29/25 03:48 04/29/25 07:31 04/29/25 03:48 04/29/25 07:31 Objective Labs 04/29/25 04:54 04/29/25 04:54 Labs: Laboratory Results - last 24 hr 04/29/25 04:54 WBC 8.8 RBC 4.36 Hgb 13.1 Hct 41.3 MCV 95 MCH 30.0 MCHC 31.7 RDW Std Deviation 53.9 H Plt Count 186 Neut % (Auto) 78 Lymph % (Auto) 10 [place] % (Auto) 7 Eos % (Auto) 3 Baso % (Auto) 1 Neut # (Auto) 6.9 Lymph # (Auto) 0.9 L [place] # (Auto) 0.7 Eos # (Auto) 0.2 Baso # (Auto) 0.0 Immature Gran # (Auto) 0.05 H Absolute Nucleated RBC 0.00 Immature Gran % 1 H Nucleated RBC % 0 Sodium 134 L Potassium 3.7 D Chloride 96 L Carbon Dioxide 24.7 Anion Gap 13 BUN 21 Creatinine 2.7 H D Estim Creat Clear Calc 9.5 L eGFR 17 L BUN/Creatinine Ratio 8 L Glucose 154 H Calculated Osmolality 274 L Calcium 9.5 Corrected Calcium 10.1 Phosphorus 2.2 L Magnesium 1.9 Total Bilirubin 0.2 L AST 28 ALT 20 Alkaline Phosphatase 186 H D Total Protein 6.6 Albumin 3.3 L Globulin 3.3 Albumin/Globulin Ratio 1.0 L ABG Interpretation ABG results: 04/23/25 01:04 ABG pH 7.43 ABG pCO2 50 H ABG pO2 90 ABG HCO3 33 H ABG O2 Saturation 97 ABG Base Excess 8 H Quality Measures Quality Measures VTE prophylaxis Assessment & Plan Assessment Current Active Medications: Generic Name Dose Route Start Last Admin Trade Name Freq PRN Reason Stop Dose Admin Albuterol/Ipratropium 3 ml 04/23/25 02:23 Albuterol/Ipratropium (Duoneb) Rt Nikki 3 Ml Nebu INH 05/23/25 02:22 Q2HR PRN SHORTNESS OF BREATH OR WHEEZE Apixaban 2.5 mg 04/26/25 09:00 04/28/25 20:48 Apixaban 2.5 Mg Tablet GT 05/16/25 09:29 2.5 mg BID MELECIO Administration Dextrose 25 ml 04/23/25 02:28 04/26/25 16:50 Dextrose 50%-Water Inj 50 Ml Syringe IV 05/23/25 02:27 25 ml Q15MIN PRN Administration BG 50-70 responsive npo pt Dextrose 50 ml 04/23/25 02:28 04/25/25 00:19 Dextrose 50%-Water Inj 50 Ml Syringe IV 05/23/25 02:27 50 ml Q15MIN PRN Administration BG <50 OR BG <70 & pt unresponsive Glucagon 1 mg 04/23/25 02:28 Glucagon Inj 1 Mg Vial IM Q15MIN PRN BG <70, and no IV access Azithromycin 500 mg/ Sodium 250 mls @ 250 mls/hr 04/23/25 09:46 04/28/25 16:34 Chloride IV 04/30/25 09:45 250 mls/hr QDAY MELECIO Administration Ceftriaxone Sodium/Dextrose 1 gm in 50 mls @ 100 mls/hr 04/23/25 10:05 04/28/25 16:35 Rocephin/D5w 1gm Iv Premix IV 04/30/25 10:04 Not Given QDAY MELECIO Potassium Phosphate 15 mmol in 250 mls @ 62.5 mls/hr 04/29/25 07:40 Pot Phos 15 Mmol In Ns 250 Ml IV 04/29/25 11:39 X1 ONE Insulin Human Lispro 0 unit 04/26/25 12:00 04/29/25 05:32 Insulin Lispro (Admelog) 1 Unit/0.01 Ml Unit SC 05/26/25 11:59 1 unit Q6HR MELECIO Administration Protocol Lansoprazole 30 mg 04/26/25 08:13 04/28/25 20:48 Lansoprazole 30 Mg Tab.Rap. GT 05/23/25 08:59 30 mg Q12HR MELECIO Administration Levetiracetam 500 mg 04/23/25 09:00 04/28/25 20:48 Levetiracetam Liqd 500 Mg/5 Ml Udc GT 05/23/25 08:59 500 mg BID MELECIO Administration Losartan Potassium 50 mg 04/27/25 09:00 04/27/25 08:23 Losartan Potassium 25 Mg Tablet GT 05/27/25 08:59 50 mg QDAY MELECIO Administration Ondansetron HCl 4 mg 04/23/25 10:41 04/29/25 03:19 Ondansetron Inj 2 Mg/Ml Inj 2 Ml IVP 05/23/25 10:40 4 mg Q6H PRN Administration NAUSEA OR VOMITING Protocol Tramadol HCl 50 mg 04/27/25 16:01 Tramadol Hcl 50 Mg Tablet GT 04/30/25 09:37 Q12HR PRN PAIN SCALE 4-10(Mod-Sev
[2025-04-29] MEDS: cefTRIAXone/D5w 1gm IV premix 1 GM/50 ML BAG IV (09:44)
[2025-04-29] MEDS: levETIRAcetam LIQD 500 MG/5 ML UDC GT (09:45)
[2025-04-29] MEDS: APIXABAN 2.5 MG TABLET GT (09:46)
[2025-04-29] MEDS: LANSOPRAZOLE 30 MG TAB.RAP.DR GT (09:46)
[2025-04-29] MEDS: AZITHROMYCIN INJ 500 MG in SODIUM CHLORIDE 0.9% 250 ML 250 ML 250 MG IV (09:54)
--- NOTE | 2025-04-29 10:02 | PC.NURSE ---
discharge orders in placed , however pt need k phos infusion to be completed prior to dc
--- NOTE | 2025-04-29 10:06 | ESPR_ITS ---
Documentation for date of: 04/29/25 Subjective Subjective Interval history: Ms. 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 The patient is a very poor historian and got all information from chart review. No family around. In the emergency department lactic acid 2.6, ABG showed [id number]. Hemoglobin 6.7, AST 55, ALT 54, alk phos 248, BUN 89, Creatinine 3.8, potassium 3.4, BNP 1886, albumin 3.6, Pro-Gil 0.9 Patient was placed in respiratory isolation. COVID-positive. Influenza negative. Chest x-ray showed significant consolidations. Patient admitted to the floor for COVID-pneumonia, respiratory insufficiency, nausea and vomiting. GI was consulted. Placed on a PPI. Renal consultation requested for need for dialysis. Patient currently seen on dialysis. Allergies:?Penicillins Medications: Amlodipine, atorvastatin, isosorbide mononitrate, Keppra, losartan, Rosalinda-[place], Velphoro 04/29/2025 patient currently seen in medical floor. In isolation for COVID 19. No active GI bleed. Hemoglobin stable. She is more alert and awake today. Patient has significant dementia. She also has a PEG tube for failure to thrive, dialysis done yesterday. Renal arias stable for discharge Review of Systems Review of Systems ROS Unobtainable: unobtainable due to mental status and unobtainable due to medical condition Narrative Review of Systems: Patient has dementia Exam Vital Signs Temp Pulse Resp BP Pulse Ox O2 Del Method O2 Flow Rate 36.4 C 55 L 20 156/79 H 97 Nasal Cannula 2 04/29/25 03:48 04/29/25 07:54 04/29/25 07:31 04/29/25 03:48 04/29/25 07:31 04/29/25 03:48 04/29/25 07:31 Narrative Exam GENERAL: no acute distress, patient more alert and awake today. HEENT: Head AT/ NC. Mucous membranes dry. NECK: Supple, no lymphadenopathy, CARDIOVASCULAR: sinus bradycardia. Normal S1/S2, No m/r/g. No pitting edema of bilateral LEs. RESPIRATORY: scattered crackles and mild ronchi bilaterally on auscultattion GASTROINTESTINAL: Abdomen soft, non tender no palpable masses. Bowel sounds present, + peg tube MUSCULOSKELETAL:? No cyanosis or edema, no visible joint swelling. Right AV fistula NEUROLOGICAL: CN II-XII grossly intact. No focal deficits. Sensation intact, symmetric. PSYCHIATRIC: Awake and alert, + dementia SKIN: No obvious rashes, no jaundice, normal turgor. Objective Labs 04/29/25 04:54 04/29/25 04:54 Labs: Laboratory Results - last 24 hr 04/29/25 04:54 WBC 8.8 RBC 4.36 Hgb 13.1 Hct 41.3 MCV 95 MCH 30.0 MCHC 31.7 RDW Std Deviation 53.9 H Plt Count 186 Neut % (Auto) 78 Lymph % (Auto) 10 [place] % (Auto) 7 Eos % (Auto) 3 Baso % (Auto) 1 Neut # (Auto) 6.9 Lymph # (Auto) 0.9 L [place] # (Auto) 0.7 Eos # (Auto) 0.2 Baso # (Auto) 0.0 Immature Gran # (Auto) 0.05 H Absolute Nucleated RBC 0.00 Immature Gran % 1 H Nucleated RBC % 0 Sodium 134 L Potassium 3.7 D Chloride 96 L Carbon Dioxide 24.7 Anion Gap 13 BUN 21 Creatinine 2.7 H D Estim Creat Clear Calc 9.5 L eGFR 17 L BUN/Creatinine Ratio 8 L Glucose 154 H Calculated Osmolality 274 L Calcium 9.5 Corrected Calcium 10.1 Phosphorus 2.2 L Magnesium 1.9 Total Bilirubin 0.2 L AST 28 ALT 20 Alkaline Phosphatase 186 H D Total Protein 6.6 Albumin 3.3 L Globulin 3.3 Albumin/Globulin Ratio 1.0 L ABG Interpretation ABG results: 04/23/25 01:04 ABG pH 7.43 ABG pCO2 50 H ABG pO2 90 ABG HCO3 33 H ABG O2 Saturation 97 ABG Base Excess 8 H Assessment & Plan Assessment and plan (1) ESRD (end stage renal disease): Status: Acute Assessment and plan: Patient with ESRD-[place]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 Patient did receive dialysis yesterday (2) Severe anemia: Status: Acute Assessment and plan: Dr. Baeza was consulted. On PPI. Hemoglobin stable (3) COVID: Status: Acute Assessment and plan: In respiratory isolation (4) Acute respiratory failure with hypoxia: Status: Acute Assessment and plan: Acute respiratory failure with hypoxia secondary to COVID. Completed (5) Hypokalemia: Status: Acute Assessment and plan: Hypokalemic metabolic alkalosis from GI losses. replaced potassium (6) LFT elevation: Status: Acute Assessment and plan: Probably from underlying COVID. Hold off on statin. nl (7) Hypertension: Status: Acute Assessment and plan: Hypertension on amlodipine. (8) Hyperlipidemia: Status: Acute Assessment and plan: Hold statin Additional Assessment & Plan Additional Plan: care discussed with primary team-renal arias stable for discharge Quality - progress note Quality Measures Quality Measures: VTE prophylaxis Reason for Continued Stay Reason for Continued Stay: further monitoring
--- NOTE | 2025-04-29 10:09 | ESDS_ITS ---
<Statement entered by Rafita Handy MD - 05/01/25 15:15> I reviewed above note and agree with findings and plans. I have also personally examined the patient with medicine team and went over assessment and plan with medical team including international travel consultant and resident physician. <Statement entered by Harpreet Jacques MD - 04/29/25 13:20> Patient was examined and case was reviewed with team including attending physician. Note reviewed, I agree with most of its contents and agree with the patient's care as documented by Dr. Tulio Jacques MD PGY-2 Planned Discharge Date 04/29/25 DS: Providers Provider Date of admission: 04/23/25 02:23 Primary care physician: José Chand MD Admitting Provider: Ernesto Stevenson MD Attending Provider on Admission: Kevin Schmid MD Consults: 04/23/25 01:27 Consult to Nephrology Stat Comment: ESRD Consulting Provider: Erickson Hui 04/23/25 02:30 Consult to Gastroenterology Routine Comment: suspected GI bleed Consulting Provider: Ted Baeza 04/23/25 11:57 Referral Registered Dietitian Routine Comment: PEG Tube Feeds 04/23/25 20:39 Consult to Cardiology Urgent Comment: CAD s/p stents, on no antiplatelets Consulting Provider: Jamil Smith 04/24/25 00:54 Referral Wound Care Routine Comment: incontinent dermatitis on buttock 04/24/25 00:55 Referral Nutritional Services Routine Comment: for wound Referral Wound Care Routine Comment: 04/25/25 07:50 Referral Physical Therapy Routine Comment: Physician Instructions: 04/26/25 10:29 Referral Speech Therapy Urgent Comment: Swallow eval Attending Provider on DC: Rafita Handy MD Discharging Provider: Ross Antunez DO Anticipated date of discharge: 04/29/25 DS: Diagnosis Problem List Completed Was Problem List Reviewed/Reconciled?: Yes Hospital Course Hospital Course Hospital course: 04/23: Presented with weakness, nausea, and vomiting, admitted for symptomatic anemia likely secondary to GI bleed. Initiated on pRBC transfusions for anemia. GI consulted. Found to have COVID-19 pneumonia with hypoxia. Started remdesivir and empiric antibiotics - ceftriaxone and azithromycin for possible bacterial superinfection. Patient placed on O2 NC. Patient has ESRD and underwent hemodialysis. Nephrology consulted. After transfusion and hemodialysis, hemoglobin improved and lactic acid trended down. Cardiology consulted and echo ordered. 04/24: Venous Doppler revealed bilateral DVTs. Anticoagulation held pending EGD for suspected GI bleed. CTA chest negative for PE. Echocardiogram showed new HFrEF (EF 30?35%), compared with prior EF in December 2023. Continued remdesivir and antibiotics. 04/25: EGD performed, showed no active bleeding. Eliquis initiated for DVTs after GI clearance. Resumed home losartan. Started metoprolol for hypertension. Started promethazine per GI recs . Continued remdesivir and antibiotics. 04/26: Rapid response for symptomatic bradycardia and hypotension. Treated with atropine, calcium chloride, and epinephrine with improvement. Troponin elevated and lactic acidosis noted. Beta-jake discontinued. Continued Eliquis. Started isosorbide dinitrate. 04/27: Second rapid response for recurrent bradycardia and hypotension (no metoprolol given, but had received isosorbide dinitrate). Treated with atropine and epinephrine. Remdesivir discontinued due to concern for bradycardia. Transferred to ICU for close monitoring and possible dopamine infusion. 04/28: No dopamine drip required in the ICU since patient heart rate and blood pressure remained stable. Promethazine discontinued due to association with bradycardia. Patient stabilized and was downgraded back to the medical floor for ongoing management. 04/29: Patient remained hemodynamically stable. Went over discharge instructions with patient's daughter Landy. Patient is medically and physically stable for discharge. 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 Follow up with Cardiology within 1 week of discharge for optimization of GDMT. Take all your medications as prescribed. You have been prescribed eliquis which is a blood thinner, should you fall and hit your head, patient is instructed to hdz to the ED. You have been prescribed augmentin and doxycyline for your pneumonia. Should symptoms recur or worsen patient is instructed to return o [facility] ED. Case discussed with my senior resident Dr. Jayy Jacques and my attending Dr. Handy. Ross Antunez DO PGY 1 Status at Discharge Overall status at discharge: patient is progressing back to baseline Time Spent with Patient Time attestation: Total time spent providing and/or coordinating discharge services: Time spent: Greater than 30 minutes Exam Vital Signs Temp Pulse Resp BP Pulse Ox O2 Del Method O2 Flow Rate 97.5 F 55 L 20 156/79 H 97 Nasal Cannula 2 04/29/25 03:48 04/29/25 07:54 04/29/25 07:31 04/29/25 03:48 04/29/25 07:31 04/29/25 03:48 04/29/25 07:31 Narrative Exam Physical Exam General: Awake and in no acute distress. Non-toxic appearing. Nasal cannula present. HEENT: Normocephalic, atraumatic, mucous membranes moist. Heart: Regular rate and rhythm, no murmurs. Lungs: Clear to auscultation with no wheezing or crackles. Abdomen: Soft, nondistended, nontender. No guarding or rebound tenderness. Peg tube present. Neurologic: Alert and oriented, no gross neurological deficit, and patient able to move all 4 extremities. Extremities: No edema. Right AV fistula present. Skin: No rash or ecchymoses. Discharge Plan Plan Patient Disposition: HOME (Self Care) Care Plan Goals: Follow up with primary care physician within 1 week of discharge Follow up with Cardiology within 1 week of discharge for optimization of GDMT Take all your medications as prescribed You have been prescribed eliquis which is a blood thinner, should you fall and hit your head, patient is instructed to hdz to the ED. You have been prescribed augmentin and doxycyline for your pneumonia Should symptoms recur or worsen patient is instructed to return o tt ED Prescriptions/Referrals Prescriptions/Med Rec: New amoxicillin-pot clavulanate 875-125 mg tablet 1 tab PO BID 4 Days Qty: 8 0RF doxycycline hyclate 100 mg capsule 100 mg PO BID 4 Days Qty: 8 0RF lansoprazole 30 mg tablet,disintegrat, delay rel 30 mg feeding tube QDAY Qty: 30 0RF losartan 50 mg tablet 50 mg PO QDAY Qty: 30 0RF Eliquis 5 mg tablet 5 mg PO BID Qty: 60 0RF Continued atorvastatin 40 mg Tablet 40 mg PO QDAY losartan 100 mg Tablet 100 mg PO QDAY levetiracetam [Keppra] 100 mg/mL solution 500 mg PO BID Discontinued amlodipine 10 mg Tablet 10 mg PO QDAY levetiracetam 100 mg/mL solution 500 mg feeding tube Q12H Patient Comments: TAKE 5 MILLILITERS (500 MG) BY MOUTH 2 TIMES PER DAY carvedilol 3.125 mg tablet 3.125 mg PO BID Rx Instructions: must administer with a meal/food Referrals: Joés Chand MD [Primary Care Provider] - Patient/Caregiver Discharge Instructions Print Language: Malay Stand Alone Forms: Diana Award Info., Patient Portal Info Letter Discharge Order Discharge Orders: Discharge (Routine); Ordered 04/29/25 Ordered By: Harpreet Jacques Quality Discharge Quality Measures none
[2025-04-29] MEDS: POT PHOS 15 mMol in NS 250 ML 15 MMOL/250 ML BAG 62.5 MMOL IV (10:58)
--- NOTE | 2025-04-29 12:09 | PC.NURSE ---
room air sats 86% at rest
--- NOTE | 2025-04-29 13:37 | PC.SS ---
Oxygen Pt is discharged in a chronic stable state and has been treated optimally and has other respiratory needs. Oxygen has been ordered due to Acute respiratory failure with hypoxia.
--- NOTE | 2025-04-29 15:20 | PC.SS ---
DME referral for oxygen submitted to [facility] at [phone]. PRIVATE ADVISOR confirmed with [facility] staff, Quirino; that order will be accepted. DME to be delivered to patient's residence.
--- NOTE | 2025-04-29 15:45 | PC.SS ---
[facility] contacted to initiate transport. Conf# [id number], preferred vendor [facility]. Referral submitted on [facility] awaiting response.
--- NOTE | 2025-04-29 16:51 | PC.SS ---
Transport scheduled for 07:00 pm. ALTERATION MANAGER notified nurse and patient's daughter, Landy De La Torre.
--- NOTE | 2025-04-29 17:51 | PD.IMPROG ---
Documentation for date of: 04/29/25 Subjective Subjective Interval history: Hemoglobin hematocrit 13.1 and 41.3 Discharge planning in progress Outpatient colonoscopy Exam Vital Signs Temp Pulse Resp BP Pulse Ox O2 Del Method O2 Flow Rate 97.6 F 69 18 148/88 H 97 Nasal Cannula 2 04/29/25 08:00 04/29/25 15:50 04/29/25 09:00 04/29/25 08:00 04/29/25 09:00 04/29/25 08:00 04/29/25 09:00 Objective Labs 04/29/25 04:54 04/29/25 04:54 Labs: Laboratory Results - last 24 hr 04/29/25 04:54 WBC 8.8 RBC 4.36 Hgb 13.1 Hct 41.3 MCV 95 MCH 30.0 MCHC 31.7 RDW Std Deviation 53.9 H Plt Count 186 Neut % (Auto) 78 Lymph % (Auto) 10 [place] % (Auto) 7 Eos % (Auto) 3 Baso % (Auto) 1 Neut # (Auto) 6.9 Lymph # (Auto) 0.9 L [place] # (Auto) 0.7 Eos # (Auto) 0.2 Baso # (Auto) 0.0 Immature Gran # (Auto) 0.05 H Absolute Nucleated RBC 0.00 Immature Gran % 1 H Nucleated RBC % 0 Sodium 134 L Potassium 3.7 D Chloride 96 L Carbon Dioxide 24.7 Anion Gap 13 BUN 21 Creatinine 2.7 H D Estim Creat Clear Calc 9.5 L eGFR 17 L BUN/Creatinine Ratio 8 L Glucose 154 H Calculated Osmolality 274 L Calcium 9.5 Corrected Calcium 10.1 Phosphorus 2.2 L Magnesium 1.9 Total Bilirubin 0.2 L AST 28 ALT 20 Alkaline Phosphatase 186 H D Total Protein 6.6 Albumin 3.3 L Globulin 3.3 Albumin/Globulin Ratio 1.0 L Impressions Impression: Occult GI bleeding Gastritis Esophagitis Agree with discharge pending outpatient colonoscopy ABG Interpretation ABG results: 04/23/25 01:04 ABG pH 7.43 ABG pCO2 50 H ABG pO2 90 ABG HCO3 33 H ABG O2 Saturation 97 ABG Base Excess 8 H Assessment & Plan A&P Narrative # Anemia of blood loss requiring blood transfusion plan Consent obtained for fiberoptic esophagogastroduodenoscopy with possible biopsy possible therapeutic intervention under intravenous moderation tentatively scheduled for tomorrow Clear liquid diet till 8 AM tomorrow then n.p.o. Other medical problems include COVID-positive bilateral pneumonia Coronary artery status post PTCA Seizure disorder End-stage renal disease on hemodialysis TTS Essential hypertension Diabetes mellitus with peripheral neuropathy Dementia Time Spent With Patient Time: Total time spent is greater than 50% in coordination of care (as documented) at patient's floor/unit and/or counseling patient:
--- NOTE | 2025-04-29 22:58 | ESPR_ITS ---
RE: BLU TORREZ : 1940 DATE OF SERVICE: 04/29/2025 The patient is an 84-year-old lady with a history of multiple problems, who came with COVID pneumonia and multiple issues, including developing marked sinus bradycardia, asymptomatic, now stable. Heart rate is improving. She is feeling a lot better. She is not having any symptoms of bradycardia. Heart rate is now in the low to mid 60s, stable, normal blood pressure. Clinically, she is not having any symptoms at all. He does have AV fistula for dialysis. Clinically, she is not having cardiac limitations or symptoms. No chest pain or shortness of breath. She has improved significantly over the last couple of days. Overall prognosis improved and the team is planning to discharge the patient home. OBJECTIVE: Vital Signs: Today's exam shows her vital signs are stable. Blood pressure 150/78. Pulse rate is about 60. Respirations 20. Temperature is normal. Saturation is 97 on room air. Neck: Supple. Lungs: Decreased breath sounds. Heart: Sounds irregular. Abdomen: Thin and soft. Extremities: Mild edema. Genitourinary and Rectal: Not performed. LABORATORY DATA: Significant for hemoglobin stable at 13. Chemistry showed evidence of potassium at 3.7, BUN of 21, creatinine 2.7 Troponin was slightly elevated persistently due to type 2 troponin elevation. ASSESSMENT/IMPRESSION: 1. Bradycardia resolving, still has bradycardia symptomatic. 2. Coronavirus disease pneumonia. 3. Atrial fibrillation, on apixaban. 4. Chronic kidney disease, now on hemodialysis. 5. Hypoxic respiratory failure, improved. RECOMMENDATIONS: Continue medical management. No beta blockers will be given. The patient is being discharged home on atorvastatin 40 mg daily. Losartan was decreased to 50 mg daily. Eliquis to be continued for anticoagulation because of atrial fibrillation and DVT. We will monitor the patient as an outpatient following discharge. DT: ::31 TT: 22:48:00 Ref: [id number] - TID: [id number] MTDD
== END 2025-04-29 19:09 | disposition home or self-care (01) | DRG 177 ==
LOC: SERX 04-23 02:20 → SERHOLD 04-23 03:22 → S2NX 04-23 05:42 → S2SX 04-28 10:44 → S2NX 04-28 13:56
PROVIDERS: Specialist; Student in an Organized Health Care Education/Training Program; Admitting Provider Student in an Organized Health Care Education/Training Program; Emergency Provider Emergency Medicine; PCP Internal Medicine; Visit Provider Internal Medicine Critical Care Medicine
PROC: 0DJ08ZZ Inspection of Upper Intestinal Tract, Via Natural or Artificial Opening Endoscopic (ICD-10-PCS; CPT 43239; principal; 2025-04-24 18:45)
DX: U07.1 COVID-19 (principal); I50.23 Acute on chronic systolic (congestive) heart failure; J12.82 Pneumonia due to coronavirus disease 2019; N18.6 End stage renal disease; J96.01 Acute respiratory failure with hypoxia; K20.91 Esophagitis, unspecified with bleeding; I13.2 Hypertensive heart and chronic kidney disease with heart failure and with stage 5 chronic kidney disease, or end stage renal disease; J44.0 Chronic obstructive pulmonary disease with (acute) lower respiratory infection; I31.39 Other pericardial effusion (noninflammatory); E87.4 Mixed disorder of acid-base balance; D62 Acute posthemorrhagic anemia; Z99.2 Dependence on renal dialysis; M19.90 Unspecified osteoarthritis, unspecified site; E11.22 Type 2 diabetes mellitus with diabetic chronic kidney disease; E11.42 Type 2 diabetes mellitus with diabetic polyneuropathy; I25.10 Atherosclerotic heart disease of native coronary artery without angina pectoris; Z95.5 Presence of coronary angioplasty implant and graft; F03.C0 Unspecified dementia, severe, without behavioral disturbance, psychotic disturbance, mood disturbance, and anxiety; G40.909 Epilepsy, unspecified, not intractable, without status epilepticus; D63.1 Anemia in chronic kidney disease; Z93.1 Gastrostomy status; Z66 Do not resuscitate; Z86.73 Personal history of transient ischemic attack (TIA), and cerebral infarction without residual deficits; I70.0 Atherosclerosis of aorta; K29.70 Gastritis, unspecified, without bleeding; K29.80 Duodenitis without bleeding; K31.89 Other diseases of stomach and duodenum; T50.905A Adverse effect of unspecified drugs, medicaments and biological substances, initial encounter; Z88.0 Allergy status to penicillin; Z74.01 Bed confinement status; Z78.9 Other specified health status; Z79.01 Long term (current) use of anticoagulants; Z79.82 Long term (current) use of aspirin; Z79.84 Long term (current) use of oral hypoglycemic drugs; Z79.899 Other long term (current) drug therapy; Z87.01 Personal history of pneumonia (recurrent); I34.0 Nonrheumatic mitral (valve) insufficiency; F01.C0 Vascular dementia, severe, without behavioral disturbance, psychotic disturbance, mood disturbance, and anxiety; E87.6 Hypokalemia
CPT/HCPCS: 36415; 36430; 36600; 71045; 71275; 80048; 80053; 81001; 82010; 82248; 82803; 83036; 83605; 83690; 83735; 83880; 84100; 84145; 84484; 85014; 85018; 85025; 85379; 85610; 85652; 85730; 86140; 86850; 86900; 86901; 86923; 87040; 87081; 87400; 87811; 92526; 92610; 93005; 93306; 93970; 94640; 96365; 96375; 99284; A4649; A9270; J0131; J0168; J0248; J0456; J0461; J0613; J0696; J1200; J1815; J1885; J1938; J2250; J2270; J2405; J2470; J2550; J2919; J3010; J3480; J7050; J7999; P9016; Q5105; Q9967

== ENCOUNTER 2025-04-30 08:28 | Emergency (ER) | payer OTHER, MEDICAID, SELFPAY ==
[2025-04-30] VITALS (8 sets, daily range): BP systolic 126–181; BP diastolic 52–84; PULSE 54–84; RESP 12–30; TEMP 35.8–36.7; O2SAT 95–100; BMI 22.0
--- NOTE | 2025-04-30 09:12 | PD.EDSOB ---
ED SOB =RME/HPI General Chief Complaint: Shortness of Breath/Dyspnea Stated Complaint: SOB, COVID + Time Seen by Provider: 04/30/25 08:55 Source: patient, EMS, RN notes reviewed and old records reviewed Arrival date/time: 04/30/25 08:28 Mode of arrival: EMS Limitations: altered mental status and other (Patient with chronic dementia) RME / HPI RME / HPI Narrative: Patient is an 84-year-old female who was hospitalized and recently went home. She was sent home with her medications and 2 L of oxygen. She had some mild shortness of breath sent back today to the emergency department for evaluation. There is no fever. There is no change in appetite. No other problems at this. MD Complaint: shortness of breath and cough Onset (ago): day(s) Context: recent illness Severity: moderate Consistency/Duration: constant Relieving factors: oxygen Exacerbating factors: exertion Associated symptoms: denies other symptoms Treatment prior to arrival: oxygen Related Data Home oxygen amount: 2 liters Home Medications ?Medication ?Instructions ?Recorded ?Confirmed atorvastatin 40 mg tablet 40 mg PO QDAY 11/07/22 04/23/25 losartan 100 mg tablet 100 mg PO QDAY 11/07/22 04/23/25 levetiracetam 100 mg/mL oral 500 mg PO BID 04/23/25 04/23/25 solution (Keppra) Previous Rx's ?Medication ?Instructions ?Recorded amoxicillin 875 mg-potassium 1 tab PO BID 4 days #8 tabs 04/29/25 clavulanate 125 mg tablet apixaban 5 mg tablet (Eliquis) 5 mg PO BID #60 tabs 04/29/25 apixaban 5 mg tablet (Eliquis) 10 mg (2 x 5 mg) PO BID 5 days #20 04/29/25 tabs doxycycline hyclate 100 mg capsule 100 mg PO BID 4 days #8 caps 04/29/25 lansoprazole 30 mg delayed 30 mg feeding tube QDAY #30 tabs 04/29/25 release,disintegrating tablet losartan 50 mg tablet 50 mg PO QDAY #30 tabs 04/29/25 Allergies Allergy/AdvReac Type Severity Reaction Status Date / Time Penicillins Allergy Intermediate Rash Verified 06/29/20 08:33 Review of Systems Review of Systems Systems Reviewed: All systems reviewed, normal except as documented Cardiovascular Cardiovascular: Reports system reviewed and no additional complaints, except as documented and Reports dyspnea on exertion Respiratory Respiratory: Reports dyspnea on exertion Gastrointestinal Gastrointestinal: Reports system reviewed and no additional complaints, except as documented Musculoskeletal Musculoskeletal: Reports system reviewed and no additional complaints, except as documented Neurologic Neurologic: Reports system reviewed and no additional complaints, except as documented Psychiatric Psychiatric: Reports system reviewed and no additional complaints, except as documented Endocrine Endocrine: Reports system reviewed and no additional complaints, except as documented Past Medical History Past Medical History NEUROLOGIC: Positive Neurological Disorders and Cerebrovascular Accident CARDIAC: Positive Cardiac Disorders, Coronary Artery Disease, Hypercholesterolemia and Hypertension; Negative Congestive Heart Failure RESPIRATORY: Positive Pneumonia; Negative Chronic Obstructive Pulmonary Disease (COPD) or Asthma GASTROINTESTINAL: Positive Gastrointestinal Disorders and Gall Bladder Disease; Negative Colorectal Cancer GENITOURINARY: Positive Genitourinary Disorders, Renal Disease and Dialysis MUSCULOSKELETAL: Positive Musculoskeletal Disorders and Arthritis; Negative Bone Cancer ENT: Positive Cataracts ENDOCRINE: Positive Endocrine Disorders and Diabetes Mellitus Type 2; Negative Diabetes Mellitus Type 1 HEMATOLOGIC: Positive Blood Disorders and Anemia; Negative Sickle Cell Disease OTHER HISTORY: Positive Measles and Mumps; Negative Autoimmune Disease, Anesthesia Reactions, MRSA, Vancomycin-Resistant Enterococci, Cancer, Cervical Cancer, Colorectal Cancer, Lung Cancer or Ovarian Cancer Family History FAMILY HISTORY: Negative Family Neurologic Problems, Family Psychiatric Problems, Family Respiratory Disorders, Family Cardiac Disorders, Family Gastrointestinal Problems, Family Cancer, Family Surgery or Family Anesthesia Reaction Surgical History SURGICAL: Positive Cardiac Surgery and Coronary Stent Social History SMOKING STATUS: Never smoker SECOND HAND EXPOSURE: No SUBSTANCE USE: does not use ED Exam General Limitations: Present altered mental status and other (Patient with chronic dementia) General appearance: Present alert Head Head exam: Present atraumatic, normocephalic and normal inspection Eye Eye exam: Present normal appearance, PERRL and EOMI; Absent scleral icterus, conjunctival injection or nystagmus ENT ENT exam: Present normal oropharynx, mucous membranes moist and TM's normal bilaterally Neck Neck exam: Present normal inspection, full ROM and trachea midline Chest Chest inspection: Present normal inspection and symmetric chest wall rise; Absent tenderness, rash or abscess Respiratory Respiratory exam: Present normal lung sounds bilaterally and other (Decreased breath sounds at the bases) Cardiovascular Cardiovascular exam: Present regular rate, normal rhythm and normal heart sounds Abdominal Exam Abdominal exam: Present soft and normal bowel sounds; Absent organomegaly or mass Rectal Exam Rectal exam: Present deferred Extremities Exam Extremities exam: Present normal inspection Back Exam Back exam: Present normal inspection Neurological Exam Neurological exam: Present alert, oriented X3, CN II-XII intact and reflexes normal Skin Skin exam: Present warm and dry Course Course Course Narrative: Patient initially was on nasal cannula plus a facemask at 100% and the O2 sat was also 100%. Patient was placed on 2 L nasal cannula with O2 sats of 96 to 97%. Monitor showed sinus bradycardia rate 55 without ectopy. Quality Measures none Orders Category Date Time Status Bedside COVID-19 Antigen Test NOW Care 04/30/25 09:54 Active Bedside Influenza A&B Antigen Test NOW Care 04/30/25 09:54 Active EKG (ED ONLY) *Do not use* NOW Care 04/30/25 09:55 Completed Insert [Insert IV] NOW Care 04/30/25 09:55 Active CXRP [XR chest 1V portable] Stat Exams 04/30/25 13:05 Completed EKG (ED Only) Stat Exams 04/30/25 09:55 Draft CBC Stat Lab 04/30/25 10:25 Completed Comprehensive Metabolic Panel Stat Lab 04/30/25 12:15 Completed Partial Thromboplastin Time Stat Lab 04/30/25 13:38 Completed Prothrombin Time with INR Stat Lab 04/30/25 13:38 Completed Troponin I Stat Lab 04/30/25 12:15 Completed Urinalysis Stat Lab 04/30/25 09:55 Ordered Venous Blood Gas Stat Lab 04/30/25 12:15 Completed ALBUTEROL RT 0.5ml [Proventil Rt 0.5ml] Med 04/30/25 12:08 Discontinued 5 mg INH X1 ONE ALBUTEROL RT 5 ml [Proventil Rt 5 ml] Med 04/30/25 09:54 Discontinued 5 mg INH X1 ONE MethylPREDNISolone.* [SoluMEDROL Inj] Med 04/30/25 09:54 Discontinued 125 mg IVP X1 ONE Sodium Chloride 0.9% 500 ml [Ns] 500 ml Med 04/30/25 09:54 Discontinued IV 100 mls/hr Sodium Chloride Rt Nikki 0.9% [NS Rt Nikki 0.9%] Med 04/30/25 12:08 Active 3 ml INH PRN PRN Vital Signs Vital signs: Vital Signs Temperature 96.5 F L 04/30/25 08:43 Pulse Rate 71 04/30/25 08:43 Respiratory Rate 30 H 04/30/25 08:43 Blood Pressure 172/84 H 04/30/25 08:43 Pulse Oximetry (%) 100 04/30/25 08:43 Oxygen Delivery Method Oxy Mask 04/30/25 08:43 Oxygen Flow Rate 15 04/30/25 08:43 Shortness of Breath / Dyspnea MDM Narrative MDM Narrative:: Patient was recently hospitalized for COVID. She was just sent home and was given O2 2 L for home use. Main concern was low O2 sat. O2 sat here is 96 to 97% on 2 L. Patient data External records reviewed:: [facility] previous records (I reviewed admission from 04/22/2025 through 04/29/2025 ) and EMS form Clinical information provided by:: patient, EMS and other (specify) Social determinants that could affect healthcare access:: none Patient has the following chronic illnesses:: CAD s/p PCI, HTN, ESRD (T/Th/Sat), diabetes, peripheral neuropathy, dementia, seizures How is presenting disease/condition affected by chronic disease/condition?: exacerbated by Evaluation data The following diagnostics were reviewed and interpreted by me:: lab results, radiology exam(s) and EKG tracing(s) (04/30/2025 @ 11:50 AM. sinus bradycardia, rate 59, marked sinus arrhythmia, nonspecific T-wave abnormalities, poor R-wave progression ) Lab and/or radiology exams considered but not ordered:: None Interpretation Summary: Ordering Physician: Evans Barr MD Date of Service: 04/30/25 Procedure(s): XR chest 1V portable Accession Number(s): [id number] cc: Evans Barr MD; Pablo Chand MD; Joao Quiroz MD~ Examination: AP chest single view Technique one AP portable semiupright chest single view Date and time: April 30, 2025, 1520 hours, comparison April 26, 2025 INDICATIONS: Covid positive patient with shortness of breath today. FINDINGS: Significant left lung and milder right lung pneumonia Moderate enlargement cardiac contour Prominent vascular congestion Prominent osteopenia IMPRESSION: Worsening pneumonia left lung Dictated By: Joao Quiroz MD Signed By: <Electronically signed by Joao Quiroz MD in OV> 04/30/25 1435 Medications / Prescriptions Medications or Prescriptions considered but not ordered:: None Medication administrations:: Medication Administration History Sodium Chloride (Sodium Chloride Rt Nikki 0.9% 3 Ml Nebu) 3 ml INH PRN PRN PRN Reason: SOLN Stop: 05/30/25 12:07 Last Admin: 04/30/25 12:13 Dose: 3 ml Documented By: RG Discontinued Medications Albuterol (Albuterol Rt 25 Mg/5 Ml Nebu) 5 mg INH X1 ONE Stop: 04/30/25 09:55 Last Admin: 04/30/25 13:55 Dose: Not Given Documented By: MG Non-Admin Reason: Discontinued Albuterol (Albuterol Rt 2.5 Mg/0.5 Ml Nebu) 5 mg INH X1 ONE Stop: 04/30/25 12:09 Last Admin: 04/30/25 12:13 Dose: 5 mg Documented By: RG Sodium Chloride (Ns) 500 mls @ 100 mls/hr IV .Q5H ONE Stop: 04/30/25 14:53 Last Admin: 04/30/25 11:53 Dose: 100 mls/hr Documented By: MG Methylprednisolone Sodium Succinate (Methylprednisolone Sod Succ 62.5 Mg/Ml 2ml Vial) 125 mg IVP X1 ONE Stop: 04/30/25 09:55 Last Admin: 04/30/25 11:53 Dose: 125 mg Documented By: MG See above Consultations Consultation(s) initiated? (list below): No Diagnosis Shortness of Breath Differential Diagnosis: acute exacerbation of chronic obstructive airways disease, congestive heart failure and community acquired pneumonia Most likely diagnosis given after review of the tests above:: PNA Covid Acute UTI Fall Admission Indicated Admission indicated?: not indicated Admission Request Was there a request for admission?: No Disposition Plan Disposition Plan: Discharge Discharge Attestation Discharge Attestation: The patient and all family members were given an opportunity to ask questions and understood the discharge instructions. Discharge instructions specifically effects, indications for sooner follow up or return to the emergency department, and the expected course of current diagnosis. Patient condition: Stable Discharge Plan Plan Patient Disposition: HOME (Self Care) Prescriptions/Referrals Prescriptions/Med Rec: No Action atorvastatin 40 mg Tablet 40 mg PO QDAY losartan 100 mg Tablet 100 mg PO QDAY levetiracetam [Keppra] 100 mg/mL solution 500 mg PO BID amoxicillin-pot clavulanate 875-125 mg tablet 1 tab PO BID 4 Days Qty: 8 0RF doxycycline hyclate 100 mg capsule 100 mg PO BID 4 Days Qty: 8 0RF lansoprazole 30 mg tablet,disintegrat, delay rel 30 mg feeding tube QDAY Qty: 30 0RF losartan 50 mg tablet 50 mg PO QDAY Qty: 30 0RF Eliquis 5 mg tablet 5 mg PO BID Qty: 60 0RF Eliquis 5 mg tablet 10 mg PO BID 5 Days Qty: 20 0RF Referrals: Pablo Chand MD [Primary Care Provider] - In 1 week Problem List Clinical Impression: Pneumonia, COVID, Acute UTI, Fall Patient/Caregiver Discharge Instructions Other Activity Instructions:: Continue current medications. Continue oxygen at 2 L/min via nasal cannula. Follow-up with your medical doctor in 2 days. Return to the emergency department for any concerns. Education Materials: How COVID-19 Spreads, COVID-19 and the Flu What's ..., Understanding Urinary Tract ... Additional Instructions: Take Paxlovid and ciprofloxacin as directed. Bedrest. Respiratory isolation. Follow-up with your PMD in the next 2 to 3 days. Print Language: Frisian Stand Alone Forms: Diana Award Info., Patient Portal Info Letter
--- NOTE | 2025-04-30 09:55 | EKG_ITS ---
[facility] Test Date: 2025-04-30 Pat Name: BLU TORREZ Department: Room: - Gender: Female Call Center Director: : 1940 Requested By: Evans Fall Order Number: [id number] Reading MD: Evans Fall Measurements Intervals [place] Rate: 59 P: 33 IN: 164 QRS: 22 QRSD: 98 T: 0 QT: 416 QTc: 415 Interpretive Statements SINUS BRADYCARDIA WITH MARKED SINUS ARRHYTHMIA NONSPECIFIC T-WAVE ABNORMALITY Compared to ECG 04/27/2025 12:03:47 T-wave abnormality now present Myocardial infarct finding no longer present /store/S0/[id number].pdf
[2025-04-30 10:54] LABS: Basophils # (Auto) 0.1 Thou/mm3 (0.0-0.2); Basophils % (Auto) 1 % (0-2.5); Eosinophils # (Auto) 0.2 Thou/mm3 (0.0-0.5); Eosinophils % (Auto) 3 % (0-10); Hematocrit 37.3 % (36.0-46.0); Hemoglobin 11.9 g/dL (12.0-16.0); Immature Granulocytes Auto 0.10 Thou/mm3 (0.00-0.00); Lymphocytes # (Auto) 0.8 Thou/mm3 (1.0-4.8); Lymphocytes % (Auto) 10 % (10-50); Mean Corpuscular HGB Conc 31.9 g/dl (31.0-37.0); Mean Corpuscular Hemoglobin 30.1 pg (25.0-35.0); Mean Corpuscular Volume 94 fL (80-100); Monocytes # (Auto) 0.7 Thou/mm3 (0.0-0.8); Monocytes % (Auto) 9 % (0-12); Neutrophils # (Auto) 6.1 Thou/mm3 (1.8-7.7); Neutrophils % (Auto) 77 % (37-80); Nucleated Red Blood Cell # 0.00 Thou/mm3 (0.00-0.00); Nucleated Red Blood Cell % 0 /100 WBC (0); Platelet Count 132 Thou/mm3 (140-440); RDW Standard Deviation 54.2 fL (36.4-46.3); Red Blood Count 3.96 Miln/mm3 (4.00-5.20); White Blood Count 7.9 Thou/mm3 (3.6-11.0)
[2025-04-30] MEDS: MethylPREDNISolone SOD SUCC 62.5 MG/ML 2ML VIAL 125 MG IVP (11:53)
[2025-04-30] MEDS: SODIUM CHLORIDE 0.9% 500 ML 500 ML 100 ML IV (11:53)
[2025-04-30] MEDS: SODIUM CHLORIDE RT SOL 0.9% 3 ML NEBU INH (12:13)
[2025-04-30] MEDS: ALBUTEROL RT 2.5 MG/0.5 ML NEBU 5 MG INH (12:13)
[2025-04-30 12:30] LABS: Base Excess, Venous 0 (-3-3); O2 Saturation, Venous 99 % (96-97); PCO2, Venous 38 mmHg (36-56); PO2, Venous 202 mmHg (15-58); pH, Venous 7.42 (7.33-7.66)
[2025-04-30 12:58] LABS: Alanine Aminotransferase 15 U/L (10-49); Albumin, Serum 3.2 gm/dL (3.4-4.8); Albumin/Globulin Ratio 1.0 (1.2-2.2); Alkaline Phosphatase 219 U/L (46-116); Anion Gap 13 (7-16); Aspartate Amino Transferase 31 U/L (0-34); BUN/Creatinine Ratio 9 Ratio (12-20); Bilirubin,Total < 0.2 mg/dL (0.3-1.2); Blood Urea Nitrogen 32 mg/dL (9-23); Calcium 8.7 mg/dL (8.3-10.6); Calcium (Corrected) 9.3 mg/dL (8.5-10.1); Carbon Dioxide 21.4 mMol/L (20.0-31.0); Chloride 97 mMol/L (98-107); Creatinine (Component) 3.6 mg/dL (0.6-1.3); Estimated Creatinine Clearance 7.5 mL/min (>60); Globulin 3.1 gm/dL (2.3-3.5); Glucose 303 mg/dL (74-106); Osmolality,Calculated 280 (275-295); Potassium 4.5 mMol/L (3.4-5.1); Sodium 131 mMol/L (136-145); Total Protein 6.3 gm/dL (5.7-8.2); eGFR 12 See Note
[2025-04-30 13:01] LABS: Troponin I 0.123 ng/mL (0.0-0.045)
--- NOTE | 2025-04-30 13:05 | XR_ITS ---
Examination: AP chest single view Technique one AP portable semiupright chest single view Date and time: April 30, 2025, 1520 hours, comparison April 26, 2025 INDICATIONS: Covid positive patient with shortness of breath today. FINDINGS: Significant left lung and milder right lung pneumonia Moderate enlargement cardiac contour Prominent vascular congestion Prominent osteopenia IMPRESSION: Worsening pneumonia left lung
[2025-04-30 13:54] LABS: INR 1.2 (0.9-1.3); Partial Thromboplastin Time 21.9 Seconds (22.0-36.0); Prothrombin Time 13.4 Seconds (9.0-12.2)
--- NOTE | 2025-04-30 16:24 | PC.CC ---
ASW arranged transportation for the pt via [facility] [phone]; however, the person who took racebook writer's information named Tyrese, will call back with an expected p/u ETA. ASW told Tyrese to call the extension course counselor Ann for a p/u ETA. If [facility] cannot provide transporation, extension course counselor is to call [facility] [phone] to arrange transportation.
== END 2025-04-30 19:29 | disposition home or self-care (01) ==
PROVIDERS: Emergency Provider Family Medicine; PCP Internal Medicine
DX: U07.1 COVID-19 (principal); J12.82 Pneumonia due to coronavirus disease 2019; N39.0 Urinary tract infection, site not specified; I49.8 Other specified cardiac arrhythmias; I12.0 Hypertensive chronic kidney disease with stage 5 chronic kidney disease or end stage renal disease; E11.22 Type 2 diabetes mellitus with diabetic chronic kidney disease; N18.6 End stage renal disease; F03.90 Unspecified dementia, unspecified severity, without behavioral disturbance, psychotic disturbance, mood disturbance, and anxiety; Z99.2 Dependence on renal dialysis; Z79.01 Long term (current) use of anticoagulants
CPT/HCPCS: 36415; 71045; 80053; 81001; 82803; 84484; 85025; 85610; 85730; 87400; 87811; 93005; 94640; 96374; 99284; J2919; J7999; J7609

== ENCOUNTER 2025-05-01 13:04 | Emergency (ER) | payer OTHER, MEDICAID, SELFPAY ==
[2025-05-01] VITALS (20 sets, daily range): BP systolic 111–198; BP diastolic 45–96; PULSE 54–84; RESP 18–20; TEMP 36.1–36.9; O2SAT 92–99
--- NOTE | 2025-05-01 13:31 | EKG_ITS ---
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 Engraver: : 1940 Requested By: Evans Fall Order Number: [id number] Reading MD: Evans Fall Measurements Intervals [place] Rate: 70 P: 21 [place]: 176 QRS: 37 QRSD: 88 T: 0 QT: 254 QTc: 274 Interpretive Statements SINUS RHYTHM WITH OCCASIONAL VENTRICULAR PREMATURE COMPLEXES SEPTAL MYOCARDIAL INFARCTION , OF INDETERMINATE AGE [40+ ms Q WAVE IN V1/V2] Compared to ECG 04/30/2025 11:50:26 Ventricular premature complex(es) now present Myocardial infarct finding now present Sinus bradycardia no longer present Sinus arrhythmia no longer present T-wave abnormality no longer present /store/S0/[id number].pdf
--- NOTE | 2025-05-01 13:31 | XR_ITS ---
Examination: AP chest single view Technique one AP portable upright chest single view Date and time: May 01, 2025 1350 hours, comparison April 30, 2025 INDICATIONS: Coughing shortness of breath beginning 2 days ago. FINDINGS: Diffuse left lung pneumonia. Atelectasis right base. Mild heart failure with enlargement left ventricle and very prominent vascular congestion IMPRESSION: Diffuse left lung pneumonia Mild heart failure
[2025-05-01] MEDS: INSULIN HUM REGULAR 1 UNIT/0.01 ML (PER UNIT) 5 UNIT IV (13:45)
[2025-05-01] MEDS: SODIUM CHLORIDE 0.9% 1000 ML 1,000 ML 100 ML IV (13:45)
--- NOTE | 2025-05-01 13:48 | PC.NURSE ---
patient brought in by ems for hyperglycemia per ems patient called because her sugar read HIGH. patient took 3 units of lispro at home. ems did a spot check and got a read of 530 on the ambulance. ems inserted 18g Left lower leg and gave 4mg zofran iv
[2025-05-01 14:08] LABS: Basophils # (Auto) 0.0 Thou/mm3 (0.0-0.2); Basophils % (Auto) 0 % (0-2.5); Eosinophils # (Auto) 0.0 Thou/mm3 (0.0-0.5); Eosinophils % (Auto) 0 % (0-10); Hematocrit 36.1 % (36.0-46.0); Hemoglobin 11.4 g/dL (12.0-16.0); Immature Granulocytes Auto 0.08 Thou/mm3 (0.00-0.00); Lymphocytes # (Auto) 0.3 Thou/mm3 (1.0-4.8); Lymphocytes % (Auto) 5 % (10-50); Mean Corpuscular HGB Conc 31.6 g/dl (31.0-37.0); Mean Corpuscular Hemoglobin 30.2 pg (25.0-35.0); Mean Corpuscular Volume 96 fL (80-100); Monocytes # (Auto) 0.6 Thou/mm3 (0.0-0.8); Monocytes % (Auto) 10 % (0-12); Neutrophils # (Auto) 5.0 Thou/mm3 (1.8-7.7); Neutrophils % (Auto) 83 % (37-80); Nucleated Red Blood Cell # 0.00 Thou/mm3 (0.00-0.00); Nucleated Red Blood Cell % 0 /100 WBC (0); Platelet Count 181 Thou/mm3 (140-440); RDW Standard Deviation 54.5 fL (36.4-46.3); Red Blood Count 3.77 Miln/mm3 (4.00-5.20); White Blood Count 6.0 Thou/mm3 (3.6-11.0)
[2025-05-01 14:19] LABS: INR 1.0 (0.9-1.3); Partial Thromboplastin Time 30.1 Seconds (22.0-36.0); Prothrombin Time 11.4 Seconds (9.0-12.2)
[2025-05-01 14:44] LABS: Alanine Aminotransferase 11 U/L (10-49); Albumin, Serum 3.3 gm/dL (3.4-4.8); Albumin/Globulin Ratio 1.1 (1.2-2.2); Alkaline Phosphatase 247 U/L (46-116); Anion Gap 14 (7-16); Aspartate Amino Transferase 13 U/L (0-34); BUN/Creatinine Ratio 12 Ratio (12-20); Bilirubin,Total 0.2 mg/dL (0.3-1.2); Blood Urea Nitrogen 51 mg/dL (9-23); Calcium 8.7 mg/dL (8.3-10.6); Calcium (Corrected) 9.3 mg/dL (8.5-10.1); Carbon Dioxide 22.9 mMol/L (20.0-31.0); Chloride 94 mMol/L (98-107); Creatinine (Component) 4.2 mg/dL (0.6-1.3); Globulin 3.0 gm/dL (2.3-3.5); Osmolality,Calculated 303 (275-295); Potassium 4.1 mMol/L (3.4-5.1); Sodium 131 mMol/L (136-145); Total Protein 6.3 gm/dL (5.7-8.2); eGFR 10 See Note
[2025-05-01 14:47] LABS: Troponin I 0.064 ng/mL (0.0-0.045)
[2025-05-01 14:48] LABS: Glucose 580 mg/dL (74-106)
[2025-05-01] MEDS: INSULIN HUM REGULAR 1 UNIT/0.01 ML (PER UNIT) 8 UNIT IV (15:03)
--- NOTE | 2025-05-01 15:12 | PD.EDADULT ---
ED General RME/HPI General Chief complaint: Weakness Stated complaint: HYPERGLYCEMIA Time Seen by Provider: 05/01/25 13:30 Arrival date/time: 05/01/25 13:04 Limitations: no limitations RME / HPI RME / HPI narrative: 84 year old female with history of dementia, CAD s/p PCI, hypertension, ESRD (T//Sun), diabetes, peripheral neuropathy presents to the ED BIBA from home for evaluation of elevated blood sugar today. Per medics, family on scene reported the patient was feeling globally weak and unwell at home. Upon checking her blood sugar, noted it was reading high and administered 3 units of insulin. Medics state on scene the patients blood sugar was just over 500. In the ED, patient reports missing her dialysis treatment yesterday. No other complains reported in the ED. Related Data Home Medications ?Medication ?Instructions ?Recorded ?Confirmed atorvastatin 40 mg tablet 40 mg PO QDAY 11/07/22 04/23/25 losartan 100 mg tablet 100 mg PO QDAY 11/07/22 04/23/25 levetiracetam 100 mg/mL oral 500 mg PO BID 04/23/25 04/23/25 solution (Keppra) Previous Rx's ?Medication ?Instructions ?Recorded amoxicillin 875 mg-potassium 1 tab PO BID 4 days #8 tabs 04/29/25 clavulanate 125 mg tablet apixaban 5 mg tablet (Eliquis) 5 mg PO BID #60 tabs 04/29/25 apixaban 5 mg tablet (Eliquis) 10 mg (2 x 5 mg) PO BID 5 days #20 04/29/25 tabs doxycycline hyclate 100 mg capsule 100 mg PO BID 4 days #8 caps 04/29/25 lansoprazole 30 mg delayed 30 mg feeding tube QDAY #30 tabs 04/29/25 release,disintegrating tablet losartan 50 mg tablet 50 mg PO QDAY #30 tabs 04/29/25 Allergies Allergy/AdvReac Type Severity Reaction Status Date / Time Penicillins Allergy Intermediate Rash Verified 06/29/20 08:33 Review of Systems Review of Systems Systems Reviewed: All systems reviewed, normal except as documented Past Medical History Past Medical History NEUROLOGIC: Positive Neurological Disorders and Cerebrovascular Accident CARDIAC: Positive Cardiac Disorders, Coronary Artery Disease, Hypercholesterolemia and Hypertension RESPIRATORY: Positive Pneumonia GASTROINTESTINAL: Positive Gastrointestinal Disorders and Gall Bladder Disease GENITOURINARY: Positive Genitourinary Disorders, Renal Disease and Dialysis MUSCULOSKELETAL: Positive Musculoskeletal Disorders and Arthritis ENT: Positive Cataracts ENDOCRINE: Positive Endocrine Disorders and Diabetes Mellitus Type 2 HEMATOLOGIC: Positive Blood Disorders and Anemia OTHER HISTORY: Positive Mumps Surgical History SURGICAL: Positive Cardiac Surgery and Coronary Stent Social History SMOKING STATUS: Never smoker SECOND HAND EXPOSURE: No SUBSTANCE USE: does not use ED Exam General Limitations: Present no limitations General appearance: Present alert and in no apparent distress Head Head exam: Present atraumatic Eye Eye exam: Present normal appearance, PERRL and EOMI ENT ENT exam: Present normal exam, normal oropharynx and mucous membranes moist Neck Neck exam: Present normal inspection, full ROM and trachea midline Chest Chest inspection: Present normal inspection and symmetric chest wall rise Respiratory Respiratory exam: Present normal lung sounds bilaterally Cardiovascular Cardiovascular exam: Present regular rate, normal rhythm and normal heart sounds Abdominal Exam Abdominal exam: Present soft and normal bowel sounds Extremities Exam Extremities exam: Present full ROM and other (left upper extremity with several ecchymosis, no deformity, no abscess. 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 NOW Care 05/01/25 13:31 Completed Continuous Pulse Oximetry NOW Care 05/01/25 13:31 Completed EKG (ED ONLY) *Do not use* NOW Care 05/01/25 13:31 Completed Hemodialysis Urgent Care 05/01/25 16:54 Active Insert IV NOW Care 05/01/25 13:31 Active EKG (ED Only) Stat Exams 05/01/25 13:31 Draft XR chest 1V portable Stat Exams 05/01/25 13:31 Completed CBC Stat Lab 05/01/25 13:36 Completed Comprehensive Metabolic Panel Stat Lab 05/01/25 13:36 Completed Partial Thromboplastin Time Stat Lab 05/01/25 13:36 Completed Prothrombin Time with INR Stat Lab 05/01/25 13:36 Completed Troponin I Stat Lab 05/01/25 13:36 Completed Urinalysis Stat Lab 05/01/25 13:31 Ordered Albumin Human 25% Ivpb [Albuminar-25 Ivpb] Med 05/01/25 17:11 Active 25 gm in 100 ml IV PRN Insulin Regular Med 05/01/25 16:53 Discontinued 3 unit IV X1 ONE Insulin Regular Med 05/01/25 13:32 Discontinued 5 unit IV X1 ONE Insulin Regular Med 05/01/25 16:36 Discontinued 6 unit IV X1 ONE Insulin Regular Med 05/01/25 14:52 Discontinued 8 unit IV X1 ONE Sodium Chloride 0.9% 1000 ml [Ns] 1,000 ml Med 05/01/25 13:31 Active IV 100 mls/hr Vital Signs Vital signs: Vital Signs Temperature 98.5 F 05/01/25 13:06 Pulse Rate 77 05/01/25 13:06 Respiratory Rate 20 05/01/25 13:06 Blood Pressure 198/79 H 05/01/25 13:06 Pulse Oximetry (%) 92 L 05/01/25 13:06 Oxygen Delivery Method Nasal Cannula 05/01/25 13:06 Oxygen Flow Rate 2 05/01/25 13:06 Discharge Plan Plan Patient Disposition: HOME (Self Care) Prescriptions/Referrals Prescriptions/Med Rec: No Action atorvastatin 40 mg Tablet 40 mg PO QDAY losartan 100 mg Tablet 100 mg PO QDAY levetiracetam [Keppra] 100 mg/mL solution 500 mg PO BID amoxicillin-pot clavulanate 875-125 mg tablet 1 tab PO BID 4 Days Qty: 8 0RF doxycycline hyclate 100 mg capsule 100 mg PO BID 4 Days Qty: 8 0RF lansoprazole 30 mg tablet,disintegrat, delay rel 30 mg feeding tube QDAY Qty: 30 0RF losartan 50 mg tablet 50 mg PO QDAY Qty: 30 0RF Eliquis 5 mg tablet 5 mg PO BID Qty: 60 0RF Eliquis 5 mg tablet 10 mg PO BID 5 Days Qty: 20 0RF Referrals: No Primary/Family,Physician [Primary Care Provider] - In 1 week Problem List Clinical Impression: Hyperglycemia, End-stage renal disease (ESRD), Dialysis patient Patient/Caregiver Discharge Instructions Print Language: Chinese Stand Alone Forms: Diana Award Info., Patient Portal Info Letter MDM Narrative [facility] hospital course: Ricarda Saravia am scribing for and in the presence of Dr. Barr. 1335: Blood sugar 535. Ordered 5 units of insulin. 1451: Blood sugar 503. Ordered 8 units of insulin. 1553: Blood sugar 344. 1640: I spoke with patients ship's carpenter Dr. Campo. Discussed today lab results and states she will arrange for patient to have dialysis prior to going home. 1800: Patient signed out to Dr. Caceres pending final disposition. Clinical Information Provided by patient and EMS Medical Records Reviewed [facility] (I reviewed yesterdays ED visit 04/30/2025 ) and EMS Meds/Rx Considered, not Ordered None Labs/Rad/Tests considered, not Ordered None Chronic Illness/Social Conditions which may negatively complicate care or outcome(s)-explain: None or not applicable EKG Interpretation EKG #1: Date/time of EK05/01/25 13:38h EKG interpretation: NSR, occasional PVCs, septal infarct of indeterminate age, rate 70, MA 176ms, QRS 88ms. Lab Interpretation Labs: interpreted by pa Lab(s) interpretation(s): CBC no acute findings PT/PTT within normal limits Creatinine elevated though is chronically elevated and missed her dialysis treatment yesterday Potassium within normal limits Imaging Radiology reports / interpretation(s): Ordering Physician: Evans Barr MD Date of Service: 05/01/25 Procedure(s): XR chest 1V portable Accession Number(s): [id number] cc: Evans Barr MD; Joao Quiroz MD~ Examination: AP chest single view Technique one AP portable upright chest single view Date and time: May 01, 2025 1350 hours, comparison April 30, 2025 INDICATIONS: Coughing shortness of breath beginning 2 days ago. FINDINGS: Diffuse left lung pneumonia. Atelectasis right base. Mild heart failure with enlargement left ventricle and very prominent vascular congestion IMPRESSION: Diffuse left lung pneumonia Mild heart failure Dictated By: Joao Quiroz MD Signed By: <Electronically signed by Joao Quiroz MD in OV> 05/01/25 1404 Medication Administration(s) Medication Administration History Sodium Chloride (Ns) 1,000 mls @ 100 mls/hr IV .Q10H ONE Stop: 05/01/25 23:30 Last Admin: 05/01/25 13:45 Dose: 100 mls/hr Documented By: EF Albumin Human (Albuminar-25 Ivpb) 25 gm in 100 mls @ 100 mls/min IV PRN PRN PRN Reason: DIALYSIS Discontinued Medications Insulin Human Regular (Insulin Hum Regular 1 Unit/0.01 Ml (Per Unit)) 5 unit IV X1 ONE Stop: 05/01/25 13:33 Last Admin: 05/01/25 13:45 Dose: 5 unit Documented By: LEIGHA Co-signed By: Insulin Human Regular (Insulin Hum Regular 1 Unit/0.01 Ml (Per Unit)) 8 unit IV X1 ONE Stop: 05/01/25 14:53 Last Admin: 05/01/25 15:03 Dose: 8 unit Documented By: LEIGHA Co-signed By: GAVI Insulin Human Regular (Insulin Hum Regular 1 Unit/0.01 Ml (Per Unit)) 6 unit IV X1 ONE Stop: 05/01/25 16:37 Last Admin: 05/01/25 16:53 Dose: Not Given Documented By: LEIGHA Non-Admin Reason: Cancelled by Provider Insulin Human Regular (Insulin Hum Regular 1 Unit/0.01 Ml (Per Unit)) 3 unit IV X1 ONE Stop: 05/01/25 16:54 Last Admin: 05/01/25 16:57 Dose: 3 unit Documented By: LEIGHA Co-signed By: GAVI See above Diagnosis Most likely dx, and/or detailed dx discussion: Hyperglycemia ESRD on HD Dispositon Disposition: other (Signed out pending final disposition)
[2025-05-01] MEDS: INSULIN HUM REGULAR 1 UNIT/0.01 ML (PER UNIT) 3 UNIT IV (16:57)
--- NOTE | 2025-05-01 17:21 | PC.NURSE ---
patient taken to dialysis
--- NOTE | 2025-05-01 18:07 | EDNOTE_ITS ---
Emergency Room Addendum <Kavitha Guzmán - Last Filed: 05/01/25 21:18> Addendum Narrative: 1800: Care assumed from Dr. Barr (emergency physician). Past medical, surgical, social and family history reviewed. Vitals and home medications reviewed. Results and treatment plan discussed. I will assume the care of the patient at this time and will follow the patient, pending dialysis treatment. The following addendum documentation note is intended to reflect any pending i nformation, findings, or radiology results not included in the patient?s initial chart by the previous shift scribe. <Dieudonne CaceresDO - Last Filed: 05/01/25 21:21> Addendum Narrative: 1800: Care assumed from Dr. Barr (emergency physician). Past medical, surgical, social and family history reviewed. Vitals and home medications reviewed. Results and treatment plan discussed. I will assume the care of the patient at this time and will follow the patient, pending dialysis treatment. The following addendum documentation note is intended to reflect any pending information, findings, or radiology results not included in the patient?s initial chart by the previous shift scribe. Patient came back from dialysis with a blood sugar 105. Patient will be given food to eat. Patient had 3.2 L of fluid removed. Blood pressure is 162/78 and heart rate of 94 and saturation of 97 to 99% at 1-1/2 L nasal cannula. Temperature is 99.1 degrees. Pressure dressing will be removed from the right upper arm AV graft. After the patient eats food the patient will be discharged home in stable condition to keep your dialysis appointments. She is to continue all current medications and to eat regular meals.
[2025-05-02 00:22] VITALS: PULSE 98; RESP 18; TEMP 36.6; O2SAT 95
== END 2025-05-02 00:24 | disposition home or self-care (01) ==
PROVIDERS: Emergency Provider Family Medicine
DX: I13.2 Hypertensive heart and chronic kidney disease with heart failure and with stage 5 chronic kidney disease, or end stage renal disease (principal); N18.6 End stage renal disease; E11.22 Type 2 diabetes mellitus with diabetic chronic kidney disease; E11.65 Type 2 diabetes mellitus with hyperglycemia; J18.9 Pneumonia, unspecified organism; I50.9 Heart failure, unspecified; E78.00 Pure hypercholesterolemia, unspecified; I25.10 Atherosclerotic heart disease of native coronary artery without angina pectoris; Z99.2 Dependence on renal dialysis; Z79.01 Long term (current) use of anticoagulants; E11.42 Type 2 diabetes mellitus with diabetic polyneuropathy; F03.90 Unspecified dementia, unspecified severity, without behavioral disturbance, psychotic disturbance, mood disturbance, and anxiety; Z95.5 Presence of coronary angioplasty implant and graft
CPT/HCPCS: 36415; 71045; 80053; 81001; 84484; 85025; 85610; 85730; 90935; 93005; 96360; 96361; 99283; J1815; J7030; G0257

== ENCOUNTER 2025-05-04 18:42 | Emergency (ER) | payer OTHER, MEDICAID, SELFPAY ==
[2025-05-04] VITALS (8 sets, daily range): BP systolic 174–195; BP diastolic 64–120; PULSE 57–74; RESP 12–98; TEMP 36.6–37.1; O2SAT 97–100
--- NOTE | 2025-05-04 19:21 | PD.EDALLER ---
ED Allergic Reaction RME/HPI General Chief complaint: Allergic Reaction Stated complaint: ALLERGIC REACTION Arrival date/time: 05/04/25 18:42 RME / HPI RME / HPI narrative: See [facility] for Dr. Schwab's HPI Documentation. Known history of allergy to: Penicillin Related Data Home Medications ?Medication ?Instructions ?Recorded ?Confirmed atorvastatin 40 mg tablet 40 mg PO QDAY 11/07/22 04/23/25 losartan 100 mg tablet 100 mg PO QDAY 11/07/22 04/23/25 levetiracetam 100 mg/mL oral 500 mg PO BID 04/23/25 04/23/25 solution (Keppra) Previous Rx's ?Medication ?Instructions ?Recorded apixaban 5 mg tablet (Eliquis) 5 mg PO BID #60 tabs 04/29/25 lansoprazole 30 mg delayed 30 mg feeding tube QDAY #30 tabs 04/29/25 release,disintegrating tablet losartan 50 mg tablet 50 mg PO QDAY #30 tabs 04/29/25 prednisone 50 mg tablet 50 mg PO BID 2 days #4 tabs 05/05/25 Allergies Allergy/AdvReac Type Severity Reaction Status Date / Time Penicillins Allergy Intermediate Rash Verified 06/29/20 08:33 Review of Systems Review of Systems Systems Reviewed: All systems reviewed, normal except as documented Past Medical History Past Medical History NEUROLOGIC: Positive Neurological Disorders and Cerebrovascular Accident CARDIAC: Positive Cardiac Disorders, Coronary Artery Disease, Hypercholesterolemia and Hypertension RESPIRATORY: Positive Pneumonia GASTROINTESTINAL: Positive Gastrointestinal Disorders and Gall Bladder Disease GENITOURINARY: Positive Genitourinary Disorders, Renal Disease and Dialysis MUSCULOSKELETAL: Positive Musculoskeletal Disorders and Arthritis ENDOCRINE: Positive Endocrine Disorders and Diabetes Mellitus Type 2 HEMATOLOGIC: Positive Blood Disorders and Anemia OTHER HISTORY: Positive Measles and Mumps Surgical History SURGICAL: Positive Cardiac Surgery and Coronary Stent ED Exam Narrative Physical exam: See [facility] for Dr. Schwab's Physical Exam Documentation. Course Quality Measures none Orders Category Date Time Status Bedside COVID-19 Antigen Test NOW Care 05/04/25 19:27 Completed Bedside Influenza A&B Antigen Test NOW Care 05/04/25 19:[address] Screening NOW Care 05/04/25 20:53 Completed EKG (ED ONLY) *Do not use* NOW Care 05/04/25 19:29 Completed Saline [Insert IV] NOW Care 05/04/25 19:27 Completed Straight [In and Out Catheter] X1 Care 05/04/25 19:[address] angio chest Stat Exams 05/04/25 20:53 Completed EKG (ED Only) Stat Exams 05/04/25 19:29 Draft US abdomen limited Stat Exams 05/05/25 02:47 Completed US venous doppler LE BI Stat Exams 05/04/25 20:54 Completed US venous doppler UE BI Stat Exams 05/04/25 20:53 Completed XR chest 1V portable Stat Exams 05/04/25 19:29 Completed ABG [Arterial Blood Gas] Stat Lab 05/04/25 19:57 Completed BNP [B-Type Natriuretic Peptide] Stat Lab 05/04/25 19:47 Completed Bilirubin,Direct Stat Lab 05/04/25 19:47 Completed Blood Culture (Lab) Stat Lab 05/04/25 21:20 Received CBC Stat Lab 05/04/25 19:47 Completed CMP [Comprehensive Metabolic Panel] Stat Lab 05/04/25 19:47 Completed CRP [C-Reactive Protein] Stat Lab 05/04/25 19:47 Completed D-Dimer Stat Lab 05/04/25 19:47 Completed ESR [Sed Rate (ESR)] Stat Lab 05/04/25 19:47 Completed Free T3 Stat Lab 05/04/25 21:20 Completed Free T4 (Free Thyroxine) Stat Lab 05/04/25 21:20 Completed Lactate (Lactic Acid) Stat Lab 05/04/25 19:47 Completed Lipase Stat Lab 05/04/25 19:47 Completed Magnesium Stat Lab 05/04/25 19:47 Completed Procalcitonin Stat Lab 05/04/25 19:47 Completed TSH [Thyroid Stimulating Hormone] Stat Lab 05/04/25 19:47 Completed Troponin I Stat Lab 05/04/25 19:47 Completed Famotidine Inj [Pepcid Inj] Med 05/04/25 19:27 Discontinued 20 mg IVP X1 ONE Furosemide Inj [Lasix Inj] Med 05/04/25 19:27 Discontinued 80 mg IVP X1 ONE MethylPREDNISolone.* [SoluMEDROL Inj] Med 05/04/25 19:27 Discontinued 125 mg IVP X1 ONE MethylPREDNISolone.* [SoluMEDROL Inj] Med 05/05/25 03:37 Discontinued 125 mg IVP X1 ONE Morphine Inj Med 05/04/25 19:27 Discontinued 2 mg IVP X1 ONE Nitroglycerin Oint 2% [Nitro-paste Oint 2%] Med 05/04/25 19:27 Discontinued 2 inch TOP X1 ONE cloNIDine HCL [Catapres] Med 05/04/25 22:29 Discontinued 0.4 mg PO X1 ONE Vital Signs Vital signs: Vital Signs Temperature 98.8 F 05/04/25 19:11 Pulse Rate 57 L 05/04/25 19:11 Respiratory Rate 12 05/04/25 19:11 Blood Pressure 175/120 H 05/04/25 19:11 Pulse Oximetry (%) 100 05/04/25 19:11 Oxygen Delivery Method Nasal Cannula 05/04/25 19:11 Oxygen Flow Rate 2 05/04/25 19:11 Allergic Reaction MDM Narrative MDM Narrative:: This section includes all my notes and documentations, including HPI, PE, and ED course. Demetrius Schwab MD HPI: 84 y/o female with Hx of ESRD with Dialysis and Allergy to Penicillin presents BIBA from home c/o facial swelling after taking Amoxillin for the last several days days. No other complaints. ROS: All negative except as documented in HPI. Physical Exam: General: Alert and oriented. No acute distress. High BP noted. HEENT: Diffuse facial angioedema noted. Patent airway. Neck: Supple. Heart: RRR. Lungs: No respiratory distress. Good air movement with bibasilar rales. Abdomen: Soft and nontender. Legs: No clubbing, cyanosis, edema. Skin: Warm and dry. Neuro: Alert and oriented X 3. I reviewed EMS notes. I reviewed all diagnostic test results: My interpretation of the EKG is: Sinus rhythm (59 bpm) with nonspecific ST-T changes. My interpretation of the chest x-ray is increased vascular congestion. My review of the Venous Doppler Study LE BI report is: No DVT. My review of the Venous Doppler Study UE BI report is: No DVT. My review of the Chest CTA report is CHF. My review of the abdominal US report is cholelithiasis. Blood tests remarkable for D-dimer > 3820, Cr 4.5, troponin 0.101 (stable), BNP 2828, and TSH 14.75 (normal free T4 and free T3). Covid/Influenza: Negative. At this point, diagnoses include: ESRD (stable) Allergic Reaction to Penicillin Hypertensive urgency Treatment here included: Pepcid 20 mg Lasix 80 mg SoluMedrol 125 mg Morphine 2 mg Nitro-Paste 2% Catapres 0.4 mg Significant improvement noted. Recommended outpatient care. Based on my best medical judgment, made decision no further evaluation or treatment indicated at this time. Patient understands and agrees to the discharge instructions customized and printed, see below. Discharge instructions from Dr. Schwab: 1. You were treated today for severe allergic reaction to penicillin. Avoid all penicillin containing medications, including amoxicillin and Augmentin. 2. To help prevent the reaction going into your airways and your throat, take prednisone as prescribed. 3. Dialysis later today as scheduled. 4. See your primary care doctor on 05/06/2025 for recheck. Ask to review all test results and official radiology reports, to make sure you receive all necessary follow-ups and monitoring. 5. Seek immediate medical care with worsening, breathing difficulty, or with any concerns. Demetrius Schwab MD Patient data External records reviewed:: [facility] previous records (Reviewed prior ED records from 05/01/25. Patient was seen for Dialysis patient.) and EMS form Clinical information provided by:: EMS Social determinants that could affect healthcare access:: none Patient has the following chronic illnesses:: Coronary Artery Disease, Hypercholesterolemia, Hypertension, Gall Bladder Disease, Renal Disease and Dialysis, Arthritis, Diabetes Mellitus Type 2, Anemia How is presenting disease/condition affected by chronic disease/condition?: exacerbated by Evaluation data The following diagnostics were reviewed and interpreted by me:: lab results, radiology exam(s) and EKG tracing(s) (My interpretation of the EKG is: Sinus rhythm (59 bpm) with nonspecific ST-T changes. Demetrius Schwab MD) Lab and/or radiology exams considered but not ordered:: None Interpretation Summary: I reviewed all diagnostic test results: My interpretation of the EKG is: Sinus rhythm (59 bpm) with nonspecific ST-T changes. My interpretation of the chest x-ray is increased vascular congestion. My review of the Venous Doppler Study LE BI report is: No DVT. My review of the Venous Doppler Study UE BI report is: No DVT. My review of the Chest CTA report is CHF. My review of the abdominal US report is cholelithiasis. Blood tests remarkable for D-dimer > 3820, Cr 4.5, troponin 0.101 (stable), BNP 2828, and TSH 14.75 (normal free T4 and free T3). Covid/Influenza: Negative. Medications / Prescriptions Medications or Prescriptions considered but not ordered:: None Medication administrations:: Medication Administration History Discontinued Medications Clonidine (Clonidine Hcl 0.1 Mg Tablet) 0.4 mg PO X1 ONE Stop: 05/04/25 22:30 Last Admin: 05/04/25 22:37 Dose: 0.4 mg Documented By: MAYELIN Famotidine (Famotidine Inj 10 Mg/Ml Vial 2 Ml) 20 mg IVP X1 ONE Stop: 05/04/25 19:28 Last Admin: 05/04/25 19:47 Dose: 20 mg Documented By: MAYELIN Furosemide (Furosemide Inj 10 Mg/Ml 4ml Vial) 80 mg IVP X1 ONE Stop: 05/04/25 19:28 Last Admin: 05/04/25 19:49 Dose: 80 mg Documented By: MAYELIN Methylprednisolone Sodium Succinate (Methylprednisolone Sod Succ 62.5 Mg/Ml 2ml Vial) 125 mg IVP X1 ONE Stop: 05/04/25 19:28 Last Admin: 05/04/25 19:45 Dose: 125 mg Documented By: MAYELIN Methylprednisolone Sodium Succinate (Methylprednisolone Sod Succ 62.5 Mg/Ml 2ml Vial) 125 mg IVP X1 ONE Stop: 05/05/25 03:38 Last Admin: 05/05/25 03:49 Dose: 125 mg Documented By: MAYEILN Morphine Sulfate (Morphine Sulf Inj 10 Mg/Ml Vial) 2 mg IVP X1 ONE Stop: 05/04/25 19:28 Last Admin: 05/04/25 19:48 Dose: 2 mg Documented By: MAYELIN Nitroglycerin (Nitroglycerin Oint 2% 1 Inch Packet) 2 inch TOP X1 ONE Stop: 05/04/25 19:28 Last Admin: 05/04/25 19:46 Dose: 2 inch Documented By: MAYELIN Pepcid 20 mg, Lasix 80 mg, SoluMedrol 125 mg, Morphine 2 mg, Nitro-Paste 2%, Catapres 0.4 mg Consultations Consultation(s) initiated? (list below): No Diagnosis Differential Diagnosis allergic reaction: anaphylaxis, allergic reaction, angioedema, contact dermatitis, adverse reaction to drug, viral enanthem and urticaria Most likely diagnosis given after review of the tests above:: ESRD, Alergic Reaction to Penicillin, and hypertensive urgency. Admission Indicated Admission indicated?: not indicated Explain why admission is indicated or not indicated:: With significant improvement and no condition needing emergent intervention, there was no indication for admission. Admission Request Was there a request for admission?: No Disposition Plan Disposition Plan: Discharge Discharge Attestation Discharge Attestation: The patient and all family members were given an opportunity to ask questions and understood the discharge instructions. Discharge instructions specifically effects, indications for sooner follow up or return to the emergency department, and the expected course of current diagnosis. Patient condition: Stable Discharge Plan Plan Patient Disposition: HOME (Self Care) Prescriptions/Referrals Prescriptions/Med Rec: New prednisone 50 mg tablet 50 mg PO BID 2 Days Qty: 4 0RF No Action atorvastatin 40 mg Tablet 40 mg PO QDAY losartan 100 mg Tablet 100 mg PO QDAY levetiracetam [Keppra] 100 mg/mL solution 500 mg PO BID lansoprazole 30 mg tablet,disintegrat, delay rel 30 mg feeding tube QDAY Qty: 30 0RF losartan 50 mg tablet 50 mg PO QDAY Qty: 30 0RF Eliquis 5 mg tablet 5 mg PO BID Qty: 60 0RF Referrals: Pablo Chand MD [Primary Care Provider] - In 1 week Problem List Clinical Impression: Allergic reaction to penicillin, End-stage renal disease (ESRD) Patient/Caregiver Discharge Instructions Discharge Activity: activity as tolerated Education Materials: ED Angioedema, ED Drug Reaction, Other Additional Instructions: Discharge instructions from Dr. Schwab: 1. You were treated today for severe allergic reaction to penicillin. Avoid all penicillin containing medications, including amoxicillin and Augmentin. 2. To help prevent the reaction going into your airways and your throat, take prednisone as prescribed. 3. Dialysis later today as scheduled. 4. See your primary care doctor on 05/06/2025 for recheck. Ask to review all test results and official radiology reports, to make sure you receive all necessary follow-ups and monitoring. 5. Seek immediate medical care with worsening, breathing difficulty, or with any concerns. Print Language: Kyrgyz Stand Alone Forms: Diana Award Info., Patient Portal Info Letter
--- NOTE | 2025-05-04 19:29 | XR_ITS ---
Examination: AP chest single view Technique: Portable AP sitting chest single view Date and time: May 04, 2025 1934 hrs., Comparison May 01, 2025 Indications: Shortness of breath today. Findings: Moderate CHF. Moderate enlargement cardiac contour with prominent vascular congestion and perihilar edema Layered pleural fluid at least moderate bilaterally Impression: Moderate CHF
--- NOTE | 2025-05-04 19:29 | EKG_ITS ---
[facility] Test Date: 2025-05-04 Pat Name: BLU TORREZ Department: Room: - Gender: Female Weight Clerk: : 1940 Requested By: Demetrius Turpin Order Number: [id number] Reading MD: Demetrius Turpin Measurements Intervals [place] Rate: 59 P: 0 AR: 165 QRS: 0 QRSD: 90 T: 137 QT: 429 QTc: 425 Interpretive Statements SINUS BRADYCARDIA MODERATE T-WAVE ABNORMALITY, CONSIDER ANTERIOR ISCHEMIA [-0.1+ mV T-WAVE IN V3/V4] Compared to ECG 05/01/2025 13:38:32 T-wave abnormality now present Possible ischemia now present Sinus rhythm no longer present Ventricular premature complex(es) no longer present Myocardial infarct finding no longer present /store/S0/[id number].pdf
[2025-05-04] MEDS: MethylPREDNISolone SOD SUCC 62.5 MG/ML 2ML VIAL 125 MG IVP (19:45)
[2025-05-04] MEDS: NITROGLYCERIN OINT 2% 1 INCH PACKET 2 INCH TOP (19:46)
[2025-05-04] MEDS: FAMOTIDINE INJ 10 MG/ML VIAL 2 ML 20 MG IVP (19:47)
[2025-05-04] MEDS: MORPHINE SULF INJ 10 MG/ML VIAL 2 MG IVP (19:48)
[2025-05-04] MEDS: FUROSEMIDE INJ 10 MG/ML 4ML VIAL 80 MG IVP (19:49)
[2025-05-04 20:01] LABS: Lactate (Lactic Acid) 1.5 mMol/L (0.4-2.0)
[2025-05-04 20:04] LABS: Basophils # (Auto) 0.0 Thou/mm3 (0.0-0.2); Basophils % (Auto) 1 % (0-2.5); Eosinophils # (Auto) 0.2 Thou/mm3 (0.0-0.5); Eosinophils % (Auto) 3 % (0-10); Hematocrit 36.9 % (36.0-46.0); Hemoglobin 11.7 g/dL (12.0-16.0); Immature Granulocytes Auto 0.09 Thou/mm3 (0.00-0.00); Lymphocytes # (Auto) 0.8 Thou/mm3 (1.0-4.8); Lymphocytes % (Auto) 10 % (10-50); Mean Corpuscular HGB Conc 31.7 g/dl (31.0-37.0); Mean Corpuscular Hemoglobin 29.8 pg (25.0-35.0); Mean Corpuscular Volume 94 fL (80-100); Monocytes # (Auto) 0.7 Thou/mm3 (0.0-0.8); Monocytes % (Auto) 9 % (0-12); Neutrophils # (Auto) 5.8 Thou/mm3 (1.8-7.7); Neutrophils % (Auto) 77 % (37-80); Nucleated Red Blood Cell # 0.00 Thou/mm3 (0.00-0.00); Nucleated Red Blood Cell % 0 /100 WBC (0); Platelet Count 140 Thou/mm3 (140-440); RDW Standard Deviation 51.9 fL (36.4-46.3); Red Blood Count 3.92 Miln/mm3 (4.00-5.20); White Blood Count 7.6 Thou/mm3 (3.6-11.0)
[2025-05-04 20:16] LABS: Allen Test Not Performed; Base Excess 3 (-3-3); HCO3 28 mEq/L (20-26); Inspired Oxygen, FIO2 28 %; O2 Saturation 95 % (91-98); PCO2 48 mmHg (32.0-48.0); PO2 74 mmHg (83-108); Puncture Site Right Brachial; pH, Arterial 7.38 (7.35-7.45)
[2025-05-04 20:32] LABS: Sed Rate (ESR) 27 mm/hr (0-30)
[2025-05-04 20:37] LABS: D-Dimer > 3820 ng/mL (<600)
[2025-05-04 20:45] LABS: Alanine Aminotransferase 12 U/L (10-49); Albumin, Serum 3.3 gm/dL (3.4-4.8); Albumin/Globulin Ratio 1.0 (1.2-2.2); Alkaline Phosphatase 225 U/L (46-116); Anion Gap 9 (7-16); Aspartate Amino Transferase 26 U/L (0-34); BUN/Creatinine Ratio 13 Ratio (12-20); Bilirubin,Direct 0.1 mg/dL (0.0-0.3); Bilirubin,Total 0.3 mg/dL (0.3-1.2); Blood Urea Nitrogen 59 mg/dL (9-23); C-Reactive Protein 1.8 mg/dL (0.0-0.9); Calcium 8.9 mg/dL (8.3-10.6); Calcium (Corrected) 9.5 mg/dL (8.5-10.1); Carbon Dioxide 26.7 mMol/L (20.0-31.0); Chloride 94 mMol/L (98-107); Creatinine (Component) 4.5 mg/dL (0.6-1.3); Globulin 3.2 gm/dL (2.3-3.5); Glucose 211 mg/dL (74-106); Lipase 65 U/L (12-53); Magnesium 2.0 mg/dL (1.6-2.6); Osmolality,Calculated 283 (275-295); Potassium 4.1 mMol/L (3.4-5.1); Procalcitonin 0.42 ng/ml (0.0-0.49); Sodium 130 mMol/L (136-145); Thyroid Stimulating Hormone 14.75 uIU/mL (0.55-4.78); Total Protein 6.5 gm/dL (5.7-8.2); eGFR 9 See Note
[2025-05-04 20:47] LABS: Troponin I 0.101 ng/mL (0.0-0.045)
[2025-05-04 20:53] LABS: B-Type Natriuretic Peptide 2828 pg/mL (0-100)
--- NOTE | 2025-05-04 20:53 | XR_ITS ---
Examination: Venous duplex upper extremity sonogram, bilateral. Date and time of exam: July 04, 2020 5:10 PM Indications: Hypertension, Technique: Multiple sonographic images of the deep venous system have been obtained. B-mode/2-D grayscale imaging of vascular structures and Doppler spectral analysis (waveforms) and color performed Both legs are examined. Findings: Deep venous systems do not demonstrate abnormal echogenicity. Limited study, no diagnostic visualization right axillary brachial or basilic veins All visualized deep veins exhibit compressibility. All visualized deep veins exhibit augmentation. Right AV fistula patent Impression: Negative for deep vein thrombosis Positive for thrombus in the superficial left cephalic vein
--- NOTE | 2025-05-04 20:53 | XR_ITS ---
Examination: CTA chest with intravenous contrast 2-D reconstructions 3-D reconstructions, vascular Date and time of exam: May 05, 2025, 0054 hrs., Comparison April 24, 2025 Indications: Shortness of breath chest pain elevated d-dimer today CTDI: vol (mGy) 13.7 DLP: (mGycm) 197. 2-D sagittal coronal reconstructions 3-D angiographic renderings 3-D volume renderings 3-D postprocessing, vascular maximum intensity projections 100 cc [id number] Low dose protocols, automated exposure control, adjustment MA KV according to patient size Findings: Multiple axial sections of the thorax have been obtained. 3 mm slice thickness, from below the hemidiaphragms to above the apices of the lungs. Mediastinal and lung density settings have been obtained. 2-D sagittal and coronal reconstructions. 3-D angiographic renderings, 3-D volume renderings, 3D post processing, vascular maximum intensity projections obtained. Contrast administered is 100 cc [id number] Findings: No thoracic aortic aneurysmal dilatation No pulmonary artery emboli Moderate enlargement cardiac contour Pericardial effusion measuring up to 13 mm Bilateral pulmonary edema with moderate to large left pleural effusion mild right pleural effusion Atelectasis versus pneumonia at the lung bases Anasarca Liver irregular in contour Gastrostomy tube satisfactory position Distended gallbladder with gallstones and gallbladder wall thickening Atrophic kidneys Mild ascites. Impression: Negative for pulmonary artery emboli [id number] heart failure Atelectasis versus pneumonia at the lung bases with moderate to large left pleural effusion Cirrhosis Distended gallbladder, gallstones, gallbladder wall is thickened which may relate to the patient's ascites but clinical correlation advised, recommend HIDA scan or MRCP follow-up
--- NOTE | 2025-05-04 20:54 | XR_ITS ---
Examination: Venous duplex lower extremity sonogram, bilateral. Date and time of exam: May 04, 2025 2146 hrs. Indications: Elevated d-dimer today, hypertension, leg redness Technique: Multiple sonographic images of the deep venous system have been obtained. B-mode/2-D grayscale imaging of vascular structures and Doppler spectral analysis (waveforms) and color performed Both legs are examined. Findings: Deep venous systems do not demonstrate abnormal echogenicity. All visualized deep veins exhibit compressibility. All visualized deep veins exhibit augmentation. Impression: Negative for deep vein thrombosis
--- NOTE | 2025-05-04 21:49 | PC.NURSE ---
in and out cath attempted, not enough urine to collect per patient does not urinate often
[2025-05-04 22:16] LABS: Free T3 2.5 pg/mL (2.3-4.2); Free T4 (Free Thyroxine) 0.97 ng/dL (0.89-1.76)
[2025-05-05 00:21] VITALS: BP 117/47; PULSE 48; RESP 17; O2SAT 97
[2025-05-05 02:04] VITALS: BP 140/65; PULSE 59; RESP 16; O2SAT 98
--- NOTE | 2025-05-05 02:39 | PRELIM_ITS ---
CT angiogram of the chest with intravenous contrast (axial sections with sagittal and coronal reformats, 3D/MIP reconstructed images) May 05, 2025 0054 hours Clinical History: SOB HIGH DIMER No prior study is available for comparison. Findings: There is no filling defect within the pulmonary artery divisions to suggest pulmonary thromboembolism. There are few prominent mediastinal lymph nodes, likely reactive. The thoracic aorta demonstrates mild atheromatous calcification without evidence of aneurysm. There is mild cardiomegaly. Mitral valve and aortic root calcifications are present. Coronary artery calcification is noted. There is small pericardial effusion. There is moderate left and small to moderate right pleural effusion with underlying atelectasis/consolidation. There are patchy ill-defined airspace opacities in the remaining lungs. There is mild streaky atelectasis in both lungs. No evidence of pneumothorax. There is osteopenia. Mild degenerative changes are identified in the spine. There is T6-T7 fusion. There are chronic left lower rib deformities. There is diffuse chest wall edema. There is moderate distention of the gallbladder with multiple dependent calculi. There is mild pericholecystic fluid. A percutaneous gastrostomy tube is noted with its bulb in the body of stomach. There is mild ascites in the upper abdomen. Impression: No evidence of pulmonary thromboembolism. Mild cardiomegaly with small pericardial effusion and features of congestive heart failure. Recommend clinical correlation and follow-up. Moderately distended gallbladder with cholelithiasis and mild pericholecystic fluid, which may be related to ascites. Possibility of acute cholecystitis cannot be excluded in the appropriate clinical setting. Recommend followup. Other findings as described above. Report Electronically Signed By: Dexter Cote 05/05/2025 2:39:02 AM [EST]
--- NOTE | 2025-05-05 02:47 | XR_ITS ---
Examination: Abdomen sonogram, Limited Date and time of exam: May 05, 2025 at 0321 hours INDICATIONS: Elevated liver function tests abdominal pain beginning last month Technique: Real-time shepherd scale transabdominal sonographic images of the upper abdomen obtained. Findings: Gallstones. Gallbladder wall is thickened 0.4 cm with pericholecystic fluid Common bile duct 0.3 cm Pancreatic head 2.2 cm Liver 13.6 cm no focal liver lesions, mild ascites Normal hepatopedal portal venous flow Patent IVC IMPRESSION: Cholelithiasis, gallbladder wall is thickened however the patient has ascites, clinical correlation advised, suggest HIDA scan or MRCP follow-up as clinically warranted
[2025-05-05] MEDS: MethylPREDNISolone SOD SUCC 62.5 MG/ML 2ML VIAL 125 MG IVP (03:49)
[2025-05-05 04:02] VITALS: BP 151/57; PULSE 53; RESP 19; TEMP 37; O2SAT 99
--- NOTE | 2025-05-05 04:14 | PRELIM_ITS ---
Ultrasound Abdomen. May 05, 2025 at 0321 hours Clinical history: CT reading recommended US to assess for cholecystitis. Technique: Grayscale and color flow images of the abdomen are provided. Hepatic and portal veins were also imaged with color flow images. Comparison: No prior study is available for comparison. Findings: The liver measures 13.6 cm and demonstrates homogeneous echogenicity. No intrahepatic biliary ductal dilatation is seen. Mild ascites is present. The gallbladder contains echogenic calculi with posterior acoustic shadowing. The gallbladder wall is mildly thickened, measuring 4 mm. Mild pericholecystic fluid is demonstrated. The common bile duct measures 2.9 mm and is not dilated. The pancreas is visualized with a head measurement of 2.2 cm and appears unremarkable. The main portal vein demonstrates hepatopetal flow. The inferior vena cava is patent. The spleen and kidneys were not documented on this exam. Impression: Cholelithiasis with mild gallbladder wall thickening and pericholecystic fluid, findings suspicious for acute cholecystitis. Mild ascites. Report Electronically Signed By: Meeta Ramirez 05/05/2025 4:13:59 AM [EST]
[2025-05-05 04:25] VITALS: PULSE 61; RESP 17; TEMP 37.2
== END 2025-05-05 04:30 | disposition home or self-care (01) ==
PROVIDERS: Emergency Provider Emergency Medicine; PCP Internal Medicine
DX: R22.0 Localized swelling, mass and lump, head (principal); T36.0X5A Adverse effect of penicillins, initial encounter; I16.0 Hypertensive urgency; I13.2 Hypertensive heart and chronic kidney disease with heart failure and with stage 5 chronic kidney disease, or end stage renal disease; N18.6 End stage renal disease; I50.9 Heart failure, unspecified; E78.00 Pure hypercholesterolemia, unspecified; E11.22 Type 2 diabetes mellitus with diabetic chronic kidney disease; K80.20 Calculus of gallbladder without cholecystitis without obstruction; R79.89 Other specified abnormal findings of blood chemistry; Z99.2 Dependence on renal dialysis
CPT/HCPCS: 36415; 36600; 71045; 71275; 76705; 80053; 81001; 82248; 82803; 83605; 83690; 83735; 83880; 84145; 84439; 84443; 84481; 84484; 85025; 85379; 85652; 86140; 87040; 87400; 87811; 93005; 93970; 96374; 96375; 96376; 99284; A4649; J1938; J2270; J2919; J3490; Q9967; A9270